=== PATIENT | female | born 1950 | race Caucasian/White ===

== ENCOUNTER 2022-01-28 10:56 | Inpatient (IN) ==
[2022-01-28] MEDS ORDERED: SODIUM CHLORIDE 0.9% 1000ML 1,000 ML IV STA (11:43)
--- NOTE | 2022-01-28 11:53 | Emergency Department Note ---
Impression & Plan UTI (urinary tract infection), Anemia, Bladder cancer metastasized to bone, Fever ED Provider Note Provider: Zeke Boo MD DATE OF SERVICE: 01/28/2022 CHIEF COMPLAINT: Fever, fatigue HISTORY OF PRESENT ILLNESS: Patient is a 71-year-old female history of bladder cancer with urostomy currently on chemotherapy follows in [place] as well as a recent diagnosis of left lower extremity DVT started last week on Eliquis presenting here today with daughter reporting fever starting yesterday. States has been the highest 104 Fahrenheit continued this morning. Did take Tylenol. has been feeling more fatigued the last several days. Did have infusion of chemotherapy on Sunday. Denies any falls or trauma. Denies chest pain, headaches, or abdominal pain. They have noticed a few flecks of blood in her ostomy at times but no gross bleeding. has been trying to hydrate but daughter states this is in their estimation not enough. Has been eating some and denies nausea or vomiting. Family have been sick with RSV she denies URI symptoms. UTI about 3 weeks ago. REVIEW OF SYSTEMS: A total of 10 review of systems was obtained and negative except as stated above in the HPI. PAST MEDICAL HISTORY: As noted above MEDICATIONS: Reviewed with him home medications now including Eliquis SOCIAL HISTORY: Resides at home in [place] PHYSICAL EXAM: GENERAL: alert and oriented in no acute distress on stretcher Head: normocephalic and atraumatic EYES: No injection, discharge or icterus. NECK: Trachea midline. ENT: Mucous membranes pink and moist. LUNGS: Airway patent. No retractions. Breath sounds clear with good air entry bilaterally. HEART: Regular rate and rhythm. No chest wall tenderness ABDOMEN: Soft and non-tender, without guarding or rebound. Urostomy in place in mid lower abdomen with some darkish yellow urine output. Not grossly bloody. SKIN: Acyanotic, warm, dry, without rashes EXTREMITIES: Without swelling, tenderness or deformity NEUROLOGICAL: No focal deficits. No aphasia. No facial droop or slurred speech. Ambulatory. CONTINUOUS CARDIAC MONITORING: was ordered and showed a heart rate of 80s-100s bpm in NSR and sinus tachycardia Patient's laboratory studies and imaging reviewed. Differential includes Viral syndrome, otitis, pharyngitis, pneumonia, influenza, meningitis, urinary tract infection, sepsis, bacteremia, as well as other pathologies. IMPRESSION/MEDICAL DECISION MAKING: Patient does appear meningitic and denies any headache symptoms. Tylenol before arrival reports fevers yesterday evening and today. Is on chemotherapy. Did notice with occasional flecks of blood in urostomy not atypical given new institution of [facility]. Denies any pain complaints. Abdomen is benign I doubt acute intra-abdominal pathology or obstructive pathology given this and her lack of pain. Blood pressure is in the 80s systolic although she is fairly thin with some IV hydration. Respiratory viral panel to be sent with cultures and blood work. Chest x-ray be obtained. Having respiratory symptoms however. Patient does relate having prior blood transfusions as well as having a cell stimulating Neulasta/Neupogen shot 2 days ago. This could explain the elevated white blood cell count. Anemia today and has been on a blood thinner. States it was recently 8 several days ago but denies any blood in the stool or black stools.. Has had blood transfusions in the past. Doubt active GI bleed but will type and screen and plan to transfuse 1 unit. Procalcitonin elevated at 6. Difficult to interpret leukocytosis but is having fevers on chemotherapy with an elevated procalcitonin is high in significant anemia feel that observation in antimicrobial therapy would be warranted. Blood cultures were sent. Question urinary source. Again she does not look meningitic or toxic but fatigued. Blood pressure did improve to the 90s with some IV fluids here. Did spike a fever here and given Tylenol and Motrin. Hospitalist evaluated and will observe. Negative viral panel. DIAGNOSIS: Fevers, bladder cancer, anemia, UTI DISPOSITION: Hospitalist will evaluate Patient was agreeable with this plan. Critical Care I have personally spent 32 minutes of critical care time in the direct management of this patient. This includes bedside care, interpretation of diagnostic studies, and testing, discussion with consultants, patient, and family members, and other required patient management activities. These 32 minutes is in excess of all separately billable procedures. Past Med/Surg History Medical History (Updated 01/28/22 @ 16:51 by Zeke Boo M.D.) Acute DVT (deep venous thrombosis) Bladder cancer metastasized to bone Surgical History (Updated 01/06/22 @ 12:57 by America Mcneal RN) History of hysterectomy History of total cystectomy Social History Smoking Status: Never smoker Preferred Language: [place] Feels Safe at Home: Yes Allergies Allergies Allergy/AdvReac Type Severity Reaction Status Date / Time Sulfa (Sulfonamide Allergy Unknown Verified 01/28/22 16:04 Antibiotics) Home Meds Home Medications Medication Instructions Recorded Confirmed Ayjames-Jean Carlosia Aniket 2 tab PO BID 01/28/22 01/28/22 Berberine Complex 2 cap PO BID 01/28/22 01/28/22 Curcu-Essentials 1 tab PO BID 01/28/22 01/28/22 Curcumin Iv 0 mg IV .[id number] 01/28/22 01/28/22 Glutathione Iv 0 mg IV .[id number] 01/28/22 01/28/22 Isoflavone Caps 2 cap PO BID 01/28/22 01/28/22 L-Glutamine Pow 0 mg PO DIRECTED 01/28/22 01/28/22 Methyl-Guard 1 cap PO DAILY 01/28/22 01/28/22 Multivitamin Iv 0 mg IV .[id number] 01/28/22 01/28/22 Nutri-Essentials 2 cap PO DAILY 01/28/22 01/28/22 Opti-Cell Plus 3 tab PO BID 01/28/22 01/28/22 Proepa 1 tab PO BID 01/28/22 01/28/22 Quercetin Iv 0 mg IV .[id number] 01/28/22 01/28/22 Reservatrol Iv 0 mg IV .[id number] 01/28/22 01/28/22 Turbo Greens 1 ea PO BID 01/28/22 01/28/22 Ultra Lipoic Essentials 2 tab PO BID 01/28/22 01/28/22 Ultra Reishi 2 tab PO BID 01/28/22 01/28/22 Vitamin C Iv 0 mg IV .[id number] 01/28/22 01/28/22 acetaminophen 500 mg tablet 1,000 mg PO Q6H PRN Fever Or Pain 01/28/22 01/28/22 apixaban 5 mg tablet (Eliquis) 5 mg PO BID 01/28/22 01/28/22 cholecalciferol (vitamin D3) 125 125 mcg PO DAILY 01/28/22 01/28/22 mcg (5,000 unit) tablet (Vitamin D3) gabapentin 300 mg capsule 300 mg PO QAM 01/28/22 01/28/22 hydroxyzine HCl 25 mg tablet 25 mg PO QAM 01/28/22 01/28/22 lysine 500 mg tablet (L-Lysine) 500 mg PO DAILY 01/28/22 01/28/22 magnesium citrate 100 mg capsule 0 mg PO BID 01/28/22 01/28/22 ondansetron HCl 4 mg tablet 4 mg PO Q8H PRN .NAUSEA/VOMITING 01/28/22 01/28/22 oxycodone 5 mg tablet 5 - 10 mg PO .Q4-6HRS PRN Pain 01/28/22 01/28/22 zinc acetate 25 mg (zinc) capsule 0 mg PO DAILY 01/28/22 01/28/22 Results & Data (ED) Vital Signs Vital Signs - 24 hr 01/28/22 11:02 01/28/22 12:38 01/28/22 12:38 Temperature 36.7 C Temperature Source Oral Pulse Rate 84 Pulse Rate from SpO2 Sensor 76 Pulse Rhythm Regular Pulse Strength Normal Respiratory Rate 16 Blood Pressure 89/59 L 97/53 L Blood Pressure Mean 69 67 Blood Pressure Position Sitting Pulse Oximetry 98 97 Oxygen Delivery Method Room Air Sepsis Recent Fever Within 48 Hours No Sepsis New/Unexplained Change in Mental Status No Sepsis Action Taken by Nursing No Action Required 01/28/22 12:40 01/28/22 12:50 01/28/22 13:00 Temperature Temperature Source Pulse Rate Pulse Rate from SpO2 Sensor 76 75 Pulse Rhythm Pulse Strength Respiratory Rate Blood Pressure 95/56 L Blood Pressure Mean 69 Blood Pressure Position Pulse Oximetry 98 99 Oxygen Delivery Method Sepsis Recent Fever Within 48 Hours Sepsis New/Unexplained Change in Mental Status Sepsis Action Taken by Nursing 01/28/22 13:00 01/28/22 13:10 01/28/22 13:20 Temperature Temperature Source Pulse Rate Pulse Rate from SpO2 Sensor 79 77 73 Pulse Rhythm Pulse Strength Respiratory Rate Blood Pressure Blood Pressure Mean Blood Pressure Position Pulse Oximetry 87 L 99 96 Oxygen Delivery Method Sepsis Recent Fever Within 48 Hours Sepsis New/Unexplained Change in Mental Status Sepsis Action Taken by Nursing 01/28/22 13:26 01/28/22 13:26 01/28/22 13:27 Temperature Temperature Source Pulse Rate Pulse Rate from SpO2 Sensor 78 Pulse Rhythm Pulse Strength Respiratory Rate Blood Pressure 100/68 Blood Pressure Mean 78 Blood Pressure Position Pulse Oximetry 90 100 Oxygen Delivery Method Sepsis Recent Fever Within 48 Hours Sepsis New/Unexplained Change in Mental Status Sepsis Action Taken by Nursing 01/28/22 13:30 01/28/22 13:37 01/28/22 13:40 Temperature Temperature Source Pulse Rate Pulse Rate from SpO2 Sensor 82 89 Pulse Rhythm Pulse Strength Respiratory Rate Blood Pressure 101/55 L Blood Pressure Mean 70 Blood Pressure Position Pulse Oximetry 94 91 Oxygen Delivery Method Sepsis Recent Fever Within 48 Hours Sepsis New/Unexplained Change in Mental Status Sepsis Action Taken by Nursing 01/28/22 13:50 01/28/22 14:00 01/28/22 14:00 Temperature Temperature Source Pulse Rate Pulse Rate from SpO2 Sensor 78 77 Pulse Rhythm Pulse Strength Respiratory Rate Blood Pressure 109/58 L Blood Pressure Mean 75 Blood Pressure Position Pulse Oximetry 98 100 Oxygen Delivery Method Sepsis Recent Fever Within 48 Hours Sepsis New/Unexplained Change in Mental Status Sepsis Action Taken by Nursing 01/28/22 14:10 01/28/22 14:20 01/28/22 14:30 Temperature Temperature Source Pulse Rate Pulse Rate from SpO2 Sensor 86 99 H 104 H Pulse Rhythm Pulse Strength Respiratory Rate Blood Pressure Blood Pressure Mean Blood Pressure Position Pulse Oximetry 96 100 96 Oxygen Delivery Method Sepsis Recent Fever Within 48 Hours Sepsis New/Unexplained Change in Mental Status Sepsis Action Taken by Nursing 01/28/22 14:40 01/28/22 14:50 01/28/22 15:00 Temperature Temperature Source Pulse Rate Pulse Rate from SpO2 Sensor 114 H 116 H Pulse Rhythm Pulse Strength Respiratory Rate Blood Pressure 142/69 H Blood Pressure Mean 93 Blood Pressure Position Pulse Oximetry 100 98 Oxygen Delivery Method Sepsis Recent Fever Within 48 Hours Sepsis New/Unexplained Change in Mental Status Sepsis Action Taken by Nursing 01/28/22 15:00 01/28/22 15:55 01/28/22 16:13 Temperature 39.2 C H 38.3 C H Temperature Source Oral Oral Pulse Rate 106 H 104 H Pulse Rate from SpO2 Sensor 111 H Pulse Rhythm Regular Pulse Strength Normal Respiratory Rate 20 18 Blood Pressure 139/71 92/50 L Blood Pressure Mean 93 64 Blood Pressure Position Lying Pulse Oximetry 97 96 97 Oxygen Delivery Method Sepsis Recent Fever Within 48 Hours Sepsis New/Unexplained Change in Mental Status Sepsis Action Taken by Nursing 01/28/22 16:10 01/28/22 16:25 Temperature 38.3 C H 37.7 C H Temperature Source Oral Oral Pulse Rate 100 H 102 H Pulse Rate from SpO2 Sensor Pulse Rhythm Regular Pulse Strength Normal Respiratory Rate 20 18 Blood Pressure 92/50 L 96/46 L Blood Pressure Mean 64 62 Blood Pressure Position Lying Pulse Oximetry 97 95 Oxygen Delivery Method Sepsis Recent Fever Within 48 Hours Sepsis New/Unexplained Change in Mental Status Sepsis Action Taken by Nursing Laboratory Data Result diagrams: 01/28/22 12:00 01/28/22 12:00 Lab Results 01/28/22 01/28/22 01/28/22 Range/Units 12:00 12:00 12:00 WBC 42.85 H* (4.8-10.8) K/ul RBC 1.99 L (3.93-5.22) M/uL Hgb 7.0 L (12.0-16.0) g/dl Hct 20.7 L* (34.1-44.9) % MCV 104.0 H (80.0-100.0) fL MCH 35.2 H (25.0-34.0) pg MCHC 33.8 (32.0-36.0) g/dL RDW Std Deviation 69.0 H (36.4-46.3) fL RDW Coeff of Macario 18.4 H (11.5-14.5) % Plt Count 123 L (130-400) K/uL MPV 9.7 (9.4-12.3) fL Neutrophils % (Manual) 97 % Lymphocytes % (Manual) 3 % Neutrophils # (Manual) 41.56 H (1.4-6.5) K/uL Total Absolute Neuts 41.56 H (1.4-6.5) K/uL Lymphocytes # (Manual) 1.29 (1.2-3.4) K/uL Total Abs Lymphocytes 1.29 (1.2-3.4) K/uL Toxic Vacuolation 1+ Platelet Estimate Decreased L (Normal) Anisocytosis Present Macrocytosis Present Sodium 133 L (136-145) mmol/L Potassium 3.5 (3.5-5.1) mmol/L Chloride 98 (98-107) mmol/L Carbon Dioxide 25 (21-32) mmol/L Anion Gap 10 (3-11) BUN 23 (6-23) mg/dl Creatinine 0.89 (0.6-1.2) mg/dl Est Cr Clr Drug Dosing 42.9 ml/min Est GFR ( Amer) 75.0 ml/min Est GFR (Non-Af Amer) 64.7 ml/min BUN/Creatinine Ratio 25.8 H (10-20) Glucose 111 H (70-99(Fasting)) mg/dl Lactate (0.4-2.0) mmol/L Calcium 8.0 L (8.5-10.1) mg/dl Total Bilirubin 0.4 (0.2-1.0) mg/dl AST 16 (13-39) U/L ALT 17 (7-52) U/L Alkaline Phosphatase 78 (34-104) U/L Troponin I High Sens 10.5 (0-14) pg/ml Total Protein 6.1 (6.0-8.3) gm/dl Albumin 2.9 L (3.4-5.0) gm/dl Globulin 3.2 (2.5-4.0) gm/dl Albumin/Globulin Ratio 0.9 (0.9-2) Procalcitonin 6.18 H (0-0.5) ng/ml Urine Color Urine Appearance (Clear) Urine pH (4.5-7.5) Ur Specific [place] (1.000-1.030) Urine Protein (Negative) Urine Glucose (UA) (Negative) Urine Ketones (Negative) Urine Blood (Negative) Urine Nitrite (Negative) Urine Bilirubin (Negative) Urine Urobilinogen (Negative) Ur Leukocyte Esterase (Negative) Urine WBC (Auto) (0-5) /hpf Urine RBC (Auto) (0-4) /hpf U Hyaline Cast (Auto) (0-5) /lpf U Epithel Cells (Auto) (0-5) /lpf Urine Bacteria (Auto) (Negative) Urine Yeast Adenovirus (PCR) (NotDetected) B. pertussis DNA (PCR) (NotDetected) B.parapertussis DNA PCR (NotDetected) C. pneumoniae DNA (PCR) (NotDetected) Coronavirus OC43 (PCR) (NotDetected) Coronavirus HKU1 (PCR) (NotDetected) Coronavirus 229E (PCR) (NotDetected) SARS-CoV-2 (PCR) (NotDetected) Coronavirus NL63 (PCR) (NotDetected) Human Metapneumovir PCR (NotDetected) Influenza Type A (PCR) (NotDetected) Influenza Type B (PCR) (NotDetected) M. pneumoniae (PCR) (NotDetected) Parainfluenza 1 (PCR) (NotDetected) Parainfluenza 2 (PCR) (NotDetected) Parainfluenza 3 (PCR) (NotDetected) Parainfluenza 4 (PCR) (NotDetected) RSV (PCR) (NotDetected) Entero/Rhino (PCR) (NotDetected) Blood Type Antibody Screen Crossmatch 01/28/22 01/28/22 01/28/22 Range/Units 12:00 12:00 13:00 WBC (4.8-10.8) K/ul RBC (3.93-5.22) M/uL Hgb (12.0-16.0) g/dl Hct (34.1-44.9) % MCV (80.0-100.0) fL MCH (25.0-34.0) pg MCHC (32.0-36.0) g/dL RDW Std Deviation (36.4-46.3) fL RDW Coeff of Macario (11.5-14.5) % Plt Count (130-400) K/uL MPV (9.4-12.3) fL Neutrophils % (Manual) % Lymphocytes % (Manual) % Neutrophils # (Manual) (1.4-6.5) K/uL Total Absolute Neuts (1.4-6.5) K/uL Lymphocytes # (Manual) (1.2-3.4) K/uL Total Abs Lymphocytes (1.2-3.4) K/uL Toxic Vacuolation Platelet Estimate (Normal) Anisocytosis Macrocytosis Sodium (136-145) mmol/L Potassium (3.5-5.1) mmol/L Chloride (98-107) mmol/L Carbon Dioxide (21-32) mmol/L Anion Gap (3-11) BUN (6-23) mg/dl Creatinine (0.6-1.2) mg/dl Est Cr Clr Drug Dosing ml/min Est GFR ( Amer) ml/min Est GFR (Non-Af Amer) ml/min BUN/Creatinine Ratio (10-20) Glucose (70-99(Fasting)) mg/dl Lactate 0.8 (0.4-2.0) mmol/L Calcium (8.5-10.1) mg/dl Total Bilirubin (0.2-1.0) mg/dl AST (13-39) U/L ALT (7-52) U/L Alkaline Phosphatase (34-104) U/L Troponin I High Sens (0-14) pg/ml Total Protein (6.0-8.3) gm/dl Albumin (3.4-5.0) gm/dl Globulin (2.5-4.0) gm/dl Albumin/Globulin Ratio (0.9-2) Procalcitonin (0-0.5) ng/ml Urine Color Dark Yellow Urine Appearance Turbid A (Clear) Urine pH 7.0 (4.5-7.5) Ur Specific [place] 1.018 (1.000-1.030) Urine Protein 3+ H (Negative) Urine Glucose (UA) Negative (Negative) Urine Ketones Negative (Negative) Urine Blood 3+ H (Negative) Urine Nitrite Negative (Negative) Urine Bilirubin Negative (Negative) Urine Urobilinogen Negative (Negative) Ur Leukocyte Esterase 3+ H (Negative) Urine WBC (Auto) >30 H (0-5) /hpf Urine RBC (Auto) >30 H (0-4) /hpf U Hyaline Cast (Auto) 5-10 H (0-5) /lpf U Epithel Cells (Auto) 0-5 (0-5) /lpf Urine Bacteria (Auto) 2+ H (Negative) Urine Yeast Not Reportable Adenovirus (PCR) Not Detected (NotDetected) B. pertussis DNA (PCR) Not Detected (NotDetected) B.parapertussis DNA PCR Not Detected (NotDetected) C. pneumoniae DNA (PCR) Not Detected (NotDetected) Coronavirus OC43 (PCR) Not Detected (NotDetected) Coronavirus HKU1 (PCR) Not Detected (NotDetected) Coronavirus 229E (PCR) Not Detected (NotDetected) SARS-CoV-2 (PCR) Not Detected (NotDetected) Coronavirus NL63 (PCR) Not Detected (NotDetected) Human Metapneumovir PCR Not Detected (NotDetected) Influenza Type A (PCR) Not Detected (NotDetected) Influenza Type B (PCR) Not Detected (NotDetected) M. pneumoniae (PCR) Not Detected (NotDetected) Parainfluenza 1 (PCR) Not Detected (NotDetected) Parainfluenza 2 (PCR) Not Detected (NotDetected) Parainfluenza 3 (PCR) Not Detected (NotDetected) Parainfluenza 4 (PCR) Not Detected (NotDetected) RSV (PCR) Not Detected (NotDetected) Entero/Rhino (PCR) Not Detected (NotDetected) Blood Type Antibody Screen Crossmatch 01/28/22 Range/Units 13:24 WBC (4.8-10.8) K/ul RBC (3.93-5.22) M/uL Hgb (12.0-16.0) g/dl Hct (34.1-44.9) % MCV (80.0-100.0) fL MCH (25.0-34.0) pg MCHC (32.0-36.0) g/dL RDW Std Deviation (36.4-46.3) fL RDW Coeff of Macario (11.5-14.5) % Plt Count (130-400) K/uL MPV (9.4-12.3) fL Neutrophils % (Manual) % Lymphocytes % (Manual) % Neutrophils # (Manual) (1.4-6.5) K/uL Total Absolute Neuts (1.4-6.5) K/uL Lymphocytes # (Manual) (1.2-3.4) K/uL Total Abs Lymphocytes (1.2-3.4) K/uL Toxic Vacuolation Platelet Estimate (Normal) Anisocytosis Macrocytosis Sodium (136-145) mmol/L Potassium (3.5-5.1) mmol/L Chloride (98-107) mmol/L Carbon Dioxide (21-32) mmol/L Anion Gap (3-11) BUN (6-23) mg/dl Creatinine (0.6-1.2) mg/dl Est Cr Clr Drug Dosing ml/min Est GFR ( Amer) ml/min Est GFR (Non-Af Amer) ml/min BUN/Creatinine Ratio (10-20) Glucose (70-99(Fasting)) mg/dl Lactate (0.4-2.0) mmol/L Calcium (8.5-10.1) mg/dl Total Bilirubin (0.2-1.0) mg/dl AST (13-39) U/L ALT (7-52) U/L Alkaline Phosphatase (34-104) U/L Troponin I High Sens (0-14) pg/ml Total Protein (6.0-8.3) gm/dl Albumin (3.4-5.0) gm/dl Globulin (2.5-4.0) gm/dl Albumin/Globulin Ratio (0.9-2) Procalcitonin (0-0.5) ng/ml Urine Color Urine Appearance (Clear) Urine pH (4.5-7.5) Ur Specific [place] (1.000-1.030) Urine Protein (Negative) Urine Glucose (UA) (Negative) Urine Ketones (Negative) Urine Blood (Negative) Urine Nitrite (Negative) Urine Bilirubin (Negative) Urine Urobilinogen (Negative) Ur Leukocyte Esterase (Negative) Urine WBC (Auto) (0-5) /hpf Urine RBC (Auto) (0-4) /hpf U Hyaline Cast (Auto) (0-5) /lpf U Epithel Cells (Auto) (0-5) /lpf Urine Bacteria (Auto) (Negative) Urine Yeast Adenovirus (PCR) (NotDetected) B. pertussis DNA (PCR) (NotDetected) B.parapertussis DNA PCR (NotDetected) C. pneumoniae DNA (PCR) (NotDetected) Coronavirus OC43 (PCR) (NotDetected) Coronavirus HKU1 (PCR) (NotDetected) Coronavirus 229E (PCR) (NotDetected) SARS-CoV-2 (PCR) (NotDetected) Coronavirus NL63 (PCR) (NotDetected) Human Metapneumovir PCR (NotDetected) Influenza Type A (PCR) (NotDetected) Influenza Type B (PCR) (NotDetected) M. pneumoniae (PCR) (NotDetected) Parainfluenza 1 (PCR) (NotDetected) Parainfluenza 2 (PCR) (NotDetected) Parainfluenza 3 (PCR) (NotDetected) Parainfluenza 4 (PCR) (NotDetected) RSV (PCR) (NotDetected) Entero/Rhino (PCR) (NotDetected) Blood Type O Positive Antibody Screen NEGATIVE Crossmatch See Detail Administered Medications Discontinued Medications Acetaminophen (Acetaminophen 500 Mg Tab) 1,000 mg PO NOW STA Stop: 01/28/22 15:21 Last Admin: 01/28/22 15:27 Dose: 1,000 mg Documented By: [id number] Sodium Chloride (Nss 1000ml) 1,000 mls @ 999 mls/hr IV .[id number] STA Stop: 01/28/22 12:43 Last Infusion: 01/28/22 14:06 Dose: 0 mls/hr Documented By: [id number] Admin: 01/28/22 12:37 Dose: 999 mls/hr Documented By: [id number] Cefepime HCl (Maxipime) 2,000 mg in 20 mls @ 5 mls/min IV NOW STA; Protocol Stop: 01/28/22 13:40 Last Admin: 01/28/22 14:18 Dose: 5 mls/min Documented By: [id number] Ibuprofen (Ibuprofen 200 Mg Tab) 400 mg PO NOW STA Stop: 01/28/22 15:52 Last Admin: 01/28/22 16:01 Dose: 400 mg Documented By: [id number] Imaging Data Radiologist's Impression: Chest X-Ray 01/28/22 11:43 XR chest 1V portable CLINICAL HISTORY: Fever TECHNIQUE: Single frontal radiograph of the chest was obtained. Comparison: Comparison is made to chest radiograph 11/24/2021 FINDINGS: A port catheter is seen. The cardiomediastinal silhouette is normal. The lungs are clear. No evidence of pleural effusion or pneumothorax. IMPRESSION: No acute abnormalities and in particular no evidence of pneumonia. ACT 112: Negative or not required by law. Electronically signed by: Paramjit Solo M.D. 01/28/2022 12:39 PM Discharge Plan Visit Data Chief Complaint: Fever Stated Complaint: FEVER ED Provider: Zeke Boo Discharge Problem: UTI (urinary tract infection), Anemia, Bladder cancer metastasized to bone, Fever Patient Disposition: Being Evaluated by Hospitalist Forms Stand Alone Forms: My [facility] Prescriptions Prescriptions: No Action acetaminophen [Tylenol Ex Str Rapid Release] 500 mg Tablet 1,000 mg PO Q6H PRN (Reason: Fever Or Pain) oxycodone 5 mg tablet 5 - 10 mg PO .Q4-6HRS PRN (Reason: Pain) Ayur-Boswellia Aniket 2 tab PO BID Rx Instructions: without food zinc acetate 25 mg (zinc) Capsule 0 mg PO DAILY ondansetron HCl 4 mg Tablet 4 mg PO Q8H PRN (Reason: .NAUSEA/VOMITING) gabapentin 300 mg capsule 300 mg PO QAM hydroxyzine HCl 25 mg tablet 25 mg PO QAM lysine [L-Lysine] 500 mg Tablet 500 mg PO DAILY cholecalciferol (vitamin D3) [Vitamin D3] 125 mcg (5,000 unit) Tablet 125 mcg PO DAILY Eliquis 5 mg tablet 5 mg PO BID magnesium citrate 100 mg Capsule 0 mg PO BID Berberine Complex 2 cap PO BID Curcu-Essentials 1 tab PO BID Curcumin Iv 0 mg IV .[id number] Glutathione Iv 0 mg IV .[id number] Isoflavone Caps 2 cap PO BID Rx Instructions: TAKE ON EMPTY STOMACH L-Glutamine Pow 0 mg PO DIRECTED Rx Instructions: 20-30 GRAMS DAILY IN LIQUID (2-3 SCOOPS TID), TAKE DAY BEFORE CHEMO, DAY OF, 2 DAYS AFTER CHEMO Methyl-Guard 1 cap PO DAILY Multivitamin Iv 0 mg IV .[id number] Nutri-Essentials 2 cap PO DAILY Opti-Cell Plus 3 tab PO BID Proepa 1 tab PO BID Quercetin Iv 0 mg IV .[id number] Reservatrol Iv 0 mg IV .[id number] Turbo Greens 1 ea PO BID Rx Instructions: IN LIQUID Ultra Lipoic Essentials 2 tab PO BID Ultra Reishi 2 tab PO BID Rx Instructions: take without food Vitamin C Iv 0 mg IV .[id number] Referrals Referrals: Reyna Tidwell DO [Primary Care Provider] -
[2022-01-28 12:30] LABS: Hematocrit (blood only) 20.7 % (34.1-44.9); Mean Corpuscular Hemoglobin 35.2 pg (25.0-34.0); Mean Corpuscular Hgb Conc 33.8 g/dL (32.0-36.0); Mean Platelet Volume 9.7 fL (9.4-12.3); Platelet Count 123 K/uL (130-400); RDW Coefficient of Variation 18.4 % (11.5-14.5); Red Blood Count 1.99 M/uL (3.93-5.22); White Blood Count 42.85 K/ul (4.8-10.8)
[2022-01-28 12:31] LABS: Albumin Globulin Ratio 0.9 (0.9-2); Albumin Level 2.9 gm/dl (3.4-5.0); BUN Creatinine Ratio 25.8 (10-20); Bilirubin,Total 0.4 mg/dl (0.2-1.0); Creatinine Clr Calc Pharmacy 42.9 ml/min; Est GFR (Non-African American) 64.7 ml/min; Globulin 3.2 gm/dl (2.5-4.0); Potassium 3.5 mmol/L (3.5-5.1); Total Protein 6.1 gm/dl (6.0-8.3)
[2022-01-28 12:36] LABS: ALC (manual) 1.29 K/uL (1.2-3.4); ANC (manual) 41.56 K/uL (1.4-6.5); Anisocytosis Present; Lymphocytes # (manual) 1.29 K/uL (1.2-3.4); Lymphocytes % (manual) 3 %; Macrocytosis Present; Neutrophils # (manual) 41.56 K/uL (1.4-6.5); Neutrophils % (manual) 97 %; Platelet Estimate Decreased (Normal); Toxic Vacuolation 1+
[2022-01-28 12:37] LABS: Troponin I High Sensitivity 10.5 pg/ml (0-14)
--- NOTE | 2022-01-28 12:40 | XRay Report ---
XR chest 1V portable CLINICAL HISTORY: Fever TECHNIQUE: Single frontal radiograph of the chest was obtained. Comparison: Comparison is made to chest radiograph 11/24/2021 FINDINGS: A port catheter is seen. The cardiomediastinal silhouette is normal. The lungs are clear. No evidence of pleural effusion or pneumothorax. IMPRESSION: No acute abnormalities and in particular no evidence of pneumonia. ACT 112: Negative or not required by law. Electronically signed by: Paramjit Solo M.D. 01/28/2022 12:39 PM
[2022-01-28 13:18] LABS: Appearance Urine Turbid (Clear); Bilirubin Urine Negative (Negative); Blood Urine 3+ (Negative); Color Urine Dark Yellow; Glucose Urine UA Negative (Negative); Ketones Urine Negative (Negative); Leukocyte Esterase Urine 3+ (Negative); Nitrite Urine Negative (Negative); Protein Urine 3+ (Negative); Specific Gravity Urine 1.018 (1.000-1.030); Urobilinogen Urine Negative (Negative); WBC Urine Automated >30 /hpf (0-5)
[2022-01-28] MEDS ORDERED: SODIUM CHLORIDE 0.9% 250 ML IV PRN ×2 (13:37→18:47)
[2022-01-28] MEDS ORDERED: CEFEPIME 2,000 MG/20 ML VIAL IV STA (13:37)
[2022-01-28 13:45] LABS: Bacteria Urine Automated 2+ (Negative); RBC Urine Automated >30 /hpf (0-4)
[2022-01-28 13:46] LABS: Epithelial Cell Urine Auto 0-5 /lpf (0-5)
--- NOTE | 2022-01-28 14:19 | History & Physical Report ---
Date of Service January 28, 2022 Assessment & Plan (1) Sepsis: Plan: With fever, tachycardia, leukocytosis, hypotension, with likely source being UTI but could have bacteremia BioFire VRP negative CXR negative Actively on chemotherapy, WBC count high due to infection as well as recent Neulasta BP improved with IVF crystalloid boluses Procal + -admit to med tele -continue LR at 125mL/hr x 2 more L -continue broad spectrum abx for UTI and to cover for bacteremia in setting of having a port-continue Cefepime -check MRSA swab and only start MRSA coverage if positive -follow Ur cx, BCxs -follow CBC, CMP, Mag, Procal in AM -tylenol prn fever (2) UTI (urinary tract infection): Plan: as above (3) Leukocytosis: Plan: excessively high most likely due to recent Neulasta but also due to infection follow CBC (4) Anemia: Plan: hgb down to 7.0; was 8.0 as per report from her daughter prior to receiving chemo 3 days ago this is antineoplastic-induced anemia and thrombocytopenia -transfuse 1 unit PRBCs given hypotension and severe anemia -follow CBC in AM (5) Bladder cancer metastasized to bone: Plan: Diagnosed in 2020, initially treated with immunotherapy and chemo at [facility] in [place] and was getting worse, tumors spread to bones and pelvic mass enlarged, losing weight Pt then switched care to [facility] in [place] which is an integrative cancer treatment center that uses many vitamins and supplements both po and IV in conjunction with her Gemzar and Cisplatin Pelvic mass has now resolved as per daughter's report on last scan -receives Gemzar q1 week and Cisplatin q2 weeks since beginning of November 2021- last chemo on 01/25 -Neulasta dosed on 01/26 -follow CBC -oxycodone as needed for pain (6) Hyponatremia: Plan: mildly low, secondary likely to dehydration give IVFs follow BMP (7) Thrombocytopenia: Plan: as above, 2/2 chemotherapy mild follow CBC (8) Acute DVT (deep venous thrombosis): Plan: 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 on 01/09/22 and placed on Eliquis -continue ELiquis 5mg po bid Plan DVT proph-Eliquis Dispo-admit to med-tele FULL CODE care discussed with her daughter Lea at bedside who is also HCPOA History of Present Illness Chief Complaint: Generalized weakness, fevers Primary Care Provider: Reyna Tidwell DO This patient is a 71-year-old female with a history of bladder cancer status post cystectomy with urostomy and currently on chemotherapy (gemzar and cisplatin,last dose 01/25), with recent LLE DVT placed on Eliquis last week, who presents to the ER with fevers to 104 and generalized weakness for the last 24 hrs. She does have recent exposure to RSV in a family member but he had been recovering for 2 weeks before she contacted him. She is has a little bit of flecks of blood in her urostomy output and thinks her urine is starting to smell more foul. Feeling generally weak, no respiratory symptoms. Denies headache, sore throat, runny nose, cough, nausea, abd pain, diarrhea, rash, or joint pains. In the ER, her urinalysis appears infected although difficult to interpret due to urostomy, [employer] viral respiratory panel was pending at the time of admission but later came back negative. Her blood pressure was initially in the 80s systolic but improved with IV fluids to 109/58. She was typed and crossed for 1 unit of PRBCs after hemoglobin was noted to be 7.0. Her white count was elevated at 42,000 however she did just receive Neulasta about 2 days ago. She was given IV fluid resuscitation and IV cefepime empirically due to possible UTI. Urine and blood cultures were drawn. She does have a port in place. Chest x-ray negative for pneumonia. She will be admitted for sepsis with UTI being most likely source but could have viral infection; rule out bacteremia, and for transfusional support. COVID-19 test negative. Allergies Allergy/AdvReac Type Severity Reaction Status Date / Time Sulfa (Sulfonamide Allergy Unknown Verified 01/28/22 16:04 Antibiotics) Home Medications Medication Instructions Recorded Confirmed Type Ayur-Boswellia Aniket 2 tab PO BID 01/28/22 01/28/22 History Berberine Complex 2 cap PO BID 01/28/22 01/28/22 History Curcu-Essentials 1 tab PO BID 01/28/22 01/28/22 History Curcumin Iv 0 mg IV .[id number] 01/28/22 01/28/22 History Glutathione Iv 0 mg IV .[id number] 01/28/22 01/28/22 History Isoflavone Caps 2 cap PO BID 01/28/22 01/28/22 History L-Glutamine Pow 0 mg PO DIRECTED 01/28/22 01/28/22 History Methyl-Guard 1 cap PO DAILY 01/28/22 01/28/22 History Multivitamin Iv 0 mg IV .[id number] 01/28/22 01/28/22 History Nutri-Essentials 2 cap PO DAILY 01/28/22 01/28/22 History Opti-Cell Plus 3 tab PO BID 01/28/22 01/28/22 History Proepa 1 tab PO BID 01/28/22 01/28/22 History Quercetin Iv 0 mg IV .[id number] 01/28/22 01/28/22 History Reservatrol Iv 0 mg IV .[id number] 01/28/22 01/28/22 History Turbo Greens 1 ea PO BID 01/28/22 01/28/22 History Ultra Lipoic Essentials 2 tab PO BID 01/28/22 01/28/22 History Ultra Reishi 2 tab PO BID 01/28/22 01/28/22 History Vitamin C Iv 0 mg IV .[id number] 01/28/22 01/28/22 History acetaminophen 500 mg tablet 1,000 mg PO Q6H PRN Fever Or Pain 01/28/22 01/28/22 History apixaban 5 mg tablet (Eliquis) 5 mg PO BID 01/28/22 01/28/22 History cholecalciferol (vitamin D3) 125 125 mcg PO DAILY 01/28/22 01/28/22 History mcg (5,000 unit) tablet (Vitamin D3) gabapentin 300 mg capsule 300 mg PO QAM 01/28/22 01/28/22 History hydroxyzine HCl 25 mg tablet 25 mg PO QAM 01/28/22 01/28/22 History lysine 500 mg tablet (L-Lysine) 500 mg PO DAILY 01/28/22 01/28/22 History magnesium citrate 100 mg capsule 0 mg PO BID 01/28/22 01/28/22 History ondansetron HCl 4 mg tablet 4 mg PO Q8H PRN .NAUSEA/VOMITING 01/28/22 01/28/22 History oxycodone 5 mg tablet 5 - 10 mg PO .Q4-6HRS PRN Pain 01/28/22 01/28/22 History zinc acetate 25 mg (zinc) capsule 0 mg PO DAILY 01/28/22 01/28/22 History Past Med/Surg History Medical History Acute DVT (deep venous thrombosis) Bladder cancer metastasized to bone Surgical History History of fracture of femur with evelyn placement; LEFT History of hysterectomy History of nephrostomy History of total cystectomy Family History Other Family history non-contributory Social History (Updated 01/28/22 @ 21:03 by Krystal Cuevas MD) Smoking Status: Never smoker Hx Alcohol Use: No Hx Substance Use: No Preferred Language: Bulgarian marital status: / Current Living Situation: Family Current Living Situation Comment: lives with her daughter Feels Safe at Home: Yes Review of Systems Review of Systems: All systems reviewed & are unremarkable except as noted in HPI & below Physical Exam Constitutional: + thin; no acute distress with rigors Eyes: PERRL, conjunctivae normal, anicteric sclerae ENMT: external ear and nose normal, oropharynx normal Ears: no external ear abnormality, no EAC abnormality and no TM abnormality Neck: normal visual inspection; no nuchal rigidity no tenderness to palpation, +FROM Respiratory: normal respiratory effort, lungs clear to auscultation Cardiovascular: RRR, no murmur, no edema Chest (Breasts): Chest: + vascular access device or port (right anterior chest port-no erythema) Gastrointestinal (Abdomen): Inspection/Auscultation: + abdomen abnormal to inspection (urostomy in place draining yellow cloudy urine) Percussion/Palpation: abdomen soft; abdomen nontender and no guarding Musculoskeletal: Extremities: extremities normal to inspection; no cyanosis and no clubbing Skin: no rashes, warm and dry Neurologic: moves all extremities and awake; no focal motor deficits Psychiatric: A+Ox3, euthymic affect Lymphatic: no lymphedema Results & Data Results & Data ([facility]) Vital Signs (Past 12 Hours) Vital Signs Temp Pulse Resp BP Pulse Ox O2 Del Method 01/28/22 11:02 36.7 C 84 16 89/59 L 98 Room Air Laboratory Results 01/28/22 01/28/22 01/28/22 Range/Units 13:24 13:00 12:00 WBC (4.8-10.8) K/ul RBC (3.93-5.22) M/uL Hgb (12.0-16.0) g/dl Hct (34.1-44.9) % MCV (80.0-100.0) fL MCH (25.0-34.0) pg MCHC (32.0-36.0) g/dL RDW Std Deviation (36.4-46.3) fL RDW Coeff of Macario (11.5-14.5) % Plt Count (130-400) K/uL MPV (9.4-12.3) fL Neutrophils % (Manual) % Lymphocytes % (Manual) % Neutrophils # (Manual) (1.4-6.5) K/uL Total Absolute Neuts (1.4-6.5) K/uL Lymphocytes # (Manual) (1.2-3.4) K/uL Total Abs Lymphocytes (1.2-3.4) K/uL Toxic Vacuolation Platelet Estimate (Normal) Anisocytosis Macrocytosis Sodium (136-145) mmol/L Potassium (3.5-5.1) mmol/L Chloride (98-107) mmol/L Carbon Dioxide (21-32) mmol/L Anion Gap (3-11) BUN (6-23) mg/dl Creatinine (0.6-1.2) mg/dl Est Cr Clr Drug Dosing ml/min Est GFR ( Amer) ml/min Est GFR (Non-Af Amer) ml/min BUN/Creatinine Ratio (10-20) Glucose (70-99(Fasting)) mg/dl Lactate (0.4-2.0) mmol/L Calcium (8.5-10.1) mg/dl Total Bilirubin (0.2-1.0) mg/dl AST (13-39) U/L ALT (7-52) U/L Alkaline Phosphatase (34-104) U/L Troponin I High Sens (0-14) pg/ml Total Protein (6.0-8.3) gm/dl Albumin (3.4-5.0) gm/dl Globulin (2.5-4.0) gm/dl Albumin/Globulin Ratio (0.9-2) Procalcitonin (0-0.5) ng/ml Urine Color Dark Yellow Urine Appearance Turbid A (Clear) Urine pH 7.0 (4.5-7.5) Ur Specific Bu[place] 1.018 (1.000-1.030) Urine Protein 3+ H (Negative) Urine Glucose (UA) Negative (Negative) Urine Ketones Negative (Negative) Urine Blood 3+ H (Negative) Urine Nitrite Negative (Negative) Urine Bilirubin Negative (Negative) Urine Urobilinogen Negative (Negative) Ur Leukocyte Esterase 3+ H (Negative) Urine WBC (Auto) >30 H (0-5) /hpf Urine RBC (Auto) >30 H (0-4) /hpf U Hyaline Cast (Auto) 5-10 H (0-5) /lpf U Epithel Cells (Auto) 0-5 (0-5) /lpf Urine Bacteria (Auto) 2+ H (Negative) Urine Yeast Not Reportable Adenovirus (PCR) Pending B. pertussis DNA (PCR) Pending B.parapertussis DNA PCR Pending C. pneumoniae DNA (PCR) Pending Coronavirus OC43 (PCR) Pending Coronavirus HKU1 (PCR) Pending Coronavirus 229E (PCR) Pending SARS-CoV-2 (PCR) Pending Coronavirus NL63 (PCR) Pending Human Metapneumovir PCR Pending Influenza Type B (PCR) Pending M. pneumoniae (PCR) Pending Parainfluenza 1 (PCR) Pending Parainfluenza 2 (PCR) Pending Parainfluenza 3 (PCR) Pending Parainfluenza 4 (PCR) Pending RSV (PCR) Pending Entero/Rhino (PCR) Pending Blood Type Pending Antibody Screen Pending Crossmatch See Detail 01/28/22 01/28/22 01/28/22 Range/Units 12:00 12:00 12:00 WBC (4.8-10.8) K/ul RBC (3.93-5.22) M/uL Hgb (12.0-16.0) g/dl Hct (34.1-44.9) % MCV (80.0-100.0) fL MCH (25.0-34.0) pg MCHC (32.0-36.0) g/dL RDW Std Deviation (36.4-46.3) fL RDW Coeff of Macario (11.5-14.5) % Plt Count (130-400) K/uL MPV (9.4-12.3) fL Neutrophils % (Manual) % Lymphocytes % (Manual) % Neutrophils # (Manual) (1.4-6.5) K/uL Total Absolute Neuts (1.4-6.5) K/uL Lymphocytes # (Manual) (1.2-3.4) K/uL Total Abs Lymphocytes (1.2-3.4) K/uL Toxic Vacuolation Platelet Estimate (Normal) Anisocytosis Macrocytosis Sodium 133 L (136-145) mmol/L Potassium 3.5 (3.5-5.1) mmol/L Chloride 98 (98-107) mmol/L Carbon Dioxide 25 (21-32) mmol/L Anion Gap 10 (3-11) BUN 23 (6-23) mg/dl Creatinine 0.89 (0.6-1.2) mg/dl Est Cr Clr Drug Dosing 42.9 ml/min Est GFR ( Amer) 75.0 ml/min Est GFR (Non-Af Amer) 64.7 ml/min BUN/Creatinine Ratio 25.8 H (10-20) Glucose 111 H (70-99(Fasting)) mg/dl Lactate 0.8 (0.4-2.0) mmol/L Calcium 8.0 L (8.5-10.1) mg/dl Total Bilirubin 0.4 (0.2-1.0) mg/dl AST 16 (13-39) U/L ALT 17 (7-52) U/L Alkaline Phosphatase 78 (34-104) U/L Troponin I High Sens 10.5 (0-14) pg/ml Total Protein 6.1 (6.0-8.3) gm/dl Albumin 2.9 L (3.4-5.0) gm/dl Globulin 3.2 (2.5-4.0) gm/dl Albumin/Globulin Ratio 0.9 (0.9-2) Procalcitonin 6.18 H (0-0.5) ng/ml Urine Color Urine Appearance (Clear) Urine pH (4.5-7.5) Ur Specific Buxton (1.000-1.030) Urine Protein (Negative) Urine Glucose (UA) (Negative) Urine Ketones (Negative) Urine Blood (Negative) Urine Nitrite (Negative) Urine Bilirubin (Negative) Urine Urobilinogen (Negative) Ur Leukocyte Esterase (Negative) Urine WBC (Auto) (0-5) /hpf Urine RBC (Auto) (0-4) /hpf U Hyaline Cast (Auto) (0-5) /lpf U Epithel Cells (Auto) (0-5) /lpf Urine Bacteria (Auto) (Negative) Urine Yeast Adenovirus (PCR) B. pertussis DNA (PCR) B.parapertussis DNA PCR C. pneumoniae DNA (PCR) Coronavirus OC43 (PCR) Coronavirus HKU1 (PCR) Coronavirus 229E (PCR) SARS-CoV-2 (PCR) Coronavirus NL63 (PCR) Human Metapneumovir PCR Influenza Type B (PCR) M. pneumoniae (PCR) Parainfluenza 1 (PCR) Parainfluenza 2 (PCR) Parainfluenza 3 (PCR) Parainfluenza 4 (PCR) RSV (PCR) Entero/Rhino (PCR) Blood Type Antibody Screen Crossmatch 01/28/22 Range/Units 12:00 WBC 42.85 H* (4.8-10.8) K/ul RBC 1.99 L (3.93-5.22) M/uL Hgb 7.0 L (12.0-16.0) g/dl Hct 20.7 L* (34.1-44.9) % MCV 104.0 H (80.0-100.0) fL MCH 35.2 H (25.0-34.0) pg MCHC 33.8 (32.0-36.0) g/dL RDW Std Deviation 69.0 H (36.4-46.3) fL RDW Coeff of Macario 18.4 H (11.5-14.5) % Plt Count 123 L (130-400) K/uL MPV 9.7 (9.4-12.3) fL Neutrophils % (Manual) 97 % Lymphocytes % (Manual) 3 % Neutrophils # (Manual) 41.56 H (1.4-6.5) K/uL Total Absolute Neuts 41.56 H (1.4-6.5) K/uL Lymphocytes # (Manual) 1.29 (1.2-3.4) K/uL Total Abs Lymphocytes 1.29 (1.2-3.4) K/uL Toxic Vacuolation 1+ Platelet Estimate Decreased L (Normal) Anisocytosis Present Macrocytosis Present Sodium (136-145) mmol/L Potassium (3.5-5.1) mmol/L Chloride (98-107) mmol/L Carbon Dioxide (21-32) mmol/L Anion Gap (3-11) BUN (6-23) mg/dl Creatinine (0.6-1.2) mg/dl Est Cr Clr Drug Dosing ml/min Est GFR ( Amer) ml/min Est GFR (Non-Af Amer) ml/min BUN/Creatinine Ratio (10-20) Glucose (70-99(Fasting)) mg/dl Lactate (0.4-2.0) mmol/L Calcium (8.5-10.1) mg/dl Total Bilirubin (0.2-1.0) mg/dl AST (13-39) U/L ALT (7-52) U/L Alkaline Phosphatase (34-104) U/L Troponin I High Sens (0-14) pg/ml Total Protein (6.0-8.3) gm/dl Albumin (3.4-5.0) gm/dl Globulin (2.5-4.0) gm/dl Albumin/Globulin Ratio (0.9-2) Procalcitonin (0-0.5) ng/ml Urine Color Urine Appearance (Clear) Urine pH (4.5-7.5) Ur Specific Bu[place] (1.000-1.030) Urine Protein (Negative) Urine Glucose (UA) (Negative) Urine Ketones (Negative) Urine Blood (Negative) Urine Nitrite (Negative) Urine Bilirubin (Negative) Urine Urobilinogen (Negative) Ur Leukocyte Esterase (Negative) Urine WBC (Auto) (0-5) /hpf Urine RBC (Auto) (0-4) /hpf U Hyaline Cast (Auto) (0-5) /lpf U Epithel Cells (Auto) (0-5) /lpf Urine Bacteria (Auto) (Negative) Urine Yeast Adenovirus (PCR) B. pertussis DNA (PCR) B.parapertussis DNA PCR C. pneumoniae DNA (PCR) Coronavirus OC43 (PCR) Coronavirus HKU1 (PCR) Coronavirus 229E (PCR) SARS-CoV-2 (PCR) Coronavirus NL63 (PCR) Human Metapneumovir PCR Influenza Type B (PCR) M. pneumoniae (PCR) Parainfluenza 1 (PCR) Parainfluenza 2 (PCR) Parainfluenza 3 (PCR) Parainfluenza 4 (PCR) RSV (PCR) Entero/Rhino (PCR) Blood Type Antibody Screen Crossmatch Diagnostic Findings Chest x-ray image personally reviewed by me and agree with the following report: Chest X-Ray 01/28/22 11:43 XR chest 1V portable CLINICAL HISTORY: Fever TECHNIQUE: Single frontal radiograph of the chest was obtained. Comparison: Comparison is made to chest radiograph 11/24/2021 FINDINGS: A port catheter is seen. The cardiomediastinal silhouette is normal. The lungs are clear. No evidence of pleural effusion or pneumothorax. IMPRESSION: No acute abnormalities and in particular no evidence of pneumonia. ACT 112: Negative or not required by law. Electronically signed by: Paramjit Solo M.D. 01/28/2022 12:39 PM ECG Additional Comments: ECG with sinus tachycardia, no ischemic changes Code Status & VTE Plan Code Status FULL CODE VTE Prophylaxis Plan VTE Prophylaxis will be ordered: Yes PG Care Time/CCT Total # of Minutes Spent Total Time Spent with Patient: Total time spent is greater than 50% in coordination of care (as documented) at patient's floor/unit and/or counseling patient: Coding Level of Care Code 27895 Initial Inpt Care Lvl 3 Diagnoses Sepsis A41.9 UTI (urinary tract infection) N39.0 Leukocytosis D72.829 Anemia D64.9 Bladder cancer metastasized to bone C67.9; C79.51 Hyponatremia E87.1 Thrombocytopenia D69.6 Acute DVT (deep venous thrombosis) I82.409
[2022-01-28 14:46] LABS: Adenovirus PCR Not Detected (NotDetected); Bordetella parapertussis PCR Not Detected (NotDetected); Bordetella pertussis PCR Not Detected (NotDetected); Chlamydia pneumoniae PCR Not Detected (NotDetected); Coronavirus 229E PCR Not Detected (NotDetected); Coronavirus CoV-2 (COVID19)PCR Not Detected (NotDetected); Coronavirus HKU1 PCR Not Detected (NotDetected); Coronavirus NL63 PCR Not Detected (NotDetected); Coronavirus OC43PCR Not Detected (NotDetected); Human Metapneumovirus PCR Not Detected (NotDetected); Influenza A PCR Not Detected (NotDetected); Influenza B PCR Not Detected (NotDetected); Mycoplasma pneumoniae PCR Not Detected (NotDetected); Parainfluenza Virus 1 PCR Not Detected (NotDetected); Parainfluenza Virus 2 PCR Not Detected (NotDetected); Parainfluenza Virus 3 PCR Not Detected (NotDetected); Parainfluenza Virus 4 PCR Not Detected (NotDetected); Respiratory Syncytial VirusPCR Not Detected (NotDetected); Rhinovirus/Enterovirus PCR Not Detected (NotDetected)
[2022-01-28] MEDS ORDERED: ACETAMINOPHEN 500 MG TAB PO STA (15:20)
[2022-01-28] MEDS ORDERED: IBUPROFEN 200 MG TAB PO STA (15:51)
[2022-01-28] MEDS ORDERED: DOCUSATE SODIUM/SENNA 50/8.6MG TAB PO PRN (18:47)
[2022-01-28] MEDS ORDERED: oxyCODONE HCL IR 5 MG TAB (IMMEDIATE RELEASE) PO PRN (18:47)
[2022-01-28] MEDS ORDERED: ONDANSETRON INJ 2 MG/ML 2 ML VIAL IV PRN (18:47)
[2022-01-28] MEDS ORDERED: POLYETHYLENE (MIRALAX) 17 GM PACK PO PRN (18:47)
[2022-01-28] MEDS: LACTATED RINGER'S 1,000 ML IV SCH (19:32)
[2022-01-28] MEDS: APIXABAN 5 MG TABLET PO SCH (20:00)
[2022-01-28] MEDS: DOCUSATE SODIUM 100 MG CAP PO SCH (20:00)
[2022-01-28 20:27] LABS: Hematocrit (blood only) 22.3 % (34.1-44.9); Hemoglobin 7.6 g/dl (12.0-16.0)
[2022-01-29] MEDS: CEFEPIME 2,000 MG in SYRINGE 0 ML IV SCH ×2 (01:13→13:33)
[2022-01-29] MEDS: ACETAMINOPHEN 500 MG TAB PO PRN ×3 (02:49→23:10)
[2022-01-29] MEDS: LACTATED RINGER'S 1,000 ML IV SCH (02:54)
[2022-01-29] MEDS ORDERED: IBUPROFEN 200 MG TAB PO STA (04:14)
--- NOTE | 2022-01-29 07:10 | Electrocardiogram Report ---
Test Reason : Blood Pressure : / mmHG Vent. Rate : 115 BPM Atrial Rate : 115 BPM P-R Int : 130 ms QRS Dur : 074 ms QT Int : 328 ms P-R-T Axes : 074 068 045 degrees QTc Int : 453 ms Poor data quality, interpretation may be adversely affected Sinus tachycardia Low voltage QRS Nonspecific ST abnormality Abnormal ECG No previous ECGs available Confirmed by Conner Garcia ([id number]) on 01/29/2022 7:10:22 AM Referred By: REFERRED SELF Confirmed By:Ambrocio Garcia
[2022-01-29 07:31] LABS: ALC (manual) 0.28 K/uL (1.2-3.4); ANC (manual) 27.76 K/uL (1.4-6.5); Anisocytosis Present; Hematocrit (blood only) 22.1 % (34.1-44.9); Hemoglobin 7.5 g/dl (12.0-16.0); Lymphocytes # (manual) 0.28 K/uL (1.2-3.4); Lymphocytes % (manual) 1 %; Mean Corpuscular Hemoglobin 33.6 pg (25.0-34.0); Mean Corpuscular Hgb Conc 33.9 g/dL (32.0-36.0); Mean Corpuscular Volume 99.1 fL (80.0-100.0); Mean Platelet Volume 10.4 fL (9.4-12.3); Neutrophils # (manual) 27.76 K/uL (1.4-6.5); Neutrophils % (manual) 99 %; Platelet Count 82 K/uL (130-400); Platelet Estimate Decreased (Normal); Poikilocytosis Present; RDW Coefficient of Variation 19.2 % (11.5-14.5); RDW Standard Deviation 68.1 fL (36.4-46.3); Red Blood Count 2.23 M/uL (3.93-5.22); White Blood Count 28.04 K/ul (4.8-10.8)
[2022-01-29 07:32] LABS: Albumin Level 2.7 gm/dl (3.4-5.0); BUN Creatinine Ratio 33.3 (10-20); Bilirubin,Total 0.4 mg/dl (0.2-1.0); Calcium 7.4 mg/dl (8.5-10.1); Creatinine Clr Calc Pharmacy 53.5 ml/min; Est GFR (African American) 92.3 ml/min; Est GFR (Non-African American) 79.6 ml/min; Globulin 2.6 gm/dl (2.5-4.0); Magnesium 1.6 mg/dl (1.7-2.4); Potassium 3.5 mmol/L (3.5-5.1); Total Protein 5.3 gm/dl (6.0-8.3)
[2022-01-29 07:48] LABS: Folate (Folic Acid) > 22.30 ng/ml (>5.38)
[2022-01-29 07:49] LABS: Vitamin B12 909 pg/ml (180-914)
[2022-01-29] MEDS: GABAPENTIN 300 MG CAP PO SCH (07:49)
[2022-01-29] MEDS: APIXABAN 5 MG TABLET PO SCH ×2 (07:49→20:06)
[2022-01-29] MEDS: hydrOXYzine HCl 25 MG TAB PO SCH (07:49)
[2022-01-29] MEDS: CHOLECALCIFEROL 5,000 UNITS 125 MCG TAB PO SCH (07:49)
[2022-01-29] MEDS: DOCUSATE SODIUM 100 MG CAP PO SCH ×3 (07:50→20:06)
--- NOTE | 2022-01-29 10:06 | Hospitalist Progress Note ---
Date of Service January 29, 2022 Assessment & Plan (1) Sepsis: Plan: Nichole is a 71 year old female w/ PmHx of bladder cancer w/ metastasis to femur and pelvis s/p urostomy and undergoing chemotherapy (gemzar and cisplatin, last session 01/25/22), recent LLE DVT on Eliquis admitted for sepsis secondary to UTI. Sepsis Secondary to UTI: -Patient febrile to 39.2, tachycardic, and hypotensive on entry. -U/A 3+Blood, 3+LE, WBC, 2+ Bacteria. Urine cultures and blood cultures pending. -CXR negative for acute pulmonary findings, patient without upper respiratory symptoms. -[employer] respiratory panel negative. MRSA swab negative. Procal 6.18, repeat 5.32 -Leukocytosis to 42 on entry however received Neulasta 2 days prior to admission. -Started on empiric Cefepime 2g q12h for UTI as source. -Vitals improved with fluid resuscitation. -Tylenol PRN for pain/fever. -Can narrow coverage when cultures return. -Follow CBC, CMP, Mg. Anemia/thrombocytopenia: -Hgb 7.0 on arrival, last chemotherapy session 01/25/22. -Most likely anti-neoplastic induced. -Transfused 1U PRBC, hgb up to 7.6. Threshold of <7.0 to transfuse. -Continue daily CBC. Bladder cancer metastasized to bone: -Diagnosed 2020, receives Gemzar q1 week and Cisplatin q2 weeks since beginning of November 2021-last chemo on 01/25 -oxycodone as needed for pain Hyponatremia: -132 on admission -May be secondary to dehydration/sepsis. -Given bolus NSS, LR maint fluids. -AM BMP. Acute DVT (deep venous thrombosis): -LLE femoral DVT diagnosed on 01/09/22 and placed on Eliquis -continue Eliquis 5mg po bid DVT prophylaxis: Eliquis Dispo: Med/Tele Code Status: Full code (2) UTI (urinary tract infection): (3) Fever: (4) Bladder cancer metastasized to bone: (5) Acute DVT (deep venous thrombosis): (6) Hyponatremia: (7) Anemia: Admission and Anticipated Discharge Date Admission Date: January 28, 2022 Supervising Physician Co-Signing Physician Notes Resident Physician Supervision Note: I independently interviewed and examined the patient and verified the gómez history and physical, reviewed labs and image studies and agree with resident findings and care plan. Subjective Patient seen at the bedside this morning feeling well. She said that befor she came in she had weakness and fevers up to 104 that made her daughter concerned and encourage her to go to the ER. She says that she has had urostomy infections prior to this but those only required outpatient antibiotics. Usually she will get a funny smell to the urine that will gómez her in to something going on. She sees urology in [facility] for the bladder cancer and urostomy management. Her daughter takes her usually to [place] to get vitamin infusions for the cancer which she says in conjunction with plant based diet has helped in preventing spread of the cancer at the bone. Review of Systems Review of Systems: As per HPI. Physical Exam Constitutional: WD/WN, vitals as above Eyes: PERRL, conjunctivae normal, anicteric sclerae Respiratory: normal respiratory effort, lungs clear to auscultation Cardiovascular: RRR, no murmur, no edema Chest (Breasts): normal inspection/palpation of breasts Gastrointestinal (Abdomen): normal bowel sounds, soft, nontender, no hepat osplenomegaly Genitourinary: Urostomy tube in place without erythema or swelling surrounding the opening. Drainage of yellow urine without signs of blood or sediment. Results & Data Results & [facility] ([facility]) Vital Signs (Past 12 Hours) Vital Signs Temp Pulse Pulse Resp BP Pulse Ox O2 Del Method 01/29/22 07:56 36.3 C L 75 18 105/62 95 Room Air 01/29/22 07:15 64 01/29/22 04:28 37.7 C H 01/29/22 04:01 39 C H 01/29/22 02:40 37.9 C H 109 H 16 135/80 95 Room Air 01/29/22 01:23 84 109/64 01/28/22 23:21 73 01/28/22 23:09 36.7 C 73 16 92/46 L 98 Room Air Resident Activity Tracking Resident Involvement: Resident Care Provided Care Provided: Adult Hospital Medicine (1) UTI (urinary tract infection) Urinary tract infection type: acute cystitis (2) Fever Fever type: unspecified Qualified Code(s): R50.9 - Fever, unspecified (3) Anemia Anemia type: unspecified type Qualified Code(s): D64.9 - Anemia, unspecified
[2022-01-29] MEDS ORDERED: HEPARIN 100 UNIT/ML 5ML FLUSH ONE (11:58)
[2022-01-29] MEDS: HEPARIN 100 UNIT/ML 5ML FLUSH FLUSH PRN (13:33)
[2022-01-30] MEDS: HEPARIN 100 UNIT/ML 5ML FLUSH FLUSH PRN (01:07)
[2022-01-30] MEDS: CEFEPIME 2,000 MG in SYRINGE 0 ML IV SCH ×3 (01:07→18:39)
[2022-01-30 07:10] LABS: BUN Creatinine Ratio 34.4 (10-20); Calcium 7.7 mg/dl (8.5-10.1); Est GFR (African American) 103.3 ml/min; Est GFR (Non-African American) 89.2 ml/min; Magnesium 1.5 mg/dl (1.7-2.4)
[2022-01-30 07:14] LABS: Hematocrit (blood only) 21.5 % (34.1-44.9); Hemoglobin 7.3 g/dl (12.0-16.0); Mean Corpuscular Hemoglobin 33.6 pg (25.0-34.0); Mean Corpuscular Volume 99.1 fL (80.0-100.0); Mean Platelet Volume 10.1 fL (9.4-12.3); Platelet Count 56 K/uL (130-400); Red Blood Count 2.17 M/uL (3.93-5.22); White Blood Count 18.41 K/ul (4.8-10.8)
[2022-01-30 07:16] LABS: Basophils # (auto) 0.07 K/uL (0-0.2); Basophils % (auto) 0.4 %; Echinocytes 1+; Eosinophils # (auto) 0.03 K/uL (0-0.50); Eosinophils % (auto) 0.2 %; Immature Granulocytes # (auto) 0.18 K/uL (0.00-0.02); Lymphocytes # (auto) 1.26 K/uL (1.2-3.4); Lymphocytes % (auto) 6.8 %; Monocytes # (auto) 0.92 K/uL (0.24-0.82); Neutrophils # (auto) 15.95 K/uL (1.4-6.5); Neutrophils % (auto) 86.6 %; Toxic Granulation 1+
--- NOTE | 2022-01-30 07:33 | Hospitalist Progress Note ---
Date of Service January 30, 2022 Assessment & Plan (1) Sepsis: Plan: Nichole is a 71 year old female w/ PmHx of bladder cancer w/ metastasis to femur and pelvis s/p urostomy and undergoing chemotherapy (gemzar and cisplatin, last session 01/25/22), recent LLE DVT on Eliquis admitted for sepsis secondary to UTI. Sepsis Secondary to UTI: -Patient febrile to 39.2, tachycardic, and hypotensive on entry. -U/A 3+Blood, 3+LE, WBC, 2+ Bacteria. Bcx pending -Urine cultures = pseudomonas (sensitivities available) and strep species -CXR negative for acute pulmonary findings, patient without upper respiratory symptoms. -BioFire respiratory panel negative. MRSA swab negative. Procal 6.18, repeat 3.13 -Leukocytosis to 42 on entry however received Neulasta 2 days prior to admission. Repeat 18.41 -Started on Cefepime 2g q12h for UTI as source. If she continues to tolerate well consider cipro PO as outpatient abx -Vitals improved with fluid resuscitation. -Tylenol PRN for pain/fever. -Follow CBC, CMP, Mg. Anemia/thrombocytopenia: -Hgb 7.0 on arrival, last chemotherapy session 01/25/22. -Most likely anti-neoplastic induced. -Transfused 1U PRBC, hgb up to 7.6. Threshold of <7.0 to transfuse. -Continue daily CBC. Bladder cancer metastasized to bone: -Diagnosed 2020, receives Gemzar q1 week and Cisplatin q2 weeks since beginning of November 2021-last chemo on 01/25 -oxycodone as needed for pain Hyponatremia: -132 on admission -May be secondary to dehydration/sepsis. -Given bolus NSS, LR maintenance fluids. -AM BMP. Acute DVT (deep venous thrombosis): -LLE femoral DVT diagnosed on 01/09/22 and placed on Eliquis -continue Eliquis 5mg po bid DVT prophylaxis: Eliquis Dispo: Med/Tele Code Status: Full code (2) UTI (urinary tract infection): (3) Fever: (4) Bladder cancer metastasized to bone: (5) Acute DVT (deep venous thrombosis): (6) Hyponatremia: (7) Anemia: Admission and Anticipated Discharge Date Admission Date: January 28, 2022 Supervising Physician Co-Signing Physician Notes I personally examined the patient and verified all gómez points of history and exam, discussed case, and agree with decision making with Dr Bobby generally feeling better. Had chills and sweats last night, but notes overall improving. No new complaints. Wonders about nephrostomy tubes needing changed. gets this done at [facility]. gets a lot of cancer care in [place]. vitals noted nad heent nc at mmm breathing unlabored no accessory muscles good effort L nephrostomy tube site mildly inflamed appearing no overt erythema, R fairly normal with a dull scaled rash no erythema pyelonephritis caused by nephrostomy related UTI in context of immunocompromise due to cancer/chemotherapy and moderate protein calorie malnutrition - continue cefepime for now, improving. await S on strep, anticipate home on cipro. change nephrostomy tubes prior to cessation of abx course (as long as done expeditiously can be done as outpt) Subjective Patient seen at bedside tearful, stressed about hospitalization and chronic medical conditions. Patient states she felt better after talking about her situation. She denies fever chills SOB abd pain chest pain. Discussed with patient and daughter, they understand we are continuing her current course of antibiotics and if she continues to do well we will transition her to an oral antibiotic. Patient complains of bumps felt on her left nephrostomy tube. 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 Review of Systems Review of Systems: Negative fever chills Negative headache dizziness Negative chest pain palpitations SOB Negative nausea vomitting diarrhea constipation Negative numbness tingling rash swelling Physical Exam Constitutional: WD/WN, vitals as above Eyes: PERRL, conjunctivae normal, anicteric sclerae ENMT: external ear and nose normal, oropharynx normal Neck: trachea midline, no thyromegaly Respiratory: normal respiratory effort, lungs clear to auscultation Cardiovascular: Rate/Rhythm: regular rate and regular rhythm Gastrointestinal (Abdomen): Inspection/Auscultation: abdomen normal to inspection Percussion/Palpation: abdomen soft; abdomen nontender Ostomy bag present fluid filled, noted two nephrostomy tubes on back no discharge rash noted, no nodule noted Skin: no rashes, warm and dry Results & Data Results & Data ([facility]) Vital Signs (Past 12 Hours) Vital Signs Temp Pulse Pulse Resp BP BP Pulse Ox 01/30/22 07:24 74 01/30/22 03:35 37.2 C 82 20 108/51 L 97 01/30/22 01:29 38.3 C H 01/30/22 01:18 38.6 C H 01/30/22 00:24 39 C H 01/29/22 22:11 89 01/29/22 23:25 39.0 C H 101 H 20 157/86 H 98 01/29/22 19:35 36.9 C 76 20 112/69 97 O2 Del Method 01/30/22 07:24 01/30/22 03:35 Room Air 01/30/22 01:29 01/30/22 01:18 01/30/22 00:24 01/29/22 22:11 01/29/22 23:25 Room Air 01/29/22 19:35 Room Air Diagnostic Findings Laboratory Results WBC 18.41 K/ul (4.8-10.8) H 01/30/22 06:21 RBC 2.17 M/uL (3.93-5.22) L 01/30/22 06:21 Hgb 7.3 g/dl (12.0-16.0) L 01/30/22 06:21 Hct 21.5 % (34.1-44.9) L 01/30/22 06:21 MCV 99.1 fL (80.0-100.0) 01/30/22 06:21 MCH 33.6 pg (25.0-34.0) 01/30/22 06:21 MCHC 34.0 g/dL (32.0-36.0) 01/30/22 06:21 RDW Std Deviation 69.0 fL (36.4-46.3) H 01/30/22 06:21 RDW Coeff of Macario 19.0 % (11.5-14.5) H 01/30/22 06:21 Plt Count 56 K/uL (130-400) L 01/30/22 06:21 MPV 10.1 fL (9.4-12.3) 01/30/22 06:21 Immature Gran % (Auto) 1.0 % 01/30/22 06:21 Neut % (Auto) 86.6 % 01/30/22 06:21 Lymph % (Auto) 6.8 % 01/30/22 06:21 [place] % (Auto) 5.0 % 01/30/22 06:21 Eos % (Auto) 0.2 % 01/30/22 06:21 Baso % (Auto) 0.4 % 01/30/22 06:21 Neut # (Auto) 15.95 K/uL (1.4-6.5) H 01/30/22 06:21 Lymph # (Auto) 1.26 K/uL (1.2-3.4) 01/30/22 06:21 [place] # (Auto) 0.92 K/uL (0.24-0.82) H 01/30/22 06:21 Eos # (Auto) 0.03 K/uL (0-0.50) 01/30/22 06:21 Baso # (Auto) 0.07 K/uL (0-0.2) 01/30/22 06:21 Immature Gran # (Auto) 0.18 K/uL (0.00-0.02) H 01/30/22 06:21 Neutrophils % (Manual) 99 % 01/29/22 06:22 Lymphocytes % (Manual) 1 % 01/29/22 06:22 Neutrophils # (Manual) 27.76 K/uL (1.4-6.5) H 01/29/22 06:22 Total Absolute Neuts 27.76 K/uL (1.4-6.5) H 01/29/22 06:22 Lymphocytes # (Manual) 0.28 K/uL (1.2-3.4) L 01/29/22 06:22 Total Abs Lymphocytes 0.28 K/uL (1.2-3.4) L 01/29/22 06:22 Toxic Granulation 1+ 01/30/22 06:21 Toxic Vacuolation 1+ 01/28/22 12:00 Platelet Estimate Decreased (Normal) L 01/29/22 06:22 Poikilocytosis Present 01/29/22 06:22 Anisocytosis Present 01/29/22 06:22 Macrocytosis Present 01/28/22 12:00 Echinocytes 1+ 01/30/22 06:21 Sodium 132 mmol/L (136-145) L 01/30/22 15:39 Potassium 3.2 mmol/L (3.5-5.1) L 01/30/22 15:39 Chloride 102 mmol/L (98-107) 01/30/22 15:39 Carbon Dioxide 23 mmol/L (21-32) 01/30/22 15:39 Anion Gap 7 (3-11) 01/30/22 15:39 BUN 18 mg/dl (6-23) 01/30/22 15:39 Creatinine 0.77 mg/dl (0.6-1.2) 01/30/22 15:39 Est Cr Clr Drug Dosing 50.7 ml/min 01/30/22 15:39 Est GFR ( Amer) 89.4 ml/min 01/30/22 15:39 Est GFR (Non-Af Amer) 77.1 ml/min 01/30/22 15:39 BUN/Creatinine Ratio 23.4 (10-20) H 01/30/22 15:39 Glucose 102 mg/dl (70-99(Fasting)) H 01/30/22 15:39 Lactate 0.8 mmol/L (0.4-2.0) 01/28/22 12:00 Calcium 7.7 mg/dl (8.5-10.1) L 01/30/22 15:39 Magnesium 1.5 mg/dl (1.7-2.4) L 01/30/22 06:21 Total Bilirubin 0.4 mg/dl (0.2-1.0) 01/29/22 06:22 AST 17 U/L (13-39) 01/29/22 06:22 ALT 18 U/L (7-52) 01/29/22 06:22 Alkaline Phosphatase 126 U/L (34-104) H 01/29/22 06:22 Troponin I High Sens 10.5 pg/ml (0-14) 01/28/22 12:00 Total Protein 5.3 gm/dl (6.0-8.3) L 01/29/22 06:22 Albumin 2.7 gm/dl (3.4-5.0) L 01/29/22 06:22 Globulin 2.6 gm/dl (2.5-4.0) 01/29/22 06:22 Albumin/Globulin Ratio 1.0 (0.9-2) 01/29/22 06:22 Vitamin B12 909 pg/ml (180-914) 01/29/22 06:22 Folate > 22.30 ng/ml (>5.38) 01/29/22 06:22 Procalcitonin 3.13 ng/ml (0-0.5) H 01/30/22 07:45 Urine Color Dark Yellow 01/28/22 13:00 Urine Appearance Turbid (Clear) A 01/28/22 13:00 Urine pH 7.0 (4.5-7.5) 01/28/22 13:00 Ur Specific [place] 1.018 (1.000-1.030) 01/28/22 13:00 Urine Protein 3+ (Negative) H 01/28/22 13:00 Urine Glucose (UA) Negative (Negative) 01/28/22 13:00 Urine Ketones Negative (Negative) 01/28/22 13:00 Urine Blood 3+ (Negative) H 01/28/22 13:00 Urine Nitrite Negative (Negative) 01/28/22 13:00 Urine Bilirubin Negative (Negative) 01/28/22 13:00 Urine Urobilinogen Negative (Negative) 01/28/22 13:00 Ur Leukocyte Esterase 3+ (Negative) H 01/28/22 13:00 Urine WBC (Auto) >30 /hpf (0-5) H 01/28/22 13:00 Urine RBC (Auto) >30 /hpf (0-4) H 01/28/22 13:00 U Hyaline Cast (Auto) 5-10 /lpf (0-5) H 01/28/22 13:00 U Epithel Cells (Auto) 0-5 /lpf (0-5) 01/28/22 13:00 Urine Bacteria (Auto) 2+ (Negative) H 01/28/22 13:00 Urine Yeast Not Reportable 01/28/22 13:00 Nasal Screen MRSA (PCR) Negative (Negative) 01/28/22 15:35 Adenovirus (PCR) Not Detected (NotDetected) 01/28/22 12:00 B. pertussis DNA (PCR) Not Detected (NotDetected) 01/28/22 12:00 B.parapertussis DNA PCR Not Detected (NotDetected) 01/28/22 12:00 C. pneumoniae DNA (PCR) Not Detected (NotDetected) 01/28/22 12:00 Coronavirus OC43 (PCR) Not Detected (NotDetected) 01/28/22 12:00 Coronavirus HKU1 (PCR) Not Detected (NotDetected) 01/28/22 12:00 Coronavirus 229E (PCR) Not Detected (NotDetected) 01/28/22 12:00 SARS-CoV-2 (PCR) Not Detected (NotDetected) 01/28/22 12:00 Coronavirus NL63 (PCR) Not Detected (NotDetected) 01/28/22 12:00 Human Metapneumovir PCR Not Detected (NotDetected) 01/28/22 12:00 Influenza Type A (PCR) Not Detected (NotDetected) 01/28/22 12:00 Influenza Type B (PCR) Not Detected (NotDetected) 01/28/22 12:00 M. pneumoniae (PCR) Not Detected (NotDetected) 01/28/22 12:00 Parainfluenza 1 (PCR) Not Detected (NotDetected) 01/28/22 12:00 Parainfluenza 2 (PCR) Not Detected (NotDetected) 01/28/22 12:00 Parainfluenza 3 (PCR) Not Detected (NotDetected) 01/28/22 12:00 Parainfluenza 4 (PCR) Not Detected (NotDetected) 01/28/22 12:00 RSV (PCR) Not Detected (NotDetected) 01/28/22 12:00 Entero/Rhino (PCR) Not Detected (NotDetected) 01/28/22 12:00 Blood Type O Positive 01/28/22 13:24 Antibody Screen NEGATIVE 01/28/22 13:24 Crossmatch See Detail 01/28/22 13:24 Impressions Chest X-Ray 01/28/22 11:43 XR chest 1V portable CLINICAL HISTORY: Fever TECHNIQUE: Single frontal radiograph of the chest was obtained. Comparison: Comparison is made to chest radiograph 11/24/2021 FINDINGS: A port catheter is seen. The cardiomediastinal silhouette is normal. The lungs are clear. No evidence of pleural effusion or pneumothorax. IMPRESSION: No acute abnormalities and in particular no evidence of pneumonia. ACT 112: Negative or not required by law. Electronically signed by: Paramjit Solo M.D. 01/28/2022 12:39 PM Medications Administered Current Inpatient Medications Acetaminophen (Acetaminophen 500 Mg Tab) 1,000 mg PO Q6H PRN PRN Reason: Pain or fever Stop: 02/27/22 21:59 Last Admin: 01/29/22 23:10 Dose: 1,000 mg Apixaban (Apixaban 5 Mg Tablet) 5 mg PO BID [facility] Stop: 02/27/22 20:59 Last Admin: 01/30/22 07:55 Dose: 5 mg Docusate Sodium (Docusate Sodium 100 Mg Cap) 100 mg PO TID [facility] Stop: 02/27/22 20:59 Last Admin: 01/30/22 14:39 Dose: 100 mg Gabapentin (Gabapentin 300 Mg Cap) [facility] Stop: 02/28/22 08:59 Last Admin: 01/30/22 07:56 Dose: 300 mg Heparin Sodium (Porcine) (Heparin 100 Unit/Ml 5ml Flush) 5 ml FLUSH PRN PRN PRN Reason: Flush Stop: 02/28/22 12:27 Last Admin: 01/30/22 01:07 Dose: 5 ml Hydroxyzine HCl (Hydroxyzine Hcl 25 Mg Tab) [facility] Stop: 02/28/22 08:59 Last Admin: 01/30/22 07:55 Dose: 25 mg Cefepime HCl 2,000 mg/ Syringe 20 mls @ 5 mls/min IV Q8H [facility]; Protocol Stop: 02/07/22 13:59 Last Admin: 01/30/22 10:57 Dose: 5 mls/min Ondansetron HCl (Ondansetron Inj 2 Mg/Ml 2 Ml Vial) 4 mg IV Q6H PRN PRN Reason: Nausea Stop: 02/27/22 18:46 Last Admin: 01/30/22 08:02 Dose: 4 mg Oxycodone HCl (Oxycodone Hcl Ir 5 Mg Tab (Immediate Release)) 5 mg PO Q6H PRN PRN Reason: Pain Stop: 02/11/22 18:46 Polyethylene Glycol (Polyethylene (Miralax) 17 Gm Pack) 17 gm PO DAILY PRN PRN Reason: Constipation Stop: 02/27/22 18:46 Senna/Docusate Sodium (Docusate Sodium/Senna 50/8.6mg Tab) 1 tab PO DAILY PRN PRN Reason: Constipation Stop: 02/27/22 18:46 Vitamin D (Cholecalciferol 5,000 Units 125 Mcg Tab) 5,000 units PO DAILY [facility] Stop: 02/28/22 08:59 Last Admin: 01/30/22 07:55 Dose: 5,000 units Resident Activity Tracking Resident Involvement: Resident Care Provided Care Provided: Adult Hospital Medicine (1) UTI (urinary tract infection) Urinary tract infection type: acute cystitis (2) Fever Fever type: unspecified Qualified Code(s): R50.9 - Fever, unspecified (3) Anemia Anemia type: unspecified type Qualified Code(s): D64.9 - Anemia, unspecified
[2022-01-30] MEDS: MAGNESIUM SULFATE / D5W 1 GM/100 ML BAG IV SCH ×3 (07:51→11:55)
[2022-01-30] MEDS: POTASSIUM CHLORIDE CRTAB 20 MEQ TABCR PO SCH ×2 (07:51→14:38)
[2022-01-30] MEDS: CHOLECALCIFEROL 5,000 UNITS 125 MCG TAB PO SCH (07:55)
[2022-01-30] MEDS: hydrOXYzine HCl 25 MG TAB PO SCH (07:55)
[2022-01-30] MEDS: APIXABAN 5 MG TABLET PO SCH ×2 (07:55→20:04)
[2022-01-30] MEDS: DOCUSATE SODIUM 100 MG CAP PO SCH ×3 (07:55→20:04)
[2022-01-30] MEDS: GABAPENTIN 300 MG CAP PO SCH (07:56)
[2022-01-30 16:30] LABS: BUN Creatinine Ratio 23.4 (10-20); Calcium 7.7 mg/dl (8.5-10.1); Creatinine Clr Calc Pharmacy 50.7 ml/min; Est GFR (African American) 89.4 ml/min; Est GFR (Non-African American) 77.1 ml/min; Potassium 3.2 mmol/L (3.5-5.1)
--- NOTE | 2022-01-30 17:34 | Billing Data ---
Date of Service January 30, 2022 Coding Level of Care Code 74651 Subseq Hosp Care Lvl 3
[2022-01-30] MEDS: ACETAMINOPHEN 500 MG TAB PO PRN (19:31)
[2022-01-31] MEDS: CEFEPIME 2,000 MG in SYRINGE 0 ML IV SCH (01:16)
[2022-01-31] MEDS: HEPARIN 100 UNIT/ML 5ML FLUSH FLUSH PRN ×2 (01:16→11:37)
--- NOTE | 2022-01-31 07:43 | Hospitalist Progress Note ---
Date of Service January 31, 2022 Assessment & Plan (1) Sepsis: Plan: Nichole is a 71 year old female w/ PmHx of bladder cancer w/ metastasis to femur and pelvis s/p urostomy and undergoing chemotherapy (gemzar and cisplatin, last session 01/25/22), recent LLE DVT on Eliquis admitted for sepsis secondary to UTI. Sepsis Secondary to UTI: -Patient febrile to 39.2, tachycardic, and hypotensive on entry. -U/A 3+Blood, 3+LE, WBC, 2+ Bacteria. Bcx pending -Urine cultures = pseudomonas (sensitivities available) and strep species -CXR negative for acute pulmonary findings, patient without upper respiratory symptoms. -BioFire respiratory panel negative. MRSA swab negative. Procal 6.18, repeat 3.13 -Leukocytosis to 42 on entry however received Neulasta 2 days prior to admission. Repeat 18.41 -Started on Cefepime 2g q12h for UTI as source. If she continues to tolerate well consider cipro PO as outpatient abx -Vitals improved with fluid resuscitation. -Tylenol PRN for pain/fever. -Follow CBC, CMP, Mg. Anemia/thrombocytopenia: -Hgb 7.0 on arrival, last chemotherapy session 01/25/22. -Most likely anti-neoplastic induced. -Transfused 1U PRBC, hgb up to 7.6. Threshold of <7.0 to transfuse. -Continue daily CBC. Bladder cancer metastasized to bone: -Diagnosed 2020, receives Gemzar q1 week and Cisplatin q2 weeks since beginning of November 2021-last chemo on 01/25 -oxycodone as needed for pain Hyponatremia: -132 on admission -May be secondary to dehydration/sepsis. -Given bolus NSS, LR maintenance fluids. -AM BMP. Acute DVT (deep venous thrombosis): -LLE femoral DVT diagnosed on 01/09/22 and placed on Eliquis -continue Eliquis 5mg po bid DVT prophylaxis: Eliquis Dispo: Med/Tele Code Status: Full code (2) UTI (urinary tract infection): (3) Fever: (4) Bladder cancer metastasized to bone: (5) Acute DVT (deep venous thrombosis): (6) Hyponatremia: (7) Anemia: Admission and Anticipated Discharge Date Admission Date: January 28, 2022 Results & Data Results & Data ([facility]) Vital Signs (Past 12 Hours) Vital Signs Temp Pulse Pulse Resp BP Pulse Ox O2 Del Method 01/31/22 03:26 36.8 C 72 18 108/61 99 Room Air 01/31/22 00:00 36.7 C 68 18 117/64 98 Room Air 01/30/22 22:33 72 (1) UTI (urinary tract infection) Urinary tract infection type: acute cystitis (2) Fever Fever type: unspecified Qualified Code(s): R50.9 - Fever, unspecified (3) Anemia Anemia type: unspecified type Qualified Code(s): D64.9 - Anemia, unspecified
[2022-01-31] MEDS ORDERED: CIPROFLOXACIN 500 MG TAB PO STA (09:55)
[2022-01-31 10:20] LABS: BUN Creatinine Ratio 28.1 (10-20); Creatinine Clr Calc Pharmacy 70.6 ml/min; Est GFR (African American) 107.3 ml/min; Est GFR (Non-African American) 92.6 ml/min; Magnesium 1.8 mg/dl (1.7-2.4); Potassium 3.6 mmol/L (3.5-5.1)
[2022-01-31] MEDS ORDERED: DOXYCYCLINE HYCLATE 100 MG CAP PO STA (10:24)
[2022-01-31 10:27] LABS: Anisocytosis Present; Basophils # (auto) 0.08 K/uL (0-0.2); Basophils % (auto) 0.4 %; Eosinophils # (auto) 0.02 K/uL (0-0.50); Eosinophils % (auto) 0.1 %; Hematocrit (blood only) 22.7 % (34.1-44.9); Hemoglobin 7.4 g/dl (12.0-16.0); Hypochromasia Present; Immature Granulocytes # (auto) 0.22 K/uL (0.00-0.02); Immature Granulocytes % (auto) 1.2 %; Lymphocytes # (auto) 0.98 K/uL (1.2-3.4); Lymphocytes % (auto) 5.3 %; Mean Corpuscular Hemoglobin 32.7 pg (25.0-34.0); Mean Corpuscular Hgb Conc 32.6 g/dL (32.0-36.0); Mean Corpuscular Volume 100.4 fL (80.0-100.0); Mean Platelet Volume 10.3 fL (9.4-12.3); Monocytes # (auto) 0.93 K/uL (0.24-0.82); Neutrophils # (auto) 16.21 K/uL (1.4-6.5); Platelet Count 49 K/uL (130-400); RDW Coefficient of Variation 18.9 % (11.5-14.5); Red Blood Count 2.26 M/uL (3.93-5.22); Toxic Granulation 1+; White Blood Count 18.44 K/ul (4.8-10.8)
[2022-01-31] MEDS: hydrOXYzine HCl 25 MG TAB PO SCH (10:29)
[2022-01-31] MEDS: APIXABAN 5 MG TABLET PO SCH (10:29)
[2022-01-31] MEDS: DOCUSATE SODIUM 100 MG CAP PO SCH ×2 (10:30→15:04)
[2022-01-31] MEDS: CHOLECALCIFEROL 5,000 UNITS 125 MCG TAB PO SCH (10:30)
[2022-01-31] MEDS: GABAPENTIN 300 MG CAP PO SCH (10:30)
[2022-01-31] MEDS ORDERED: DOXYCYCLINE HYCLATE 100 MG CAP PO SCH (10:30)
--- NOTE | 2022-01-31 14:33 | Discharge Summary ---
Date of Service January 31, 2022 Admission HPI Per Admitting Provider This patient is a 71-year-old female with a history of bladder cancer status post cystectomy with urostomy and currently on chemotherapy (gemzar and cisplatin,last dose 01/25), with recent LLE DVT placed on Eliquis last week, who presents to the ER with fevers to 104 and generalized weakness for the last 24 hrs. She does have recent exposure to RSV in a family member but he had been recovering for 2 weeks before she contacted him. She is has a little bit of flecks of blood in her urostomy output and thinks her urine is starting to smell more foul. Feeling generally weak, no respiratory symptoms. Denies headache, sore throat, runny nose, cough, nausea, abd pain, diarrhea, rash, or joint pains. In the ER, her urinalysis appears infected although difficult to interpret due to urostomy, Superbac viral respiratory panel was pending at the time of admission but later came back negative. Her blood pressure was initially in the 80s systolic but improved with IV fluids to 109/58. She was typed and crossed for 1 unit of PRBCs after hemoglobin was noted to be 7.0. Her white count was elevated at 42,000 however she did just receive Neulasta about 2 days ago. She was given IV fluid resuscitation and IV cefepime empirically due to possible UTI. Urine and blood cultures were drawn. She does have a port in place. Chest x-ray negative for pneumonia. She will be admitted for sepsis with UTI being most likely source but could have viral infection; rule out bacteremia, and for transfusional support. COVID-19 test negative. Admission Exam Per Admitting Provider Constitutional: + thin; no acute distress with rigors Eyes: PERRL, conjunctivae normal, anicteric sclerae ENMT: external ear and nose normal, oropharynx normal Ears: no external ear abnormality, no EAC abnormality and no TM abnormality Neck: normal visual inspection; no nuchal rigidity no tenderness to palpation, +FROM Respiratory: normal respiratory effort, lungs clear to auscultation Cardiovascular: RRR, no murmur, no edema Chest (Breasts): Chest: + vascular access device or port (right anterior chest port-no erythema) Gastrointestinal (Abdomen): Inspection/Auscultation: + abdomen abnormal to inspection (urostomy in place draining yellow cloudy urine) Percussion /Palpation: abdomen soft; abdomen nontender and no guarding Musculoskeletal: Extremities: extremities normal to inspection; no cyanosis and no clubbing Skin: no rashes, warm and dry Neurologic: moves all extremities and awake; no focal motor deficits Psychiatric: A+Ox3, euthymic affect Lymphatic: no lymphedema Principal Diagnosis Sepsis Discharge Exam Constitutional WD/WN, vitals as above Eyes PERRL, conjunctivae normal, anicteric sclerae ENMT external ear and nose normal, oropharynx normal Neck trachea midline, no thyromegaly Respiratory normal respiratory effort, lungs clear to auscultation Cardiovascular Rate/Rhythm: regular rate and regular rhythm Gastrointestinal (Abdomen) Inspection/Auscultation: abdomen normal to inspection Percussion/Palpation: abdomen soft; abdomen nontender ostomy bag noted, nephrotomy tubes noted wth minor irritation on the left Skin no rashes, warm and dry Discharge Data Allergies Allergy/AdvReac Type Severity Reaction Status Date / Time Sulfa (Sulfonamide Allergy Unknown Verified 01/28/22 16:04 Antibiotics) Consultations 01/28/22 14:00 ED Decision to Admit Stat Hospital Course (1) Sepsis: Nichole is a 71 year old female w/ PmHx of bladder cancer w/ metastasis to femur and pelvis s/p urostomy and undergoing chemotherapy (gemzar and cisplatin, last session 01/25/22), recent LLE DVT on Eliquis admitted for sepsis secondary to UTI. -Started Doxycycline 100mg BID for 11 days -Started Ciprofloxacin 500mg BID for 11 days -patient to follow with nephrology for replacement nephrostomy tubes Sepsis Secondary to UTI: -Patient febrile to 39.2, tachycardic, and hypotensive on entry. -Vitals improved with fluid resuscitation. -U/A 3+Blood, 3+LE, WBC, 2+ Bacteria. Bcx pending -Urine cultures = pseudomonas and enterococcus faecium (sensitivities available) -CXR negative for acute pulmonary findings, patient without upper respiratory symptoms. -[employer] respiratory panel negative. MRSA swab negative. Procal 6.18 downtrending -Leukocytosis to 42 on entry however received Neulasta 2 days prior to admission. Repeat 18.41 -Started on Cefepime 2g q12h for UTI as source. --> transitioned to Cipro and Doxy to cover 14 days total, with intent to have antibiotic coverage with replacement of her nephrostomy tubes Anemia/thrombocytopenia: -Hgb 7.0 on arrival, last chemotherapy session 01/25/22. -Most likely anti-neoplastic induced. -Transfused 1U PRBC, hgb up to 7.6 Bladder cancer metastasized to bone: -Diagnosed 2020, receives Gemzar q1 week and Cisplatin q2 weeks since beginning of November 2021-last chemo on 01/25 -oxycodone as needed for pain Hyponatremia : -132 on admission -May be secondary to dehydration/sepsis. -Given IVF, improved Acute DVT (deep venous thrombosis): -LLE femoral DVT diagnosed on 01/09/22 and placed on Eliquis -continue Eliquis 5mg po bid (2) UTI (urinary tract infection): (3) Fever: (4) Bladder cancer metastasized to bone: (5) Acute DVT (deep venous thrombosis): (6) Hyponatremia: (7) Anemia: Total Time Total Time Spent Total Time Spent (In Minutes): <30 Discharge Plan Discharge Items Patient Disposition: Home - Self-Care Reason For Visit: SEPSIS, FEVER Discharge Diagnosis: Sepsis Activity: Resume your previous activity Non-emergency contact: Primary Care Provider Call non-emergency contact if: you have any medication questions, your symptoms worsen and you have a fever Follow-up/Referrals: Reyna Tidwell DO [Primary Care Provider] - (PLEASE CALL YOUR PRIMARY CARE PROVIDER TO SCHEDULE A DISCHARGE FOLLOW-UP APPOINTMENT WITHIN 7-10 DAYS) Diet: Regular Addtl Attending Provider Instructions: You were admitted to the hospital for sepsis. You were treated with antibiotics. Please continue to take your antibiotics Doxycycline and Ciprofloxacin for 11 days and follow up with your interventional radiology doctor at [facility] to change your nephrostomy tubes. A discharge summary will be sent to your primary care physician to ensure continuity of care. Please bring this discharge summary with you to your next office appointment so that your provider can review it at that time. Follow-up appointments: Make a follow-up appointment with your PCP within the next week. It is very important that you follow up with them shortly after discharge from the hospital. Keep all your follow-up appointments as already scheduled. If you cannot make an appointment, notify your provider. Medications: Your medication list has been reviewed and reconciled upon discharge to ensure accuracy and continuity of care. An updated list of all your medications is incl uded with your hospital discharge paperwork. Please review this list closely, and make note of any changes. * We sent a new medication called Doxycycline to your pharmacy. Take Doxycycline 100mg one tablet twice a day for 11 days. * We sent a new medication called Ciprofloxacin to your pharmacy. Take Ciprofloxacin 500mg one tablet twice a day for 11 days. Take your medications as instructed; do not skip a dose of your medicines. Make sure all of your doctors know every medicine you are taking (including qvjw-ozg-amgvhez medicines, vitamins, and supplements). Call your primary care provider before taking any new medicines (including oifp-lsb-edunbgo medicines, vitamins, and supplements), because some of these may interact with your current medications, or may make your symptoms worse. Tell your primary care provider if you cannot afford your medications. CONTACT YOUR PRIMARY CARE PROVIDER if you experience any of the following: Difficulty breathing Abdominal pain Difficulty following your treatment plan, or difficulty taking medications CALL 911 OR GO TO THE EMERGENCY DEPARTMENT if you experience any of the following: Sudden, severe abdominal pain or nausea/vomiting Severe chest pain, or chest pain that radiates (moves) to your jaw or arm Sudden, severe shortness of breath or difficulty breathing Thank you for allowing us to participate in your care. Pending Studies at Discharge: No Stand-Alone Forms: My [facility] [employer], Smoking Cessation Medications and DC Order Prescriptions: New ciprofloxacin HCl 500 mg tablet 500 mg PO BID Qty: 22 0RF doxycycline hyclate 100 mg capsule 100 mg PO BID Qty: 22 0RF Continued acetaminophen 500 mg Tablet 1,000 mg PO Q6H PRN (Reason: Fever Or Pain) oxycodone 5 mg tablet 5 - 10 mg PO .Q4-6HRS PRN (Reason: Pain) Ayur-Boswellia Aniket 2 tab PO BID Rx Instructions: without food zinc acetate 25 mg (zinc) Capsule 0 mg PO DAILY ondansetron HCl 4 mg Tablet 4 mg PO Q8H PRN (Reason: .NAUSEA/VOMITING) gabapentin 300 mg capsule 300 mg PO QAM hydroxyzine HCl 25 mg tablet 25 mg PO QAM lysine [L-Lysine] 500 mg Tablet 500 mg PO DAILY cholecalciferol (vitamin D3) [Vitamin D3] 125 mcg (5,000 unit) Tablet 125 mcg PO DAILY Eliquis 5 mg tablet 5 mg PO BID magnesium citrate 100 mg Capsule 0 mg PO BID Berberine Complex 2 cap PO BID Curcu-Essentials 1 tab PO BID Curcumin Iv 0 mg IV .[id number] Glutathione Iv 0 mg IV .[id number] Isoflavone Caps 2 cap PO BID Rx Instructions: TAKE ON EMPTY STOMACH L-Glutamine Pow 0 mg PO DIRECTED Rx Instructions: 20-30 GRAMS DAILY IN LIQUID (2-3 SCOOPS TID), TAKE DAY BEFORE CHEMO, DAY OF, 2 DAYS AFTER CHEMO Methyl-Guard 1 cap PO DAILY Multivitamin Iv 0 mg IV .[id number] Nutri-Essentials 2 cap PO DAILY Opti-Cell Plus 3 tab PO BID Proepa 1 tab PO BID Quercetin Iv 0 mg IV .[id number] Reservatrol Iv 0 mg IV .[id number] Turbo Greens 1 ea PO BID Rx Instructions: IN LIQUID Ultra Lipoic Essentials 2 tab PO BID Ultra Reishi 2 tab PO BID Rx Instructions: take without food Vitamin C Iv 0 mg IV .[id number] Discharge Orders: Discharge Order (Routine); Ordered 01/31/22 Ordered By: Sonali Bobby Admission Data Admit Date/Time: 01/28/22 16:21 Attending Provider: lBaine Flores Admit Provider: Krystal Cuevas Primary Care Provider: Reyna Tidwell Other Providers: Krystal Cuevas ; Coty Ospina Other Interventions: Discharge Summary Assessment (RN) Last Done: 01/31/22 14:47 Supervising Physician Co-Signing Physician Notes I personally examined the patient and verified all gómez points of history and exam, discussed case, and agree with decision making with Dr Bobby Feeling better. Feeling up to going home. Working on coordinating with [facility] to get nephrostomy tubes changed. vitals noted nad heent nc at mmm breathing unlabored no accessory muscles good effort L nephrostomy tube site mildly inflamed appearing no overt erythema, R fairly normal with a dull scaled rash no erythemaessentially identical to yesterday pyelonephritis caused by nephrostomy related UTI in context of immunocompromise due to cancer/chemotherapy and moderate protein calorie malnutrition -given Enterococcus and Pseudomonasunfortunately appears necessary to send her home on 2 different antibioticsciprofloxacin to cover the Pseudomonas, and doxycycline to cover the Enterococcus. Treat for 2 weeks total of antibiotic coverage, nephrostomy tubes to be changed in the next week or soso that she has fairly significant time on antibiotics after the tubes have been changed as well. Safe/stable for home, otherwise as above Resident Activity Tracking Resident Involvement: Resident Care Provided Care Provided: Adult Hospital Medicine
--- NOTE | 2022-01-31 18:29 | Billing Data ---
Date of Service January 31, 2022 Coding Level of Care Code D/C DAY MANAGEMENT <30 MINS
== END 2022-01-31 16:18 | disposition home or self-care (01) | DRG 698 ==
LOC: ED 10:56 → 2W 16:21 → SUATTDRO 16:21 → 2W 18:47

== ENCOUNTER 2022-03-20 12:59 | Inpatient (IN) ==
[2022-03-20 14:01] LABS: Hematocrit (blood only) 24.7 % (34.1-44.9); Hemoglobin 8.1 g/dl (12.0-16.0); Mean Corpuscular Hemoglobin 33.2 pg (25.0-34.0); Mean Corpuscular Hgb Conc 32.8 g/dL (32.0-36.0); Mean Corpuscular Volume 101.2 fL (80.0-100.0); Mean Platelet Volume 9.5 fL (9.4-12.3); Platelet Count 182 K/uL (130-400); RDW Standard Deviation 70.3 fL (36.4-46.3); Red Blood Count 2.44 M/uL (3.93-5.22); White Blood Count 41.12 K/ul (4.8-10.8)
[2022-03-20 14:09] LABS: Basophils # (auto) 0.03 K/uL (0-0.2); Basophils % (auto) 0.1 %; Eosinophils # (auto) 0.05 K/uL (0-0.50); Eosinophils % (auto) 0.1 %; Immature Granulocytes # (auto) 0.61 K/uL (0.00-0.02); Immature Granulocytes % (auto) 1.5 %; Lymphocytes # (auto) 1.43 K/uL (1.2-3.4); Lymphocytes % (auto) 3.5 %; Monocytes # (auto) 2.24 K/uL (0.24-0.82); Monocytes % (auto) 5.4 %; Neutrophils # (auto) 36.76 K/uL (1.4-6.5); Neutrophils % (auto) 89.4 %; Toxic Granulation 2+; Toxic Vacuolation 3+
[2022-03-20 14:11] LABS: Albumin Globulin Ratio 1.1 (0.9-2); Albumin Level 3.2 gm/dl (3.4-5.0); BUN Creatinine Ratio 25.9 (10-20); Bilirubin,Total 0.4 mg/dl (0.2-1.0); Calcium 8.4 mg/dl (8.5-10.1); Creatinine Clr Calc Pharmacy 48.6 ml/min; Est GFR (African American) 84.1 ml/min; Est GFR (Non-African American) 72.6 ml/min; Globulin 2.8 gm/dl (2.5-4.0); Potassium 3.7 mmol/L (3.5-5.1)
[2022-03-20] MEDS ORDERED: ACETAMINOPHEN 1,000 MG/100 ML VIAL IV STA (16:08)
[2022-03-20] MEDS ORDERED: SODIUM CHLORIDE 0.9% 1000ML 1,000 ML IV SCH (16:15)
--- NOTE | 2022-03-20 16:26 | XRay Report ---
XR chest 1V portable HISTORY: 71 years-old Female Sepsis acute sepsis COMPARISON: Chest radiograph 01/28/2022 TECHNIQUE: AP view of the chest FINDINGS: Cardiomediastinal and hilar silhouettes are within normal limits. There is no pneumothorax, pleural e ffusion, airspace consolidation or overt pulmonary edema. Degenerative changes of the shoulders and s pine. Partially imaged ureteral stents. IMPRESSION: No acute process. ACT 112: Negative or not required by law. The above report was generated using voice recognition software. It may contain grammatical, syntax o r spelling errors. Electronically signed by: Kahlil Serrato M.D. 03/20/2022 4:24 PM
--- NOTE | 2022-03-20 16:41 | Emergency Department Note ---
History of Present Illness General Chief complaint: Urinary Symptoms Stated complaint: FEVER, URINARY SYMPTOMS Time Seen by Provider: 03/20/22 16:08 History of Present Illness Provider complaint: Fever Onset (ago): day(s) 1 Associated symptoms: + fever/chills; no chest pain, no cough, no headaches, no nausea/vomiting or no shortness of breath 71-year-old female with history of bladder cancer on chemotherapy presents to the emergency department for fever. Patient states her symptoms began 1 days ago. Patient states she has had some foul-smelling urine is concerned she might have a UTI. She reports chills and a T-max of 101. No chest pain difficulty breathing cough nausea vomiting or diarrhea. No abdominal pain or back pain. Home Medications Medication Instructions Recorded Confirmed Type Ayur-Boswellia Aniket 2 tab PO BID 01/28/22 03/20/22 History Berberine Complex 2 cap PO BID 01/28/22 03/20/22 History Curcu-Essentials 1 tab PO BID 01/28/22 03/20/22 History Curcumin Iv 0 mg IV .[id number] 01/28/22 03/20/22 History Glutathione Iv 0 mg IV .[id number] 01/28/22 03/20/22 History Isoflavone Caps 2 cap PO BID 01/28/22 03/20/22 History Methyl-Guard 1 cap PO DAILY 01/28/22 03/20/22 History Multivitamin Iv 0 mg IV .[id number] 01/28/22 03/20/22 History Nutri-Essentials 2 cap PO DAILY 01/28/22 03/20/22 History Opti-Cell Plus 3 tab PO BID 01/28/22 03/20/22 History Proepa 1 tab PO BID 01/28/22 03/20/22 History Quercetin Iv 0 mg IV .[id number] 01/28/22 03/20/22 History Reservatrol Iv 0 mg IV .[id number] 01/28/22 03/20/22 History Turbo Greens 1 ea PO BID 01/28/22 03/20/22 History Ultra Lipoic Essentials 2 tab PO BID 01/28/22 03/20/22 History Ultra Reishi 2 tab PO BID 01/28/22 03/20/22 History Vitamin C Iv 0 mg IV .[id number] 01/28/22 03/20/22 History acetaminophen 500 mg tablet 1,000 mg PO Q6H PRN Fever Or Pain 01/28/22 03/20/22 History apixaban 5 mg tablet (Eliquis) 5 mg PO BID 01/28/22 03/20/22 History cholecalciferol (vitamin D3) 125 125 mcg PO DAILY 01/28/22 03/20/22 History mcg (5,000 unit) tablet (Vitamin D3) gabapentin 300 mg capsule 300 mg PO QAM 01/28/22 03/20/22 History hydroxyzine HCl 25 mg tablet 25 mg PO QAM 01/28/22 03/20/22 History lysine 500 mg tablet (L-Lysine) 500 mg PO DAILY 01/28/22 03/20/22 History magnesium citrate 100 mg capsule 100 mg PO DAILY 01/28/22 03/20/22 History ondansetron HCl 4 mg tablet 4 mg PO Q8H PRN .NAUSEA/VOMITING 01/28/22 03/20/22 History oxycodone 5 mg tablet 5 - 10 mg PO .Q4-6HRS PRN Pain 01/28/22 03/20/22 History zinc acetate 25 mg (zinc) capsule 25 mg PO DAILY 01/28/22 03/20/22 History doxycycline hyclate 100 mg capsule 100 mg PO BID #22 caps 01/31/22 03/20/22 Rx Allergies Allergy/AdvReac Type Severity Reaction Status Date / Time Sulfa (Sulfonamide Allergy Unknown Verified 03/20/22 19:01 Antibiotics) Past Med/Surg History Medical History Acute DVT (deep venous thrombosis) Bladder cancer metastasized to bone Fever Hyponatremia Leukocytosis Sepsis Thrombocytopenia Surgical History History of fracture of femur with evelyn placement; LEFT History of hysterectomy History of nephrostomy History of total cystectomy Family History Other Family history non-contributory Social History Smoking Status: Never smoker Second Hand Exposure: Yes; Hx Alcohol Use: No Hx Substance Use: No Preferred Language: [place] Communication Ability: Effective Customer Sales Advisor Required: No Beliefs That Will Affect Care: None marital status: / Current Living Situation: Family Current Living Situation Comment: Lives w/ daughter Feels Safe at Home: Yes Assistive Devices: Cane and Walker Review of Systems A total of 10 systems reviewed and were otherwise negative Physical Exam Vital Signs Vital Signs - 24 hr 03/20/22 13:02 03/20/22 16:12 03/20/22 16:13 Temperature 37.9 C H 36.6 C Temperature Source Temporal Artery Scan Oral Pulse Rate 90 Pulse Rate [Apical] 104 H Pulse Rate from SpO2 Sensor Pulse Rhythm Regular Pulse Rhythm [Apical] Regular Pulse Strength [Apical] Normal Respiratory Rate 20 20 Respiratory Effort / Characteristics Non-Labored Spontaneous Non-Labored Respiratory Depth Normal Normal Blood Pressure 111/66 Blood Pressure [Left Arm] 148/84 H Blood Pressure Mean 81 Blood Pressure Mean [Left Arm] 105 Pulse Oximetry 97 97 94 Oxygen Delivery Method Room Air Room Air Room Air Sepsis Recent Fever Within 48 Hours No Sepsis New/Unexplained Change in Mental Status No Sepsis Action Taken by Nursing No Action Required 03/20/22 16:17 03/20/22 17:00 03/20/22 17:00 Temperature Temperature Source Pulse Rate 107 H 94 H Pulse Rate [Apical] Pulse Rate from SpO2 Sensor 108 H Pulse Rhythm Pulse Rhythm [Apical] Pulse Strength [Apical] Respiratory Rate 23 20 Respiratory Effort / Characteristics Respiratory Depth Blood Pressure 120/62 Blood Pressure [Left Arm] Blood Pressure Mean 81 Blood Pressure Mean [Left Arm] Pulse Oximetry 90 Oxygen Delivery Method Sepsis Recent Fever Within 48 Hours Sepsis New/Unexplained Change in Mental Status Sepsis Action Taken by Nursing 03/20/22 17:30 03/20/22 17:30 03/20/22 18:00 Temperature Temperature Source Pulse Rate 93 H Pulse Rate [Apical] Pulse Rate from SpO2 Sensor 94 H Pulse Rhythm Pulse Rhythm [Apical] Pulse Strength [Apical] Respiratory Rate 16 Respiratory Effort / Characteristics Respiratory Depth Blood Pressure 115/58 L 119/54 L Blood Pressure [Left Arm] Blood Pressure Mean 77 75 Blood Pressure Mean [Left Arm] Pulse Oximetry 95 Oxygen Delivery Method Sepsis Recent Fever Within 48 Hours Sepsis New/Unexplained Change in Mental Status Sepsis Action Taken by Nursing 03/20/22 18:00 03/20/22 18:00 Temperature Temperature Source Pulse Rate 90 Pulse Rate [Apical] 82 Pulse Rate from SpO2 Sensor 91 H Pulse Rhythm Pulse Rhythm [Apical] Pulse Strength [Apical] Respiratory Rate 19 21 Respiratory Effort / Characteristics Respiratory Depth Blood Pressure Blood Pressure [Left Arm] 109/60 Blood Pressure Mean Blood Pressure Mean [Left Arm] 76 Pulse Oximetry 94 96 Oxygen Delivery Method Room Air Sepsis Recent Fever Within 48 Hours Sepsis New/Unexplained Change in Mental Status Sepsis Action Taken by Nursing Physical Exam GENERAL: Cachectic and ill-appearing HENT: Exam performed. -Head: Normocephalic and atraumatic. -Right Ear: External ear normal. No mastoid tenderness. -Left Ear: External ear normal. No mastoid tenderness. -Mouth/Throat: The oropharynx is clear and moist. No trismus in the jaw. No dental abscesses or uvula swelling. No oropharyngeal exudate or tonsillar abscesses. EYES: Conjunctivae and EOM are normal. Pupils are equal, round, and reactive to light. Right eye exhibits no discharge. Left eye exhibits no discharge. No scleral icterus. NECK: Normal range of motion. Neck supple. No JVD present. No spinous process tenderness present. No carotid bruit present. No rigidity. No tracheal deviation and normal range of motion present. No Brudzinski's sign and no Kernig's sign noted. CV: Normal rate, regular rhythm, normal heart sounds and intact distal pulses. There is no peripheral edema. Palpable radial pulses bue. PULM/CHEST: Effort normal and breath sounds normal. No respiratory distress. No stridor. She has no wheezes. She has no rales. -Chest Wall: She exhibits no tenderness. ABD: The abdomen is soft.There is no tenderness. There is no rebound, no guarding, no Lambert's sign and no tenderness at McBurney's point. Urostomy bag in place MUSC/SKEL: Normal range of motion. There is no peripheral edema, tenderness or deformity. LYMPH: No cervical adenopathy. NEURO: She is alert and oriented to person, place, and time. She has normal strength. No cranial nerve deficit or sensory deficit. Coordination and gait normal. GCS eye subscore is 4. GCS verbal subscore is 5. GCS motor subscore is 6. Cerebellar tests wnl. SKIN: Skin is warm and dry. She is not diaphoretic. PSYCH: She has a normal mood and affect. Behavior is normal. Judgment and thought content normal. Course Course 1608: The patient was evaluated in room A10. A complete history and physical exam was performed Cardiac monitoring: An order was placed for continuous cardiac monitoring. The monitor shows a rate of 105 with sinus tachycardia rhythm Sepsis protocols initiated 1820: Vital signs stable status post antipyretics and IV fluids. Labs show leukocytosis of 41.12. Hemoglobin 8.1. Lactic acid 1.6. Troponin elevated at 14.6, patient is now reporting chest pain. Procalcitonin elevated 1.05. Urinalysis does appear to be the patient's cause of infection. Chest x-ray and COVID swab negative. EMR reviewed. Patient has a history of Pseudomonas UTIs patient was treated with cefepime 2 g IV piggyback. [facility] Administered Medications Acetaminophen (Acetaminophen 325 Mg Tab) 650 mg PO Q4H PRN PRN Reason: pain/fever Stop: 04/19/22 22:08 Last Admin: 03/20/22 22:21 Dose: 650 mg Documented By: SHEN Apixaban (Apixaban 5 Mg Tablet) 5 mg PO BID DELORES Stop: 04/19/22 22:08 Last Admin: 03/20/22 22:45 Dose: 5 mg Documented By: SHEN Discontinued Medications Sodium Chloride (Nss 1000ml) 1,000 mls @ 999 mls/hr IV .Q1H1M DELORES Stop: 03/20/22 17:15 Last Infusion: 03/20/22 17:38 Dose: 0 mls/hr Documented By: Admin: 03/20/22 16:37 Dose: 999 mls/hr Documented By: DULCE Acetaminophen (Ofirmev) 1,000 mg in 100 mls @ 400 mls/hr IV NOW STA Stop: 03/20/22 16:22 Last Infusion: 03/20/22 17:03 Dose: 0 mls/hr Documented By: Admin: 03/20/22 16:36 Dose: 400 mls/hr Documented By: DULCE Ceftriaxone Sodium 1,000 mg/ (Dextrose) 50 mls @ 100 mls/hr IV NOW STA Stop: 03/20/22 18:41 Last Admin: 03/20/22 18:30 Dose: Not Given Documented By: RADHA Cefepime HCl (Maxipime) 2,000 mg in 20 mls @ 5 mls/min IV NOW STA; Protocol Stop: 03/20/22 18:29 Last Admin: 12/12/22 18:30 Dose: 5 mls/min Documented By: DULCE Medical Decision Making Laboratory Data Result diagrams: 03/20/22 13:40 03/20/22 13:40 Lab Results 03/20/22 03/20/22 03/20/22 Range/Units 13:40 13:40 13:40 WBC 41.12 H* (4.8-10.8) K/ul RBC 2.44 L (3.93-5.22) M/uL Hgb 8.1 L (12.0-16.0) g/dl Hct 24.7 L (34.1-44.9) % MCV 101.2 H (80.0-100.0) fL MCH 33.2 (25.0-34.0) pg MCHC 32.8 (32.0-36.0) g/dL RDW Std Deviation 70.3 H (36.4-46.3) fL RDW Coeff of Macario 19.0 H (11.5-14.5) % Plt Count 182 (130-400) K/uL MPV 9.5 (9.4-12.3) fL Immature Gran % (Auto) 1.5 % Neut % (Auto) 89.4 % Lymph % (Auto) 3.5 % [place] % (Auto) 5.4 % Eos % (Auto) 0.1 % Baso % (Auto) 0.1 % Neut # (Auto) 36.76 H (1.4-6.5) K/uL Lymph # (Auto) 1.43 (1.2-3.4) K/uL [place] # (Auto) 2.24 H (0.24-0.82) K/uL Eos # (Auto) 0.05 (0-0.50) K/uL Baso # (Auto) 0.03 (0-0.2) K/uL Immature Gran # (Auto) 0.61 H (0.00-0.02) K/uL Toxic Granulation 2+ Toxic Vacuolation 3+ PT (9.0-12.0) Seconds INR (0.9-1.1) APTT (21.0-31.0) Seconds PTT Ratio Sodium 136 (136-145) mmol/L Potassium 3.7 (3.5-5.1) mmol/L Chloride 101 (98-107) mmol/L Carbon Dioxide 28 (21-32) mmol/L Anion Gap 7 (3-11) BUN 21 (6-23) mg/dl Creatinine 0.81 (0.6-1.2) mg/dl Est Cr Clr Drug Dosing 48.6 ml/min Est GFR ( Amer) 84.1 ml/min Est GFR (Non-Af Amer) 72.6 ml/min BUN/Creatinine Ratio 25.9 H (10-20) Glucose 118 H (70-99(Fasting)) mg/dl Lactate (0.4-2.0) mmol/L Calcium 8.4 L (8.5-10.1) mg/dl Magnesium 1.7 (1.7-2.4) mg/dl Total Bilirubin 0.4 (0.2-1.0) mg/dl AST 11 L (13-39) U/L ALT 13 (7-52) U/L Alkaline Phosphatase 118 H (34-104) U/L Troponin I High Sens 14.6 H (0-14) pg/ml Total Protein 6.0 (6.0-8.3) gm/dl Albumin 3.2 L (3.4-5.0) gm/dl Globulin 2.8 (2.5-4.0) gm/dl Albumin/Globulin Ratio 1.1 (0.9-2) Procalcitonin (0-0.5) ng/ml Urine Color Urine Appearance (Clear) Urine pH (4.5-7.5) Ur Specific [place] (1.000-1.030) Urine Protein (Negative) Urine Glucose (UA) (Negative) Urine Ketones (Negative) Urine Blood (Negative) Urine Nitrite (Negative) Urine Bilirubin (Negative) Urine Urobilinogen (Negative) Ur Leukocyte Esterase (Negative) Urine WBC (Auto) (0-5) /hpf Urine RBC (Auto) (0-4) /hpf U Hyaline Cast (Auto) (0-5) /lpf U Epithel Cells (Auto) (0-5) /lpf Urine Bacteria (Auto) (Negative) Urine Yeast SARS-CoV-2 (PCR) (Negative) Influenza Type A (PCR) (Neg) Influenza Type B (PCR) (Neg) RSV (RT-PCR) (Neg) 03/20/22 03/20/2222 Range/Units 13:40 13:40 16:33 WBC (4.8-10.8) K/ul RBC (3.93-5.22) M/uL Hgb (12.0-16.0) g/dl Hct (34.1-44.9) % MCV (80.0-100.0) fL MCH (25.0-34.0) pg MCHC (32.0-36.0) g/dL RDW Std Deviation (36.4-46.3) fL RDW Coeff of Macario (11.5-14.5) % Plt Count (130-400) K/uL MPV (9.4-12.3) fL Immature Gran % (Auto) % Neut % (Auto) % Lymph % (Auto) % [place] % (Auto) % Eos % (Auto) % Baso % (Auto) % Neut # (Auto) (1.4-6.5) K/uL Lymph # (Auto) (1.2-3.4) K/uL [place] # (Auto) (0.24-0.82) K/uL Eos # (Auto) (0-0.50) K/uL Baso # (Auto) (0-0.2) K/uL Immature Gran # (Auto) (0.00-0.02) K/uL Toxic Granulation Toxic Vacuolation PT 11.5 (9.0-12.0) Seconds INR 1.1 (0.9-1.1) APTT 45.0 H (21.0-31.0) Seconds PTT Ratio 1.6 Sodium (136-145) mmol/L Potassium (3.5-5.1) mmol/L Chloride (98-107) mmol/L Carbon Dioxide (21-32) mmol/L Anion Gap (3-11) BUN (6-23) mg/dl Creatinine (0.6-1.2) mg/dl Est Cr Clr Drug Dosing ml/min Est GFR ( Amer) ml/min Est GFR (Non-Af Amer) ml/min BUN/Creatinine Ratio (10-20) Glucose (70-99(Fasting)) mg/dl Lactate 1.6 (0.4-2.0) mmol/L Calcium (8.5-10.1) mg/dl Magnesium (1.7-2.4) mg/dl Total Bilirubin (0.2-1.0) mg/dl AST (13-39) U/L ALT (7-52) U/L Alkaline Phosphatase (34-104) U/L Troponin I High Sens (0-14) pg/ml Total Protein (6.0-8.3) gm/dl Albumin (3.4-5.0) gm/dl Globulin (2.5-4.0) gm/dl Albumin/Globulin Ratio (0.9-2) Procalcitonin 1.05 H (0-0.5) ng/ml Urine Color Urine Appearance (Clear) Urine pH (4.5-7.5) Ur Specific [place] (1.000-1.030) Urine Protein (Negative) Urine Glucose (UA) (Negative) Urine Ketones (Negative) Urine Blood (Negative) Urine Nitrite (Negative) Urine Bilirubin (Negative) Urine Urobilinogen (Negative) Ur Leukocyte Esterase (Negative) Urine WBC (Auto) (0-5) /hpf Urine RBC (Auto) (0-4) /hpf U Hyaline Cast (Auto) (0-5) /lpf U Epithel Cells (Auto) (0-5) /lpf Urine Bacteria (Auto) (Negative) Urine Yeast SARS-CoV-2 (PCR) (Negative) Influenza Type A (PCR) (Neg) Influenza Type B (PCR) (Neg) RSV (RT-PCR) (Neg) 03/20/22 03/20/22 Range/Units 16:50 16:51 WBC (4.8-10.8) K/ul RBC (3.93-5.22) M/uL Hgb (12.0-16.0) g/dl Hct (34.1-44.9) % MCV (80.0-100.0) fL MCH (25.0-34.0) pg MCHC (32.0-36.0) g/dL RDW Std Deviation (36.4-46.3) fL RDW Coeff of Macario (11.5-14.5) % Plt Count (130-400) K/uL MPV (9.4-12.3) fL Immature Gran % (Auto) % Neut % (Auto) % Lymph % (Auto) % [place] % (Auto) % Eos % (Auto) % Baso % (Auto) % Neut # (Auto) (1.4-6.5) K/uL Lymph # (Auto) (1.2-3.4) K/uL [place] # (Auto) (0.24-0.82) K/uL Eos # (Auto) (0-0.50) K/uL Baso # (Auto) (0-0.2) K/uL Immature Gran # (Auto) (0.00-0.02) K/uL Toxic Granulation Toxic Vacuolation PT (9.0-12.0) Seconds INR (0.9-1.1) APTT (21.0-31.0) Seconds PTT Ratio Sodium (136-145) mmol/L Potassium (3.5-5.1) mmol/L Chloride (98-107) mmol/L Carbon Dioxide (21-32) mmol/L Anion Gap (3-11) BUN (6-23) mg/dl Creatinine (0.6-1.2) mg/dl Est Cr Clr Drug Dosing ml/min Est GFR ( Amer) ml/min Est GFR (Non-Af Amer) ml/min BUN/Creatinine Ratio (10-20) Glucose (70-99(Fasting)) mg/dl Lactate (0.4-2.0) mmol/L Calcium (8.5-10.1) mg/dl Magnesium (1.7-2.4) mg/dl Total Bilirubin (0.2-1.0) mg/dl AST (13-39) U/L ALT (7-52) U/L Alkaline Phosphatase (34-104) U/L Troponin I High Sens (0-14) pg/ml Total Protein (6.0-8.3) gm/dl Albumin (3.4-5.0) gm/dl Globulin (2.5-4.0) gm/dl Albumin/Globulin Ratio (0.9-2) Procalcitonin (0-0.5) ng/ml Urine Color Yellow Urine Appearance Turbid A (Clear) Urine pH 7.0 (4.5-7.5) Ur Specific [place] 1.013 (1.000-1.030) Urine Protein 2+ H (Negative) Urine Glucose (UA) Negative (Negative) Urine Ketones Negative (Negative) Urine Blood 3+ H (Negative) Urine Nitrite Positive A (Negative) Urine Bilirubin Negative (Negative) Urine Urobilinogen Negative (Negative) Ur Leukocyte Esterase 3+ H (Negative) Urine WBC (Auto) >30 H (0-5) /hpf Urine RBC (Auto) 10-30 H (0-4) /hpf U Hyaline Cast (Auto) 1-5 (0-5) /lpf U Epithel Cells (Auto) 10-20 H (0-5) /lpf Urine Bacteria (Auto) 4+ H (Negative) Urine Yeast Not Reportable SARS-CoV-2 (PCR) NEGATIVE (Negative) Influenza Type A (PCR) Negative (Neg) Influenza Type B (PCR) Negative (Neg) RSV (RT-PCR) Negative (Neg) Imaging Data Radiologist's Impression: Chest X-Ray 03/20/22 16:08 XR chest 1V portable HISTORY: 71 years-old Female Sepsis acute sepsis COMPARISON: Chest radiograph 01/28/2022 TECHNIQUE: AP view of the chest FINDINGS: Cardiomediastinal and hilar silhouettes are within normal limits. There is no pneumothorax, pleural effusion, airspace consolidation or overt pulmonary edema. Degenerative changes of the shoulders and spine. Partially imaged ureteral stents. IMPRESSION: No acute process. ACT 112: Negative or not required by law. The above report was generated using voice recognition software. It may contain grammatical, syntax or spelling errors. Electronically signed by: Kahlil Serrato M.D. 03/20/2022 4:24 PM ECG Data Indication: + tachycardia Rate (beats per minute): 102 Rhythm: + sinus tachycardia ECG Intervals/blocks: + Normal QRS, + Normal [place] and + Normal QT-c ECG ST segments: + Normal ST segments [facility] Narrative 1608: The patient was evaluated in room A10. A complete history and physical exam was performed Cardiac monitoring: An order was placed for continuous cardiac monitoring. The monitor shows a rate of 105 with sinus tachycardia rhythm Sepsis protocols initiated 1820: Vital signs stable status post antipyretics and IV fluids. Labs show leukocytosis of 41.12. Hemoglobin 8.1. Lactic acid 1.6. Troponin elevated at 14.6, patient is now reporting chest pain. Procalcitonin elevated 1.05. Urinalysis does appear to be the patient's cause of infection. Chest x-ray and COVID swab negative. EMR reviewed. Patient has a history of Pseudomonas UTIs patient was treated with cefepime 2 g IV piggyback. [facility] notified Impression & Plan UTI (urinary tract infection) Discharge Plan Visit Data Chief Complaint: Urinary Symptoms Stated Complaint: FEVER, URINARY SYMPTOMS ED Provider: Scar Christopher Discharge Problem: UTI (urinary tract infection) Patient Disposition: Admitted As Inpatient Discharge Instructions Interventions: ED Discharge Assessment Last Done: 03/20/22 21:30
[2022-03-20 17:01] LABS: INR 1.1 (0.9-1.1); Partial Thromboplastin Ratio 1.6; Prothrombin Time 11.5 Seconds (9.0-12.0)
[2022-03-20 17:10] LABS: Appearance Urine Turbid (Clear); Bacteria Urine Automated 4+ (Negative); Bilirubin Urine Negative (Negative); Blood Urine 3+ (Negative); Color Urine Yellow; Glucose Urine UA Negative (Negative); Ketones Urine Negative (Negative); Leukocyte Esterase Urine 3+ (Negative); Nitrite Urine Positive (Negative); Protein Urine 2+ (Negative); Specific Gravity Urine 1.013 (1.000-1.030); Urobilinogen Urine Negative (Negative); WBC Urine Automated >30 /hpf (0-5)
[2022-03-20 17:11] LABS: Magnesium 1.7 mg/dl (1.7-2.4)
[2022-03-20 17:12] LABS: Troponin I High Sensitivity 14.6 pg/ml (0-14)
[2022-03-20 17:38] LABS: Influenza A virus by PCR Negative (Neg); Influenza B virus by PCR Negative (Neg); RSV by PCR Negative (Neg); SARS CoV2 RNA(COVID-19) Ceph NEGATIVE (Negative)
[2022-03-20] MEDS ORDERED: cefTRIAXone SODIUM 1,000 MG in DEXTROSE 5% AD-VAN 50 ML IV STA (18:12)
[2022-03-20] MEDS ORDERED: CEFEPIME 2,000 MG/20 ML VIAL IV STA (18:26)
--- NOTE | 2022-03-20 18:30 | History & Physical Report ---
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 Urinary tract infection With ostomy bag, in the setting of bladder cancer treatment Leukocytosis acutely increased from baseline of around 18-41. Leukocytosis is with neutrophilic predominance, received Neulasta 5 days ago Hemoglobin 8.1, last 7.4 MCV 101 Creatinine less than 1 at baseline, 0.81 on admission with creatinine clearance drug dosing 48.6 when age-adjusted Admitting lactate 1.6, procalcitonin 1.05 UA with 4+ bacteria, 3+ leukocyte esterase, blood and nitrates. UC pending Past UC review 01/28/2022 with Pseudomonas positive no additional resistance, Enterococcus faecium with ampicillin/ciprofloxacin/levofloxacin resistant Vanco and Dapto sensitive Given past UC 2 months ago positive for both Pseudomonas and Enterococcus we w ill treat empirically with cefepime/Vanco - BC pending No flank tenderness or abdominal pain, ostomy bag draining dark yellow urine and no change in nephrostomy tube sites/drainage. Nephrostomy site C/D/I without erythema or tenderness. 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 twice daily Anemia On Eliquis for DVT Currently hemoglobin 8.1, no active bleeding. Hemoglobin uptrending from prior Follow clinically, in the setting of chemo/cancer Patient receives multivitamin infusions with cancer center in [place] Troponin elevation 14.6 on admission Troponin trended, suspect demand in the setting of acute infection Patient is anticoagulated on Eliquis DVT PPX: Anticoagulated Diet: Regular Dispo: Med/Surg CODE: FULL (2) Bladder cancer metastasized to bone: (3) Anemia: (4) History of DVT (deep vein thrombosis): History of Present Illness Primary Care Provider: Reyna Tidwell, 71yo F under treatment for bladder transfer (sees Oncologist in [place]). Tmax 101, foul smell to urine, ostomy bag Per ER:Tachy 105BP stable Inproving post fluids WBC 41 Hgb 8.1, Plt wnl Lactic 1.6, procal 1.05 Rocephin Trop 14.6No abd pain Per Pt: Nichole is seen at the bedside with her daughter. She reports this morning she developed fever and chills while in her bed. She last felt normal yesterday and did not have any symptoms yesterday. This morning she had a fever of 101 and felt generally poorly, has had darkened urine output and has had similar symptoms with UTIs in the past. Did have a UTI last month which treated with antibiotics, she does not remember which but notes that she tolerated them well. Is undergoing chemotherapy with Gemzar and cisplatin every other week, she travels to [place] for her treatments and follows locally in [place] with both urology and oncology. She received Neulasta, last had this 5 days prior to presentation. Also received multivitamin infusion Sensocard ago, doing well. 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 She reports she is doing well with pain control with Tylenol/oxycodone. She denies cough, shortness of breath, difficulty breathing, chest pain, chest pressure, lightheadedness, dizziness, syncope, presyncope. She does not have abdominal pain or flank conde Medical History: Reviewed Medications: Reviewed Surgical History: Reviewed Allergies: Reviewed Social History: No tobacco or alcohol use Code Status: Full code Allergies Allergy/AdvReac Type Severity Reaction Status Date / Time Sulfa (Sulfonamide Allergy Unknown Verified 02/28/22 08:00 Antibiotics) Home Medications Medication Instructions Recorded Confirmed Type Ayur-Boswellia Aniket 2 tab PO BID 01/28/22 02/28/22 History Berberine Complex 2 cap PO BID 01/28/22 02/28/22 History Curcu-Essentials 1 tab PO BID 01/28/22 02/28/22 History Curcumin Iv 0 mg IV .[id number] 01/28/22 02/28/22 History Glutathione Iv 0 mg IV .[id number] 01/28/22 02/28/22 History Isoflavone Caps 2 cap PO BID 01/28/22 02/28/22 History Methyl-Guard 1 cap PO DAILY 01/28/22 02/28/22 History Multivitamin Iv 0 mg IV .[id number] 01/28/22 02/28/22 History Nutri-Essentials 2 cap PO DAILY 01/28/22 02/28/22 History Opti-Cell Plus 3 tab PO BID 01/28/22 02/28/22 History Proepa 1 tab PO BID 01/28/22 02/28/22 History Quercetin Iv 0 mg IV .[id number] 01/28/22 02/28/22 History Reservatrol Iv 0 mg IV .[id number] 01/28/22 02/28/22 History Turbo Greens 1 ea PO BID 01/28/22 02/28/22 History Ultra Lipoic Essentials 2 tab PO BID 01/28/22 02/28/22 History Ultra Reishi 2 tab PO BID 01/28/22 02/28/22 History Vitamin C Iv 0 mg IV .[id number] 01/28/22 02/28/22 History acetaminophen 500 mg tablet 1,000 mg PO Q6H PRN Fever Or Pain 01/28/22 02/28/22 History apixaban 5 mg tablet (Eliquis) 5 mg PO BID 01/28/22 02/28/22 History cholecalciferol (vitamin D3) 125 125 mcg PO DAILY 01/28/22 02/28/22 History mcg (5,000 unit) tablet (Vitamin D3) gabapentin 300 mg capsule 300 mg PO QAM 01/28/22 02/28/22 History hydroxyzine HCl 25 mg tablet 25 mg PO QAM 01/28/22 02/28/22 History lysine 500 mg tablet (L-Lysine) 500 mg PO DAILY 01/28/22 02/28/22 History magnesium citrate 100 mg capsule 0 mg PO BID 01/28/22 02/28/22 History ondansetron HCl 4 mg tablet 4 mg PO Q8H PRN .NAUSEA/VOMITING 01/28/22 02/28/22 History oxycodone 5 mg tablet 5 - 10 mg PO .Q4-6HRS PRN Pain 01/28/22 02/28/22 History zinc acetate 25 mg (zinc) capsule 0 mg PO DAILY 01/28/22 02/28/22 History doxycycline hyclate 100 mg capsule 100 mg PO BID #22 caps 01/31/22 02/28/22 Rx Past Med/Surg History Medical History Acute DVT (deep venous thrombosis) Bladder cancer metastasized to bone Fever Hyponatremia Leukocytosis Sepsis Thrombocytopenia Surgical History History of fracture of femur with evelyn placement; LEFT History of hysterectomy History of nephrostomy History of total cystectomy Family History Other Family history non-contributory Social History Smoking Status: Never smoker Second Hand Exposure: Yes; Hx Alcohol Use: No Hx Substance Use: No Preferred Language: Palauan Communication Ability: Effective 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 NAD. Cooperative. HEENT: Atraumatic, normocephalic. Vision/hearing intact. Pulm: CTAB A&P. -wheezes, -rales, -rhonchi. Symmetrical chest rise. No increased work of breathing. No respiratory distress. Cardiac: RRR, -mrg. Radial pulses intact and symmetrical. Abdominal: Nontender, nondistended, soft. BS present. Nephrostomy tubes in place with no surrounding erythema/tenderness. Ostomy bag in place draining dark yellow urine. Extremities: Warm, dry. Trace pitting ankle edema bilaterally, no calf a symmetry. 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 Patient with chronic left proximal hip pain 2/2 bony mets Results & Data Results & Data ([facility]) Vital Signs (Past 12 Hours) Vital Signs Temp Pulse Pulse Resp BP BP Pulse Ox 03/20/22 16:13 94 03/20/22 16:12 36.6 C 104 H 20 148/84 H 97 03/20/22 13:02 37.9 C H 90 20 111/66 97 O2 Del Method 03/20/22 16:13 Room Air 03/20/22 16:12 Room Air 03/20/22 13:02 Room Air PG Care Time/CCT Total # of Minutes Spent Total Time Spent with Patient: Total time spent is greater than 50% in coordination of care (as documented) at patient's floor/unit and/or counseling patient: Coding Level of Care Code INT OBSERVATION CARE 50M LVL 2 Diagnoses UTI (urinary tract infection) N39.0 Urinary tract infection type: acute cystitis Bladder cancer metastasized to bone C67.9; C79.51 Anemia D64.9 Anemia type: unspecified type History of DVT (deep vein thrombosis) Z86.718 (1) UTI (urinary tract infection) Urinary tract infection type: acute cystitis (2) Anemia Anemia type: unspecified type Qualified Code(s): D64.9 - Anemia, unspecified
[2022-03-20] MEDS ORDERED: oxyCODONE HCL IR 5 MG TAB (IMMEDIATE RELEASE) PO PRN (22:09)
[2022-03-20] MEDS: ACETAMINOPHEN 325 MG TAB PO PRN (22:21)
[2022-03-20] MEDS: APIXABAN 5 MG TABLET PO SCH (22:45)
[2022-03-20] MEDS ORDERED: ACETAMINOPHEN 325 MG TAB PO ONE (23:22)
[2022-03-21] MEDS ORDERED: VANCOMYCIN CONSULT ACTIVE PRN (01:23)
[2022-03-21] MEDS ORDERED: VANCOMYCIN HCL 1,000 MG in SODIUM CHLORIDE 0.9% 250 ML IV ONE (02:00)
[2022-03-21] MEDS: ACETAMINOPHEN 325 MG TAB PO PRN ×3 (06:20→21:39)
[2022-03-21] MEDS: HEPARIN 100 UNIT/ML 5ML FLUSH IV PRN (06:22)
[2022-03-21] MEDS: CEFEPIME 2,000 MG in SYRINGE 0 ML IV SCH ×2 (06:22→17:57)
[2022-03-21 07:33] LABS: Hematocrit (blood only) 22.6 % (34.1-44.9); Hemoglobin 7.4 g/dl (12.0-16.0); Mean Corpuscular Hemoglobin 32.3 pg (25.0-34.0); Mean Corpuscular Hgb Conc 32.7 g/dL (32.0-36.0); Mean Corpuscular Volume 98.7 fL (80.0-100.0); Platelet Count 148 K/uL (130-400); RDW Coefficient of Variation 18.9 % (11.5-14.5); RDW Standard Deviation 67.7 fL (36.4-46.3); Red Blood Count 2.29 M/uL (3.93-5.22); White Blood Count 31.44 K/ul (4.8-10.8)
[2022-03-21 07:41] LABS: BUN Creatinine Ratio 24.3 (10-20); Basophils # (auto) 0.14 K/uL (0-0.2); Basophils % (auto) 0.4 %; Calcium 7.9 mg/dl (8.5-10.1); Creatinine Clr Calc Pharmacy 55.3 ml/min; Eosinophils # (auto) 0.02 K/uL (0-0.50); Eosinophils % (auto) 0.1 %; Est GFR (African American) 100.3 ml/min; Est GFR (Non-African American) 86.6 ml/min; Immature Granulocytes # (auto) 0.46 K/uL (0.00-0.02); Immature Granulocytes % (auto) 1.5 %; Lymphocytes # (auto) 1.07 K/uL (1.2-3.4); Lymphocytes % (auto) 3.4 %; Monocytes # (auto) 2.09 K/uL (0.24-0.82); Monocytes % (auto) 6.6 %; Neutrophils # (auto) 27.66 K/uL (1.4-6.5); Potassium 3.4 mmol/L (3.5-5.1); Toxic Granulation 1+
[2022-03-21] MEDS: hydrOXYzine HCl 25 MG TAB PO SCH (08:36)
[2022-03-21] MEDS: GABAPENTIN 300 MG CAP PO SCH (08:36)
[2022-03-21] MEDS: APIXABAN 5 MG TABLET PO SCH ×2 (08:36→20:35)
[2022-03-21] MEDS ORDERED: VANCOMYCIN HCL 1,000 MG in SODIUM CHLORIDE 0.9% 250 ML IV SCH (10:00)
--- NOTE | 2022-03-21 10:03 | Pharmacy Report ---
Pharmacy PK ABX Note - Date of Service March 21, 2022 - Assessment and Plan Assessment 71 year old F receiving Cefepime and Vancomycin for treatment of UTI. Pertinent microbiologic data still pending Day # 1 of antimicrobial therapy. Plan Vancomycin * Loading dose: 1000 mg IV x 1 * Maintenance dose: 1000 mg IV every 18 hours * Regimen is predicted to achieve target AUC/JULIUS of 400-600 mg/L.hr Pharmacy will continue to follow and will adjust dose/frequency as necessary. Thank you. Pharmacy has transitioned to AUC monitoring for vancomycin. AUC/JULIUS is the preferred PK/PD target and is associated with decreased risk of nephrotoxicity compared to traditional trough targets.
[2022-03-21] MEDS ORDERED: POTASSIUM CHLORIDE CRTAB 20 MEQ TABCR PO STA (10:40)
--- NOTE | 2022-03-21 13:57 | Hospitalist Progress Note ---
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 Urinary tract infection (complicated) With ostomy bag, in the setting of bladder cancer treatment Leukocytosis acutely increased from baseline of around 18 to 41. Leukocytosis is with neutrophilic predominance, received Neulasta 5 days ago Creatinine less than 1 at baseline, 0.81 on admission with creatinine clearance drug dosing 48.6 when age-adjusted Admitting lactate 1.6, procalcitonin 1.05 UA with 4+ bacteria, 3+ leukocyte esterase, blood and nitrates. UC pending Past UC review 01/28/2022 with Pseudomonas positive no additional resistance, Enterococcus faecium with ampicillin/ciprofloxacin/levofloxacin resistant Vanco and Dapto sensitive Given past UC 2 months ago positive for both Pseudomonas and Enterococcus we will treat empirically with cefepime/Vanco No flank tenderness or abdominal pain, ostomy bag draining dark yellow urine and no change in nephrostomy tube sites/drainage. Nephrostomy site C/D/I without erythema or tenderness. - Urine culture prelim identified 2 gram negative organisms, final pending. At this point, can discontinue the Vancomycin. - Blood cultures pending (2) Bladder cancer metastasized to bone: Plan: Diagnosed 2020 Patient follows with urology/oncology in [place] and receives her chemotherapeutic treatments in [place] Is currently on Gemzar and cisplatin, he is currently on an every other week chemotherapy regimen Does receive Neulasta, last received 5 days prior to admission Suspect very high leukocytosis 2/2 Neupogen +/- acute UTI (3) Anemia: Plan: On Eliquis for DVT Currently hemoglobin 8.1, no active bleeding. Hemoglobin uptrending from prior Follow clinically, in the setting of chemo/cancer Patient receives multivitamin infusions with cancer center in [place] (4) History of DVT (deep vein thrombosis): Plan: On Eliquis, was initially diagnosed 01/09/2022 Took Eliquis this morning, continued on 5 mg p.o. twice daily Plan Troponin elevation 14.6 on admission Troponin trended, suspect demand in the setting of acute infection Patient is anticoagulated on Eliquis Continue treatment as outlined above. Await speciation of urine culture organisms. Stop Vanco. Repeat labs ordered for tomorrow morning. Plan d/w Dr. Edwards. Admission and Anticipated Discharge Date Admission Date: March 20, 2022 Subjective Patient was seen on daily rounds this morning. She reports overall feeling better, has no complaints of back pain, abd pain, n/v/d, or headache. Febrile, tmax 39.4C this AM. Review of Systems Review of Systems: All systems reviewed and are unremarkable except as noted in HPI and below. Denies fatigue, headache, nasal congestion, sore throat, cough, chest pain, amina rtness of breath, palpitations, orthopnea, PND, abdominal pain, n/v/d, constipation, dysuria, hematuria, frequency, back pain, joint pain or swelling, easy bruising or bleeding, skin lesions or rashes. Physical Exam Physical Exam: GENERAL: 71 yo Well-developed, well-nourished WF. NAD. LUNGS: Clear to auscultation bilaterally. No W/R/R. CARDIOVASCULAR: Regular rate and rhythm. ABDOMEN: Soft, non-tender and non-distended. BS normoactive x 4 quad. : Nephrostomy tubes in place, appear to be draining well. EXTREMITIES: No edema. Non-tender. Peripheral pulses +2/4. NEUROLOGIC: A&O x3. PSYCHIATRIC: Cooperative. Appropriate mood and affect. SKIN: Warm, dry, intact. No rashes or lesions. Results & Data Results & Data ([facility]) Vital Signs (Past 12 Hours) Vital Signs Temp Pulse Resp BP Pulse Ox O2 Del Method 03/21/22 13:27 38.1 C H 87 18 122/63 100 Room Air 03/21/22 07:06 38.8 C H 99 H 18 132/65 96 Room Air 03/21/22 06:20 39.4 C H 03/21/22 02:30 37 C Laboratory Results 03/21/22 06:06 03/21/22 06:06 PG Care Time/CCT Total # of Minutes Spent Total Time Spent with Patient: Total time spent is greater than 50% in coordination of care (as documented) at patient's floor/unit and/or counseling patient: Coding Level of Care Code 81297 Subseq Obs Care Lvl 2 Diagnoses UTI (urinary tract infection) N39.0 Bladder cancer metastasized to bone C67.9; C79.51 Anemia D64.9 Anemia type: unspecified type History of DVT (deep vein thrombosis) Z86.718 (1) Anemia Anemia type: unspecified type Qualified Code(s): D64.9 - Anemia, unspecified
[2022-03-21] MEDS: DOCUSATE SODIUM 100 MG CAP PO SCH (20:35)
[2022-03-22] MEDS: oxyCODONE HCL IR 5 MG TAB (IMMEDIATE RELEASE) PO PRN ×2 (00:49→14:20)
[2022-03-22] MEDS: CEFEPIME 2,000 MG in SYRINGE 0 ML IV SCH (05:22)
[2022-03-22] MEDS: HEPARIN 100 UNIT/ML 5ML FLUSH IV PRN ×2 (05:24→22:46)
[2022-03-22 07:26] LABS: BUN Creatinine Ratio 23.2 (10-20); Calcium 7.4 mg/dl (8.5-10.1); Creatinine Clr Calc Pharmacy 47.2 ml/min; Est GFR (African American) 82.9 ml/min; Est GFR (Non-African American) 71.5 ml/min; Magnesium 1.5 mg/dl (1.7-2.4); Potassium 3.1 mmol/L (3.5-5.1)
[2022-03-22 07:29] LABS: Hematocrit (blood only) 20.6 % (34.1-44.9); Hemoglobin 6.8 g/dl (12.0-16.0); Mean Corpuscular Hemoglobin 32.9 pg (25.0-34.0); Mean Corpuscular Volume 99.5 fL (80.0-100.0); Mean Platelet Volume 9.7 fL (9.4-12.3); Platelet Count 96 K/uL (130-400); RDW Coefficient of Variation 18.8 % (11.5-14.5); RDW Standard Deviation 68.1 fL (36.4-46.3); Red Blood Count 2.07 M/uL (3.93-5.22); White Blood Count 27.87 K/ul (4.8-10.8)
[2022-03-22 07:42] LABS: Basophils # (auto) 0.14 K/uL (0-0.2); Basophils % (auto) 0.5 %; Eosinophils # (auto) 0.24 K/uL (0-0.50); Eosinophils % (auto) 0.9 %; Immature Granulocytes # (auto) 0.67 K/uL (0.00-0.02); Immature Granulocytes % (auto) 2.4 %; Lymphocytes # (auto) 1.07 K/uL (1.2-3.4); Lymphocytes % (auto) 3.8 %; Monocytes # (auto) 1.75 K/uL (0.24-0.82); Monocytes % (auto) 6.3 %; Neutrophils % (auto) 86.1 %; RBC Morphology Unremarkable
[2022-03-22] MEDS: DOCUSATE SODIUM 100 MG CAP PO SCH ×2 (09:07→19:48)
[2022-03-22] MEDS: APIXABAN 5 MG TABLET PO SCH ×2 (09:07→19:49)
[2022-03-22] MEDS: GABAPENTIN 300 MG CAP PO SCH (09:07)
[2022-03-22] MEDS: hydrOXYzine HCl 25 MG TAB PO SCH (09:07)
[2022-03-22] MEDS ORDERED: FUROSEMIDE 40 MG/4 ML VIAL IV ONE (09:39)
[2022-03-22] MEDS ORDERED: SODIUM CHLORIDE 0.9% 250 ML IV PRN (09:39)
[2022-03-22] MEDS ORDERED: ACETAMINOPHEN 325 MG TAB PO ONE (09:39)
[2022-03-22] MEDS ORDERED: diphenhydrAMINE Capsule 25 MG CAP PO ONE (09:39)
[2022-03-22] MEDS: POTASSIUM CHLORIDE CRTAB 20 MEQ TABCR PO SCH ×3 (11:18→19:49)
--- NOTE | 2022-03-22 13:34 | Hospitalist Progress Note ---
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 Urinary tract infection (complicated) With ostomy bag, in the setting of bladder cancer treatment Leukocytosis acutely increased from baseline of around 18 to 41. Leukocytosis is with neutrophilic predominance, received Neulasta 5 days ago Creatinine less than 1 at baseline, 0.81 on admission with creatinine clearance drug dosing 48.6 when age-adjusted Admitting lactate 1.6, procalcitonin 1.05 UA with 4+ bacteria, 3+ leukocyte esterase, blood and nitrates. Past UC review 01/28/2022 with Pseudomonas positive no additional resistance, Enterococcus faecium with ampicillin/ciprofloxacin/levofloxacin resistant Vanco and Dapto sensitive Given past UC 2 months ago positive for both Pseudomonas and Enterococcus treated empirically with cefepime/Vanco, prelim UC on 03/21 GN x 2 organisms, Vanco discontinued No flank tenderness or abdominal pain, ostomy bag draining dark yellow urine and no change in nephrostomy tube sites/drainage. Nephrostomy site C/D/I without erythema or tenderness. - Urine culture resulted as citrobacter murliniae and e. coli, will d/c Cefepime and start Invanz 1g IV daily x 8 more days (for total of 10 days of treatment for complicated UTI) - Blood cultures NGTD, can order midline to be placed, will obtain consent and place on chart - Case management consulted to determine pt's home IV abx coverage, pt lives w ith daughter who would be able to administer abx (2) Bladder cancer metastasized to bone: Plan: Diagnosed 2020 Patient follows with urology/oncology in [place] and receives her chemotherapeutic treatments in [place] Is currently on Gemzar and cisplatin, he is currently on an every other week chemotherapy regimen Does receive Neulasta, last received 5 days prior to admission Suspect very high leukocytosis 2/2 Neupogen +/- acute UTI --> trending down (3) Anemia: Plan: On Eliquis for DVT Hemoglobin 8.1 on admit, no active bleeding. Follow clinically, in the setting of chemo/cancer Patient receives multivitamin infusions with cancer center in [place] - Hgb down to 6.8 on labs today, still w/o active bleeding, but will transfuse 2 units of PRBCs, Lasix to be given in between and premedicate prior - Consent obtained/signed (4) Hypokalemia: Plan: - Potassium 3.1 this morning - Oral replacement ordered - Repeat level in AM (5) Hypomagnesemia: Plan: - Mag 1.5, replacement ordered with 2g IV Mag Riders (6) History of DVT (deep vein thrombosis): Plan: On Eliquis, was initially diagnosed 01/09/2022 Took Eliquis this morning, continued on 5 mg p.o. twice daily Plan Continue treatment as outlined above. Obtain consent for midline. Make pt full admit. Electrolyte replacement and blood transfusion as above. Discussed with case management need to determine home IV abx coverage, if she has adequate coverage, could be discharged home as early as tomorrow if remains afebrile >24 hours on Invanz. Repeat labs ordered for tomorrow. Plan has been d/w Dr. Edwards. Admission and Anticipated Discharge Date Admission Date: March 22, 2022 Subjective Patient was seen on daily rounds this morning. She reports overall feeling better, has no complaints of back pain, abd pain, n/v/d, or headache. Last documented fever of 38C @ 0720 this AM. Review of Systems Review of Systems: All systems reviewed and are unremarkable except as noted in HPI and below. Denies fatigue, headache, nasal congestion, sore throat, cough, chest pain, shortness of breath, palpitations, orthopnea, PND, abdominal pain, n/v/d, constipation, dysuria, hematuria, frequency, back pain, joint pain or swelling, easy bruising or bleeding, skin lesions or rashes. Physical Exam Physical Exam: GENERAL: 71 yo wd/thin WF. NAD. LUNGS: Clear to auscultation bilaterally. No W/R/R. CARDIOVASCULAR: Regular rate and rhythm. ABDOMEN: Soft, non-tender and non-distended. BS normoactive x 4 quad. : Nephrostomy tubes in place, appear to be draining well. EXTREMITIES: No edema. Non-tender. Peripheral pulses +2/4. NEUROLOGIC: A&O x3. PSYCHIATRIC: Cooperative. Appropriate mood and affect. SKIN: Warm, dry, intact. No rashes or lesions. Results & Data Results & Data ([facility]) Vital Signs (Past 12 Hours) Vital Signs Temp Pulse Pulse Resp BP BP Pulse Ox 03/22/22 13:10 37.2 C 75 16 134/69 98 03/22/22 12:40 37.2 C 75 16 134/69 97 03/22/22 12:40 36.7 C 79 16 129/52 L 98 03/22/22 12:09 37.3 C 76 16 119/67 96 03/22/22 11:55 36.8 C 80 16 125/64 97 03/22/22 11:37 37.3 C 81 16 122/63 98 03/22/22 07:12 38 C H 86 18 127/62 97 O2 Del Method 03/22/22 13:10 03/22/22 12:40 03/22/22 12:40 03/22/22 12:09 03/22/22 11:55 03/22/22 11:37 03/22/22 07:12 Room Air Laboratory Results 03/22/22 06:31 03/22/22 06:31 Mag=1.5 Urine Culture Final 03/22/22-1200 Organism 1 Citrobacter murliniae [place] Count >100,000 CFU/ml Sens Sensitivities to Follow +Mix Urine Plus Low Counts of Other Mixed Ambreen Organism 2 Escherichia coli [place] Count 80,000 CFU/ml Sens Sensitivities to Follow Citro murl E coli RX M.I.C. RX M.I.C. --- --------- --- --------- Amox/Clav S <=8/4 Ampicillin S <=8 Amp/Sul S <=8/4 Cefazolin S <=2 Cefepime S <=2 S <=2 Ceftriaxone S <=1 S <=1 Ciprofloxacin S <=0.25 I 0.5 Ertapenem S <=0.5 S <=0.5 Gentamicin S <=4 S <=4 Levofloxacin S <=0.5 S <=0.5 Meropenem S <=1 S <=1 Nitrofurantoin S <=32 S <=32 Tobramycin S <=4 S <=4 Trimeth/Sulfa S <=2/38 S <=2/38 Pip/Tazo S <=16 S <=16 S = SENSITIVE I = INTERMEDIATE R = RESISTANT PG Care Time/CCT Total # of Minutes Spent Total Time Spent with Patient: Total time spent is greater than 50% in coordination of care (as documented) at patient's floor/unit and/or counseling patient: Coding Level of Care Code 68286 Subseq Hosp Care Lvl 3 Diagnoses UTI (urinary tract infection) N39.0 Bladder cancer metastasized to bone C67.9; C79.51 Anemia D64.9 Anemia type: unspecified type Hypokalemia E87.6 Hypomagnesemia E83.42 History of DVT (deep vein thrombosis) Z86.718 (1) Anemia Anemia type: unspecified type Qualified Code(s): D64.9 - Anemia, unspecified
[2022-03-22] MEDS: ERTAPENEM SODIUM 1,000 MG in SYRINGE 0 ML IV SCH (16:23)
[2022-03-22] MEDS: MAGNESIUM SULFATE / D5W 1 GM/100 ML BAG IV SCH ×2 (17:39→20:06)
[2022-03-22] MEDS ORDERED: CEFEPIME 1,000 MG in SYRINGE 0 ML IV SCH (21:00)
[2022-03-23] MEDS ORDERED: Nursing to Pharmacy Communication SCH (00:30)
[2022-03-23] MEDS: oxyCODONE HCL IR 5 MG TAB (IMMEDIATE RELEASE) PO PRN (01:03)
[2022-03-23] MEDS: HEPARIN 100 UNIT/ML 5ML FLUSH IV PRN ×3 (08:27→16:25)
[2022-03-23] MEDS: APIXABAN 5 MG TABLET PO SCH (08:28)
[2022-03-23] MEDS: GABAPENTIN 300 MG CAP PO SCH (08:28)
[2022-03-23] MEDS: hydrOXYzine HCl 25 MG TAB PO SCH (08:28)
[2022-03-23] MEDS ORDERED: DOCUSATE SODIUM 100 MG CAP PO SCH (09:00)
[2022-03-23 09:05] LABS: BUN Creatinine Ratio 28.6 (10-20); Creatinine Clr Calc Pharmacy 50.3 ml/min; Est GFR (African American) 89.4 ml/min; Est GFR (Non-African American) 77.1 ml/min; Potassium 4.4 mmol/L (3.5-5.1)
[2022-03-23 10:33] LABS: Basophils % (auto) 0.4 %; Eosinophils # (auto) 0.28 K/uL (0-0.50); Eosinophils % (auto) 1.2 %; Hematocrit (blood only) 29.3 % (34.1-44.9); Hemoglobin 10.1 g/dl (12.0-16.0); Immature Granulocytes # (auto) 0.53 K/uL (0.00-0.02); Immature Granulocytes % (auto) 2.3 %; Lymphocytes # (auto) 1.51 K/uL (1.2-3.4); Lymphocytes % (auto) 6.4 %; Mean Corpuscular Hemoglobin 32.5 pg (25.0-34.0); Mean Corpuscular Hgb Conc 34.5 g/dL (32.0-36.0); Mean Corpuscular Volume 94.2 fL (80.0-100.0); Monocytes # (auto) 1.52 K/uL (0.24-0.82); Monocytes % (auto) 6.5 %; Neutrophils # (auto) 19.53 K/uL (1.4-6.5); Neutrophils % (auto) 83.2 %; Platelet Count 82 K/uL (130-400); RDW Coefficient of Variation 18.4 % (11.5-14.5); RDW Standard Deviation 61.8 fL (36.4-46.3); Red Blood Count 3.11 M/uL (3.93-5.22); White Blood Count 23.47 K/ul (4.8-10.8)
[2022-03-23] MEDS: ERTAPENEM SODIUM 1,000 MG in SYRINGE 0 ML IV SCH (13:49)
--- NOTE | 2022-03-23 14:33 | Hospitalist Progress Note ---
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 Urinary tract infection (complicated) With ostomy bag, in the setting of bladder cancer treatment Leukocytosis acutely increased from baseline of around 18 to 41. Leukocytosis is with neutrophilic predominance, received Neulasta 5 days ago Creatinine less than 1 at baseline, 0.81 on admission with creatinine clearance drug dosing 48.6 when age-adjusted Admitting lactate 1.6, procalcitonin 1.05 UA with 4+ bacteria, 3+ leukocyte esterase, blood and nitrates. Past UC review 01/28/2022 with Pseudomonas positive no additional resistance, Enterococcus faecium with ampicillin/ciprofloxacin/levofloxacin resistant Vanco and Dapto sensitive Given past UC 2 months ago positive for both Pseudomonas and Enterococcus treated empirically with cefepime/Vanco, prelim UC on 03/21 GN x 2 organisms, Vanco discontinued No flank tenderness or abdominal pain, ostomy bag draining dark yellow urine and no change in nephrostomy tube sites/drainage. Nephrostomy site C/D/I without erythema or tenderness. - Urine culture resulted as citrobacter murliniae and e. coli, will d/c Cefepime and start Invanz 1g IV daily x 8 more days (for total of 10 days of treatment for complicated UTI) - Blood cultures NGTD, can order midline to be placed, will obtain consent and place on chart - Case management consulted to determine pt's home IV abx coverage, pt lives w ith daughter who would be able to administer abx - Discussed with ID on 03/23. Home ertapenem does not seem financially feasible for the patient (~$100). ID felt that Augmentin + levofloxacin was an acceptable alternative. Recommended one more day of IV abx if patient is willing. (2) Bladder cancer metastasized to bone: Plan: Diagnosed 2020 Patient follows with the [facility] in [place]. Is currently on Gemzar and cisplatin, she is currently on an every other week chemotherapy regimen Does receive Neulasta, last received 5 days prior to admission Suspect very high leukocytosis 2/2 Neupogen +/- acute UTI --> trending down (3) Anemia: Plan: On Eliquis for DVT Hemoglobin 8.1 on admit, no active bleeding. Follow clinically, in the setting of chemo/cancer Patient receives multivitamin infusions with [facility] in [place] - Hgb down to 6.8 on labs today, still w/o active bleeding, but will transfuse 2 units of PRBCs, Lasix to be given in between and premedicate prior - Hgb now up to 10.1 on 03/23. (4) Hypokalemia: Plan: - Potassium 3.1 this morning - Oral replacement ordered - Repeat level in AM with K up to 4.4. (5) Hypomagnesemia: Plan: - Mag 1.5, replacement ordered with 2g IV Mag Riders (6) History of DVT (deep vein thrombosis): Plan: On Eliquis, was initially diagnosed 01/09/2022 Took Eliquis this morning, continued on 5 mg p.o. twice daily Admission and Anticipated Discharge Date Admission Date: March 22, 2022 Subjective Doing well today. Feeling better. No major issues today. No back pain with the nephrostomy tubes. Physical Exam Constitutional: WD/WN, vitals as above Eyes: EOM intact bilaterally; no conjunctival abnormality ENMT: external ear and nose normal, oropharynx normal Neck: trachea midline, no thyromegaly normal visual inspection Respiratory: normal respiratory effort, lungs clear to auscultation no respiratory distress Cardiovascular: RRR, no murmur, no edema Gastrointestinal (Abdomen): Inspection/Auscultation: abdomen normal to inspection; abdomen not distended Musculoskeletal: no cyanosis or clubbing, extremities motor strength 5/5 Skin: no rashes, warm and dry Neurologic: moves all extremities and awake Psychiatric: Orientation: alert, oriented to person and cooperative Genitourinary: Bilateral nephrostomy tubes draining freely. No erythema at the entry sites. Results & Data Results & Data ([facility]) Vital Signs (Past 12 Hours) Vital Signs Temp Pulse Resp BP Pulse Ox O2 Del Method 03/23/22 08:07 37.0 C 73 20 146/76 H 93 Room Air PG Care Time/CCT Total # of Minutes Spent Total Time Spent with Patient: Total time spent is greater than 50% in coordination of care (as documented) at patient's floor/unit and/or counseling patient: Coding Level of Care Code 26211 Subseq Hosp Care Lvl 3 Diagnoses UTI (urinary tract infection) N39.0 Bladder cancer metastasized to bone C67.9; C79.51 Anemia D64.9 Anemia type: unspecified type Hypokalemia E87.6 Hypomagnesemia E83.42 History of DVT (deep vein thrombosis) Z86.718 (1) Anemia Anemia type: unspecified type Qualified Code(s): D64.9 - Anemia, unspecified
--- NOTE | 2022-03-23 17:08 | Discharge Summary ---
Date of Service March 23, 2022 Admission HPI Per Admitting Provider 71yo F under treatment for bladder transfer (sees Oncologist in [place]). Tmax 101, foul smell to urine, ostomy bag Per ER:Tachy 105BP stable Inproving post fluids WBC 41 Hgb 8.1, Plt wnl Lactic 1.6, procal 1.05 Rocephin Trop 14.6No abd pain Per Pt: Nichole is seen at the bedside with her daughter. She reports this morning she developed fever and chills while in her bed. She last felt normal yesterday and did not have any symptoms yesterday. This morning she had a fever of 101 and felt generally poorly, has had darkened urine output and has had similar symptoms with UTIs in the past. Did have a UTI last month which treated with antibiotics, she does not remember which but notes that she tolerated them well. Is undergoing chemotherapy with Gemzar and cisplatin every other week, she travels to [place] for her treatments and follows locally in [place] with both urology and oncology. She received Neulasta, last had this 5 days prior to presentation. Also received multivitamin infusion Sensocard ago, doing well. 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 She reports she is doing well with pain control with Tylenol/oxycodone. She denies cough, shortness of breath, difficulty breathing, chest pain, chest pressure, lightheadedness, dizziness, syncope, presyncope. She does not have abdominal pain or flank conde Medical History: Reviewed Medications: Reviewed Surgical History: Reviewed Allergies: Reviewed Social History: No tobacco or alcohol use Code Status: Full code Principal Diagnosis Possible sepsis in the setting of immunocompromise patient with ileostomy related UTI Nephrostomy related UTI Discharge Exam Constitutional WD/WN, vitals as above Eyes EOM intact bilaterally; no conjunctival abnormality ENMT external ear and nose normal, oropharynx normal Neck trachea midline, no thyromegaly normal visual inspection Respiratory normal respiratory effort, lungs clear to auscultation no respiratory distress Cardiovascular RRR, no murmur, no edema Gastrointestinal (Abdomen) Inspection/Auscultation: abdomen normal to inspection; abdomen not distended Musculoskeletal no cyanosis or clubbing, extremities motor strength 5/5 Skin no rashes, warm and dry Neurologic moves all extremities and awake Psychiatric Orientation: alert, oriented to person and cooperative Discharge Data Allergies Allergy/AdvReac Type Severity Reaction Status Date / Time Sulfa (Sulfonamide Allergy Unknown Verified 03/20/22 19:01 Antibiotics) Consultations 03/20/22 18:18 ED Decision to Admit Stat Hospital Course (1) UTI (urinary tract infection): 71-year-old female with past medical history of 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 Possible sepsis in the setting of immunocompromise patient with ileostomy r elated UTI Nephrostomy related UTI Urinary tract infection (complicated) With ostomy bag, in the setting of bladder cancer treatment Leukocytosis acutely increased from baseline of around 18 to 41. Leukocytosis is with neutrophilic predominance, received Neulasta 5 days ago Creatinine less than 1 at baseline, 0.81 on admission with creatinine clearance drug dosing 48.6 when age-adjusted Admitting lactate 1.6, procalcitonin 1.05 UA with 4+ bacteria, 3+ leukocyte esterase, blood and nitrates. Past UC review 01/28/2022 with Pseudomonas positive no additional resistance, Enterococcus faecium with ampicillin/ciprofloxacin/levofloxacin resistant Vanco and Dapto sensitive Given past UC 2 months ago positive for both Pseudomonas and Enterococcus treated empirically with cefepime/Vanco, prelim UC on 03/21 GN x 2 organisms, Vanco discontinued No flank tenderness or abdominal pain, ostomy bag draining dark yellow urine and no change in nephrostomy tube sites/drainage. Nephrostomy site C/D/I without erythema or tenderness. - Urine culture resulted as citrobacter murliniae and e. coli, will d/c Cefepime and start Invanz 1g IV daily x 8 more days (for total of 10 days of treatment for complicated UTI) - Blood cultures NGTD, can order midline to be placed, will obtain consent and place on chart - Case management consulted to determine pt's home IV abx coverage, pt lives with daughter who would be able to administer abx - Discussed with ID on 03/23. Home ertapenem does not seem financially feasible for the patient (~$100). ID felt that Augmentin + levofloxacin was an acceptable alternative. Recommended one more day of IV abx if patient is willing. (2) Bladder cancer metastasized to bone: Diagnosed 2020 Patient follows with the [facility] in [place]. Is currently on Gemzar and cisplatin, she is currently on an every other week chemotherapy regimen Does receive Neulasta, last received 5 days prior to admission Suspect very high leukocytosis 2/2 Neupogen +/- acute UTI --> trending down (3) Anemia: On Eliquis for DVT Hemoglobin 8.1 on admit, no active bleeding. Follow clinically, in the setting of chemo/cancer Patient receives multivitamin infusions with [facility] in [place] - Hgb down to 6.8 on labs today, still w/o active bleeding, but will transfuse 2 units of PRBCs, Lasix to be given in between and premedicate prior - Hgb now up to 10.1 on 03/23. (4) Hypokalemia: - Potassium 3.1 this morning - Oral replacement ordered - Repeat level in AM with K up to 4.4. (5) Hypomagnesemia: - Mag 1.5, replacement ordered with 2g IV Mag Riders (6) History of DVT (deep vein thrombosis): On Eliquis, was initially diagnosed 01/09/2022 Took Eliquis this morning, continued on 5 mg p.o. twice daily Total Time Total Time Spent Total Time Spent (In Minutes): 35 Discharge Plan Discharge Items Patient Disposition: Home - Self-Care Reason For Visit: UTI Discharge Diagnosis: Urinary tract infection Activity: Resume your previous activity Non-emergency contact: Primary Care Provider and Oncologist Call non-emergency contact if: your symptoms worsen Follow-up/Referrals: Reyna Tidwell, [Primary Care Provider] - Diet: Regular Addtl Attending Provider Instructions: Ms. Thomason, You were admitted to the hospital with a urinary tract infection. This can happen with nephrostomy tubes because the bacteria have a pathway into the body (the tube itself). Luckily, we can treat you with oral antibiotics. Initially we thought only IV would work, but I did discuss this with the Infectious Disease doctor, and she is comfortable with a pair of oral antibiotics. Your dose of IV antibiotics was at 2:00pm today and is good for 24 hours. 1) Take the Augmentin twice a day. The next dose can be tomorrow morning vs. around lunchtime. Then take the dose in the evening, then twice a day after that. 2) Take the levofloxacin around the same time tomorrow. This only needs to be taken once per day. Take these antibiotics for 2 weeks or until after your nephrostomy tubes are changed. Whichever is *longer*. So, if the tubes are not changed by 2 weeks, continue taking them. I have sent you 3 weeks of antibiotics to the pharmacy. If your tubes are changed by [facility], you can stop the antibiotics then. If they are not changed by then, continue the antibiotics. Pending Studies at Discharge: No Stand-Alone Forms: My [facility], Smoking Cessation Medications and DC Order Prescriptions: New amoxicillin-pot clavulanate 875-125 mg tablet 1 tab PO BID Qty: 42 0RF levofloxacin 750 mg tablet 750 mg PO DAILY Qty: 21 0RF Continued acetaminophen 500 mg Tablet 1,000 mg PO Q6H PRN (Reason: Fever Or Pain) oxycodone 5 mg tablet 5 - 10 mg PO .Q4-6HRS PRN (Reason: Pain) Ayur-Boswellia Aniket 2 tab PO BID Rx Instructions: without food zinc acetate 25 mg (zinc) Capsule 25 mg PO DAILY ondansetron HCl 4 mg Tablet 4 mg PO Q8H PRN (Reason: .NAUSEA/VOMITING) gabapentin 300 mg capsule 300 mg PO QAM hydroxyzine HCl 25 mg tablet 25 mg PO QAM lysine [L-Lysine] 500 mg Tablet 500 mg PO DAILY cholecalciferol (vitamin D3) [Vitamin D3] 125 mcg (5,000 unit) Tablet 125 mcg PO DAILY Eliquis 5 mg tablet 5 mg PO BID magnesium citrate 100 mg Capsule 100 mg PO DAILY Berberine Complex 2 cap PO BID Curcu-Essentials 1 tab PO BID Curcumin Iv 0 mg IV .[id number] Glutathione Iv 0 mg IV .[id number] Isoflavone Caps 2 cap PO BID Rx Instructions: TAKE ON EMPTY STOMACH Methyl-Guard 1 cap PO DAILY Multivitamin Iv 0 mg IV .[id number] Nutri-Essentials 2 cap PO DAILY Opti-Cell Plus 3 tab PO BID Proepa 1 tab PO BID Quercetin Iv 0 mg IV .[id number] Reservatrol Iv 0 mg IV .[id number] Turbo Greens 1 ea PO BID Rx Instructions: IN LIQUID Ultra Lipoic Essentials 2 tab PO BID Ultra Reishi 2 tab PO BID Rx Instructions: take without food Vitamin C Iv 0 mg IV .[id number] Discontinued doxycycline hyclate 100 mg capsule 100 mg PO BID Qty: 22 0RF Discharge Orders: Discharge Order (Routine); Ordered 03/23/22 Ordered By: Vargas Edwards Admission Data Admit Date/Time: 03/22/22 12:09 Attending Provider: Vargas Edwards Admit Provider: Jamie Chavarria Primary Care Provider: Reyna Tidwell Other Providers: Jamie Chavarria Other Interventions: Discharge Summary Assessment (RN) Last Done: 03/23/22 15:03 Coding Level of Care Code D/C DAY MANAGEMENT >30 MINS Diagnoses UTI (urinary tract infection) N39.0 Bladder cancer metastasized to bone C67.9; C79.51 Anemia D64.9 Anemia type: unspecified type Hypokalemia E87.6 Hypomagnesemia E83.42 History of DVT (deep vein thrombosis) Z86.712
--- NOTE | 2022-04-07 10:23 | Coding Query ---
PRESENT ON ADMISSION QUERY To promote full compliance with coding requirements relating to pateint care, physician participation is requested in all cases of studio camera operator uncertainty. Please assist us with the question(s) below: Please place an X within the parenthesis (x). The following diagnosis listed in this patient's medical record require physician assistance to determine if they were present on admission (POA) or not. Please advise for each diagnosis whether it was present on admission, not present on admission, or if it was clinically undetermined. 1. POSSIBLE SEPSIS (documented on Discharge Summary) (x ) Present On Admission ( ) Not Present On Admission ( ) Clinically Undetermined As indicated by fever, tachycardia, and leukocytosis. BP reduced as well compared to baseline though not hypotensive. Thank you Sarah Santiago *Definition of the present on admission (POA)-Present on admission is defined as present at the time the order for inpatient admission occurs. Conditions that develop during an outpatient encounter prior to a written order for inpatient admission (including emergency department, observation, or outpatient surgery) are considered present on admission. MICAH
== END 2022-03-23 19:01 | disposition home or self-care (01) | DRG 698 ==
LOC: 3W 12:59 → ED 12:59 → SUATTDRO 18:55 → 3W 21:30

== ENCOUNTER 2022-05-14 19:12 | Inpatient (IN) ==
[2022-05-14] MEDS ORDERED: ACETAMINOPHEN 1,000 MG/100 ML VIAL IV STA (19:18)
[2022-05-14] MEDS ORDERED: SODIUM CHLORIDE 0.9% 1000ML 1,000 ML IV SCH (19:30)
--- NOTE | 2022-05-14 19:51 | Emergency Department Note ---
History of Present Illness General Chief complaint: Fever Stated complaint: FEVER Time Seen by Provider: 05/14/22 19:18 History of Present Illness Provider complaint: Fever Onset (ago): day(s) 1 72-year-old female presents emergency department for fever. Patient reports her fever began yesterday. Patient is currently being treated for bladder cancer in [place] by her oncologist. Patient reports no nausea vomiting diarrhea headaches. She is currently on prophylactic Macrobid for UTIs. Patient reports no abdominal pain. No nausea vomiting or diarrhea. History of UTIs. Home Medications Medication Instructions Recorded Confirmed Type Ayur-Boswellia Aniket 2 tab PO BID 01/28/22 04/26/22 History Berberine Complex 2 cap PO BID 01/28/22 04/26/22 History Curcu-Essentials 1 tab PO BID 01/28/22 04/26/22 History Curcumin Iv 0 mg IV .[id number] 01/28/22 04/26/22 History Glutathione Iv 0 mg IV .[id number] 01/28/22 04/26/22 History Isoflavone Caps 2 cap PO BID 01/28/22 04/26/22 History Methyl-Guard 1 cap PO DAILY 01/28/22 04/26/22 History Multivitamin Iv 0 mg IV .[id number] 01/28/22 04/26/22 History Nutri-Essentials 2 cap PO DAILY 01/28/22 04/26/22 History Opti-Cell Plus 3 tab PO BID 01/28/22 04/26/22 History Proepa 1 tab PO BID 01/28/22 04/26/22 History Quercetin Iv 0 mg IV .[id number] 01/28/22 04/26/22 History Reservatrol Iv 0 mg IV .[id number] 01/28/22 04/26/22 History Turbo Greens 1 ea PO BID 01/28/22 04/26/22 History Ultra Lipoic Essentials 2 tab PO BID 01/28/22 04/26/22 History Ultra Reishi 2 tab PO BID 01/28/22 04/26/22 History Vitamin C Iv 0 mg IV .[id number] 01/28/22 04/26/22 History acetaminophen 500 mg tablet 1,000 mg PO Q6H PRN Fever Or Pain 01/28/22 04/26/22 History apixaban 5 mg tablet (Eliquis) 5 mg PO BID 01/28/22 04/26/22 History cholecalciferol (vitamin D3) 125 125 mcg PO DAILY 01/28/22 04/26/22 History mcg (5,000 unit) tablet (Vitamin D3) gabapentin 300 mg capsule 300 mg PO QAM 01/28/22 04/26/22 History hydroxyzine HCl 25 mg tablet 25 mg PO QAM 01/28/22 04/26/22 History lysine 500 mg tablet (L-Lysine) 500 mg PO DAILY 01/28/22 04/26/22 History magnesium citrate 100 mg capsule 100 mg PO DAILY 01/28/22 04/26/22 History ondansetron HCl 4 mg tablet 4 mg PO Q8H PRN .NAUSEA/VOMITING 01/28/22 04/26/22 History oxycodone 5 mg tablet 5 - 10 mg PO .Q4-6HRS PRN Pain 01/28/22 04/26/22 History nitrofurantoin macrocrystal 100 mg mg 04/26/22 History capsule zinc 15 mg tablet 15 mg PO DAILY 04/26/22 04/26/22 History Allergies Allergy/AdvReac Type Severity Reaction Status Date / Time Sulfa (Sulfonamide Allergy Unknown Verified 04/26/22 09:19 Antibiotics) Past Med/Surg History Medical History Acute DVT (deep venous thrombosis) Bladder cancer metastasized to bone Fever Hyponatremia Leukocytosis Sepsis Thrombocytopenia Surgical History History of fracture of femur with evelyn placement; LEFT History of hysterectomy History of nephrostomy History of total cystectomy Family History Other Family history non-contributory Social History Smoking Status: Never smoker Second Hand Exposure: No; Hx Alcohol Use: No Hx Substance Use: No Preferred Language: Persian Communication Ability: Effective Health Workers Required: No Beliefs That Will Affect Care: None marital status: / Current Living Situation: Other Current Living Situation Comment: daughter Feels Safe at Home: Yes Assistive Devices: Cane, Walker and Wheelchair Physical Exam Vital Signs Vital Signs - 24 hr 05/14/22 19:14 05/14/22 19:55 05/14/22 19:55 Temperature 39 C H 39.4 C H Temperature Source Temporal Artery Scan Oral Pulse Rate 118 H 107 H Pulse Rate [Right Finger] 107 H Pulse Rhythm [Right Finger] Regular Respiratory Rate 18 18 18 Respiratory Effort / Characteristics Non-Labored Spontaneous Non-Labored Spontaneous Respiratory Depth Normal Normal Respiratory Pattern Regular Blood Pressure 105/60 Blood Pressure [Right Arm] 123/62 Blood Pressure Mean 75 Blood Pressure Mean [Right Arm] 82 Blood Pressure Position Sitting Blood Pressure Position [Right Arm] Lying Pulse Oximetry 97 96 96 Oxygen Delivery Method Room Air Room Air Room Air Sepsis Recent Fever Within 48 Hours Yes Sepsis New/Unexplained Change in Mental Status No Sepsis Action Taken by Nursing No Action Required Physical Exam GENERAL: Cachectic. HENT: Exam performed. -Head: Normocephalic and atraumatic. CV: Tachycardic rate, regular rhythm, normal heart sounds and intact distal pulses. There is no peripheral edema. Palpable radial pulses bue. PULM/CHEST: Effort normal and breath sounds normal. No respiratory distress. No stridor. She has no wheezes. She has no rales. -Chest Wall: She exhibits no tenderness. ABD: The abdomen is soft. No pain on palpation of the abdomen. No guarding or rigidity. Urostomy bag present. Nephrostomy tubes bilaterally are present. MUSC/SKEL: Normal range of motion. There is no peripheral edema, tenderness or deformity. LYMPH: No cervical adenopathy. NEURO: Alert and oriented x3 motor and sensation grossly intact. Course Course 1917: The patient was evaluated in room B5. A complete history and physical exam was performed Cardiac monitoring: An order was placed for continuous cardiac monitoring. The monitor shows a rate of 110 with sinus tachycardia rhythm interpreted by ca Sepsis protocols initiated. 2123: Vital signs stable. Labs show leukocytosis of 28.46. Hemoglobin 6.7. Hematocrit 20.2. Lactic acid within normal limits. Urinalysis appears to be infective. Negative for COVID. Patient reports she has received multiple blood transfusions over the last 2 months due to recurrent anemia. Rectal exam conducted with female nursing chief load dispatcher Anali at bedside shows bright red blood per rectum. Patient will be transfused 1 unit of packed red blood cells and [facility]. Patient was also given Rocephin IV piggyback in the emergency department. Dr. Stubbs team has been notified. Administered Medications Discontinued Medications Sodium Chloride (Nss 1000ml) 1,000 mls @ 999 mls/hr IV .Q1H1M DELORES Stop: 05/14/22 20:30 Last Admin: 05/14/22 20:12 Dose: 999 mls/hr Documented By: DULCE Acetaminophen (Ofirmev) 1,000 mg in 100 mls @ 400 mls/hr IV NOW STA Stop: 05/14/22 19:32 Last Admin: 05/14/22 20:06 Dose: 400 mls/hr Documented By: DULCE Critical Care Time Critical Care Time: Yes Total Critical Care Time: 72 I have personally spent greater than 72 minutes of critical care time in the direct management of this patient. This includes bedside care, interpretation of diagnostic studies, and testing, discussion with consultants, patient, and family members, and other required patient management activities. This 72 minutes is in excess of all separately billable procedures. Medical Decision Making Laboratory Data Attestation: I reviewed the patient's lab results. 05/14/22 19:40 05/14/22 19:40 Lab Results 05/14/22 05/14/22 05/14/22 Range/Units 19:40 19:40 19:40 WBC 28.46 H (4.8-10.8) K/ul RBC 1.97 L (4.20-5.40) M/uL Hgb 6.7 L* (12.0-16.0) g/dl Hct 20.2 L* (37.0-47.0) % MCV 102.5 H (80.0-100.0) fL MCH 34.0 (25.0-34.0) pg MCHC 33.2 (32.0-36.0) g/dL RDW Std Deviation 73.7 H (36.4-46.3) fL RDW Coeff of Macario 20.3 H (11.5-14.5) % Plt Count 137 (130-400) K/uL MPV 10.6 (9.4-12.4) fL Immature Gran % (Auto) 3.3 % Neut % (Auto) 82.9 % Lymph % (Auto) 4.3 % [place] % (Auto) 8.8 % Eos % (Auto) 0.4 % Baso % (Auto) 0.3 % Neut # (Auto) 23.59 H (1.40-6.50) K/uL Lymph # (Auto) 1.23 (1.2-3.4) K/uL [place] # (Auto) 2.50 H (0.11-0.59) K/uL Eos # (Auto) 0.10 (0-0.50) K/uL Baso # (Auto) 0.09 (0-0.2) K/uL Immature Gran # (Auto) 0.95 H (0.01-0.20) K/uL Toxic Granulation 1+ Basophilic Stippling 1+ Anisocytosis Present PT 11.4 (9.0-12.0) Seconds INR 1.1 (0.9-1.1) APTT 35.0 H (21.0-31.0) Seconds PTT Ratio 1.3 Sodium 132 L (136-145) mmol/L Potassium 4.3 (3.5-5.1) mmol/L Chloride 97 L (98-107) mmol/L Carbon Dioxide 30 (21-32) mmol/L Anion Gap 5 (3-11) BUN 35 H (6-23) mg/dl Creatinine 1.24 H (0.6-1.2) mg/dl Est Cr Clr Drug Dosing Not Reportable Est GFR ( Amer) 49.9 ml/min Est GFR (Non-Af Amer) 43.1 ml/min BUN/Creatinine Ratio 28.2 H (10-20) Glucose 121 H (70-99(Fasting)) mg/dl Lactate (0.4-2.0) mmol/L Calcium 9.5 (8.5-10.1) mg/dl Magnesium 1.7 (1.7-2.4) mg/dl Total Bilirubin 0.3 (0.2-1.0) mg/dl Direct Bilirubin 0.1 (0-0.2) mg/dl AST 9 L (13-39) U/L ALT 7 (7-52) U/L Alkaline Phosphatase 120 H (34-104) U/L Troponin I High Sens 12.3 (0-14) pg/ml Total Protein 5.8 L (6.0-8.3) gm/dl Albumin 3.0 L (3.4-5.0) gm/dl Procalcitonin (0-0.5) ng/ml Urine Color Urine Appearance (Clear) Urine pH (4.5-7.5) Ur Specific [place] (1.000-1.030) Urine Protein (Negative) Urine Glucose (UA) (Negative) Urine Ketones (Negative) Urine Blood (Negative) Urine Nitrite (Negative) Urine Bilirubin (Negative) Urine Urobilinogen (Negative) Ur Leukocyte Esterase (Negative) Urine WBC (Auto) (0-5) /hpf Urine RBC (Auto) (0-4) /hpf U Hyaline Cast (Auto) (0-5) /lpf U Epithel Cells (Auto) (0-5) /lpf Urine Bacteria (Auto) (Negative) SARS-CoV-2 (PCR) (Negative) Influenza Type A (PCR) (Neg) Influenza Type B (PCR) (Neg) RSV (RT-PCR) (Neg) Blood Type Antibody Screen Crossmatch 05/14/22 05/14/22 05/14/22 Range/Units 19:40 19:40 19:40 WBC (4.8-10.8) K/ul RBC (4.20-5.40) M/uL Hgb (12.0-16.0) g/dl Hct (37.0-47.0) % MCV (80.0-100.0) fL MCH (25.0-34.0) pg MCHC (32.0-36.0) g/dL RDW Std Deviation (36.4-46.3) fL RDW Coeff of Macario (11.5-14.5) % Plt Count (130-400) K/uL MPV (9.4-12.4) fL Immature Gran % (Auto) % Neut % (Auto) % Lymph % (Auto) % [place] % (Auto) % Eos % (Auto) % Baso % (Auto) % Neut # (Auto) (1.40-6.50) K/uL Lymph # (Auto) (1.2-3.4) K/uL [place] # (Auto) (0.11-0.59) K/uL Eos # (Auto) (0-0.50) K/uL Baso # (Auto) (0-0.2) K/uL Immature Gran # (Auto) (0.01-0.20) K/uL Toxic Granulation Basophilic Stippling Anisocytosis PT (9.0-12.0) Seconds INR (0.9-1.1) APTT (21.0-31.0) Seconds PTT Ratio Sodium (136-145) mmol/L Potassium (3.5-5.1) mmol/L Chloride (98-107) mmol/L Carbon Dioxide (21-32) mmol/L Anion Gap (3-11) BUN (6-23) mg/dl Creatinine (0.6-1.2) mg/dl Est Cr Clr Drug Dosing Est GFR ( Amer) ml/min Est GFR (Non-Af Amer) ml/min BUN/Creatinine Ratio (10-20) Glucose (70-99(Fasting)) mg/dl Lactate 0.8 (0.4-2.0) mmol/L Calcium (8.5-10.1) mg/dl Magnesium (1.7-2.4) mg/dl Total Bilirubin (0.2-1.0) mg/dl Direct Bilirubin (0-0.2) mg/dl AST (13-39) U/L ALT (7-52) U/L Alkaline Phosphatase (34-104) U/L Troponin I High Sens (0-14) pg/ml Total Protein (6.0-8.3) gm/dl Albumin (3.4-5.0) gm/dl Procalcitonin 0.91 H (0-0.5) ng/ml Urine Color Urine Appearance (Clear) Urine pH (4.5-7.5) Ur Specific [place] (1.000-1.030) Urine Protein (Negative) Urine Glucose (UA) (Negative) Urine Ketones (Negative) Urine Blood (Negative) Urine Nitrite (Negative) Urine Bilirubin (Negative) Urine Urobilinogen (Negative) Ur Leukocyte Esterase (Negative) Urine WBC (Auto) (0-5) /hpf Urine RBC (Auto) (0-4) /hpf U Hyaline Cast (Auto) (0-5) /lpf U Epithel Cells (Auto) (0-5) /lpf Urine Bacteria (Auto) (Negative) SARS-CoV-2 (PCR) NEGATIVE (Negative) Influenza Type A (PCR) Negative (Neg) Influenza Type B (PCR) Negative (Neg) RSV (RT-PCR) Negative (Neg) Blood Type Antibody Screen Crossmatch 0205/14/22 05/14/22 Range/Units 19:40 20:50 20:51 WBC (4.8-10.8) K/ul RBC (4.20-5.40) M/uL Hgb (12.0-16.0) g/dl Hct (37.0-47.0) % MCV (80.0-100.0) fL MCH (25.0-34.0) pg MCHC (32.0-36.0) g/dL RDW Std Deviation (36.4-46.3) fL RDW Coeff of Macario (11.5-14.5) % Plt Count (130-400) K/uL MPV (9.4-12.4) fL Immature Gran % (Auto) % Neut % (Auto) % Lymph % (Auto) % [place] % (Auto) % Eos % (Auto) % Baso % (Auto) % Neut # (Auto) (1.40-6.50) K/uL Lymph # (Auto) (1.2-3.4) K/uL [place] # (Auto) (0.11-0.59) K/uL Eos # (Auto) (0-0.50) K/uL Baso # (Auto) (0-0.2) K/uL Immature Gran # (Auto) (0.01-0.20) K/uL Toxic Granulation Basophilic Stippling Anisocytosis PT (9.0-12.0) Seconds INR (0.9-1.1) APTT (21.0-31.0) Seconds PTT Ratio Sodium (136-145) mmol/L Potassium (3.5-5.1) mmol/L Chloride (98-107) mmol/L Carbon Dioxide (21-32) mmol/L Anion Gap (3-11) BUN (6-23) mg/dl Creatinine (0.6-1.2) mg/dl Est Cr Clr Drug Dosing Est GFR ( Amer) ml/min Est GFR (Non-Af Amer) ml/min BUN/Creatinine Ratio (10-20) Glucose (70-99(Fasting)) mg/dl Lactate (0.4-2.0) mmol/L Calcium (8.5-10.1) mg/dl Magnesium (1.7-2.4) mg/dl Total Bilirubin (0.2-1.0) mg/dl Direct Bilirubin (0-0.2) mg/dl AST (13-39) U/L ALT (7-52) U/L Alkaline Phosphatase (34-104) U/L Troponin I High Sens (0-14) pg/ml Total Protein (6.0-8.3) gm/dl Albumin (3.4-5.0) gm/dl Procalcitonin (0-0.5) ng/ml Urine Color Yellow Urine Appearance Cloudy A (Clear) Urine pH 6.5 (4.5-7.5) Ur Specific [place] 1.014 (1.000-1.030) Urine Protein 1+ H (Negative) Urine Glucose (UA) Negative (Negative) Urine Ketones Negative (Negative) Urine Blood 1+ H (Negative) Urine Nitrite Negative (Negative) Urine Bilirubin Negative (Negative) Urine Urobilinogen Negative (Negative) Ur Leukocyte Esterase 3+ H (Negative) Urine WBC (Auto) >30 H (0-5) /hpf Urine RBC (Auto) 10-30 H (0-4) /hpf U Hyaline Cast (Auto) 1-5 (0-5) /lpf U Epithel Cells (Auto) 0-5 (0-5) /lpf Urine Bacteria (Auto) 2+ H (Negative) SARS-CoV-2 (PCR) (Negative) Influenza Type A (PCR) (Neg) Influenza Type B (PCR) (Neg) RSV (RT-PCR) (Neg) Blood Type Cancelled Antibody Screen Cancelled Crossmatch See Detail Imaging Data Attestation: I personally reviewed and interpreted this imaging study as follows: My Impression: Chest x-ray negative. Airway clear. No pneumothorax. No consolidation. No cardiomegaly or cephalization.. No free air under the diaphragm. No fractures of the skeletal structures. No change from March 2022 chest x-ray. ECG Data Attestation: I personally reviewed and interpreted this ECG as follows: Indication: + other (sepsis) Rate (beats per minute): 113 Rhythm: + sinus tachycardia ECG Intervals/blocks: + Normal AR and + Normal QT-c ECG ST segments: + Normal ST segments ECG Findings: + Peaked T waves Additional Comments: QRS 76 MDM Narrative 1918: The patient was evaluated in room B5. A complete history and physical exam was performed Cardiac monitoring: An order was placed for continuous cardiac monitoring. The monitor shows a rate of 110 with sinus tachycardia rhythm interpreted by ca Sepsis protocols initiated. 2123: Vital signs stable. Labs show leukocytosis of 28.46. Hemoglobin 6.7. Hematocrit 20.2. Lactic acid within normal limits. Urinalysis appears to be infective. Negative for COVID. Patient reports she has received multiple blood transfusions over the last 2 months due to recurrent anemia. Rectal exam conducted with female nursing chief load dispatcher Anali at bedside shows bright red blood per rectum. Patient will be transfused 1 unit of packed red blood cells and admitted to the [facility] hospitalist team. Patient was also given Rocephin IV piggyback in the emergency department. Dr. Stubbs team has been notified. Impression & Plan Anemia, UTI (urinary tract infection), GIB (gastrointestinal bleeding) Discharge Plan Visit Data Chief Complaint: Fever Stated Complaint: FEVER ED Provider: Scar Christopher Discharge Problem: Anemia, UTI (urinary tract infection), GIB (gastrointestinal bleeding) Patient Disposition: Admitted As Inpatient Forms Stand Alone Forms: My [facility] Prescriptions Prescriptions: No Action acetaminophen 500 mg Tablet 1,000 mg PO Q6H PRN (Reason: Fever Or Pain) oxycodone 5 mg tablet 5 - 10 mg PO .Q4-6HRS PRN (Reason: Pain) Ayur-Boswellia Aniket 2 tab PO BID Rx Instructions: without food ondansetron HCl 4 mg Tablet 4 mg PO Q8H PRN (Reason: .NAUSEA/VOMITING) gabapentin 300 mg capsule 300 mg PO QAM hydroxyzine HCl 25 mg tablet 25 mg PO QAM lysine [L-Lysine] 500 mg Tablet 500 mg PO DAILY cholecalciferol (vitamin D3) [Vitamin D3] 125 mcg (5,000 unit) Tablet 125 mcg PO DAILY Eliquis 5 mg tablet 5 mg PO BID magnesium citrate 100 mg Capsule 100 mg PO DAILY Berberine Complex 2 cap PO BID Curcu-Essentials 1 tab PO BID Curcumin Iv 0 mg IV .[id number] Glutathione Iv 0 mg IV .[id number] Isoflavone Caps 2 cap PO BID Rx Instructions: TAKE ON EMPTY STOMACH Methyl-Guard 1 cap PO DAILY Multivitamin Iv 0 mg IV .[id number] Nutri-Essentials 2 cap PO DAILY Opti-Cell Plus 3 tab PO BID Proepa 1 tab PO BID Quercetin Iv 0 mg IV .[id number] Reservatrol Iv 0 mg IV .[id number] Turbo Greens 1 ea PO BID Rx Instructions: IN LIQUID Ultra Lipoic Essentials 2 tab PO BID Ultra Reishi 2 tab PO BID Rx Instructions: take without food Vitamin C Iv 0 mg IV .[id number] zinc 15 mg Tablet 15 mg PO DAILY nitrofurantoin macrocrystal 100 mg capsule Referrals Referrals: Reyna Tidwell DO [Primary Care Provider] -
[2022-05-14 20:11] LABS: Appearance Urine Cloudy (Clear); Bacteria Urine Automated 2+ (Negative); Bilirubin Urine Negative (Negative); Blood Urine 1+ (Negative); Color Urine Yellow; Epithelial Cell Urine Auto 0-5 /lpf (0-5); Glucose Urine UA Negative (Negative); Ketones Urine Negative (Negative); Leukocyte Esterase Urine 3+ (Negative); Nitrite Urine Negative (Negative); Protein Urine 1+ (Negative); Specific Gravity Urine 1.014 (1.000-1.030); Urobilinogen Urine Negative (Negative); WBC Urine Automated >30 /hpf (0-5); pH Urine 6.5 (4.5-7.5)
[2022-05-14 20:27] LABS: Alanine Aminotransferase 7 U/L (7-52); Alkaline Phosphatase 120 U/L (34-104); Anion Gap 5 (3-11); Aspartate Aminotransferase 9 U/L (13-39); BUN Creatinine Ratio 28.2 (10-20); Bilirubin Direct 0.1 mg/dl (0-0.2); Bilirubin,Total 0.3 mg/dl (0.2-1.0); Blood Urea Nitrogen 35 mg/dl (6-23); Calcium 9.5 mg/dl (8.5-10.1); Carbon Dioxide 30 mmol/L (21-32); Chloride 97 mmol/L (98-107); Est GFR (African American) 49.9 ml/min; Est GFR (Non-African American) 43.1 ml/min; Glucose 121 mg/dl (70-99(Fasting)); Magnesium 1.7 mg/dl (1.7-2.4); Potassium 4.3 mmol/L (3.5-5.1); Sodium 132 mmol/L (136-145); Total Protein 5.8 gm/dl (6.0-8.3)
[2022-05-14 20:33] LABS: Troponin I High Sensitivity 12.3 pg/ml (0-14)
[2022-05-14 20:34] LABS: Influenza A virus by PCR Negative (Neg); Influenza B virus by PCR Negative (Neg); RSV by PCR Negative (Neg); SARS CoV2 RNA(COVID-19) Ceph NEGATIVE (Negative)
[2022-05-14 20:38] LABS: Hematocrit (blood only) 20.2 % (37.0-47.0); Hemoglobin 6.7 g/dl (12.0-16.0); Mean Corpuscular Hgb Conc 33.2 g/dL (32.0-36.0); Mean Corpuscular Volume 102.5 fL (80.0-100.0); Mean Platelet Volume 10.6 fL (9.4-12.4); Platelet Count 137 K/uL (130-400); RDW Coefficient of Variation 20.3 % (11.5-14.5); RDW Standard Deviation 73.7 fL (36.4-46.3); Red Blood Count 1.97 M/uL (4.20-5.40); White Blood Count 28.46 K/ul (4.8-10.8)
[2022-05-14] MEDS ORDERED: SODIUM CHLORIDE 0.9% 250 ML IV PRN (20:38)
[2022-05-14 20:46] LABS: INR 1.1 (0.9-1.1); Partial Thromboplastin Ratio 1.3; Prothrombin Time 11.4 Seconds (9.0-12.0)
[2022-05-14 20:54] LABS: Anisocytosis Present; Basophilic Stippling 1+; Basophils # (auto) 0.09 K/uL (0-0.2); Basophils % (auto) 0.3 %; Eosinophils % (auto) 0.4 %; Immature Granulocytes # (auto) 0.95 K/uL (0.01-0.20); Immature Granulocytes % (auto) 3.3 %; Lymphocytes # (auto) 1.23 K/uL (1.2-3.4); Lymphocytes % (auto) 4.3 %; Monocytes % (auto) 8.8 %; Neutrophils # (auto) 23.59 K/uL (1.40-6.50); Neutrophils % (auto) 82.9 %; Toxic Granulation 1+
[2022-05-14] MEDS ORDERED: cefTRIAXone SODIUM 1,000 MG in DEXTROSE 5% AD-VAN 50 ML IV STA (20:54)
--- NOTE | 2022-05-14 21:46 | History & Physical Report ---
Date of Service May 14, 2022 Assessment & Plan (1) Febrile illness, acute: (2) Bladder cancer metastasized to bone: (3) Immunocompromised state due to drug therapy: (4) GIB (gastrointestinal bleeding): (5) History of DVT (deep vein thrombosis): (6) Anemia: (7) UTI (urinary tract infection): Plan Acute febrile illness in an immunocompromised patient due to chemotherapy- Likely secondary to urinary tract infection, as urinalysis looks positive Infection on 01/28/2022 with Pseudomonas and Enterococcus faecium, and on 03/20/2022 with Citrobacter and E. coli Will place patient on cefepime and daptomycin IV to cover these organisms and other potentials Follow urine culture and sensitivity Hold prophylactic nitrofurantoin Anemia requiring transfusion hemoglobin on admission 6.7 No change in stool pattern Likely secondary to chemotherapy To get 2 units PRBCs transfused by the ED Repeat laboratories in a.m. Acute kidney injury- Creatinine 1.24 on admission, with baseline 0.77 Patient will be getting transfused, and then have additional IV fluids Recheck laboratories in a.m. History of DVT- On Eliquis 5 mg p.o. twice daily, which will be continued No suggestion of active GI bleeding causing anemia at this time Bladder cancer metastasized to bone- Following with oncology in [place] Cancer pain- Acetaminophen 650 mg p.o. every 6 hours as needed mild pain or fever Oxycodone 5 mg p.o. every 4 hours as needed moderate pain Patient is taking a number of [id number] medications, that instructed her daughter she could bring in with her tomorrow, if she wants her mother to take the medications History of Present Illness Chief Complaint: The patient presents to the emergency department with complaint of a fever that began yesterday, but does not have any specific symptoms as far as urinary dysfunction, pulmonary dysfunction or otherwise Primary Care Provider: Reyna Tidwell DO The patient is a 72-year-old female with a past medical history including DVT, anemia, UTI, DVT, bladder cancer metastasized to bone and GI bleeding. She is currently undergoing treatment for bladder cancer by physicians in [place]. She has had overall poor appetite per her daughter who is in attendance. She has had ileostomy associated urinary tract infections on 01/28/2022 from Pseudomonas and Enterococcus Faecium, and from 03/20/2022 due to Citrobacter and E. coli. Allergies Allergy/AdvReac Type Severity Reaction Status Date / Time Sulfa (Sulfonamide Allergy Unknown Verified 04/26/22 09:19 Antibiotics) Home Medications Medication Instructions Recorded Confirmed Type Ayur-Juan Manuelwellia Aniket 2 tab PO BID 01/28/22 04/26/22 History Berberine Complex 2 cap PO BID 01/28/22 04/26/22 History Curcu-Essentials 1 tab PO BID 01/28/22 04/26/22 History Curcumin Iv 0 mg IV .[id number] 01/28/22 04/26/22 History Glutathione Iv 0 mg IV .[id number] 01/28/22 04/26/22 History Isoflavone Caps 2 cap PO BID 01/28/22 04/26/22 History Methyl-Guard 1 cap PO DAILY 01/28/22 04/26/22 History Multivitamin Iv 0 mg IV .[id number] 01/28/22 04/26/22 History Nutri-Essentials 2 cap PO DAILY 01/28/22 04/26/22 History Opti-Cell Plus 3 tab PO BID 01/28/22 04/26/22 History Proepa 1 tab PO BID 01/28/22 04/26/22 History Quercetin Iv 0 mg IV .[id number] 01/28/22 04/26/22 History Reservatrol Iv 0 mg IV .[id number] 01/28/22 04/26/22 History Turbo Greens 1 ea PO BID 01/28/22 04/26/22 History Ultra Lipoic Essentials 2 tab PO BID 01/28/22 04/26/22 History Ultra Reishi 2 tab PO BID 01/28/22 04/26/22 History Vitamin C Iv 0 mg IV .[id number] 01/28/22 04/26/22 History acetaminophen 500 mg tablet 1,000 mg PO Q6H PRN Fever Or Pain 01/28/22 04/26/22 History apixaban 5 mg tablet (Eliquis) 5 mg PO BID 01/28/22 04/26/22 History cholecalciferol (vitamin D3) 125 125 mcg PO DAILY 01/28/22 04/26/22 History mcg (5,000 unit) tablet (Vitamin D3) gabapentin 300 mg capsule 300 mg PO QAM 01/28/22 04/26/22 History hydroxyzine HCl 25 mg tablet 25 mg PO QAM 01/28/22 04/26/22 History lysine 500 mg tablet (L-Lysine) 500 mg PO DAILY 01/28/22 04/26/22 History magnesium citrate 100 mg capsule 100 mg PO DAILY 01/28/22 04/26/22 History ondansetron HCl 4 mg tablet 4 mg PO Q8H PRN .NAUSEA/VOMITING 01/28/22 04/26/22 History oxycodone 5 mg tablet 5 - 10 mg PO .Q4-6HRS PRN Pain 01/28/22 04/26/22 History nitrofurantoin macrocrystal 100 mg mg 04/26/22 History capsule zinc 15 mg tablet 15 mg PO DAILY 04/26/22 04/26/22 History Past Med/Surg History Medical History Acute DVT (deep venous thrombosis) Bladder cancer metastasized to bone Fever Hyponatremia Leukocytosis Sepsis Thrombocytopenia Surgical History History of fracture of femur with evelyn placement; LEFT History of hysterectomy History of nephrostomy History of total cystectomy Family History Other Family history non-contributory Social History Smoking Status: Never smoker Second Hand Exposure: No; Hx Alcohol Use: No Hx Substance Use: No Preferred Language: Liberian Communication Ability: Effective 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: No Beliefs That Will Affect Care: None marital status: / Current Living Situation: Other Current Living Situation Comment: daughter Feels Safe at Home: Yes Assistive Devices: Cane, Walker and Wheelchair Review of Systems Review of Systems: The patient denies chest pain, palpitations, shortness of breath, dyspnea on exertion, cough, lower extremity swelling, sore throat, fevers, chills, sweats, vomiting, diarrhea , constipation, blood in urine or stool, dysuria, urinary frequency or urgency, lightheadedness, dizziness, headache, memory loss, loss of consciousness, rash, abnormal bruising or bleeding, imbalance, focal weakness, numbness or tingling in arms or legs, generalized arthralgias or myalgias, back or neck pain, or night sweats. The review of systems is otherwise negative other than for that already noted above, and at least 10 systems have been reviewed. Physical Exam Physical Exam: The patient is awake, alert and oriented 3, appears emaciated, normocephalic and atraumatic, lying in bed and in no acute distress. HEENT--PERRL, EOMI, mucous membranes and oropharynx mildly dry. Neck--supple. No JVD. No bruits. Thyroid normal, trachea midline, no adenopathy. Heart--normal S1 and S2. No murmurs, rubs or gallops. Lungs--clear bilaterally, no respiratory distress, no accessory muscle use. Abdomen--normal bowel sounds and soft. Nontender. Extremities--no cyanosis or clubbing. No edema. Dermatologic--normal skin turgor, normal color, no abnormal lymph nodes, no rash. Neurologic--cranial nerves II through XII grossly intact. Rheumatologic--normal range of motion. Psychiatric--normal affect. Results & Data Results & Data ([facility]) Vital Signs (Past 12 Hours) Vital Signs Temp Pulse Pulse Resp BP BP Pulse Ox 05/14/22 19:55 107 H 18 96 05/14/22 19:55 39.4 C H 107 H 18 123/62 96 05/14/22 19:14 39 C H 118 H 18 105/60 97 O2 Del Method 05/14/22 19:55 Room Air 05/14/22 19:55 Room Air 05/14/22 19:14 Room Air Laboratory Results Laboratory Results WBC 28.46 K/ul (4.8-10.8) H 05/14/22 19:40 RBC 1.97 M/uL (4.20-5.40) L 05/14/22 19:40 Hgb 6.7 g/dl (12.0-16.0) L* 05/14/22 19:40 Hct 20.2 % (37.0-47.0) L* 05/14/22 19:40 MCV 102.5 fL (80.0-100.0) H 05/14/22 19:40 MCH 34.0 pg (25.0-34.0) 05/14/22 19:40 MCHC 33.2 g/dL (32.0-36.0) 05/14/22 19:40 RDW Std Deviation 73.7 fL (36.4-46.3) H 05/14/22 19:40 RDW Coeff of Macario 20.3 % (11.5-14.5) H 05/14/22 19:40 Plt Count 137 K/uL (130-400) 05/14/22 19:40 MPV 10.6 fL (9.4-12.4) 05/14/22 19:40 Immature Gran % (Auto) 3.3 % 05/14/22 19:40 Neut % (Auto) 82.9 % 05/14/22 19:40 Lymph % (Auto) 4.3 % 05/14/22 19:40 [place] % (Auto) 8.8 % 05/14/22 19:40 Eos % (Auto) 0.4 % 05/14/22 19:40 Baso % (Auto) 0.3 % 05/14/22 19:40 Neut # (Auto) 23.59 K/uL (1.40-6.50) H 05/14/22 19:40 Lymph # (Auto) 1.23 K/uL (1.2-3.4) 05/14/22 19:40 [place] # (Auto) 2.50 K/uL (0.11-0.59) H 05/14/22 19:40 Eos # (Auto) 0.10 K/uL (0-0.50) 05/14/22 19:40 Baso # (Auto) 0.09 K/uL (0-0.2) 05/14/22 19:40 Immature Gran # (Auto) 0.95 K/uL (0.01-0.20) H 05/14/22 19:40 Toxic Granulation 1+ 05/14/22 19:40 Basophilic Stippling 1+ 05/14/22 19:40 Anisocytosis Present 05/14/22 19:40 PT 11.4 Seconds (9.0-12.0) 05/14/22 19:40 INR 1.1 (0.9-1.1) 05/14/22 19:40 APTT 35.0 Seconds (21.0-31.0) H 05/14/22 19:40 PTT Ratio 1.3 05/14/22 19:40 Sodium 132 mmol/L (136-145) L 05/14/22 19:40 Potassium 4.3 mmol/L (3.5-5.1) 05/14/22 19:40 Chloride 97 mmol/L (98-107) L 05/14/22 19:40 Carbon Dioxide 30 mmol/L (21-32) 05/14/22 19:40 Anion Gap 5 (3-11) 05/14/22 19:40 BUN 35 mg/dl (6-23) H 05/14/22 19:40 Creatinine 1.24 mg/dl (0.6-1.2) H 05/14/22 19:40 Est Cr Clr Drug Dosing Not Reportable 05/14/22 19:40 Est GFR ( Amer) 49.9 ml/min 05/14/22 19:40 Est GFR (Non-Af Amer) 43.1 ml/min 05/14/22 19:40 BUN/Creatinine Ratio 28.2 (10-20) H 05/14/22 19:40 Glucose 121 mg/dl (70-99(Fasting)) H 05/14/22 19:40 Lactate 0.8 mmol/L (0.4-2.0) 05/14/22 19:40 Calcium 9.5 mg/dl (8.5-10.1) 05/14/22 19:40 Magnesium 1.7 mg/dl (1.7-2.4) 05/14/22 19:40 Total Bilirubin 0.3 mg/dl (0.2-1.0) 05/14/22 19:40 Direct Bilirubin 0.1 mg/dl (0-0.2) 05/14/22 19:40 AST 9 U/L (13-39) L 05/14/22 19:40 ALT 7 U/L (7-52) 05/14/22 19:40 Alkaline Phosphatase 120 U/L (34-104) H 05/14/22 19:40 Troponin I High Sens 12.3 pg/ml (0-14) 05/14/22 19:40 Total Protein 5.8 gm/dl (6.0-8.3) L 05/14/22 19:40 Albumin 3.0 gm/dl (3.4-5.0) L 05/14/22 19:40 Procalcitonin 0.91 ng/ml (0-0.5) H 05/14/22 19:40 Urine Color Yellow 05/14/22 19:40 Urine Appearance Cloudy (Clear) A 05/14/22 19:40 Urine pH 6.5 (4.5-7.5) 05/14/22 19:40 Ur Specific Lynch 1.014 (1.000-1.030) 05/14/22 19:40 Urine Protein 1+ (Negative) H 05/14/22 19:40 Urine Glucose (UA) Negative (Negative) 05/14/22 19:40 Urine Ketones Negative (Negative) 05/14/22 19:40 Urine Blood 1+ (Negative) H 05/14/22 19:40 Urine Nitrite Negative (Negative) 05/14/22 19:40 Urine Bilirubin Negative (Negative) 05/14/22 19:40 Urine Urobilinogen Negative (Negative) 05/14/22 19:40 Ur Leukocyte Esterase 3+ (Negative) H 05/14/22 19:40 Urine WBC (Auto) >30 /hpf (0-5) H 05/14/22 19:40 Urine RBC (Auto) 10-30 /hpf (0-4) H 05/14/22 19:40 U Hyaline Cast (Auto) 1-5 /lpf (0-5) 05/14/22 19:40 U Epithel Cells (Auto) 0-5 /lpf (0-5) 05/14/22 19:40 Urine Bacteria (Auto) 2+ (Negative) H 05/14/22 19:40 SARS-CoV-2 (PCR) NEGATIVE (Negative) 05/14/22 19:40 Influenza Type A (PCR) Negative (Neg) 05/14/22 19:40 Influenza Type B (PCR) Negative (Neg) 05/14/22 19:40 RSV (RT-PCR) Negative (Neg) 05/14/22 19:40 Blood Type O Positive 05/14/22 20:51 Antibody Screen NEGATIVE 05/14/22 20:51 Crossmatch See Detail 05/14/22 20:51 Code Status & VTE Plan Code Status Full code VTE Prophylaxis Plan VTE Prophylaxis will be ordered: Yes PG Care Time/CCT Total # of Minutes Spent Total Time Spent with Patient: Total time spent is greater than 50% in coordination of care (as documented) at patient's floor/unit and/or counseling patient: Coding Level of Care Code 88731 INT INP/OBS CARE 3/75MIN Diagnoses Febrile illness, acute R50.9 Bladder cancer metastasized to bone C67.9; C79.51 Immunocompromised state due to drug therapy D84.821; Z79.899 GIB (gastrointestinal bleeding) K92.2 GI bleed type/associated pathology: unspecified gastrointestinal hemorrhage type History of DVT (deep vein thrombosis) Z86.718 Anemia D64.9 Anemia type: unspecified type UTI (urinary tract infection) N39.0 Urinary tract infection type: site unspecified (1) GIB (gastrointestinal bleeding) GI bleed type/associated pathology: unspecified gastrointestinal hemorrhage type Qualified Code(s): K92.2 - Gastrointestinal hemorrhage, unspecified (2) Anemia Anemia type: unspecified type Qualified Code(s): D64.9 - Anemia, unspecified (3) UTI (urinary tract infection) Urinary tract infection type: site unspecified
[2022-05-14] MEDS ORDERED: CEFEPIME 1,000 MG in SYRINGE 0 ML IV ONE (22:30)
[2022-05-14] MEDS ORDERED: DAPTOmycin 225 MG in SYRINGE 0 ML IV ONE (22:30)
[2022-05-15] MEDS ORDERED: ONDANSETRON INJ 2 MG/ML 2 ML VIAL IV PRN (00:39)
[2022-05-15] MEDS ORDERED: SODIUM CHLORIDE 0.9% 250 ML IV PRN ×3 (00:43→01:47)
[2022-05-15] MEDS: CHECK fentaNYL PATCH PLACEMENT SCH ×4 (01:02→22:24)
[2022-05-15] MEDS ORDERED: HEPARIN 100 UNIT/ML 5ML FLUSH FLUSH PRN (01:19)
[2022-05-15] MEDS: Patient's HEIGHT &/or WEIGHT Needed SCH (01:38)
[2022-05-15] MEDS: ACETAMINOPHEN 325 MG TAB PO PRN ×2 (03:15→18:28)
--- NOTE | 2022-05-15 08:07 | Hospitalist Progress Note ---
Date of Service May 15, 2022 Assessment & Plan (1) Febrile illness, acute: Plan: Acute febrile illness in an immunocompromised patient due to chemotherapy- moderate risk to patient Urinary source, on Cefepime and daptomycin, previous urinary tract infections on 01/28/2022 from Pseudomonas and Enterococcus Faecium, and from 03/20/2022 due to Citrobacter and E. coli. preliminary cultures >744366 Gr negative (2) Anemia: Plan: Acute blood loss anemia, transfused 2 untis PRBC , hold Eliquis on PPI,moderate risk to patient discussion if could be influenced by chemotherapy but wbc and platelet counts are elevated (3) Bladder cancer metastasized to bone: Plan: Sees medical care in [place] will check femur x ray Cancer pain- Acetaminophen 650 mg p.o. every 6 hours as needed mild pain or fever Oxycodone 5 mg p.o. every 4 hours as needed moderate pain (4) Immunocompromised state due to drug therapy: Plan: reportedly getting chemotherapy (5) History of DVT (deep vein thrombosis): Plan: currently holding Elliquis, will restart if hgb is stable on 05/16/22 (6) Acute kidney injury: Plan: Acute kidney injury with history of CKD2, resolved after transfusion Admission and Anticipated Discharge Date Admission Date: May 14, 2022 Subjective Patient was seen in her room she is having some mid left thigh pain otherwise she is feeling much improved from when she presented she has had no additional fevers and feels better after her transfusions Physical Exam Physical Exam: Patient is awake and alert has some left mid thigh pain no chest pain pressure shortness of breath examination of her nephrostomy tube sites are clean dry and intact and her ileal conduit also looks intact with good skin condition urine is clear coming out of the bag Results & Data Results & Data ([facility]) Vital Signs (Past 12 Hours) Vital Signs Temp Pulse Pulse Resp BP BP Pulse Ox 05/15/22 07:54 98.8 F 88 16 124/63 97 05/15/22 04:55 99.5 F 96 H 16 118/53 L 96 05/15/22 04:05 100.9 F H 98 H 16 117/51 L 05/15/22 03:05 100.8 F H 93 H 18 140/82 05/15/22 02:35 98.6 F 95 H 16 117/62 05/15/22 02:20 98.1 F 91 H 18 133/69 99 05/15/22 02:02 98.1 F 90 18 126/62 100 05/14/22 23:35 98.1 F 81 18 118/60 98 05/15/22 00:20 97.7 F 76 16 125/65 98 05/14/22 23:03 98.2 F 82 17 106/56 L 99 05/14/22 22:48 98.3 F 84 18 94/50 L 99 05/14/22 22:27 82 18 101/50 L 97 05/14/22 22:27 98.4 F 88 18 101/50 L 05/14/22 22:22 86 18 88/69 L 98 05/14/22 22:05 98.8 F O2 Del Method 05/15/22 07:54 Room Air 05/15/22 04:55 05/15/22 04:05 05/15/22 03:05 05/15/22 02:35 05/15/22 02:20 05/15/22 02:02 05/14/22 23:35 Room Air 05/15/22 00:20 05/14/22 23:03 05/14/22 22:48 05/14/22 22:27 Room Air 05/14/22 22:27 05/14/22 22:22 Room Air 05/14/22 22:05 Laboratory Results Urine culture results 100,000 gram-negative bacilli Reviewed chemistry Reviewed LFTs Reviewed CBC posttransfusion hemoglobin 8.6 however grains of leukocytosis PG Care Time/CCT Total # of Minutes Spent Total Time Spent with Patient: Total time spent is greater than 50% in coordination of care (as documented) at patient's floor/unit and/or counseling patient: Coding Level of Care Code 77631 SUB INP/OBS CARE 3/50MIN Diagnoses Febrile illness, acute R50.9 Anemia D64.9 Anemia type: unspecified type Bladder cancer metastasized to bone C67.9; C79.51 Immunocompromised state due to drug therapy D84.821; Z79.899 History of DVT (deep vein thrombosis) Z86.718 Acute kidney injury N17.9 (1) Anemia Anemia type: unspecified type Qualified Code(s): D64.9 - Anemia, unspecified
--- NOTE | 2022-05-15 08:13 | XRay Report ---
XR chest 1V portable HISTORY: Sepsis COMPARISON: Chest 03/20/2022. FINDINGS: No pneumothorax. No pleural effusions. No focal lung consolidations to suggest a pneumonia. No evidence for pulmonary edema. The heart is normal in size. A right jugular Port-A-Cath terminates at the distal SVC. IMPRESSION: No significant change compared to the prior study. No acute process. ACT 112: Negative or not required by law. Electronically signed by: Varghese Maher M.D. 05/15/2022 8:12 AM
[2022-05-15] MEDS: GABAPENTIN 300 MG CAP PO SCH (08:14)
[2022-05-15] MEDS: hydrOXYzine HCl 25 MG TAB PO SCH (08:14)
[2022-05-15] MEDS ORDERED: APIXABAN 5 MG TABLET PO SCH (09:00)
[2022-05-15 09:07] LABS: Hematocrit (blood only) 24.9 % (37.0-47.0); Hemoglobin 8.6 g/dl (12.0-16.0); Mean Corpuscular Hemoglobin 32.8 pg (25.0-34.0); Mean Corpuscular Hgb Conc 34.5 g/dL (32.0-36.0); Mean Platelet Volume 10.9 fL (9.4-12.4); Platelet Count 140 K/uL (130-400); Red Blood Count 2.62 M/uL (4.20-5.40); White Blood Count 28.36 K/ul (4.8-10.8)
[2022-05-15 09:35] LABS: Anisocytosis Present; Basophils % (auto) 0.4 %; Eosinophils # (auto) 0.11 K/uL (0-0.50); Eosinophils % (auto) 0.4 %; Immature Granulocytes # (auto) 1.05 K/uL (0.01-0.20); Immature Granulocytes % (auto) 3.7 %; Lymphocytes # (auto) 1.66 K/uL (1.2-3.4); Lymphocytes % (auto) 5.9 %; Monocytes % (auto) 8.8 %; Neutrophils # (auto) 22.94 K/uL (1.40-6.50); Neutrophils % (auto) 80.8 %; Polychromasia 1+
--- NOTE | 2022-05-15 09:46 | Electrocardiogram Report ---
Test Reason : Blood Pressure : / mmHG Vent. Rate : 113 BPM Atrial Rate : 113 BPM P-R Int : 126 ms QRS Dur : 076 ms QT Int : 310 ms P-R-T Axes : 067 024 061 degrees QTc Int : 425 ms Sinus tachycardia Otherwise normal ECG When compared with ECG of 20-MAR-2022 16:24, No significant change was found Confirmed by Jackson Cantu ([id number]) on 05/15/2022 9:46:27 AM Referred By: REFERRED SELF Confirmed By:Jackson Cantu
[2022-05-15 09:58] LABS: Albumin Globulin Ratio 1.1 (0.9-2); Albumin Level 2.8 gm/dl (3.4-5.0); BUN Creatinine Ratio 39.5 (10-20); Bilirubin,Total 0.5 mg/dl (0.2-1.0); Calcium 9.1 mg/dl (8.5-10.1); Creatinine Clr Calc Pharmacy 40.9 ml/min; Est GFR (African American) 77.7 ml/min; Globulin 2.5 gm/dl (2.5-4.0); Magnesium 1.7 mg/dl (1.7-2.4); Potassium 3.7 mmol/L (3.5-5.1); Total Protein 5.3 gm/dl (6.0-8.3)
[2022-05-15] MEDS: CEFEPIME 1,000 MG in SYRINGE 0 ML IV SCH ×2 (11:57→19:30)
[2022-05-15] MEDS: oxyCODONE HCL IR 5 MG TAB (IMMEDIATE RELEASE) PO PRN ×2 (15:04→19:36)
--- NOTE | 2022-05-15 16:26 | XRay Report ---
LEFT FEMUR 3 VIEWS CLINICAL HISTORY: Left leg pain. History of metastatic disease. FINDINGS: AP, frog-leg, and lateral views of the left femur are obtained. No prior studies are availa ble for comparison at the time of dictation. The skeletal structures are osteopenic. There is a large permeative destructive lesion in the proximal femoral shaft with evidence of previous pathologic fra cture. There are intertrochanteric cortical lag screws and an intramedullary nail in place. No acute appearing fracture is seen. Periostitis is noted throughout the femoral shaft. The hip and knee joint s are grossly maintained. The visualized left hemipelvis appears intact. Surgical clips project over the left groin. Soft tissue edema versus mass is seen in the upper thigh. IMPRESSION: 1. No acute appearing fracture is clearly identified. 2. A large destructive lesion is seen in the proximal femoral shaft with evidence of prior pathologic fracture and postsurgical fixation. 3. Soft tissue edema versus mass is noted in the upper thigh. Electronically signed by: Tereso Maxwell M.D. 05/15/2022 4:24 PM
[2022-05-15] MEDS ORDERED: DAPTOmycin 175 MG in SYRINGE 0 ML IV SCH (21:00)
[2022-05-15] MEDS ORDERED: CEFEPIME 1,000 MG in SYRINGE 0 ML IV SCH (22:00)
[2022-05-16] MEDS ORDERED: oxyCODONE HCL IR 5 MG TAB (IMMEDIATE RELEASE) PO STA (02:57)
[2022-05-16 07:13] LABS: Basophils # (auto) 0.09 K/uL (0-0.2); Basophils % (auto) 0.4 %; Eosinophils # (auto) 0.21 K/uL (0-0.50); Hematocrit (blood only) 24.5 % (37.0-47.0); Hemoglobin 8.3 g/dl (12.0-16.0); Immature Granulocytes # (auto) 0.58 K/uL (0.01-0.20); Immature Granulocytes % (auto) 2.7 %; Lymphocytes % (auto) 8.9 %; Mean Corpuscular Hemoglobin 32.5 pg (25.0-34.0); Mean Corpuscular Hgb Conc 33.9 g/dL (32.0-36.0); Mean Corpuscular Volume 96.1 fL (80.0-100.0); Mean Platelet Volume 10.5 fL (9.4-12.4); Monocytes # (auto) 1.98 K/uL (0.11-0.59); Monocytes % (auto) 9.2 %; Neutrophils # (auto) 16.66 K/uL (1.40-6.50); Neutrophils % (auto) 77.8 %; Platelet Count 170 K/uL (130-400); RDW Coefficient of Variation 20.2 % (11.5-14.5); Red Blood Count 2.55 M/uL (4.20-5.40); White Blood Count 21.42 K/ul (4.8-10.8)
[2022-05-16 07:47] LABS: Anisocytosis Present; Polychromasia 1+
[2022-05-16 07:51] LABS: Albumin Globulin Ratio 0.9 (0.9-2); Albumin Level 2.6 gm/dl (3.4-5.0); BUN Creatinine Ratio 33.8 (10-20); Bilirubin,Total 0.4 mg/dl (0.2-1.0); Calcium 9.2 mg/dl (8.5-10.1); Creatinine Clr Calc Pharmacy 49.6 ml/min; Est GFR (African American) 88.8 ml/min; Est GFR (Non-African American) 76.6 ml/min; Magnesium 1.8 mg/dl (1.7-2.4); Potassium 3.7 mmol/L (3.5-5.1); Total Protein 5.6 gm/dl (6.0-8.3)
[2022-05-16] MEDS: CEFEPIME 1,000 MG in SYRINGE 0 ML IV SCH (08:16)
[2022-05-16] MEDS: ACETAMINOPHEN 325 MG TAB PO PRN (08:16)
[2022-05-16] MEDS: oxyCODONE HCL IR 5 MG TAB (IMMEDIATE RELEASE) PO PRN (08:16)
[2022-05-16] MEDS: GABAPENTIN 300 MG CAP PO SCH (08:17)
[2022-05-16] MEDS: CHECK fentaNYL PATCH PLACEMENT SCH (08:18)
[2022-05-16] MEDS: hydrOXYzine HCl 25 MG TAB PO SCH (10:28)
[2022-05-16] MEDS ORDERED: oxyCODONE HCL IR 5 MG TAB (IMMEDIATE RELEASE) PO PRN (12:26)
--- NOTE | 2022-05-16 12:37 | Discharge Summary ---
Date of Service May 16, 2022 Admission HPI Per Admitting Provider The patient is a 72-year-old female with a past medical history including DVT, anemia, UTI, DVT, bladder cancer metastasized to bone and GI bleeding. She is currently undergoing treatment for bladder cancer by physicians in [place]. She has had overall poor appetite per her daughter who is in attendance. She has had ileostomy associated urinary tract infections on 01/28/2022 from Pseudomonas and Enterococcus Faecium, and from 03/20/2022 due to Citrobacter and E. coli. Principal Diagnosis 1. Klebsiella UTI 2. Acute on chronic anemia s/p 2 units PRBcs 3. Femur pain with evidence of bony destruction ?mets Discharge Exam GENERAL: 72 yo thin well developed WF, NAD. LUNGS: Clear to auscultation bilaterally. CARDIOVASCULAR: Regular rate and rhythm. : b/l nephrostomy tube sites intact, no erythema. ileal conduit intact, bag draining clear yellow urine Discharge Data Allergies Allergy/AdvReac Type Severity Reaction Status Date / Time Sulfa (Sulfonamide Allergy Unknown Verified 05/14/22 22:51 Antibiotics) Consultations 05/14/22 21:05 ED Decision to Admit Stat Ordered Studies Chest X-Ray 05/14/22 19:19 XR chest 1V portable HISTORY: Sepsis COMPARISON: Chest 03/20/2022. FINDINGS: No pneumothorax. No pleural effusions. No focal lung consolidations to suggest a pneumonia. No evidence for pulmonary edema. The heart is normal in size. A right jugular Port-A-Cath terminates at the distal SVC. IMPRESSION: No significant change compared to the prior study. No acute process. ACT 112: Negative or not required by law. Electronically signed by: Varghese Maher M.D. 05/15/2022 8:12 AM Femur X-Ray 05/15/22 00:00 LEFT FEMUR 3 VIEWS CLINICAL HISTORY: Left leg pain. History of metastatic disease. FINDINGS: AP, frog-leg, and lateral views of the left femur are obtained. No prior studies are available for comparison at the time of dictation. The skeletal structures are osteopenic. There is a large permeative destructive lesion in the proximal femoral shaft with evidence of previous pathologic fract ure. There are intertrochanteric cortical lag screws and an intramedullary nail in place. No acute appearing fracture is seen. Periostitis is noted throughout the femoral shaft. The hip and knee joints are grossly maintained. The visualized left hemipelvis appears intact. Surgical clips project over the left groin. Soft tissue edema versus mass is seen in the upper thigh. IMPRESSION: 1. No acute appearing fracture is clearly identified. 2. A large destructive lesion is seen in the proximal femoral shaft with evidence of prior pathologic fracture and postsurgical fixation. 3. Soft tissue edema versus mass is noted in the upper thigh. Electronically signed by: Tereso Maxwell M.D. 05/15/2022 4:24 PM Hospital Course (1) UTI (urinary tract infection): - Presented with fever of 39C and tachycardia (107) thus meeting sepsis criteria - Immunocompromised d/t chemotherapy - Covered with Dapto and Cefepime - Urine and blood cultures obtained, blood cultures NGTD - Urine culture growing pansensitive Klebsiella, abx de-escalated to Cefepime - Will plan for dc home on Cefdinir 300mg BID, with a total of 10 day course (2) Acute kidney injury: - history of CKD2 - resolved after transfusion (3) Anemia: - transfused 2 units PRBC - Eliquis placed on hold - Hgb remains stable over the past 24 hours w/o further need of transfusion (4) Leg pain, right: - R femur pain - xray obtained, large destructive lesion seen in prox femoral shaft with evidence of prior pathologic fx and postsurgical fixation - Continue Fentanyl patch, APAP, and Oxycodone 10mg po q4h prn breakthrough pain - Plans to f/u with her orthopedic surgeon on in [place] (missed scheduled appt on 05/15 d/t hospitalization) (5) Bladder cancer metastasized to bone: - Sees oncologist in [place] receiving chemo - Immunocompromised - Follow up with specialists (6) History of DVT (deep vein thrombosis): - Eliquis held d/t hgb of 6.7 on admit requiring transfusion - Hgb on 05/15 8.6 and 05/16 8.3, can resume Eliquis upon d/c Plan Above plan of care has been d/w Dr. Houser who has also seen and evaluated this patient and agrees with aforementioned. Total Time Total Time Spent Total Time Spent (In Minutes): >30 minutes Discharge Plan Discharge Items Patient Disposition: Home - Self-Care Reason For Visit: UTI ANEMIA Discharge Diagnosis: urinary tract infection, low blood count requiring transfusion Activity: Resume your previous activity Non-emergency contact: Primary Care Provider, Surgeon and Oncologist Call non-emergency contact if: you have any medication questions Follow-up/Referrals: Reyna Tidwell DO [Primary Care Provider] - Diet: Regular Addtl Attending Provider Instructions: You were hospitalized due to fever which was found to be secondary to a urinary tract infection. You were also noted to have low blood counts requiring transfusion of 2 units of blood. You were treated for your infection with intravenous antibiotics. Due to complaints of pain in your right leg, an xray was performed which reve aled a large area of bone destruction in your thigh bone. This could be related to your cancer. You will need to follow up with your oncologist as well as orthopedic surgery to determine if anything (such as radiation) could be done to this area to assist in pain control. Otherwise, continue your Fentanyl patch and Oxycodone as prescribed. For your urinary tract infection, you will be transitioned to oral antibiotics to start this evening called Cefdinir 300mg twice a day. Your next dose will be due this evening (05/16/22) before bed. Take with food or snack to minimize stomach upset. You may also experience diarrhea due to this antibiotic. Please complete the course, no pills should be left behind. You should follow up with your primary care provider within 1 week of discharge or sooner if needed. In the event of any questions or concerns following your discharge, please contact the nonemergency number listed on your discharge paperwork. In the event of a medical emergency, call 911. Pending Studies at Discharge: No Stand-Alone Forms: My [facility] cookdinner, Smoking Cessation Medications and DC Order Prescriptions: New cefdinir 300 mg capsule 300 mg PO BID Qty: 15 0RF Continued acetaminophen 500 mg Tablet 1,000 mg PO Q6H PRN (Reason: Fever Or Pain) oxycodone 5 mg tablet 5 - 10 mg PO .Q4-6HRS PRN (Reason: Pain) Ayur-Boswellia Aniket 2 tab PO BID Rx Instructions: without food ondansetron HCl 4 mg Tablet 4 mg PO Q8H PRN (Reason: .NAUSEA/VOMITING) gabapentin 300 mg capsule 300 mg PO QAM hydroxyzine HCl 25 mg tablet 25 mg PO QAM lysine [L-Lysine] 500 mg Tablet 500 mg PO DAILY cholecalciferol (vitamin D3) [Vitamin D3] 125 mcg (5,000 unit) Tablet 125 mcg PO DAILY Eliquis 5 mg tablet 5 mg PO BID magnesium citrate 100 mg Capsule 100 mg PO DAILY Berberine Complex 2 cap PO BID Curcu-Essentials 1 tab PO BID Curcumin Iv 0 mg IV .[id number] Glutathione Iv 0 mg IV .[id number] Isoflavone Caps 2 cap PO BID Rx Instructions: TAKE ON EMPTY STOMACH Methyl-Guard 1 cap PO DAILY Multivitamin Iv 0 mg IV .[id number] Nutri-Essentials 2 cap PO DAILY Opti-Cell Plus 3 tab PO BID Proepa 1 tab PO BID Quercetin Iv 0 mg IV .[id number] Reservatrol Iv 0 mg IV .[id number] Turbo Greens 1 ea PO BID Rx Instructions: IN LIQUID Ultra Lipoic Essentials 2 tab PO BID Ultra Reishi 2 tab PO BID Rx Instructions: take without food Vitamin C Iv 0 mg IV .[id number] calcium carbonate [Calcium 500] 500 mg calcium (1,250 mg) Tablet 500 mg PO BID fentanyl 25 mcg/hr patch 72 hour 1 patch topical [id number] zinc 15 mg Tablet 15 mg PO DAILY Discontinued nitrofurantoin macrocrystal 100 mg capsule 100 mg PO DIRECTED Admission Data Admit Date/Time: 05/14/22 21:43 Attending Provider: Mir Houser Admit Provider: Jose Curtis Primary Care Provider: Reyna Tidwell Other Providers: Jose Curtis Coding Level of Care Code HOSP INP/OBS DISCH >30 MIN Diagnoses UTI (urinary tract infection) N39.0 Urinary tract infection type: site unspecified Acute kidney injury N17.9 Anemia D64.9 Anemia type: unspecified type Leg pain, right M79.604 Bladder cancer metastasized to bone C67.9; C79.51 History of DVT (deep vein thrombosis) Z86.719
[2022-05-16] MEDS ORDERED: fentaNYL 25 MCG/HR TDSY TD SCH (21:30)
[2022-05-16] MEDS ORDERED: DAPTOmycin 175 MG in SYRINGE 0 ML IV SCH (22:00)
== END 2022-05-16 18:14 | disposition home or self-care (01) | DRG 872 ==
LOC: ED 19:12 → 3W 21:43 → SUATTDRO 21:43 → 3W 22:49

== ENCOUNTER 2022-07-06 20:10 | Inpatient (IN) ==
[2022-07-06] MEDS ORDERED: MoRPHine SULFATE 4 MG/ML 1 ML CARP\\VIAL IV STA (21:20)
[2022-07-06 21:27] LABS: Basophils # (auto) 0.05 K/uL (0-0.2); Basophils % (auto) 0.3 %; Eosinophils # (auto) 0.07 K/uL (0-0.50); Eosinophils % (auto) 0.4 %; Hematocrit (blood only) 22.1 % (37.0-47.0); Hemoglobin 7.1 g/dl (12.0-16.0); Immature Granulocytes # (auto) 0.16 K/uL (0.01-0.20); Immature Granulocytes % (auto) 0.8 %; Lymphocytes # (auto) 0.95 K/uL (1.2-3.4); Mean Corpuscular Hemoglobin 34.1 pg (25.0-34.0); Mean Corpuscular Hgb Conc 32.1 g/dL (32.0-36.0); Mean Corpuscular Volume 106.3 fL (80.0-100.0); Mean Platelet Volume 9.3 fL (9.4-12.4); Monocytes # (auto) 0.86 K/uL (0.11-0.59); Monocytes % (auto) 4.5 %; Neutrophils # (auto) 16.83 K/uL (1.40-6.50); Platelet Count 422 K/uL (130-400); RDW Standard Deviation 62.2 fL (36.4-46.3); Red Blood Count 2.08 M/uL (4.20-5.40); White Blood Count 18.92 K/ul (4.8-10.8)
[2022-07-06 21:43] LABS: Albumin Globulin Ratio 0.8 (0.9-2); Albumin Level 2.9 gm/dl (3.4-5.0); Bilirubin,Total 0.4 mg/dl (0.2-1.0); Calcium 8.8 mg/dl (8.6-10.3); Creatinine Clr Calc Pharmacy 35.4 ml/min; Est GFR (African American) 64.7 ml/min; Est GFR (Non-African American) 55.8 ml/min; Globulin 3.7 gm/dl (2.5-4.0); Magnesium 1.5 mg/dl (1.7-2.4); Potassium 4.6 mmol/L (3.5-5.1); Total Protein 6.6 gm/dl (6.0-8.3)
[2022-07-06 22:04] LABS: Polychromasia 1+
[2022-07-06 22:08] LABS: Appearance Urine Cloudy (Clear); Bacteria Urine Automated Negative (Negative); Bilirubin Urine Negative (Negative); Blood Urine 2+ (Negative); Color Urine Yellow; Glucose Urine UA Negative (Negative); Ketones Urine Negative (Negative); Leukocyte Esterase Urine 3+ (Negative); Nitrite Urine Negative (Negative); Protein Urine 1+ (Negative); Specific Gravity Urine 1.012 (1.000-1.030); Urobilinogen Urine Negative (Negative); WBC Urine Automated >30 /hpf (0-5)
[2022-07-06 22:28] LABS: Adenovirus PCR Not Detected (NotDetected); Bordetella parapertussis PCR Not Detected (NotDetected); Bordetella pertussis PCR Not Detected (NotDetected); Chlamydia pneumoniae PCR Not Detected (NotDetected); Coronavirus 229E PCR Not Detected (NotDetected); Coronavirus CoV-2 (COVID19)PCR Not Detected (NotDetected); Coronavirus HKU1 PCR Not Detected (NotDetected); Coronavirus NL63 PCR Not Detected (NotDetected); Coronavirus OC43PCR Not Detected (NotDetected); Human Metapneumovirus PCR Not Detected (NotDetected); Influenza A PCR Not Detected (NotDetected); Influenza B PCR Not Detected (NotDetected); Mycoplasma pneumoniae PCR Not Detected (NotDetected); Parainfluenza Virus 1 PCR Not Detected (NotDetected); Parainfluenza Virus 2 PCR Not Detected (NotDetected); Parainfluenza Virus 3 PCR Not Detected (NotDetected); Parainfluenza Virus 4 PCR Not Detected (NotDetected); Respiratory Syncytial VirusPCR Not Detected (NotDetected); Rhinovirus/Enterovirus PCR Not Detected (NotDetected)
[2022-07-06] MEDS ORDERED: OPTIRAY 350 100ml IV ONE (22:41)
[2022-07-06] MEDS: MAGNESIUM SULFATE / D5W 1 GM/100 ML BAG IV SCH ×2 (22:52→23:56)
--- NOTE | 2022-07-06 23:16 | Emergency Department Note ---
History of Present Illness General Chief complaint: Referred by Doctor Stated complaint: REF BY DOC, TREATED FOR UTI,ABDOMINAL PAIN,VOMIT Time Seen by Provider: 07/06/22 20:45 History of Present Illness Provider complaint: Abdominal pain vomiting Maximum Pain Intensity: 1 72-year-old female with bladder cancer and metastasis being treated with chemotherapy from physicians in [place] presents emergency department for abdominal pain and vomiting. Daughter reports that earlier today she began having increased weakness vomiting and abdominal pain. No hematemesis coffee- ground emesis or bilious vomiting. No fevers. Daughter reports that the patient is currently being treated for UTI. Patient is on oral Cipro prophylactically for UTI but had her nephrostomy drains exchanged in [place] on June 26, 2022 and was concerned to have a UTI so they started her on linezolid 600 mg p.o. twice daily yesterday. Patient is also on fluconazole 100 mg twice daily for the last 4 days for yeast in her urine. Patient is not reporting any chest pain or difficulty breathing. Home Medications Medication Instructions Recorded Confirmed Type Ayur-Boswellia Aniket 2 tab PO BID 01/28/22 07/06/22 History Berberine Complex 2 cap PO BID 01/28/22 07/06/22 History Curcu-Essentials 1 tab PO BID 01/28/22 07/06/22 History Curcumin Iv 0 mg IV DIRECTED 01/28/22 07/06/22 History Glutathione Iv 0 mg IV DIRECTED 01/28/22 07/06/22 History Isoflavone Caps 2 cap PO BID 01/28/22 07/06/22 History Methyl-Guard 1 cap PO DAILY 01/28/22 07/06/22 History Multivitamin Iv 0 mg IV DIRECTED 01/28/22 07/06/22 History Nutri-Essentials 2 cap PO DAILY 01/28/22 07/06/22 History Opti-Cell Plus 3 tab PO BID 01/28/22 07/06/22 History Proepa 1 tab PO BID 01/28/22 07/06/22 History Quercetin Iv 0 mg IV DIRECTED 01/28/22 07/06/22 History Reservatrol Iv 0 mg IV DIRECTED 01/28/22 07/06/22 History Ultra Lipoic Essentials 2 tab PO BID 01/28/22 07/06/22 History Ultra Reishi 2 tab PO BID 01/28/22 07/06/22 History Vitamin C Iv 0 mg IV DIRECTED 01/28/22 07/06/22 History acetaminophen 500 mg tablet 1,000 mg PO Q6H PRN Fever Or Pain 01/28/22 07/06/22 History cholecalciferol (vitamin D3) 125 125 mcg PO DAILY 01/28/22 07/06/22 History mcg (5,000 unit) tablet (Vitamin D3) hydroxyzine HCl 25 mg tablet 25 mg PO QAM 01/28/22 07/06/22 History lysine 500 mg tablet (L-Lysine) 500 mg PO DAILY 01/28/22 07/06/22 History magnesium citrate 100 mg capsule 150 mg PO DAILY 01/28/22 07/06/22 History ondansetron HCl 4 mg tablet 4 mg PO Q8H PRN .NAUSEA/VOMITING 01/28/22 07/06/22 History zinc 15 mg tablet 15 mg PO DAILY 04/26/22 07/06/22 History Chemo Drugs 0 mg DIRECTED 07/06/22 07/06/22 History ciprofloxacin HCl 250 mg tablet 250 mg PO DAILY 07/06/22 07/06/22 History digestive enzymes 1 cap PO TID 07/06/22 07/06/22 History docusate sodium 100 mg capsule 100 mg PO TID 07/06/22 07/06/22 History (Colace) dronabinol 2.5 mg capsule 5 mg PO BID 07/06/22 07/06/22 History fentanyl 50 mcg/hr transdermal 50 mcg topical [id number] 07/06/22 07/06/22 History patch fluconazole 100 mg tablet 100 mg PO DAILY 07/06/22 07/06/22 History linezolid 600 mg tablet 600 mg PO BID 07/06/22 07/06/22 History loratadine 10 mg tablet (Claritin) 10 mg PO DIRECTED 07/06/22 07/06/22 History oxycodone 10 mg tablet 10 mg PO .Q4-6HRS PRN Pain 07/06/22 07/06/22 History oxycodone 10 mg tablet 10 mg PO DAILY 07/06/22 07/06/22 History Allergies Allergy/AdvReac Type Severity Reaction Status Date / Time Sulfa (Sulfonamide Allergy Unknown Verified 07/06/22 22:44 Antibiotics) Past Med/Surg History Medical History Acute DVT (deep venous thrombosis) Bladder cancer metastasized to bone Fever Hyponatremia Leukocytosis Sepsis Thrombocytopenia Surgical History History of fracture of femur with evelyn placement; LEFT History of hysterectomy History of nephrostomy History of total cystectomy Family History Other Family history non-contributory Social History Smoking Status: Never smoker Second Hand Exposure: No; Hx Alcohol Use: No Hx Substance Use: No Preferred Language: Kittitian Communication Ability: Effective [employer] Required: No Beliefs That Will Affect Care: None marital status: / Current Living Situation: Family Current Living Situation Comment: daughter Feels Safe at Home: Yes Assistive Devices: Walker and Wheelchair Physical Exam Vital Signs Vital Signs - 24 hr 07/06/22 20:24 07/06/22 21:08 07/06/22 21:45 Temperature 37.2 C Temperature Source Temporal Artery Scan Pulse Rate 105 H Pulse Rate [Right Finger] 94 H 89 Pulse Rhythm [Right Finger] Regular Regular Pulse Strength [Right Finger] Normal Normal Respiratory Rate 20 12 18 Respiratory Effort / Characteristics Non-Labored Spontaneous Non-Labored Spontaneous Non-Labored Spontaneous Respiratory Depth Normal Normal Normal Respiratory Pattern Regular Blood Pressure 104/72 Blood Pressure [Right Arm] 149/81 H 144/82 H Blood Pressure Mean 82 Blood Pressure Mean [Right Arm] 103 102 Blood Pressure Position Sitting Blood Pressure Position [Right Arm] Lying Pulse Oximetry 100 100 100 Oxygen Delivery Method Room Air Room Air Room Air Sepsis Recent Fever Within 48 Hours No Sepsis New/Unexplained Change in Mental Status N/A Sepsis Action Taken by Nursing No Action Required 07/06/22 21:26 07/06/22 22:25 Temperature Temperature Source Pulse Rate 94 H Pulse Rate [Right Finger] 82 Pulse Rhythm [Right Finger] Regular Pulse Strength [Right Finger] Normal Respiratory Rate 16 Respiratory Effort / Characteristics Non-Labored Spontaneous Respiratory Depth Normal Respiratory Pattern Regular Blood Pressure Blood Pressure [Right Arm] 140/74 Blood Pressure Mean Blood Pressure Mean [Right Arm] 96 Blood Pressure Position Blood Pressure Position [Right Arm] Lying Pulse Oximetry 100 Oxygen Delivery Method Room Air Sepsis Recent Fever Within 48 Hours Sepsis New/Unexplained Change in Mental Status Sepsis Action Taken by Nursing Physical Exam GENERAL: Cachectic. HENT: Exam performed. -Head: Normocephalic and atraumatic. CV: Tachycardic rate, regular rhythm, normal heart sounds and intact distal pulses. There is no peripheral edema. Palpable radial pulses bue. PULM/CHEST: Effort normal and breath sounds normal. No respiratory distress. No stridor. She has no wheezes. She has no rales. -Chest Wall: She exhibits no tenderness. ABD: The abdomen is soft. Pain on palpation of the abdomen. No guarding or rigidity. Urostomy bag present. Nephrostomy tubes bilaterally are present. LYMPH: No cervical adenopathy. NEURO: Alert and oriented x3 motor and sensation grossly intact. Course Course 2044: The patient was evaluated in room C11. A complete history and physical exam was performed Cardiac monitoring: An order was placed for continuous cardiac monitoring. The monitor shows a rate of 70 with sinus rhythm interpreted by me 2351: Vital signs stable. Labs show leukocytosis of 18.9. Hemoglobin stable at 7.1. This is around the patient's baseline. BUN/creatinine within normal limits. Magnesium 1.5. Magnesium repletion started in the emergency department. Lipase of 4. Urinalysis shows negative bacteria negative nitrites 3+ leukocyte Estrace 5-10 epithelial cells greater than 30 white blood cells count 5-10 white blood cells count. Bio fire negative. CT abdomen pelvis shows bilateral nephroureteral stents and ileal conduit with hydronephrosis. Imaging also shows dilated small bowel with air-fluid levels suggesting small bowel obstruction. Discussed case with Houston Grullon on-call for both surgery and urology he states he will evaluate the patient and get the patient mated to medicine. Discussed case with Dr. Stubbs [facility] hospitalist to evaluate the patient for admission. Administered Medications Magnesium Sulfate/Dextrose (Magnesium Sulfate / D5w) 1 gm in 100 mls @ 100 mls/hr IV Q1H DELORES Stop: 07/07/22 00:27 Last Admin: 07/06/22 23:56 Dose: 100 mls/hr Documented By: Infusion: 07/06/22 23:53 Dose: 0 mls/hr Documented By: Admin: 07/06/22 22:52 Dose: 100 mls/hr Documented By: [employer] Sodium Chloride (Nss 1000ml) 1,000 mls @ 80 mls/hr IV .[id number] DELORES Stop: 08/05/22 23:44 Last Admin: 07/06/22 23:59 Dose: 80 mls/hr Documented By: DML Discontinued Medications Ioversol (Optiray 350 100ml) 79 ml IV ONCE ONE Stop: 07/06/22 22:42 Last Admin: 07/06/22 22:41 Dose: 79 ml Documented By: DG Morphine Sulfate (Morphine Sulfate 4 Mg/Ml 1 Ml Carp\Vial) 2 mg IV NOW STA Stop: 07/06/22 21:21 Last Admin: 07/06/22 21:45 Dose: 2 mg Documented By: [employer]INO [employer] DEALER Medical Decision Making Laboratory Data Attestation: I reviewed the patient's lab results. 07/06/22 20:57 07/06/22 20:57 Lab Results 07/06/22 07/06/22 07/06/22 Range/Units 20:57 20:57 21:17 WBC 18.92 H (4.8-10.8) K/ul RBC 2.08 L (4.20-5.40) M/uL Hgb 7.1 L (12.0-16.0) g/dl Hct 22.1 L (37.0-47.0) % MCV 106.3 H (80.0-100.0) fL MCH 34.1 H (25.0-34.0) pg MCHC 32.1 (32.0-36.0) g/dL RDW Std Deviation 62.2 H (36.4-46.3) fL RDW Coeff of Macario 16.0 H (11.5-14.5) % Plt Count 422 H (130-400) K/uL MPV 9.3 L (9.4-12.4) fL Immature Gran % (Auto) 0.8 % Neut % (Auto) 89.0 % Lymph % (Auto) 5.0 % Ellis % (Auto) 4.5 % Eos % (Auto) 0.4 % Baso % (Auto) 0.3 % Neut # (Auto) 16.83 H (1.40-6.50) K/uL Lymph # (Auto) 0.95 L (1.2-3.4) K/uL Ellis # (Auto) 0.86 H (0.11-0.59) K/uL Eos # (Auto) 0.07 (0-0.50) K/uL Baso # (Auto) 0.05 (0-0.2) K/uL Immature Gran # (Auto) 0.16 (0.01-0.20) K/uL Polychromasia 1+ Sodium 137 (136-145) mmol/L Potassium 4.6 (3.5-5.1) mmol/L Chloride 106 (98-107) mmol/L Carbon Dioxide 23 (21-32) mmol/L Anion Gap 8 (3-11) BUN 28 H (6-23) mg/dl Creatinine 1.00 (0.6-1.2) mg/dl Est Cr Clr Drug Dosing 35.4 ml/min Est GFR ( Amer) 64.7 ml/min Est GFR (Non-Af Amer) 55.8 ml/min BUN/Creatinine Ratio 28.0 H (10-20) Glucose 116 H (70-99(Fasting)) mg/dl Lactate (0.4-2.0) mmol/L Calcium 8.8 (8.6-10.3) mg/dl Magnesium 1.5 L (1.7-2.4) mg/dl Total Bilirubin 0.4 (0.2-1.0) mg/dl AST 9 L (13-39) U/L ALT 6 L (7-52) U/L Alkaline Phosphatase 59 (34-104) U/L Total Protein 6.6 (6.0-8.3) gm/dl Albumin 2.9 L (3.4-5.0) gm/dl Globulin 3.7 (2.5-4.0) gm/dl Albumin/Globulin Ratio 0.8 L (0.9-2) Lipase 4 L (11-82) U/L Urine Color Urine Appearance (Clear) Urine pH (4.5-7.5) Ur Specific Pollock (1.000-1.030) Urine Protein (Negative) Urine Glucose (UA) (Negative) Urine Ketones (Negative) Urine Blood (Negative) Urine Nitrite (Negative) Urine Bilirubin (Negative) Urine Urobilinogen (Negative) Ur Leukocyte Esterase (Negative) Urine WBC (Auto) (0-5) /hpf Urine RBC (Auto) (0-4) /hpf U Hyaline Cast (Auto) (0-5) /lpf U Epithel Cells (Auto) (0-5) /lpf Urine Bacteria (Auto) (Negative) Urine Yeast (None Prsent) Adenovirus (PCR) Not Detected (NotDetected) B. pertussis DNA (PCR) Not Detected (NotDetected) B.parapertussis DNA PCR Not Detected (NotDetected) C. pneumoniae DNA (PCR) Not Detected (NotDetected) Coronavirus OC43 (PCR) Not Detected (NotDetected) Coronavirus HKU1 (PCR) Not Detected (NotDetected) Coronavirus 229E (PCR) Not Detected (NotDetected) SARS-CoV-2 (PCR) Not Detected (NotDetected) Coronavirus NL63 (PCR) Not Detected (NotDetected) Human Metapneumovir PCR Not Detected (NotDetected) Influenza Type A (PCR) Not Detected (NotDetected) Influenza Type B (PCR) Not Detected (NotDetected) M. pneumoniae (PCR) Not Detected (NotDetected) Parainfluenza 1 (PCR) Not Detected (NotDetected) Parainfluenza 2 (PCR) Not Detected (NotDetected) Parainfluenza 3 (PCR) Not Detected (NotDetected) Parainfluenza 4 (PCR) Not Detected (NotDetected) RSV (PCR) Not Detected (NotDetected) Entero/Rhino (PCR) Not Detected (NotDetected) 07/06/22 07/06/22 Range/Units 21:17 21:32 WBC (4.8-10.8) K/ul RBC (4.20-5.40) M/uL Hgb (12.0-16.0) g/dl Hct (37.0-47.0) % MCV (80.0-100.0) fL MCH (25.0-34.0) pg MCHC (32.0-36.0) g/dL RDW Std Deviation (36.4-46.3) fL RDW Coeff of Macario (11.5-14.5) % Plt Count (130-400) K/uL MPV (9.4-12.4) fL Immature Gran % (Auto) % Neut % (Auto) % Lymph % (Auto) % Ellis % (Auto) % Eos % (Auto) % Baso % (Auto) % Neut # (Auto) (1.40-6.50) K/uL Lymph # (Auto) (1.2-3.4) K/uL Ellis # (Auto) (0.11-0.59) K/uL Eos # (Auto) (0-0.50) K/uL Baso # (Auto) (0-0.2) K/uL Immature Gran # (Auto) (0.01-0.20) K/uL Polychromasia Sodium (136-145) mmol/L Potassium (3.5-5.1) mmol/L Chloride (98-107) mmol/L Carbon Dioxide (21-32) mmol/L Anion Gap (3-11) BUN (6-23) mg/dl Creatinine (0.6-1.2) mg/dl Est Cr Clr Drug Dosing ml/min Est GFR ( Amer) ml/min Est GFR (Non-Af Amer) ml/min BUN/Creatinine Ratio (10-20) Glucose (70-99(Fasting)) mg/dl Lactate 0.8 (0.4-2.0) mmol/L Calcium (8.6-10.3) mg/dl Magnesium (1.7-2.4) mg/dl Total Bilirubin (0.2-1.0) mg/dl AST (13-39) U/L ALT (7-52) U/L Alkaline Phosphatase (34-104) U/L Total Protein (6.0-8.3) gm/dl Albumin (3.4-5.0) gm/dl Globulin (2.5-4.0) gm/dl Albumin/Globulin Ratio (0.9-2) Lipase (11-82) U/L Urine Color Yellow Urine Appearance Cloudy A (Clear) Urine pH 7.0 (4.5-7.5) Ur Specific Pollock 1.012 (1.000-1.030) Urine Protein 1+ H (Negative) Urine Glucose (UA) Negative (Negative) Urine Ketones Negative (Negative) Urine Blood 2+ H (Negative) Urine Nitrite Negative (Negative) Urine Bilirubin Negative (Negative) Urine Urobilinogen Negative (Negative) Ur Leukocyte Esterase 3+ H (Negative) Urine WBC (Auto) >30 H (0-5) /hpf Urine RBC (Auto) 5-10 H (0-4) /hpf U Hyaline Cast (Auto) 5-10 H (0-5) /lpf U Epithel Cells (Auto) 5-10 H (0-5) /lpf Urine Bacteria (Auto) Negative (Negative) Urine Yeast Present A (None Prsent) Adenovirus (PCR) (NotDetected) B. pertussis DNA (PCR) (NotDetected) B.parapertussis DNA PCR (NotDetected) C. pneumoniae DNA (PCR) (NotDetected) Coronavirus OC43 (PCR) (NotDetected) Coronavirus HKU1 (PCR) (NotDetected) Coronavirus 229E (PCR) (NotDetected) SARS-CoV-2 (PCR) (NotDetected) Coronavirus NL63 (PCR) (NotDetected) Human Metapneumovir PCR (NotDetected) Influenza Type A (PCR) (NotDetected) Influenza Type B (PCR) (NotDetected) M. pneumoniae (PCR) (NotDetected) Parainfluenza 1 (PCR) (NotDetected) Parainfluenza 2 (PCR) (NotDetected) Parainfluenza 3 (PCR) (NotDetected) Parainfluenza 4 (PCR) (NotDetected) RSV (PCR) (NotDetected) Entero/Rhino (PCR) (NotDetected) Imaging Data Attestation: I personally reviewed and interpreted this imaging study as follows: My Impression: CT abdomen pelvis: Air-fluid levels suggesting SBO Radiologist's Impression: Abdomen/Pelvis CT 07/06/22 22:27 Exam(s): CT ABDOMEN + PELVIS With Contrast IV Amt: 87 ml optiray EXAM: CT Abdomen and Pelvis With Intravenous Contrast CLINICAL HISTORY: Reason for exam: abdpainhxbladdercaw/mets. TECHNIQUE: Axial computed tomography images of the abdomen and pelvis with intravenous contrast. CTDI is 5.54 mGy and DLP is 266.4 mGy-cm. Automated exposure control was utilized for the study. A dose lowering technique was utilized adhering to the principles of ALARA. CONTRAST: Patient received 87 ml optiray of IV contrast COMPARISON: No relevant prior studies available. FINDINGS: Lung bases: Unremarkable. No mass. No consolidation. ABDOMEN: Liver: Unremarkable. No mass. Gallbladder and bile ducts: Unremarkable. No calcified stones. No ductal dilation. Pancreas: Unremarkable. No mass. No ductal dilation. Spleen: Unremarkable. No splenomegaly. Adrenals: Unremarkable. No mass. Kidneys and ureters: See below. Stomach and bowel: Dilated small bowel measuring up to 3 cm with air- fluid levels. Small bowel obstruction is suspected. Right lower quadrant ileostomy. No mucosal thickening. PELVIS: Appendix: No findings to suggest acute appendicitis. Bladder: Status post cystectomy with bilateral nephroureteral stents and ileal conduit's. Bilateral percutaneous nephrostomies. Severe bilateral hydronephrosis. Urology evaluation recommended for evaluating the distal stents. No definite patchy nephrogram to indicate pyelonephritis. Reproductive: Unremarkable as visualized. ABDOMEN and PELVIS: Intraperitoneal space: Unremarkable. No free air. No significant fluid collection. Bones/joints: Left hip ORIF. Degenerative changes of the spine. No acute fracture. No dislocation. Soft tissues: Unremarkable. Vasculature: Atherosclerotic changes of the aorta. No abdominal aortic aneurysm. Lymph nodes: Unremarkable. No enlarged lymph nodes. IMPRESSION: 1. Status post cystectomy with bilateral nephroureteral stents and ileal conduits. Bilateral percutaneous nephrostomies. Severe bilateral hydronephrosis. Urology evaluation recommended for evaluating the distal stents. No definite patchy nephrogram to indicate pyelonephritis. 2. Dilated small bowel measuring up to 3 cm with air-fluid levels. Small bowel obstruction is suspected. Electronically signed by: Peter Shankar MD 07/06/22 23:25 PM [facility] Narrative 2045: The patient was evaluated in room C11. A complete history and physical exam was performed Cardiac monitoring: An order was placed for continuous cardiac monitoring. The monitor shows a rate of 70 with sinus rhythm interpreted by de 2351: Vital signs stable. Labs show leukocytosis of 18.9. Hemoglobin stable at 7.1. This is around the patient's baseline. BUN/creatinine within normal limits. Magnesium 1.5. Magnesium repletion started in the emergency department. Lipase of 4. Urinalysis shows negative bacteria negative nitrites 3+ leukocyte Estrace 5-10 epithelial cells greater than 30 white blood cells count 5-10 white blood cells count. Bio fire negative. CT abdomen pelvis shows bilateral nephroureteral stents and ileal conduit with hydronephrosis. Imaging also shows dilated small bowel with air-fluid levels suggesting small bowel obstruction. Discussed case with Houston Grullon on-call for both surgery and urology he states he will evaluate the patient and get the patient mated to medicine. Discussed case with Dr. [facility] to evaluate the patient for admission. Impression & Plan SBO (small bowel obstruction), Hypomagnesemia, Bladder cancer metastasized to bone Discharge Plan Visit Data Chief Complaint: Referred by Doctor Stated Complaint: REF BY DOC, TREATED FOR UTI,ABDOMINAL PAIN,VOMIT ED Provider: Scar Christopher Discharge Problem: SBO (small bowel obstruction), Hypomagnesemia, Bladder cancer metastasized to bone Patient Disposition: Admitted As Inpatient Forms Stand Alone Forms: My [facility] Prescriptions Prescriptions: No Action acetaminophen 500 mg Tablet 1,000 mg PO Q6H PRN (Reason: Fever Or Pain) Ayur-Boswellia Aniket 2 tab PO BID Rx Instructions: without food ondansetron HCl 4 mg Tablet 4 mg PO Q8H PRN (Reason: .NAUSEA/VOMITING) hydroxyzine HCl 25 mg tablet 25 mg PO QAM lysine [L-Lysine] 500 mg Tablet 500 mg PO DAILY cholecalciferol (vitamin D3) [Vitamin D3] 125 mcg (5,000 unit) Tablet 125 mcg PO DAILY magnesium citrate 100 mg Capsule 150 mg PO DAILY Berberine Complex 2 cap PO BID Curcu-Essentials 1 tab PO BID Curcumin Iv 0 mg IV DIRECTED Glutathione Iv 0 mg IV DIRECTED Rx Instructions: once per cycle Isoflavone Caps 2 cap PO BID Rx Instructions: TAKE ON EMPTY STOMACH Methyl-Guard 1 cap PO DAILY Multivitamin Iv 0 mg IV DIRECTED Rx Instructions: once per cycle Nutri-Essentials 2 cap PO DAILY Opti-Cell Plus 3 tab PO BID Proepa 1 tab PO BID Quercetin Iv 0 mg IV DIRECTED Reservatrol Iv 0 mg IV DIRECTED Rx Instructions: once per cycle Ultra Lipoic Essentials 2 tab PO BID Ultra Reishi 2 tab PO BID Rx Instructions: take without food Vitamin C Iv 0 mg IV DIRECTED Rx Instructions: once per cycle fentanyl 50 mcg/hr patch 72 hour 50 mcg topical [id number] digestive enzymes Capsule 1 cap PO TID Rx Instructions: administer with food; swallow whole; do not crush/chew/dissolve/break/cut ciprofloxacin HCl 250 mg tablet 250 mg PO DAILY dronabinol 2.5 mg capsule 5 mg PO BID docusate sodium [Colace] 100 mg Capsule 100 mg PO TID loratadine [Claritin] 10 mg Tablet 10 mg PO DIRECTED Rx Instructions: once norah every other week following udenyca injections. oxycodone 10 mg tablet 10 mg PO .Q4-6HRS PRN (Reason: Pain) oxycodone 10 mg tablet 10 mg PO DAILY Chemo Drugs 0 mg DIRECTED fluconazole 100 mg tablet 100 mg PO DAILY Rx Instructions: FOR 7 DAYS, FILLED 06/28/2022 linezolid 600 mg tablet 600 mg PO BID Rx Instructions: 07/05/2022 zinc 15 mg Tablet 15 mg PO DAILY Referrals Referrals: Reyna Tidwell DO [Primary Care Provider] -
--- NOTE | 2022-07-06 23:26 | CT Scan Report ---
Exam(s): CT ABDOMEN + PELVIS With Contrast IV Amt: 87 ml optiray EXAM: CT Abdomen and Pelvis With Intravenous Contrast CLINICAL HISTORY: Reason for exam: abdpainhxbladdercaw/mets. TECHNIQUE: Axial computed tomography images of the abdomen and pelvis with intravenous contrast. CTDI is 5.54 mGy and DLP is 266.4 mGy-cm. Automated exposure control was utilized for the study. A dose lowering technique was utilized adhering to the principles of ALARA. CONTRAST: Patient received 87 ml optiray of IV contrast COMPARISON: No relevant prior studies available. FINDINGS: Lung bases: Unremarkable. No mass. No consolidation. ABDOMEN: Liver: Unremarkable. No mass. Gallbladder and bile ducts: Unremarkable. No calcified stones. No ductal dilation. Pancreas: Unremarkable. No mass. No ductal dilation. Spleen: Unremarkable. No splenomegaly. Adrenals: Unremarkable. No mass. Kidneys and ureters: See below. Stomach and bowel: Dilated small bowel measuring up to 3 cm with air- fluid levels. Small bowel obstruction is suspected. Right lower quadrant ileostomy. No mucosal thickening. PELVIS: Appendix: No findings to suggest acute appendicitis. Bladder: Status post cystectomy with bilateral nephroureteral stents and ileal conduit's. Bilateral percutaneous nephrostomies. Severe bilateral hydronephrosis. Urology evaluation recommended for evaluating the distal stents. No definite patchy nephrogram to indicate pyelonephritis. Reproductive: Unremarkable as visualized. ABDOMEN and PELVIS: Intraperitoneal space: Unremarkable. No free air. No significant fluid collection. Bones/joints: Left hip ORIF. Degenerative changes of the spine. No acute fracture. No dislocation. Soft tissues: Unremarkable. Vasculature: Atherosclerotic changes of the aorta. No abdominal aortic aneurysm. Lymph nodes: Unremarkable. No enlarged lymph nodes. IMPRESSION: 1. Status post cystectomy with bilateral nephroureteral stents and ileal conduits. Bilateral percutaneous nephrostomies. Severe bilateral hydronephrosis. Urology evaluation recommended for evaluating the distal stents. No definite patchy nephrogram to indicate pyelonephritis. 2. Dilated small bowel measuring up to 3 cm with air-fluid levels. Small bowel obstruction is suspected. Electronically signed by: Peter Shankar MD 07/06/22 23:25 PM
[2022-07-06] MEDS: SODIUM CHLORIDE 0.9% 1000ML 1,000 ML IV SCH (23:59)
--- NOTE | 2022-07-07 00:15 | Surgery Consultation ---
Date of Consultation July 07, 2022 Assessment & Plan (1) SBO (small bowel obstruction): I discussed with the treating emergency room physician. He is having the patient admitted on the hospitalist service. Concerning her small bowel obstruction we recommend proceeding as follows: I discussed with the patient that her small bowel obstruction may be on the basis of adhesions from prior surgery Would recommend keeping the patient n.p.o. As the patient is only had 1 episode of emesis earlier today and currently has not had any and her abdominal exam is essentially benign I feel we can hold on placing an NG tube. I did discuss with the patient that if her abdominal exam worsens or if any significant nausea and vomiting ensue consideration may need to be given to placing an NG tube Hydration measures with IV fluids to be employed I discussed with the patient that her diet can be advanced once she has improvement of her bowel function and/or it does not have any worsening of abdominal exam I discussed with the patient and her daughter that would be preferable to treat her current small bowel obstruction in a conservative manner and this has been successful in the past Additional recommendations be forthcoming based on her clinical course as it unfolds Supervising Physician Co-Signing Physician Notes I personally saw and evaluated the patient with Soy Grullon PA-C and agree with the assessment and plan. 72-year-old female with history of cystectomy and ileal conduit here with small bowel obstruction CT images and results were personally viewed by myself, she does have dilated small bowel and her signs and symptoms are consistent with small bowel obstruction She has a complicated abdominal surgical history and is currently undergoing chemotherapy in [place] for her metastatic bladder cancer She has been admitted to the medical service, will keep n.p.o., no need for NG tube at this point Her abdominal exam is benign, no plans for any surgical intervention She has expressed if she were to need surgical intervention, she would like this to be done in [place] where her urological surgeries were performed Surgery will follow History of Present Illness Reason for Consultation: Small bowel obstruction History of Present Illness This is a 72-year-old female with a history of metastatic bladder cancer. Patient underwent a cystectomy with ileal conduit at [facility] in 2020. The patient has since required bilateral nephrostomy tubes performed in [place] in June 2021. She notes that these nephrostomy tubes are changed at periodic intervals and were most recently changed on 06/26/2022. Concerning patient's nephrostomy tubes they are currently capped and the patient notes that the instructions from her urologist are to uncap them when she develops back pain. She notes that she has not had to uncap them in several weeks and currently does not have any back pain. It is noteworthy mention concerning her bladder cancer the patient has had chemotherapy and this is being orchestrated through a physician in [place] with her next session due on July 19 of this year. The patient presented to [facility] emergency department secondary to abdominal pain that began last evening. The patient noted some generalized abdominal pain with one episode of nausea and vomiting. There is no hematemesis. She has not had any fevers, shakes, or chills. She does note that yesterday she did have 1 loose bowel movement. She notes that her ileal conduit and urostomy are putting out a normal amount of urine for her. She reports that she has had a prior history of small bowel obstruction she estimated at least 14 times since her cystectomy and she notes that they have always been treated successfully in a conservative manner and she has never required an NG tube. The patient was admitted to [facility] in May of this year secondary to a febrile illness. This was felt to be secondary to urinary tract infection and culture showed that she had a Klebsiella urinary tract infection that was pansensitive. The patient and her daughter also note that she is currently taking antibiotics for a urinary tract infection which was started by her urologist and then ID specialist in [place]. She is taking Cipro along with Zyvox as well as fluconazole. Since arrival to the emergency department patient has had labs and imaging which independent reviewed. She did have a CT scan of the abdomen and pelvis that amina wed patient had findings consistent with a previous cystectomy as well as bilateral nephroureteral stents and ileal conduit. She was also noted to have bilateral percutaneous nephrostomies. Severe bilateral hydronephrosis was noted. The patient was also noted to have dilated small bowel measuring up to 3 cm with air-fluid levels with suspicion for small bowel obstruction Labs include a CBC her white blood cell count was 18.9. Hemoglobin and hematocrit were 7.1 and 22.1. Platelet count was 422,000. Chemistry profile showed sodium and potassium were normal. BUN was elevated at 28 creatinine was normal. Lactic acid was nonelevated. Her magnesium is 1.5. Lipase was nonelevated. Urinalysis showed 3+ leukocyte Estrace but was negative for nitrites. There were greater than 30 white blood cells per high-power field. Yeast was present on the study but there was negative for bacteria. Patient was tested for COVID which was negative. At the time of my interview the patient was resting comfortably in bed and she was in no distress Allergies Allergy/AdvReac Type Severity Reaction Status Date / Time Sulfa (Sulfonamide Allergy Unknown Verified 07/06/22 22:44 Antibiotics) Home Medications Medication Instructions Recorded Confirmed Type Ayur-Boswellia Aniket 2 tab PO BID 01/28/22 07/06/22 History Berberine Complex 2 cap PO BID 01/28/22 07/06/22 History Curcu-Essentials 1 tab PO BID 01/28/22 07/06/22 History Curcumin Iv 0 mg IV DIRECTED 01/28/22 07/06/22 History Glutathione Iv 0 mg IV DIRECTED 01/28/22 07/06/22 History Isoflavone Caps 2 cap PO BID 01/28/22 07/06/22 History Methyl-Guard 1 cap PO DAILY 01/28/22 07/06/22 History Multivitamin Iv 0 mg IV DIRECTED 01/28/22 07/06/22 History Nutri-Essentials 2 cap PO DAILY 01/28/22 07/06/22 History Opti-Cell Plus 3 tab PO BID 01/28/22 07/06/22 History Proepa 1 tab PO BID 01/28/22 07/06/22 History Quercetin Iv 0 mg IV DIRECTED 01/28/22 07/06/22 History Reservatrol Iv 0 mg IV DIRECTED 01/28/22 07/06/22 History Ultra Lipoic Essentials 2 tab PO BID 01/28/22 07/06/22 History Ultra Reishi 2 tab PO BID 01/28/22 07/06/22 History Vitamin C Iv 0 mg IV DIRECTED 01/28/22 07/06/22 History acetaminophen 500 mg tablet 1,000 mg PO Q6H PRN Fever Or Pain 01/28/22 07/06/22 History cholecalciferol (vitamin D3) 125 125 mcg PO DAILY 01/28/22 07/06/22 History mcg (5,000 unit) tablet (Vitamin D3) hydroxyzine HCl 25 mg tablet 25 mg PO QAM 01/28/22 07/06/22 History lysine 500 mg tablet (L-Lysine) 500 mg PO DAILY 01/28/22 07/06/22 History magnesium citrate 100 mg capsule 150 mg PO DAILY 01/28/22 07/06/22 History ondansetron HCl 4 mg tablet 4 mg PO Q8H PRN .NAUSEA/VOMITING 01/28/22 07/06/22 History zinc 15 mg tablet 15 mg PO DAILY 04/26/22 07/06/22 History Chemo Drugs 0 mg DIRECTED 07/06/22 07/06/22 History ciprofloxacin HCl 250 mg tablet 250 mg PO DAILY 07/06/22 07/06/22 History digestive enzymes 1 cap PO TID 07/06/22 07/06/22 History docusate sodium 100 mg capsule 100 mg PO TID 07/06/22 07/06/22 History (Colace) dronabinol 2.5 mg capsule 5 mg PO BID 07/06/22 07/06/22 History fentanyl 50 mcg/hr transdermal 50 mcg topical [id number] 07/06/22 07/06/22 History patch fluconazole 100 mg tablet 100 mg PO DAILY 07/06/22 07/06/22 History linezolid 600 mg tablet 600 mg PO BID 07/06/22 07/06/22 History loratadine 10 mg tablet (Claritin) 10 mg PO DIRECTED 07/06/22 07/06/22 History oxycodone 10 mg tablet 10 mg PO .Q4-6HRS PRN Pain 07/06/22 07/06/22 History oxycodone 10 mg tablet 10 mg PO DAILY 07/06/22 07/06/22 History Patient History Medical History Acute DVT (deep venous thrombosis) Bladder cancer metastasized to bone Fever Hyponatremia Leukocytosis Sepsis Thrombocytopenia Surgical History History of fracture of femur with evelyn placement; LEFT History of hysterectomy History of nephrostomy History of total cystectomy Family History Other Family history non-contributory Social History Smoking Status: Never smoker Second Hand Exposure: No; Hx Alcohol Use: No Hx Substance Use: No Preferred Language: Croatian Communication Ability: Effective Protection Mgr Required: Voice Beliefs That Will Affect Care: None marital status: / Current Living Situation: Family Current Living Situation Comment: daughter Other Information That Helps Us Care for You: No Feels Safe at Home: Yes Safety Concerns: Feels Safe At This Time Assistive Devices: Glasses, Hearing Aid - Bilateral and Walker Assistive Devices Comment: brought glasses and bl hearing aids Review of Systems Constitutional: no fever and no chills Eyes: + corrective lenses Ear, Nose, Mouth, Throat: no hearing loss Respiratory: no cough and no dyspnea Cardiovascular: no chest pain Gastrointestinal: as per Subjective / HPI Genitourinary: as per Subjective / HPI Musculoskeletal: no back pain Integumentary: no rash Neurologic: no localized weakness Physical Exam Constitutional: + thin; no acute distress Eyes: Wears glasses ENMT: Ears: no hearing impairment and no external ear abnormality Neck: trachea midline Respiratory: normal respiratory effort; no respiratory distress and no labored breathing Cardiovascular: Rate/Rhythm: regular rate and regular rhythm Vessels: dorsalis pedis pulses present Gastrointestinal (Abdomen): Abdomen is soft, nonrigid, nondistended. There is no rebound tenderness or guarding. There is no pain with palpation. The patient had a urostomy to the right of her umbilicus which appeared pink and viable. There is clear urine draining in the collection bag Musculoskeletal: No calf tender Skin: no rashes Neurologic: moves all extremities Psychiatric: A+Ox3, euthymic affect Genitourinary: Bilateral nephrostomy tubes are in place. They are currently capped. There is no CVA tenderness with percussion. Results & Data Vital Signs (Past 12 Hours) Vital Signs Temp Pulse Pulse Resp BP BP Pulse Ox 07/06/22 22:25 82 16 140/74 100 07/06/22 21:26 94 H 07/06/22 21:45 89 18 144/82 H 100 07/06/22 21:08 94 H 12 149/81 H 100 07/06/22 20:24 37.2 C 105 H 20 104/72 100 O2 Del Method 07/06/22 22:25 Room Air 07/06/22 21:26 07/06/22 21:45 Room Air 07/06/22 21:08 Room Air 07/06/22 20:24 Room Air PG Care Time/CCT Total # of Minutes Spent Total Time Spent with Patient: Total time spent is greater than 50% in coordination of care (as documented) at patient's floor/unit and/or counseling patient: Coding Level of Care Code 75596 INT INP/OBS CARE 375MIN Diagnoses SBO (small bowel obstruction) K56.609
--- NOTE | 2022-07-07 00:24 | Urology Consultation ---
Date of Consultation July 07, 2022 Assessment & Plan (1) Bladder cancer metastasized to bone: I discussed with the emergency room physician and he is having the patient mid on the hospitalist service. It appears as though the patient's underlying presenting symptomatology may be secondary to small bowel obstruction which is being managed in a conservative manner with IV fluids, bowel rest, and n.p.o. status. Concerning patient's metastatic bladder cancer we recommend the following: Patient has bilateral percutaneous nephrostomy tubes with hydronephrosis. According to the patient and her daughter that she always has an element of hydronephrosis. As her urostomy appears to be putting out a normal amount of urine and the patient is without back pain her nephrostomy tubes can be Capped at this place. If she should develop any back pain these tubes can be uncapped for drainage purposes Further chemotherapy will be directed by the patient's oncologist in [place] Would recommend maintain the patient on her antibiotic regimen of Cipro, Zyvox, and fluconazole due to concerns for an ongoing urinary tract infection At the present time the patient is normotensive without tachycardia or fever. She is without acute kidney injury. She does have a leukocytosis but review of available records show that it appears the patient has a chronic leukocytosis Further recommendation will be made based on patient's clinical course as it unfolds Supervising Physician Co-Signing Physician Notes Discussed patient with RANDY. Agree with plan. Reviewed patients chart. Somewhat odd story given reports of persistent hydr onephrosis but nephrostomy tubes clamped. Given her stability and lack of back/flank pain, reasonable to leave clamped overnight and re-evaluate in morning. If any concerns for worsening renal function or back pain, would open both nephrostomy tubes to gravity drainage. History of Present Illness Reason for Consultation: Hydronephrosis Percutaneous nephrostomy tube History of bladder cancer History of Present Illness This is a 72-year-old female who has an underlying history of metastatic bladder cancer for which she underwent a cystectomy with ileal conduit at [address] in 2020. Patient has also had bilateral nephrostomy tubes which were placed at [facility] in June 2021. Patient reports that the nephrostomy tubes are changed at periodic intervals and were most recently changed on June 26, 2022. Patient says that her nephrostomy tubes are currently In the instructions from her urologist were to uncap them when she developed significant back pain. She notes that she has not had done Them for this reason for several weeks and currently does not have any back pain with her current presentation. Patient also notes that concerning her bladder cancer she is receiving chemotherapy at the discretion of her oncologist in [place] and her next session is due in July 19 of this year. Patient presented to [facility] secondary to abdominal pain that began last evening with associated nausea and vomiting. She has not noted any modifying factors and denies any hematemesis. She denies any fevers, shakes, or chills. She denies any back or flank pain. She notes that she had 1 loose bowel movement yesterday. She notes that her urostomy tube appears to be putting out a normal amount of urine. The Patient notes that she was admitted to [facility] in May of this year secondary to a febrile illness. This was felt to be secondary to a Klebsiella urinary tract infection that was pansensitive to antibiotics tested against. Patient notes that she is currently taking antibiotics at the discretion of her urologist and ID specialist in [place]. She is currently taking Cipro, Zyvox, and fluconazole. Upon arrival to the emergency department the patient underwent a CT scan of the abdomen and pelvis that showed findings consistent with a previous cystectomy and bilateral nephroureteral stents along with an ileal conduit. She was noted to have bilateral percutaneous nephrostomies with severe bilateral hydronephrosis. She was noted to have dilated small bowel concerning for a small bowel obstruction. A CBC revealed white blood cell count was elevated 18.9. Hemoglobin and hematocrit were 7.1 and 22.1. Platelet count was 422,000. Her chemistry profile showed sodium and potassium were both normal and her creatinine was normal as well. Her BUN had a slight elevation at 28. Lactic acid was not elevated. Her magnesium was 1.5 which has been supplemented. Urinalysis showed 3+ leukocyte Estrace and was negative for nitrites. There were greater than 30 white blood cells per high-power field and yeast was noted on the study. No bacteria was noted on this urinalysis. A COVID test was negative. At the time of my interview the patient was resting comfortably in bed in no distress Allergies Allergy/AdvReac Type Severity Reaction Status Date / Time Sulfa (Sulfonamide Allergy Unknown Verified 07/06/22 22:44 Antibiotics) Home Medications Medication Instructions Recorded Confirmed Type Ayur-Boswellia Aniket 2 tab PO BID 01/28/22 07/06/22 History Berberine Complex 2 cap PO BID 01/28/22 07/06/22 History Curcu-Essentials 1 tab PO BID 01/28/22 07/06/22 History Curcumin Iv 0 mg IV DIRECTED 01/28/22 07/06/22 History Glutathione Iv 0 mg IV DIRECTED 01/28/22 07/06/22 History Isoflavone Caps 2 cap PO BID 01/28/22 07/06/22 History Methyl-Guard 1 cap PO DAILY 01/28/22 07/06/22 History Multivitamin Iv 0 mg IV DIRECTED 01/28/22 07/06/22 History Nutri-Essentials 2 cap PO DAILY 01/28/22 07/06/22 History Opti-Cell Plus 3 tab PO BID 01/28/22 07/06/22 History Proepa 1 tab PO BID 01/28/22 07/06/22 History Quercetin Iv 0 mg IV DIRECTED 01/28/22 07/06/22 History Reservatrol Iv 0 mg IV DIRECTED 01/28/22 07/06/22 History Ultra Lipoic Essentials 2 tab PO BID 01/28/22 07/06/22 History Ultra Reishi 2 tab PO BID 01/28/22 07/06/22 History Vitamin C Iv 0 mg IV DIRECTED 01/28/22 07/06/22 History acetaminophen 500 mg tablet 1,000 mg PO Q6H PRN Fever Or Pain 01/28/22 07/06/22 History cholecalciferol (vitamin D3) 125 125 mcg PO DAILY 01/28/22 07/06/22 History mcg (5,000 unit) tablet (Vitamin D3) hydroxyzine HCl 25 mg tablet 25 mg PO QAM 01/28/22 07/06/22 History lysine 500 mg tablet (L-Lysine) 500 mg PO DAILY 01/28/22 07/06/22 History magnesium citrate 100 mg capsule 150 mg PO DAILY 01/28/22 07/06/22 History ondansetron HCl 4 mg tablet 4 mg PO Q8H PRN .NAUSEA/VOMITING 01/28/22 07/06/22 History zinc 15 mg tablet 15 mg PO DAILY 04/26/22 07/06/22 History Chemo Drugs 0 mg DIRECTED 07/06/22 07/06/22 History ciprofloxacin HCl 250 mg tablet 250 mg PO DAILY 07/06/22 07/06/22 History digestive enzymes 1 cap PO TID 07/06/22 07/06/22 History docusate sodium 100 mg capsule 100 mg PO TID 07/06/22 07/06/22 History (Colace) dronabinol 2.5 mg capsule 5 mg PO BID 07/06/22 07/06/22 History fentanyl 50 mcg/hr transdermal 50 mcg topical [id number] 07/06/22 07/06/22 History patch fluconazole 100 mg tablet 100 mg PO DAILY 07/06/22 07/06/22 History linezolid 600 mg tablet 600 mg PO BID 07/06/22 07/06/22 History loratadine 10 mg tablet (Claritin) 10 mg PO DIRECTED 07/06/22 07/06/22 History oxycodone 10 mg tablet 10 mg PO .Q4-6HRS PRN Pain 07/06/22 07/06/22 History oxycodone 10 mg tablet 10 mg PO DAILY 07/06/22 07/06/22 History Patient History Medical History Acute DVT (deep venous thrombosis) Bladder cancer metastasized to bone Fever Hyponatremia Leukocytosis Sepsis Thrombocytopenia Surgical History History of fracture of femur with evelyn placement; LEFT History of hysterectomy History of nephrostomy History of total cystectomy Family History Other Family history non-contributory Social History Smoking Status: Never smoker Second Hand Exposure: No; Hx Alcohol Use: No Hx Substance Use: No Preferred Language: Somali Communication Ability: Effective Cash Sales Audit Clerk Required: Voice Beliefs That Will Affect Care: None marital status: / Current Living Situation: Family Current Living Situation Comment: daughter Other Information That Helps Us Care for You: No Feels Safe at Home: Yes Safety Concerns: Feels Safe At This Time Assistive Devices: Glasses, Hearing Aid - Bilateral and Walker Assistive Devices Comment: brought glasses and bl hearing aids Review of Systems Constitutional: no fever and no chills Eyes: + corrective lenses Ear, Nose, Mouth, Throat: no hearing loss Respiratory: no dyspnea Cardiovascular: no chest pain Gastrointestinal: as per Subjective / HPI Genitourinary: as per Subjective / HPI Musculoskeletal: no back pain Integumentary: no rash Neurologic: no localized weakness Physical Exam Constitutional: + thin; no acute distress Eyes: Wears glasses ENMT: Ears: no hearing impairment Neck: trachea midline Respiratory: normal respiratory effort; no respiratory distress and no labored breathing Cardiovascular: Rate/Rhythm: regular rate and regular rhythm Vessels: dorsalis pedis pulses present Gastrointestinal (Abdomen): Soft, nonrigid, nondistended. No rebound tenderness or guarding. Urostomy noted to the right of the umbilicus appears pink and viable and is draining clear urine Musculoskeletal: No calf tenderness Skin: no rashes Neurologic: moves all extremities Psychiatric: A+Ox3, euthymic affect Genitourinary: There is no CVA tenderness to percussion bilaterally. Bilateral percutaneous nephrostomies are in place and are capped. As noted above the patient has a urostomy to the right of her umbilicus and this appears pink and viable and is draining clear urine. Results & Data Vital Signs (Past 12 Hours) Vital Signs Temp Pulse Pulse Resp BP BP Pulse Ox 07/06/22 22:25 82 16 140/74 100 07/06/22 21:26 94 H 07/06/22 21:45 89 18 144/82 H 100 07/06/22 21:08 94 H 12 149/81 H 100 07/06/22 20:24 37.2 C 105 H 20 104/72 100 O2 Del Method 07/06/22 22:25 Room Air 07/06/22 21:26 07/06/22 21:45 Room Air 07/06/22 21:08 Room Air 07/06/22 20:24 Room Air PG Care Time/CCT Total # of Minutes Spent Total Time Spent with Patient: Total time spent is greater than 50% in coordination of care (as documented) at patient's floor/unit and/or counseling patient: Coding Level of Care Code 02049 INT INP/OBS CARE 3/75MIN Diagnoses Bladder cancer metastasized to bone C67.9; C79.51
--- NOTE | 2022-07-07 01:14 | History & Physical Report ---
Date of Service July 07, 2022 Assessment & Plan (1) SBO (small bowel obstruction): Plan: 72 yo female with PMHx of DVT, anemia, recurrent UTI, recurrent SBO, and metastatic bladder cancer to bone for which she underwent a cystectomy with ileal conduit at [address] in 2020.Patient has also had bilateral nephrostomy tubes which were placed at [facility] in June 2021. Receives chemotherapy from physicians in [place]. Presents with 1 day abd pain. #SBO -1 day abdominal discomfort with episode of vomiting. Has had several in the past. Likely due to adhesions from prior bladder surgery. -Persistent leukocytosis which is chronic in nature. Afebrile. Low suspicion for infection. -Dilated small bowel measuring up to 3 cm with air-fluid levels -Gen surg following -cont. with conservative tx. No NG tube at this time. -bowel rest strict NPO, IV tylenol, IV zofran, maintenance IVF #UTI, acute on chronic -chronic history, currently on ppx ciprofloxacin daily. Was previously on bactrim for ppx. Has h/o of pseudomonas. Follows with ID. She has been on fluconazole for the past 4 days for yeast in urine. Patient received call yesterday telling her to start linezolid as well. [place] is urine culture at the time with MRSA. -CT A/P: No definite patchy nephrogram to indicate pyelonephritis. Severe bilateral hydronephrosis; According to the patient and her daughter that she always has an element of hydronephrosis. -UA infected with positive LE and yeast; urine and blood cx pending -started linezolid yesterday for acute UTI, cont. Clarify total duration. -cont. fluconazole for 3 more days. Total 7 days. -cont. ppx cipro which can serve as tx as well until culture results. -urology following #Metastatic bladder cancer -Status post cystectomy with bilateral nephroureteral stents and ileal conduits. Bilateral percutaneous nephrostomies. -Further chemotherapy will be directed by the patient's oncologist in [place] #Anemia, chronic -likely secondary to chemo. No active signs of bleeding. -Hgb 7.1 on admission. Cont. to follow. Repeat am lab. -avoid chemical dvt ppx DVT ppx: SCDs FEN/GI: NPO, NSS @ 80 ml/hr Code Status: Full Dispo: med surg, obs (2) UTI (urinary tract infection): (3) History of DVT (deep vein thrombosis): (4) Immunocompromised state due to drug therapy: (5) Bladder cancer metastasized to bone: History of Present Illness Chief Complaint: abdominal pain Primary Care Provider: Reyna Tidwell DO 72 yo female with PMHx of DVT, anemia, recurrent UTI, recurrent SBO, and metastatic bladder cancer to bone for which she underwent a cystectomy with ileal conduit at [address] in 2020. Patient has also had bilateral nephrostomy tubes which were placed at [facility] in June 2021. Receives chemotherapy from physicians in [place]. Presents with 1 day abd pain. Daughter at bedside. Last night patient felt abdominal discomfort which was worse when she woke up this morning. Had single episode of non bilious vomiting. Chronically fatigued and has had some loose stools. Denies fevers, chest pain, sob, nausea, dysuria. Patient follows with ID outpatient and is currently being treated for a UTI. Patient is on oral Cipro prophylactically for UTI but had her nephrostomy drains exchanged in [place] on June 26, 2022 and was concerned to have a UTI so they started her on linezolid 600 mg p.o. twice daily yesterday. Patient is also on fluconazole 100 mg daily for the last 4 days for yeast in her urine. Allergies Allergy/AdvReac Type Severity Reaction Status Date / Time Sulfa (Sulfonamide Allergy Unknown Verified 07/06/22 22:44 Antibiotics) Home Medications Medication Instructions Recorded Confirmed Type Stephen-Juan Manuelwellia Aniket 2 tab PO BID 01/28/22 07/06/22 History Berberine Complex 2 cap PO BID 01/28/22 07/06/22 History Curcu-Essentials 1 tab PO BID 01/28/22 07/06/22 History Curcumin Iv 0 mg IV DIRECTED 01/28/22 07/06/22 History Glutathione Iv 0 mg IV DIRECTED 01/28/22 07/06/22 History Isoflavone Caps 2 cap PO BID 01/28/22 07/06/22 History Methyl-Guard 1 cap PO DAILY 01/28/22 07/06/22 History Multivitamin Iv 0 mg IV DIRECTED 01/28/22 07/06/22 History Nutri-Essentials 2 cap PO DAILY 01/28/22 07/06/22 History Opti-Cell Plus 3 tab PO BID 01/28/22 07/06/22 History Proepa 1 tab PO BID 01/28/22 07/06/22 History Quercetin Iv 0 mg IV DIRECTED 01/28/22 07/06/22 History Reservatrol Iv 0 mg IV DIRECTED 01/28/22 07/06/22 History Ultra Lipoic Essentials 2 tab PO BID 01/28/22 07/06/22 History Ultra Reishi 2 tab PO BID 01/28/22 07/06/22 History Vitamin C Iv 0 mg IV DIRECTED 01/28/22 07/06/22 History acetaminophen 500 mg tablet 1,000 mg PO Q6H PRN Fever Or Pain 01/28/22 07/06/22 History cholecalciferol (vitamin D3) 125 125 mcg PO DAILY 01/28/22 07/06/22 History mcg (5,000 unit) tablet (Vitamin D3) hydroxyzine HCl 25 mg tablet 25 mg PO QAM 01/28/22 07/06/22 History lysine 500 mg tablet (L-Lysine) 500 mg PO DAILY 01/28/22 07/06/22 History magnesium citrate 100 mg capsule 150 mg PO DAILY 01/28/22 07/06/22 History ondansetron HCl 4 mg tablet 4 mg PO Q8H PRN .NAUSEA/VOMITING 01/28/22 07/06/22 History zinc 15 mg tablet 15 mg PO DAILY 04/26/22 07/06/22 History Chemo Drugs 0 mg DIRECTED 07/06/22 07/06/22 History ciprofloxacin HCl 250 mg tablet 250 mg PO DAILY 07/06/22 07/06/22 History digestive enzymes 1 cap PO TID 07/06/22 07/06/22 History docusate sodium 100 mg capsule 100 mg PO TID 07/06/22 07/06/22 History (Colace) dronabinol 2.5 mg capsule 5 mg PO BID 07/06/22 07/06/22 History fentanyl 50 mcg/hr transdermal 50 mcg topical [id number] 07/06/22 07/06/22 History patch fluconazole 100 mg tablet 100 mg PO DAILY 07/06/22 07/06/22 History linezolid 600 mg tablet 600 mg PO BID 07/06/22 07/06/22 History loratadine 10 mg tablet (Claritin) 10 mg PO DIRECTED 07/06/22 07/06/22 History oxycodone 10 mg tablet 10 mg PO .Q4-6HRS PRN Pain 07/06/22 07/06/22 History oxycodone 10 mg tablet 10 mg PO DAILY 07/06/22 07/06/22 History Past Med/Surg History Medical History Acute DVT (deep venous thrombosis) Bladder cancer metastasized to bone Fever Hyponatremia Leukocytosis Sepsis Thrombocytopenia Surgical History History of fracture of femur with evelyn placement; LEFT History of hysterectomy History of nephrostomy History of total cystectomy Family History Other Family history non-contributory Social History Smoking Status: Never smoker Second Hand Exposure: No; Hx Alcohol Use: No Hx Substance Use: No Preferred Language: German Communication Ability: Effective Communication Tools: IPad, Facial Expression, Physical Gestures and Lip Movement/Reading Collision Technician Required: Voice Beliefs That Will Affect Care: None marital status: / Current Living Situation: Family Current Living Situation Comment: daughter Other Information That Helps Us Care for You: No Feels Safe at Home: Yes Safety Concerns: Feels Safe At This Time Assistive Devices: Walker and Wheelchair Assistive Devices Comment: brought glasses and bl hearing aids Review of Systems Review of Systems: All systems reviewed & are unremarkable except as noted in HPI & below Physical Exam Physical Exam: Constitutional: frail, in no acute distress, pleasant. AOx3. Vitals as above. HEENT: No scleral injection or discharge. Moist mucous membranes. Neck: Supple without lymphadenopathy or thyromegaly. Trachea midline. Lungs: Clear to auscultation bilaterally with good effort. Cardiac: Regular rate and rhythm. No murmurs.No extremity edema. 2+ peripheral distal pulses Abdomen: Mild diffuse discomfort. Soft and nondistended.No guarding. No hepatosplenomegaly. MSK: No cyanosis or clubbing. Skin: No rashes, warm, dry. Neurologic: no focal deficits : nephrostomy bag in place Results & Data Results & Data Vital Signs (Past 12 Hours) Vital Signs Temp Pulse Pulse Resp BP BP Pulse Ox 07/06/22 22:25 82 16 140/74 100 07/06/22 21:26 94 H 07/06/22 21:45 89 18 144/82 H 100 07/06/22 21:08 94 H 12 149/81 H 100 07/06/22 20:24 37.2 C 105 H 20 104/72 100 O2 Del Method 07/06/22 22:25 Room Air 07/06/22 21:26 07/06/22 21:45 Room Air 07/06/22 21:08 Room Air 07/06/22 20:24 Room Air Laboratory Results Laboratory Results WBC 18.92 K/ul (4.8-10.8) H 07/06/22 20:57 RBC 2.08 M/uL (4.20-5.40) L 07/06/22 20:57 Hgb 7.1 g/dl (12.0-16.0) L 07/06/22 20:57 Hct 22.1 % (37.0-47.0) L 07/06/22 20:57 MCV 106.3 fL (80.0-100.0) H 07/06/22 20:57 MCH 34.1 pg (25.0-34.0) H 07/06/22 20:57 MCHC 32.1 g/dL (32.0-36.0) 07/06/22 20:57 RDW Std Deviation 62.2 fL (36.4-46.3) H 07/06/22 20:57 RDW Coeff of Macario 16.0 % (11.5-14.5) H 07/06/22 20:57 Plt Count 422 K/uL (130-400) H 07/06/22 20:57 MPV 9.3 fL (9.4-12.4) L 07/06/22 20:57 Immature Gran % (Auto) 0.8 % 07/06/22 20:57 Neut % (Auto) 89.0 % 07/06/22 20:57 Lymph % (Auto) 5.0 % 07/06/22 20:57 [place] % (Auto) 4.5 % 07/06/22 20:57 Eos % (Auto) 0.4 % 07/06/22 20:57 Baso % (Auto) 0.3 % 07/06/22 20:57 Neut # (Auto) 16.83 K/uL (1.40-6.50) H 07/06/22 20:57 Lymph # (Auto) 0.95 K/uL (1.2-3.4) L 07/06/22 20:57 [place] # (Auto) 0.86 K/uL (0.11-0.59) H 07/06/22 20:57 Eos # (Auto) 0.07 K/uL (0-0.50) 07/06/22 20:57 Baso # (Auto) 0.05 K/uL (0-0.2) 07/06/22 20:57 Immature Gran # (Auto) 0.16 K/uL (0.01-0.20) 07/06/22 20:57 Polychromasia 1+ 07/06/22 20:57 Sodium 137 mmol/L (136-145) 07/06/22 20:57 Potassium 4.6 mmol/L (3.5-5.1) 07/06/22 20:57 Chloride 106 mmol/L (98-107) 07/06/22 20:57 Carbon Dioxide 23 mmol/L (21-32) 07/06/22 20:57 Anion Gap 8 (3-11) 07/06/22 20:57 BUN 28 mg/dl (6-23) H 07/06/22 20:57 Creatinine 1.00 mg/dl (0.6-1.2) 07/06/22 20:57 Est Cr Clr Drug Dosing 35.4 ml/min 07/06/22 20:57 Est GFR ( Amer) 64.7 ml/min 07/06/22 20:57 Est GFR (Non-Af Amer) 55.8 ml/min 07/06/22 20:57 BUN/Creatinine Ratio 28.0 (10-20) H 07/06/22 20:57 Glucose 116 mg/dl (70-99(Fasting)) H 07/06/22 20:57 Lactate 0.8 mmol/L (0.4-2.0) 07/06/22 21:32 Calcium 8.8 mg/dl (8.6-10.3) 07/06/22 20:57 Magnesium 1.5 mg/dl (1.7-2.4) L 07/06/22 20:57 Total Bilirubin 0.4 mg/dl (0.2-1.0) 07/06/22 20:57 AST 9 U/L (13-39) L 07/06/22 20:57 ALT 6 U/L (7-52) L 07/06/22 20:57 Alkaline Phosphatase 59 U/L (34-104) 07/06/22 20:57 Total Protein 6.6 gm/dl (6.0-8.3) 07/06/22 20:57 Albumin 2.9 gm/dl (3.4-5.0) L 07/06/22 20:57 Globulin 3.7 gm/dl (2.5-4.0) 07/06/22 20:57 Albumin/Globulin Ratio 0.8 (0.9-2) L 07/06/22 20:57 Lipase 4 U/L (11-82) L 07/06/22 20:57 Urine Color Yellow 07/06/22 21:17 Urine Appearance Cloudy (Clear) A 07/06/22 21:17 Urine pH 7.0 (4.5-7.5) 07/06/22 21:17 Ur Specific [place] 1.012 (1.000-1.030) 07/06/22 21:17 Urine Protein 1+ (Negative) H 07/06/22 21:17 Urine Glucose (UA) Negative (Negative) 07/06/22 21:17 Urine Ketones Negative (Negative) 07/06/22 21:17 Urine Blood 2+ (Negative) H 07/06/22 21:17 Urine Nitrite Negative (Negative) 07/06/22 21:17 Urine Bilirubin Negative (Negative) 07/06/22 21:17 Urine Urobilinogen Negative (Negative) 07/06/22 21:17 Ur Leukocyte Esterase 3+ (Negative) H 07/06/22 21:17 Urine WBC (Auto) >30 /hpf (0-5) H 07/06/22 21:17 Urine RBC (Auto) 5-10 /hpf (0-4) H 07/06/22 21:17 U Hyaline Cast (Auto) 5-10 /lpf (0-5) H 07/06/22 21:17 U Epithel Cells (Auto) 5-10 /lpf (0-5) H 07/06/22 21:17 Urine Bacteria (Auto) Negative (Negative) 07/06/22 21:17 Urine Yeast Present (None Prsent) A 07/06/22 21:17 Adenovirus (PCR) Not Detected (NotDetected) 07/06/22 21:17 B. pertussis DNA (PCR) Not Detected (NotDetected) 07/06/22 21:17 B.parapertussis DNA PCR Not Detected (NotDetected) 07/06/22 21:17 C. pneumoniae DNA (PCR) Not Detected (NotDetected) 07/06/22 21:17 Coronavirus OC43 (PCR) Not Detected (NotDetected) 07/06/22 21:17 Coronavirus HKU1 (PCR) Not Detected (NotDetected) 07/06/22 21:17 Coronavirus 229E (PCR) Not Detected (NotDetected) 07/06/22 21:17 SARS-CoV-2 (PCR) Not Detected (NotDetected) 07/06/22 21:17 Coronavirus NL63 (PCR) Not Detected (NotDetected) 07/06/22 21:17 Human Metapneumovir PCR Not Detected (NotDetected) 07/06/22 21:17 Influenza Type A (PCR) Not Detected (NotDetected) 07/06/22 21:17 Influenza Type B (PCR) Not Detected (NotDetected) 07/06/22 21:17 M. pneumoniae (PCR) Not Detected (NotDetected) 07/06/22 21:17 Parainfluenza 1 (PCR) Not Detected (NotDetected) 07/06/22 21:17 Parainfluenza 2 (PCR) Not Detected (NotDetected) 07/06/22 21:17 Parainfluenza 3 (PCR) Not Detected (NotDetected) 07/06/22 21:17 Parainfluenza 4 (PCR) Not Detected (NotDetected) 07/06/22 21:17 RSV (PCR) Not Detected (NotDetected) 07/06/22 21:17 Entero/Rhino (PCR) Not Detected (NotDetected) 07/06/22 21:17 Impressions Abdomen/Pelvis CT 07/06/22 22:27 Exam(s): CT ABDOMEN + PELVIS With Contrast IV Amt: 87 ml optiray EXAM: CT Abdomen and Pelvis With Intravenous Contrast CLINICAL HISTORY: Reason for exam: abdpainhxbladdercaw/mets. TECHNIQUE: Axial computed tomography images of the abdomen and pelvis with intravenous contrast. CTDI is 5.54 mGy and DLP is 266.4 mGy-cm. Automated exposure control was utilized for the study. A dose lowering technique was utilized adhering to the principles of ALARA. CONTRAST: Patient received 87 ml optiray of IV contrast COMPARISON: No relevant prior studies available. FINDINGS: Lung bases: Unremarkable. No mass. No consolidation. ABDOMEN: Liver: Unremarkable. No mass. Gallbladder and bile ducts: Unremarkable. No calcified stones. No ductal dilation. Pancreas: Unremarkable. No mass. No ductal dilation. Spleen: Unremarkable. No splenomegaly. Adrenals: Unremarkable. No mass. Kidneys and ureters: See below. Stomach and bowel: Dilated small bowel measuring up to 3 cm with air- fluid levels. Small bowel obstruction is suspected. Right lower quadrant ileostomy. No mucosal thickening. PELVIS: Appendix: No findings to suggest acute appendicitis. Bladder: Status post cystectomy with bilateral nephroureteral stents and ileal conduit's. Bilateral percutaneous nephrostomies. Severe bilateral hydronephrosis. Urology evaluation recommended for evaluating the distal stents. No definite patchy nephrogram to indicate pyelonephritis. Reproductive: Unremarkable as visualized. ABDOMEN and PELVIS: Intraperitoneal space: Unremarkable. No free air. No significant fluid collection. Bones/joints: Left hip ORIF. Degenerative changes of the spine. No acute fracture. No dislocation. Soft tissues: Unremarkable. Vasculature: Atherosclerotic changes of the aorta. No abdominal aortic aneurysm. Lymph nodes: Unremarkable. No enlarged lymph nodes. IMPRESSION: 1. Status post cystectomy with bilateral nephroureteral stents and ileal conduits. Bilateral percutaneous nephrostomies. Severe bilateral hydronephrosis. Urology evaluation recommended for evaluating the distal stents. No definite patchy nephrogram to indicate pyelonephritis. 2. Dilated small bowel measuring up to 3 cm with air-fluid levels. Small bowel obstruction is suspected. Electronically signed by: Peter Shankar MD 07/06/22 23:25 PM Code Status & VTE Plan VTE Prophylaxis Plan VTE Prophylaxis will be ordered: Yes Supervising Physician Co-Signing Physician Notes Attending addendum: I have physically seen this patient, have supervised the medical residents activities, and agree with the H&P unless as otherwise noted. Assessment and Plan: Small bowel obstruction- NPO IV fluids, NSS at 80 mils per hour Acetaminophen 1 g IV every 8 hours. Mild pain or fever Zofran 4 mg IV every 6 hours as needed General surgery to follow Acute on chronic urinary tract infection- Previously on Bactrim for prophylaxis, with poor recent lady on ciprofloxacin daily for prophylaxis Was started on linezolid 600 mg twice daily yesterday for UTI, and was supposed to continue fluconazole 100 mg twice daily for the last 3 days of a 7-day course Follow urine culture and sensitivities Continue that regimen until culture results return Metastatic bladder cancer- Status post cystectomy with bilateral nephroureteral stents and ileal conduit's Bilateral percutaneous nephrostomies Undergoing chemotherapy directed by physician in [place] Chronic anemia- Secondary to chemotherapy Hemoglobin 7.1 on admission with acceptable blood pressure Coordination of care in general with physician [place] Resident Activity Tracking Resident Involvement: Resident Care Provided Care Provided: Adult Hospital Medicine (2) UTI (urinary tract infection) Urinary tract infection type: site unspecified
[2022-07-07] MEDS ORDERED: LINEZOLID 600 MG/300 ML D5W IV SCH ×2 (01:15→09:00)
[2022-07-07] MEDS ORDERED: ONDANSETRON INJ 2 MG/ML 2 ML VIAL IV PRN (02:43)
[2022-07-07] MEDS: ACETAMINOPHEN 1,000 MG/100 ML VIAL IV PRN ×2 (03:00→20:48)
[2022-07-07] MEDS: SODIUM CHLORIDE 0.9% 1000ML 1,000 ML IV SCH (03:00)
[2022-07-07] MEDS: fentaNYL 50 MCG/HR TDSY TD SCH (05:48)
--- NOTE | 2022-07-07 07:31 | Hospitalist Progress Note ---
Date of Service July 07, 2022 Assessment & Plan (1) SBO (small bowel obstruction): Plan: 72yo female with a history of SBO (recurrent), UTI (recurrent), metastatic bladder cancer (s/p cystectomy with ileal conduit placed at [facility] 3 at [facility], 2020; bilateral nephrostomy tubes placed at [facility] 06/28; receives chemo through physicians in [place]), anemia, and history of DVT presents to [facility] upon the instruction of her infectious disease physician after reporting a one-day history of abdominal pain and vomiting. Abdominal pain in the setting of immunosuppression Patient presents upon the instruction of her infectious disease physician d/t a one-day history of abdominal pain and vomiting Patient is noted to have a history of recurrent SBO Notably, patient has a persistent, chronic leukocytosis; patient is afebrile, low suspicion for infection General surgery consulted; recommends conservative treatment, no need for NG tube at this time 07/07: patient's abdominal pain and nausea/vomiting have entirely resolved Etiology unclear, differential is broad and includes infection, partial SBO that has resolved, constipation, medication/antibiotic side-effect, others NPO status advanced to clear liquids; continue to advance diet as tolerated Zofran, tylenol as-needed Complicated UTI Patient follows with infectious disease for recurrent UTI; has a history of pseudomonas UTI Was previously on bactrim prophylaxis, is currently on ciprofloxacin prophylaxis in addition to fluconazole for the past ~5 days due to yeast in urine; patient was also recently instructed by her ID physician to start linezolid CT a/p: no overt sign of pyelonephritis; severe bilateral hydronephrosis (which is chronic per patient) Urinalysis grossly infected with positive leuk esterase and yeast; culture and blood cultures pending Continue linezolid until discussion with ID physician to determine duration of therapy Continue fluconazole for a total of seven days Continue ciprofloxacin prophylaxis Awaiting urine culture results Urology following Metastatic bladder cancer Patient is s/p cystectomy with bilateral nephroueteral stents, ileal conduits, bilateral percutaneous nephrostomies Chemotherapy is managed by patient's physician in [place] Anemia Likely secondary to chemotherapy No sign of active bleeding Hgb on admission low at 7.1; trend daily FEN: clear liquid diet, advance as tolerated, NSS @ 80mL/hr Code status: full code DVT ppx: SCDs PT/OT: ordered Case management: following Dispo: med/surg (2) UTI (urinary tract infection): (3) History of DVT (deep vein thrombosis): (4) Immunocompromised state due to drug therapy: (5) Bladder cancer metastasized to bone: Admission and Anticipated Discharge Date Admission Date: July 07, 2022 Supervising Physician Co-Signing Physician Notes I personally examined the patient and verified all gómez points of history and exam, discussed case, and agree with decision making with Dr Castañeda Seen in follow-up from early a.m. admission. Overall feeling better. No nausea or vomiting, no abdominal pain, thinks she could eat more. Notes that actually she was told to come to the ER by her infectious disease doctoralthough she is not sure why. Vitals noted, in general she is awake and alert fatigued and frail no distress. HEENT normocephalic atraumatic mucous membranes moist. Abdomen soft nondistended and. Nephrostomy tube sites without erythema, exudate, fluctuance. UTIneed to get records from [facility] infectious disease to see why she was sent to the ER. Appears stable now. Otherwise as above. Possible short-lived SBOimproved. Advance diet. DVT prophylaxisSCDs Subjective Patient seen and evaluated at bedside this morning. Patient feels well and has no complaints. Denies any abdominal pain, nausea, and vomiting. Last BM was yesterday. Patient is still NPO. Patient denies CP, SOB, lightheadedness, dizziness, and diarrhea. Review of Systems Review of Systems: See HPI Physical Exam Physical Exam: Constitutional: well-appearing, no acute distress CV: regular rhythm, no murmur appreciated, extremities well-perfused, no LE edema Resp: CTABL, no wheezes/rales/rhonchi appreciated, no increased work of breathing GI: soft, nondistended, nontender in all quadrants Skin: skin surrounding nephrostomy tubes is without erythema or warmth Neuro: alert, oriented, no focal neurologic deficit appreciated Results & Data Results & Data Vital Signs (Past 12 Hours) Vital Signs Temp Pulse Pulse Resp BP BP Pulse Ox 07/07/22 02:20 07/07/22 02:20 36.8 C 84 16 151/74 H 97 07/07/22 01:23 78 07/06/22 22:25 82 16 140/74 100 07/06/22 21:26 94 H 07/06/22 21:45 89 18 144/82 H 100 07/06/22 21:08 94 H 12 149/81 H 100 07/06/22 20:24 37.2 C 105 H 20 104/72 100 O2 Del Method 07/07/22 02:20 Room Air 07/07/22 02:20 Room Air 07/07/22 01:23 07/06/22 22:25 Room Air 07/06/22 21:26 07/06/22 21:45 Room Air 07/06/22 21:08 Room Air 07/06/22 20:24 Room Air Resident Activity Tracking Resident Involvement: Resident Care Provided Care Provided: Adult Hospital Medicine (2) UTI (urinary tract infection) Urinary tract infection type: site unspecified
[2022-07-07] MEDS: CHECK fentaNYL PATCH PLACEMENT SCH ×3 (09:27→23:46)
[2022-07-07] MEDS: LINEZOLID 600 MG/300 ML BAG IV SCH ×2 (09:40→20:54)
[2022-07-07] MEDS: CIPROFLOXACIN / D5W 200 MG/100 ML BAG IV SCH (09:40)
[2022-07-07] MEDS: FLUCONAZOLE 100 MG/50 ML BAG IV SCH (09:40)
--- NOTE | 2022-07-07 11:24 | Urology Progress Note ---
I have discussed Ms Thomason's case with FRANCES Oneil and agree with the above documentation. She has adequate urine output and appropriate renal function. She is currently on broad-spectrum antibiotics awaiting culture data. No plan for acute urologic intervention. Chemotherapy for metastatic bladder cancer to be managed by her outside providers in [place].-Darci Prescott MD Date of Service July 07, 2022 Assessment & Plan (1) Bladder cancer metastasized to bone: Plan: 72-year-old female with history of metastatic bladder cancer s/p cystectomy with ileal conduit, bilateral nephrostomy tubes who presented with abdominal pain and vomiting and was admitted for small bowel obstruction. SBO currently being managed conservatively. Patient is afebrile and hemodynamically stable. Labs reviewed (07/06)creatinine 1.0, WBC 18.92, hemoglobin 7.1. No new labs at time of visit. Urine and blood cultures are pending - follow cultures. She is currently on IV ciprofloxacin, linezolid, and fluconazole. Chemotherapy directed by the patient's oncologist in [place]. No acute intervention at this time. Urostomy is patent with adequate urine output. Bilateral nephrostomy tubes appear well positioned and are currently clamped. She denies any back or flank pain. Can continue to leave clamped as per her primary urologist. If fever, worsening renal function or she develops flank/back pain, would recommend opening both nephrostomy tubes to gravity drainage. If any problems arise with her nephrostomy tubes, then transfer to tertiary center with IR would be required. Continue supportive care, antibiotics, and medical management per primary service. will follow. Admission and Anticipated Discharge Date Admission Date: July 07, 2022 Subjective Patient seen and examined at bedside this morning. She is resting in bed, arouses easily to her name. She denies flank or back pain. No abdominal pain, nausea or vomiting. No fever or chills. Bilateral nephrostomy tubes in place, clamped. Urostomy intact and patent with clear yellow urine in bag. She has no additional concerns at this time. Review of Systems Constitutional: as per Subjective / HPI Gastrointestinal: as per Subjective / HPI Genitourinary: as per Subjective / HPI Physical Exam Constitutional: + thin; no acute distress Respiratory: normal respiratory effort; no respiratory distress and no labored breathing Cardiovascular: Extremities: no pedal edema Gastrointestinal (Abdomen): Inspection/Auscultation: abdomen normal to inspection; abdomen not distended Percussion/Palpation: abdomen soft; abdomen nontender and no guarding Urostomy located on right lower abdomen, stoma is pink and patent, urine is clear yellow in bag. Neurologic: moves all extremities and awake Psychiatric: Orientation: alert and oriented x 3 Genitourinary: no CVA tenderness Bilateral nephrostomy tubes intact, clamped. Results & Data Vital Signs (Past 12 Hours) Vital Signs Temp Pulse Pulse Pulse Resp BP Pulse Ox 07/07/22 07:51 36.6 C 75 16 114/64 99 07/07/22 02:20 07/07/22 02:20 36.8 C 84 16 151/74 H 97 07/07/22 01:23 78 O2 Del Method 07/07/22 07:51 Room Air 07/07/22 02:20 Room Air 07/07/22 02:20 Room Air 07/07/22 01:23 PG Care Time/CCT Total # of Minutes Spent Total Time Spent with Patient: Total time spent is greater than 50% in coordination of care (as documented) at patient's floor/unit and/or counseling patient: Coding Level of Care Code 72167 SUB INP/OBS CARE 05/03MIN Diagnoses Bladder cancer metastasized to bone C67.9; C79.51
--- NOTE | 2022-07-07 14:43 | Electrocardiogram Report ---
Test Reason : Blood Pressure : / mmHG Vent. Rate : 078 BPM Atrial Rate : 078 BPM P-R Int : 142 ms QRS Dur : 076 ms QT Int : 388 ms P-R-T Axes : 078 046 066 degrees QTc Int : 442 ms Normal sinus rhythm Normal ECG When compared with ECG of 14-MAY-2022 19:25, No significant change was found Confirmed by Walker Thompson ([id number]) on 07/07/2022 2:42:46 PM Referred By: REFERRED SELF Confirmed By:Walker Thompson
[2022-07-07] MEDS ORDERED: KETOROLAC TROMETHAMINE 15 MG/ML VIAL IV ONE (20:45)
[2022-07-07] MEDS: oxyCODONE HCL IR 5 MG TAB (IMMEDIATE RELEASE) PO PRN (22:51)
[2022-07-08] MEDS: SODIUM CHLORIDE 0.9% 1000ML 1,000 ML IV SCH ×2 (02:06→18:44)
[2022-07-08 06:09] LABS: Albumin Globulin Ratio 0.8 (0.9-2); Albumin Level 2.5 gm/dl (3.4-5.0); BUN Creatinine Ratio 20.8 (10-20); Bilirubin,Total 0.3 mg/dl (0.2-1.0); Calcium 8.2 mg/dl (8.6-10.3); Est GFR (Non-African American) 58.7 ml/min; Potassium 3.8 mmol/L (3.5-5.1); Total Protein 5.5 gm/dl (6.0-8.3)
[2022-07-08 06:41] LABS: Hematocrit (blood only) 19.2 % (37.0-47.0); Mean Corpuscular Hemoglobin 33.9 pg (25.0-34.0); Mean Corpuscular Hgb Conc 31.3 g/dL (32.0-36.0); Mean Corpuscular Volume 108.5 fL (80.0-100.0); Mean Platelet Volume 9.3 fL (9.4-12.4); Platelet Count 335 K/uL (130-400); RDW Coefficient of Variation 15.8 % (11.5-14.5); RDW Standard Deviation 63.7 fL (36.4-46.3); Red Blood Count 1.77 M/uL (4.20-5.40); White Blood Count 12.92 K/ul (4.8-10.8)
[2022-07-08 06:45] LABS: Basophils # (auto) 0.06 K/uL (0-0.2); Basophils % (auto) 0.5 %; Eosinophils # (auto) 0.35 K/uL (0-0.50); Eosinophils % (auto) 2.7 %; Immature Granulocytes # (auto) 0.07 K/uL (0.01-0.20); Immature Granulocytes % (auto) 0.5 %; Lymphocytes # (auto) 1.56 K/uL (1.2-3.4); Lymphocytes % (auto) 12.1 %; Monocytes # (auto) 0.91 K/uL (0.11-0.59); Neutrophils # (auto) 9.97 K/uL (1.40-6.50); Neutrophils % (auto) 77.2 %; RBC Morphology Unremarkable
[2022-07-08] MEDS ORDERED: SODIUM CHLORIDE 0.9% 250 ML IV PRN (07:04)
--- NOTE | 2022-07-08 07:45 | Hospitalist Progress Note ---
Date of Service July 08, 2022 Assessment & Plan (1) SBO (small bowel obstruction): Plan: 72yo female with a history of SBO (recurrent), UTI (recurrent), metastatic bladder cancer (s/p cystectomy with ileal conduit placed at [facility] 3 at [facility], 2020; bilateral nephrostomy tubes placed at [facility] 06/28; receives chemo through physicians in [place]), anemia, and history of DVT presents to [facility] upon the instruction of her infectious disease physician after reporting a one-day history of abdominal pain and vomiting. Abdominal pain in the setting of immunosuppression Patient presents upon the instruction of her infectious disease physician d/t a one-day history of abdominal pain and vomiting Patient is noted to have a history of recurrent SBO Notably, patient has a persistent, chronic leukocytosis; patient is afebrile, low suspicion for infection General surgery consulted; recommends conservative treatment, no need for NG tube at this time 07/07: patient's abdominal pain and nausea/vomiting have entirely resolved Etiology unclear, differential is broad and includes infection, partial SBO that has resolved, constipation, medication/antibiotic side-effect, others NPO status advanced to clear liquids; continue to advance diet as tolerated Zofran, tylenol as-needed Anemia Hgb on admission low at 7.1, suspected secondary to chemotherapy No sign of active bleeding 07/08: Hgb fell from 7.1 to 6.0; stat type/screen ordered Will transfuse 2u pRBC (irradiated+leukoreduced), repeat H/H two hours after transfusion is complete Of note, patient's chemotherapy providers in [place] transfuse patient to keep her Hgb above 8.0 (per patient) Complicated UTI Patient follows with infectious disease for recurrent UTI; has a history of pseudomonas UTI Was previously on bactrim prophylaxis, is currently on ciprofloxacin prophylaxis in addition to fluconazole for the past ~5 days due to yeast in urine; patient was also recently instructed by her ID physician to start linezolid CT a/p: no overt sign of pyelonephritis; severe bilateral hydronephrosis (which is chronic per patient) Urinalysis grossly infected with positive leuk esterase and yeast; culture and blood cultures pending Continue linezolid until discussion with ID physician to determine duration of therapy Continue fluconazole for a total of seven days Continue ciprofloxacin prophylaxis Awaiting urine culture results Working on contacting patient's ID physician to inquire about duration of linezolid therapy in addition to clarification regarding the ID physician's recommendation that patient go to the hospital Urology following Metastatic bladder cancer Patient is s/p cystectomy with bilateral nephroureteral stents, ileal conduits, bilateral percutaneous nephrostomies Chemotherapy is managed by patient's physician in [place] FEN: clear liquid diet, advance as tolerated, NSS @ 80mL/hr Code status: full code DVT ppx: SCDs PT/OT: ordered Case management: following Dispo: med/surg (2) UTI (urinary tract infection): (3) History of DVT (deep vein thrombosis): (4) Immunocompromised state due to drug therapy: (5) Bladder cancer metastasized to bone: Admission and Anticipated Discharge Date Admission Date: July 07, 2022 Supervising Physician Co-Signing Physician Notes I personally examined the patient and verified all gómez points of history and exam, discussed case, and agree with decision making with Dr Castañeda Feeling okay. No acute complaints. When asked who she had seen directed her to come to the hospital, she is really not sure, thinks that her daughter would probably know, she believes it might have been a physician dental office assistant at Dr. Amezcua ([facility] radiation oncology) office. Vitals noted, in general she is awake and alert fatigued and frail no distress. HEENT normocephalic atraumatic mucous membranes moist. Skin without rashes, pallor, icterus. UTIappears stable on current regimen, white count improving nicely and no concern of worsening sepsis. Current urine and blood cultures are negative. Trying obtain records to see what was seen had her directed to the ER, resident physician spoke with [facility] infectious disease on-call who reviewed records and had none of benefit to the situation, in discussion with patient it may have been radiation oncology directing herwe will continue to try to pursue. In the meantime continue current care. Possible short-lived SBOimproved. Advance diet. Doing well. Anemiaalmost certainly hypoproliferative due to bone marrow suppression from cancer treatmentsgiven that her hemoglobin is 6, transfuse. DVT prophylaxisSCDs Subjective Patient seen and evaluated at bedside this morning. Patient reports fatigue that has worsened since yesterday. Patient tolerated a clear diet last night without abdominal pain or nausea. Patient denies other symptoms at this time including CP, SOB, and diarrhea. Review of Systems Review of Systems: See HPI Physical Exam Physical Exam: Constitutional: tired-appearing, no acute distress CV: regular rhythm, no murmur appreciated, extremities well-perfused, no LE edema Resp: CTABL, no wheezes/rales/rhonchi appreciated, no increased work of breathing GI: soft, nondistended, nontender in all quadrants, BS hypoactive Skin: skin surrounding nephrostomy tubes without erythema or warmth bilaterally Neuro: alert, oriented, no focal neurologic deficit Results & Data Results & Data Vital Signs (Past 12 Hours) Vital Signs Temp Pulse Resp BP Pulse Ox O2 Del Method 07/08/22 07:27 36.5 C 70 16 136/69 98 Room Air 07/07/22 22:39 36.9 C 89 18 135/72 98 Room Air Resident Activity Tracking Resident Involvement: Resident Care Provided Care Provided: Adult Hospital Medicine (2) UTI (urinary tract infection) Urinary tract infection type: site unspecified
[2022-07-08] MEDS: CHECK fentaNYL PATCH PLACEMENT SCH ×3 (08:00→23:41)
--- NOTE | 2022-07-08 11:05 | Urology Progress Note ---
Date of Service July 08, 2022 Assessment & Plan (1) Bladder cancer metastasized to bone: Plan: 72-year-old female with history of metastatic bladder cancer s/p cystectomy with ileal conduit, bilateral nephrostomy tubes, currently being managed for small bowel obstruction. She remains afebrile and hemodynamically stable. Leukocytosis improving. Reasonable to keep on antibiotics as cultures return. No plan for urologic intervention at this point. If she develops flank pain, nephrostomy tubes can be unclamped. If urostomy stops draining, please contact urology. Urology will sign off for now. Please call with any questions or concerns. Admission and Anticipated Discharge Date Admission Date: July 07, 2022 Subjective Feeling okay this morning, denies any flank pain Having good output from her urostomy, nephrostomy tubes remain clamped Having some rumbles but no bowel movements yet Feeling slightly fatigued, getting blood transfusion Review of Systems Review of Systems: 12 point review of systems negative except for otherwise indicated. Physical Exam Physical Exam: Frail-appearing, NAD Genitourinary: Appropriate urine output from urostomy Results & Data Vital Signs (Past 12 Hours) Vital Signs Temp Pulse Pulse Resp BP BP Pulse Ox 07/08/22 10:25 36.6 C 71 16 135/68 99 07/08/22 09:25 36.4 C L 68 16 130/67 96 07/08/22 08:55 36.3 C L 73 16 137/68 100 07/08/22 08:40 36.3 C L 67 18 128/65 98 07/08/22 08:21 36.6 C 70 18 132/68 99 07/08/22 07:27 36.5 C 70 16 136/69 98 O2 Del Method 07/08/22 10:25 07/08/22 09:25 07/08/22 08:55 07/08/22 08:40 07/08/22 08:21 07/08/22 07:27 Room Air PG Care Time/CCT Total # of Minutes Spent Total Time Spent with Patient: Total time spent is greater than 50% in coordination of care (as documented) at patient's floor/unit and/or counseling patient: Coding Level of Care Code 98961 SUB INP/OBS CARE 05/03MIN Diagnoses Bladder cancer metastasized to bone C67.9; C79.51
--- NOTE | 2022-07-08 11:41 | Surgery Progress Note ---
Date of Service July 08, 2022 Assessment & Plan (1) SBO (small bowel obstruction): Plan: Medicine already advancing diet. She is doing well. We will continue to follow. Admission and Anticipated Discharge Date Admission Date: July 07, 2022 Subjective Patient seen. Feeling "soso" denies abdominal pain or nausea. However no flatus or bowel movement. She is tolerating clear liquids at this point Physical Exam Constitutional: WD/WN, vitals as above no acute distress and not ill appearing Eyes: PERRL, conjunctivae normal, anicteric sclerae EOM intact bilaterally ENMT: external ear and nose normal, oropharynx normal Ears: no hearing impairment Neck: trachea midline, no thyromegaly Respiratory: normal respiratory effort; no respiratory distress and does not use accessory muscles Gastrointestinal (Abdomen): Soft. Mild distention. Nontender Skin: no rashes, warm and dry Psychiatric: Orientation: alert, oriented x 3 and cooperative Results & Data Vital Signs (Past 12 Hours) Vital Signs Temp Pulse Pulse Resp BP BP Pulse Ox 07/08/22 10:25 36.6 C 71 16 135/68 99 07/08/22 09:25 36.4 C L 68 16 130/67 96 07/08/22 08:55 36.3 C L 73 16 137/68 100 07/08/22 08:40 36.3 C L 67 18 128/65 98 07/08/22 08:21 36.6 C 70 18 132/68 99 07/08/22 07:27 36.5 C 70 16 136/69 98 O2 Del Method 07/08/22 10:25 07/08/22 09:25 07/08/22 08:55 07/08/22 08:40 07/08/22 08:21 07/08/22 07:27 Room Air PG Care Time/CCT Total # of Minutes Spent Total Time Spent with Patient: Total time spent is greater than 50% in coordination of care (as documented) at patient's floor/unit and/or counseling patient: Coding Level of Care Code 42730 SUB INP/OBS CARE 2/35MIN Diagnoses SBO (small bowel obstruction) K56.609
[2022-07-08] MEDS: CIPROFLOXACIN / D5W 200 MG/100 ML BAG IV SCH (13:24)
[2022-07-08] MEDS: FLUCONAZOLE 100 MG/50 ML BAG IV SCH (13:24)
[2022-07-08] MEDS: LINEZOLID 600 MG/300 ML BAG IV SCH ×2 (13:24→21:07)
[2022-07-08 17:01] LABS: Hematocrit (blood only) 28.3 % (37.0-47.0); Hemoglobin 9.2 g/dl (12.0-16.0)
--- NOTE | 2022-07-08 18:22 | Billing Data ---
Date of Service July 08, 2022 Coding Level of Care Code 94707 SUB INP/OBS CARE
--- NOTE | 2022-07-08 19:29 | Billing Data ---
Date of Service July 08, 2022 Coding Level of Care Code 04978 INT INP/OBS CARE
--- NOTE | 2022-07-09 06:40 | Hospitalist Progress Note ---
Date of Service July 09, 2022 Assessment & Plan (1) SBO (small bowel obstruction): Plan: 72yo female with a history of SBO (recurrent), UTI (recurrent), metastatic bladder cancer (s/p cystectomy with ileal conduit placed at [facility] 3 at [facility], 2020; bilateral nephrostomy tubes placed at [facility] 06/28; receives chemo through physicians in [place]), anemia, and history of DVT presents to [facility] upon the instruction of her infectious disease physician after reporting a one-day history of abdominal pain and vomiting. Abdominal pain in the setting of immunosuppression Patient presents upon the instruction of her infectious disease physician d/t a one-day history of abdominal pain and vomiting Patient is noted to have a history of recurrent SBO Notably, patient has a persistent, chronic leukocytosis; patient is afebrile, low suspicion for infection General surgery consulted; recommends conservative treatment, no need for NG tube at this time 07/07: patient's abdominal pain and nausea/vomiting have entirely resolved Etiology unclear, differential is broad and includes infection, partial SBO that has resolved, constipation, medication/antibiotic side-effect, others NPO status advanced to clear liquids; continue to advance diet as tolerated Zofran, tylenol as-needed Anemia Hgb on admission low at 7.1, suspected secondary to chemotherapy No sign of active bleeding 07/08: Hgb fell from 7.1 to 6.0; patient underwent transfusion of 2u pRBC (leukoreduced+irradiated) 07/09: Hgb jose nicely from 6.0 to 9.5 s/p transfusion Trend CBC Complicated UTI Patient follows with infectious disease for recurrent UTI; has a history of pseudomonas UTI Was previously on bactrim prophylaxis, is currently on ciprofloxacin prophylaxis in addition to fluconazole for the past ~5 days due to yeast in urine; patient was also recently instructed by her ID physician to start linezol id CT a/p: no overt sign of pyelonephritis; severe bilateral hydronephrosis (which is chronic per patient) Urinalysis grossly infected with positive leuk esterase and yeast; culture and blood cultures pending Continue linezolid until discussion with ID physician to determine duration of therapy Continue fluconazole for a total of seven days Continue ciprofloxacin prophylaxis Awaiting urine culture results Working on contacting patient's ID physician to inquire about duration of linezolid therapy in addition to clarification regarding the ID physician's recommendation that patient go to the hospital Urology following Poor appetite Reported by patient on 07/09 Patient notes similar symptoms in the past during chemotherapy - patient was on marinol at that time and reports it helped significantly Considered also adding mirtazapine, but patient is on linezolid - will hold d/t potential interaction between serotonergic meds and linezolid's MAOI a ctivity Marinol 2.5mg bid (one hour before lunch and one hour before dinner) Talent Coordinator consult placed for nutritional optimization Metastatic bladder cancer Patient is s/p cystectomy with bilateral nephroureteral stents, ileal conduits, bilateral percutaneous nephrostomies Chemotherapy is managed by patient's physician in [place] FEN: clear liquid diet, advance as tolerated, NSS @ 80mL/hr Code status: full code DVT ppx: SCDs PT/OT: ordered Case management: following Dispo: med/surg (2) UTI (urinary tract infection): (3) History of DVT (deep vein thrombosis): (4) Immunocompromised state due to drug therapy: (5) Bladder cancer metastasized to bone: Admission and Anticipated Discharge Date Admission Date: July 07, 2022 Supervising Physician Co-Signing Physician Notes I personally examined the patient and verified all gómez points of history and ex am, discussed case, and agree with decision making with Dr Bullock sleeping comfortably when i see her. d/w dr bullock. also appreciate successfactors consultant input Vitals noted, in general she is resting comfortably no distress. HEENT normocephalic atraumatic mucous membranes moist. Skin without rashes, pallor, icterus. UTIappears stable on current regimen, white count improving nicely and no conc marcos of worsening sepsis. Current urine and blood cultures are negative. still trying obtain records to see what was seen had her directed to the ER, resident physician spoke with [facility] infectious disease on-call who reviewed records and had none of benefit to the situation, in discussion with patient it may have been radiation oncology directing hertrying to close the loop on that. want to ensure concerns were addressed prior to discharge. malnutrition - customer support engineer consult. marinol. Possible short-lived SBOimproved. Anemiaalmost certainly hypoproliferative due to bone marrow suppression from cancer treatmentstransfused 2 units yesterday DVT prophylaxisSCDs Subjective Patient seen and evaluated at bedside this morning. Today, patient feels "pretty out of it" though she does report feeling better than she did yesterday. Patient has had a poor appetite for the past day which is worrying her. Patient mentions she's tried marinol in the past for appetite stimulation, which she says helped. Patient reports very mild dull lower abdominal pain but notes it isn't very bothersome. Patient did have a BM yesterday. Patient has no additional concerns or complaints. Patient denies CP, SOB, nausea, vomiting, lightheadedness, dizziness, and diarrhea. Review of Systems Review of Systems: See HPI Physical Exam Physical Exam: Constitutional: tired-appearing, no acute distress CV: regular rhythm, no murmur appreciated Resp: CTABL, no increased work of breathing GI: soft, nondistended, mild lower abdominal tenderness, BS normoactive Skin: skin surrounding nephrostomy tubes without erythema or warmth bilaterally Neuro: alert, oriented, no focal neurologic deficit Results & Data Results & Data Vital Signs (Past 12 Hours) Vital Signs Temp Pulse Pulse Resp BP BP Pulse Ox 07/08/22 22:13 90 138/70 07/08/22 21:14 158/77 H 07/08/22 21:12 37.1 C 81 14 168/84 H 98 O2 Del Method 07/08/22 22:13 07/08/22 21:14 07/08/22 21:12 Room Air Resident Activity Tracking Resident Involvement: Resident Care Provided Care Provided: Adult Hospital Medicine (2) UTI (urinary tract infection) Urinary tract infection type: site unspecified
[2022-07-09 07:42] LABS: Hematocrit (blood only) 28.4 % (37.0-47.0); Hemoglobin 9.5 g/dl (12.0-16.0); Mean Corpuscular Hemoglobin 32.3 pg (25.0-34.0); Mean Corpuscular Hgb Conc 33.5 g/dL (32.0-36.0); Mean Corpuscular Volume 96.6 fL (80.0-100.0); Mean Platelet Volume 9.2 fL (9.4-12.4); Platelet Count 350 K/uL (130-400); RDW Coefficient of Variation 18.6 % (11.5-14.5); RDW Standard Deviation 64.1 fL (36.4-46.3); Red Blood Count 2.94 M/uL (4.20-5.40); White Blood Count 15.55 K/ul (4.8-10.8)
[2022-07-09 07:50] LABS: BUN Creatinine Ratio 17.1 (10-20); Calcium 7.8 mg/dl (8.6-10.3); Est GFR (African American) 82.3 ml/min; Potassium 3.8 mmol/L (3.5-5.1)
[2022-07-09] MEDS: SODIUM CHLORIDE 0.9% 1000ML 1,000 ML IV SCH ×2 (07:58→21:25)
[2022-07-09] MEDS: CHECK fentaNYL PATCH PLACEMENT SCH ×2 (07:58→16:03)
[2022-07-09] MEDS: CIPROFLOXACIN / D5W 200 MG/100 ML BAG IV SCH (08:01)
[2022-07-09] MEDS: LINEZOLID 600 MG/300 ML BAG IV SCH ×2 (08:02→21:27)
[2022-07-09] MEDS: droNABinol 2.5 MG CAP PO SCH ×2 (09:19→16:04)
--- NOTE | 2022-07-09 10:06 | Surgery Progress Note ---
Date of Service July 09, 2022 Assessment & Plan (1) SBO (small bowel obstruction): Plan: Clinically doing okay. No urgent indication for surgical intervention. We will repeat KUB since we have not had imaging for several days. Admission and Anticipated Discharge Date Admission Date: July 07, 2022 Subjective Patient seen. She is tolerating a diet which is been advanced to regular although admittedly has some mild nausea. She did have a bowel movement last night. She has no new complaints. Physical Exam Physical Exam: Alert. No acute distress Exam unchanged. Mild distention nontender abdomen. Results & Data Vital Signs (Past 12 Hours) Vital Signs Temp Pulse Pulse Resp BP BP Pulse Ox 07/09/22 07:23 37.1 C 74 16 162/81 H 98 07/08/22 22:13 90 138/70 O2 Del Method 07/09/22 07:23 Room Air 07/08/22 22:13 PG Care Time/CCT Total # of Minutes Spent Total Time Spent with Patient: Total time spent is greater than 50% in coordination of care (as documented) at patient's floor/unit and/or counseling patient: Coding Level of Care Code 26554 SUB INP/OBS CARE 2/35MIN Diagnoses SBO (small bowel obstruction) K56.609
[2022-07-09] MEDS: FLUCONAZOLE 100 MG/50 ML BAG IV SCH (10:22)
--- NOTE | 2022-07-09 11:53 | XRay Report ---
XR KUB/Abdomen 1 view CLINICAL HISTORY: SBO TECHNIQUE: 1 view of the abdomen was obtained. Comparison: Comparison is made to CT abdomen pelvis 07/06/2022 FINDINGS: Bilateral nephroureteral drains are noted. Degenerative changes are seen in the visualized skeleton. Left femur hardware is seen. Dilated loops of gas-filled small bowel measuring up to 36 mm. IMPRESSION: Dilated loops of gas-filled small bowel compatible with small bowel obstruction. ACT 112: Negative or not required by law. Electronically signed by: Paramjit Solo M.D. 07/09/2022 11:50 AM
[2022-07-09 12:15] LABS: Appearance Urine Cloudy (Clear); Bilirubin Urine Negative (Negative); Blood Urine 3+ (Negative); Color Urine Yellow; Epithelial Cell Urine Auto 0-5 /lpf (0-5); Glucose Urine UA Negative (Negative); Ketones Urine Negative (Negative); Leukocyte Esterase Urine 3+ (Negative); Nitrite Urine Negative (Negative); Protein Urine Trace (Negative); Specific Gravity Urine 1.009 (1.000-1.030); Urobilinogen Urine Negative (Negative); WBC Urine Automated >30 /hpf (0-5); pH Urine 6.5 (4.5-7.5)
[2022-07-09 12:57] LABS: Bacteria Urine Automated 1+ (Negative)
--- NOTE | 2022-07-09 16:15 | Billing Data ---
Date of Service July 09, 2022 Coding Level of Care Code 39113 SUB INP/OBS CARE
[2022-07-09] MEDS: ONDANSETRON INJ 2 MG/ML 2 ML VIAL IV SCH (17:27)
[2022-07-10] MEDS: CHECK fentaNYL PATCH PLACEMENT SCH ×3 (00:02→16:39)
[2022-07-10] MEDS: fentaNYL 50 MCG/HR TDSY TD SCH (03:58)
[2022-07-10] MEDS ORDERED: ONDANSETRON INJ 2 MG/ML 2 ML VIAL IV STA (04:26)
[2022-07-10 07:00] LABS: Basophils # (auto) 0.06 K/uL (0-0.2); Basophils % (auto) 0.3 %; Eosinophils # (auto) 0.09 K/uL (0-0.50); Eosinophils % (auto) 0.5 %; Hematocrit (blood only) 31.4 % (37.0-47.0); Hemoglobin 10.4 g/dl (12.0-16.0); Immature Granulocytes # (auto) 0.14 K/uL (0.01-0.20); Immature Granulocytes % (auto) 0.8 %; Lymphocytes # (auto) 1.04 K/uL (1.2-3.4); Lymphocytes % (auto) 5.8 %; Mean Corpuscular Hemoglobin 32.8 pg (25.0-34.0); Mean Corpuscular Hgb Conc 33.1 g/dL (32.0-36.0); Mean Corpuscular Volume 99.1 fL (80.0-100.0); Mean Platelet Volume 9.3 fL (9.4-12.4); Monocytes # (auto) 0.78 K/uL (0.11-0.59); Monocytes % (auto) 4.3 %; Neutrophils # (auto) 15.91 K/uL (1.40-6.50); Neutrophils % (auto) 88.3 %; Platelet Count 363 K/uL (130-400); RDW Coefficient of Variation 17.8 % (11.5-14.5); RDW Standard Deviation 64.6 fL (36.4-46.3); Red Blood Count 3.17 M/uL (4.20-5.40); White Blood Count 18.02 K/ul (4.8-10.8)
[2022-07-10 07:10] LABS: Albumin Globulin Ratio 0.9 (0.9-2); Albumin Level 2.6 gm/dl (3.4-5.0); BUN Creatinine Ratio 15.9 (10-20); Bilirubin,Total 0.5 mg/dl (0.2-1.0); Calcium 7.9 mg/dl (8.6-10.3); Creatinine Clr Calc Pharmacy 48.7 ml/min; Est GFR (African American) 100.1 ml/min; Est GFR (Non-African American) 86.4 ml/min; Magnesium 1.2 mg/dl (1.7-2.4); Phosphorus 3.1 mg/dl (2.5-4.9); Potassium 3.6 mmol/L (3.5-5.1); Total Protein 5.6 gm/dl (6.0-8.3)
--- NOTE | 2022-07-10 08:06 | Hospitalist Progress Note ---
Date of Service July 10, 2022 Assessment & Plan (1) SBO (small bowel obstruction): Plan: 72yo female with a history of SBO (recurrent), UTI (recurrent), metastatic bladder cancer (s/p cystectomy with ileal conduit placed at [facility] 3 at [facility], 2020; bilateral nephrostomy tubes placed at [facility] 06/28; receives chemo through physicians in [place]), anemia, and history of DVT presents to [facility] upon the instruction of her infectious disease physician after reporting a one-day history of abdominal pain and vomiting. Abdominal pain in the setting of immunosuppression Patient presents upon the instruction of her infectious disease physician d/t a one-day history of abdominal pain and vomiting Patient is noted to have a history of recurrent SBO, -SBO findings present on CT A/P and KUB. Tolerating PO intake well though. -General surgery consulted; recommends conservative treatment, no need for NG tube at this time -symptoms improved - 07/10 abd pain and vomitting returned Etiology unclear, differential is broad and includes medication side effect - fluconazole, infection, constipation NPO status advanced to clear liquids; continue to advance diet as tolerated Zofran, tylenol as-needed Poor appetite Reported by patient on 07/09 possibly from abx side effect. Considered also adding mirtazapine, but patient is on linezolid - will hold d/t potential interaction between serotonergic meds and linezolid's MAOI activity Marinol 2.5mg bid (one hour before lunch and one hour before dinner) Fish House Worker consult placed for nutritional optimization Complicated UTI - h/o recurrent uti with one from pseudomonas as well. currently on cipro prophylaxis. was on bactrim prophylaxis in past. - recently started on fluconazole for the past ~5 days d/t yeast in urine; - day before admission - patient was also instructed by her ID physician to start linezolid - CT a/p: no overt sign of pyelonephritis; severe bilateral hydronephrosis (chronic per patient) Continue linezolid until discussion with ID physician to determine duration of therapy Continue fluconazole for a total of seven days; consider stopping as this may be contributing to persistant nausea Awaiting urine culture results Working on contacting patient's ID physician to inquire about duration of linezolid therapy in addition to clarification regarding the ID physician's recommendation that patient go to the hospital Urology following Anemia Hgb on admission low at 7.1, suspected secondary to chemotherapy No sign of active bleeding 07/08: Hgb fell from 7.1 to 6.0; patient underwent transfusion of 2u pRBC (leukoreduced+irradiated) 07/09: Hgb jose nicely from 6.0 to 9.5 s/p transfusion Trend CBC Metastatic bladder cancer Patient is s/p cystectomy with bilateral nephroureteral stents, ileal conduits, bilateral percutaneous nephrostomies Chemotherapy is managed by patient's physician in [place] FEN: clear liquid diet, advance as tolerated, NSS @ 80mL/hr Code status: full code DVT ppx: SCDs PT/OT: ordered Case management: following Dispo: med/surg (2) UTI (urinary tract infection): (3) History of DVT (deep vein thrombosis): (4) Immunocompromised state due to drug therapy: (5) Bladder cancer metastasized to bone: Admission and Anticipated Discharge Date Admission Date: July 07, 2022 Supervising Physician Co-Signing Physician Notes Resident Physician Supervision Note: I independently interviewed and examined the patient and verified the gómez history and physical, reviewed labs and image studies and agree with resident findings and care plan. Subjective Patient seated next to bedside, states she feels worse today than when she came in, feels some abd pain but mostly nausea and vomiting this morning did not have appetite. Patient had zofran 2 hours prior no improvement with nausea. Physical Exam Constitutional: + thin, cooperative and + in distress Eyes: PERRL, conjunctivae normal, anicteric sclerae ENMT: external ear and nose normal, oropharynx normal Neck: trachea midline, no thyromegaly Respiratory: normal respiratory effort, lungs clear to auscultation Cardiovascular: Rate/Rhythm: regular rate and regular rhythm Gastrointestinal (Abdomen): Inspection/Auscultation: abdomen normal to inspection Percussion/Palpation: + abdomen tender and abdomen soft colostomy bag in place Skin: no rashes, warm and dry Results & Data Results & Data Vital Signs (Past 12 Hours) Vital Signs Temp Pulse Resp BP Pulse Ox O2 Del Method 07/09/22 22:29 37.1 C 73 16 166/82 H 99 Room Air Resident Activity Tracking Resident Involvement: Resident Care Provided Care Provided: Adult Hospital Medicine (2) UTI (urinary tract infection) Urinary tract infection type: site unspecified
[2022-07-10] MEDS ORDERED: PROCHLORPERAZINE 5 MG in SYRINGE 4 ML IV ONE (08:45)
[2022-07-10] MEDS: ONDANSETRON INJ 2 MG/ML 2 ML VIAL IV SCH ×3 (08:58→16:40)
[2022-07-10] MEDS: LINEZOLID 600 MG/300 ML BAG IV SCH ×2 (09:06→20:00)
[2022-07-10] MEDS: MAGNESIUM SULFATE / D5W 1 GM/100 ML BAG IV SCH ×4 (11:05→16:36)
[2022-07-10] MEDS: CIPROFLOXACIN / D5W 200 MG/100 ML BAG IV SCH (11:12)
--- NOTE | 2022-07-10 11:17 | Surgery Progress Note ---
Date of Service July 10, 2022 Assessment & Plan (1) SBO (small bowel obstruction): Plan: Patient here with history of recurrent SBO Vomited this AM and still dealing with nausea. Did not partake in clears for bfast She has no abdominal pain or discomfort, and passed a small BM today KUB obtained revealed persistent SBO. Discussed the possibility of NGT if needed but refusing at time being Will obtain SBFT for further evaluation If surgery indicated patient prefers to be transferred Admission and Anticipated Discharge Date Admission Date: July 07, 2022 Supervising Physician Co-Signing Physician Notes I personally saw and evaluated the patient with Shelby Bernardo PA-C and agree with the assessment and plan. 72-year-old female with history of cystectomy and ileal conduit here with small bowel obstruction She continues to be without abdominal pain, however had an episode of emesis She has a complicated abdominal surgical history and is currently undergoing chemotherapy in [place] for her metastatic bladder cancer Her abdominal exam remains benign, no plans for any surgical intervention We will schedule small bowel follow-through for the morning in hopes that this can be both diagnostic and therapeutic She has expressed if she were to need surgical intervention, she would like this to be done in [place] where her urological surgeries were performed Surgery will follow Subjective Patient doesn't feel all that well this morning. Says it's full body sensation of overall malaise, but describing mostly nausea to me. She said she vomited this AM. No abdominal pain. She did have a small BM this AM. Did not eat any of her clears. Physical Exam Physical Exam: awake.alert, appears fatigued Gastrointestinal (Abdomen): Inspection/Auscultation: abdomen not distended Percussion/Palpation: abdomen soft; abdomen nontender Results & Data Vital Signs (Past 12 Hours) Vital Signs Temp Pulse Resp BP Pulse Ox O2 Del Method 07/10/22 08:20 36.8 C 84 16 162/82 H 96 Room Air PG Care Time/CCT Total # of Minutes Spent Total Time Spent with Patient: Total time spent is greater than 50% in coordination of care (as documented) at patient's floor/unit and/or counseling patient: Coding Level of Care Code 37786 SUB INP/OBS CARE 25MIN Diagnoses SBO (small bowel obstruction) K56.609
--- NOTE | 2022-07-10 11:40 | XRay Report ---
KUB CLINICAL HISTORY: Evaluate bowel gas pattern. COMPARISON STUDY: CT of the abdomen and pelvis July 06, 2022 and KUB July 09, 2022. FINDINGS: Bilateral percutaneous nephrostomy catheters, pelvic surgical clips and a left femoral inte rnal fixation are partially imaged. Multiple loops of mildly dilated small bowel remains similar to p rior KUB and CT. Small bowel loops measure up to 4.1 cm in caliber. There is a paucity of colonic and rectal gas. Moderate amount of stool within ascending colon is noted. No evidence for free air on th is supine exam. IMPRESSION: No change in multiple loops of mildly dilated small bowel which favors a small bowel obst ruction. ACT 112: Negative or not required by law. Electronically signed by: Yony Cabral M.D. 07/10/2022 11:39 AM
[2022-07-10] MEDS: FLUCONAZOLE 100 MG/50 ML BAG IV SCH (12:31)
[2022-07-10] MEDS: SODIUM CHLORIDE 0.9% 1000ML 1,000 ML IV SCH ×2 (14:38→14:42)
[2022-07-10] MEDS: droNABinol 2.5 MG CAP PO SCH ×2 (14:43→18:41)
[2022-07-11] MEDS: CHECK fentaNYL PATCH PLACEMENT SCH ×3 (01:10→16:40)
[2022-07-11] MEDS: SODIUM CHLORIDE 0.9% 1000ML 1,000 ML IV SCH ×2 (04:43→19:47)
[2022-07-11 07:14] LABS: Basophils # (auto) 0.08 K/uL (0-0.2); Basophils % (auto) 0.5 %; Eosinophils # (auto) 0.39 K/uL (0-0.50); Eosinophils % (auto) 2.5 %; Hematocrit (blood only) 30.3 % (37.0-47.0); Hemoglobin 9.9 g/dl (12.0-16.0); Immature Granulocytes # (auto) 0.12 K/uL (0.01-0.20); Immature Granulocytes % (auto) 0.8 %; Lymphocytes # (auto) 1.39 K/uL (1.2-3.4); Mean Corpuscular Hemoglobin 32.4 pg (25.0-34.0); Mean Corpuscular Hgb Conc 32.7 g/dL (32.0-36.0); Mean Platelet Volume 8.7 fL (9.4-12.4); Monocytes # (auto) 0.77 K/uL (0.11-0.59); Neutrophils # (auto) 12.69 K/uL (1.40-6.50); Neutrophils % (auto) 82.2 %; Platelet Count 310 K/uL (130-400); RDW Coefficient of Variation 17.3 % (11.5-14.5); RDW Standard Deviation 63.3 fL (36.4-46.3); Red Blood Count 3.06 M/uL (4.20-5.40); White Blood Count 15.44 K/ul (4.8-10.8)
[2022-07-11 07:24] LABS: Albumin Globulin Ratio 0.9 (0.9-2); Albumin Level 2.5 gm/dl (3.4-5.0); BUN Creatinine Ratio 12.3 (10-20); Bilirubin,Total 0.4 mg/dl (0.2-1.0); Calcium 7.5 mg/dl (8.6-10.3); Est GFR (African American) 94.7 ml/min; Est GFR (Non-African American) 81.7 ml/min; Globulin 2.8 gm/dl (2.5-4.0); Magnesium 1.8 mg/dl (1.7-2.4); Phosphorus 2.6 mg/dl (2.5-4.9); Potassium 3.5 mmol/L (3.5-5.1); Total Protein 5.3 gm/dl (6.0-8.3)
--- NOTE | 2022-07-11 07:36 | Hospitalist Progress Note ---
Date of Service July 11, 2022 Assessment & Plan (1) SBO (small bowel obstruction): Plan: 72yo female with a history of SBO (recurrent), UTI (recurrent), metastatic bladder cancer (s/p cystectomy with ileal conduit placed at [facility] 3 at [facility], 2020; bilateral nephrostomy tubes placed at [facility] 06/28; receives chemo through physicians in [place]), anemia, and history of DVT presents to [facility] upon the instruction of her infectious disease physician after reporting a one-day history of abdominal pain and vomiting. Abdominal pain in the setting of immunosuppression Patient presents upon the instruction of her infectious disease physician d/t a one-day history of abdominal pain and vomiting Patient is noted to have a history of recurrent SBO, -SBO findings present on CT A/P and KUB. -General surgery - SBFT performed today -does have passage of contrast through her ileocolonic anastomosis but persistent with dilated small bowel and emesis We will repeat a KUB in the morning to follow her contrast progression Pending results of the KUB and her clinical progress, she may require transfer to her facility in [place] for further treatment Tolerating PO intake. Zofran, tylenol as-needed Poor appetite Severe Protein calorie malnutrition Reported by patient on 07/09 - multifactorial - partial SBO and medication side effect. Added Marinol 2.5mg bid (one hour before lunch and one hour before dinner) Educational Specialist consult placed for nutritional optimization Sepsis POA Complicated UTI - h/o recurrent uti with one from pseudomonas as well. currently on cipro prophylaxis. was on bactrim prophylaxis in past. - recently started on fluconazole for the past ~5 days d/t yeast in urine; - day before admission - patient was also instructed by her ID physician to start linezolid - CT a/p: no overt sign of pyelonephritis; severe bilateral hydronephrosis (chronic per patient) Continue linezolid until discussion with ID physician to determine duration of therapy Continue fluconazole for a total of seven days; consider stopping as this may be contributing to persistant nausea Awaiting urine culture results Working on contacting patient's ID physician to inquire about duration of linezolid therapy in addition to clarification regarding the ID physician's recommendation that patient go to the hospital, awaiting call back from [facility] Urology following Anemia Hgb on admission low at 7.1, suspected secondary to chemotherapy No sign of active bleeding 07/08: Hgb fell from 7.1 to 6.0; patient underwent transfusion of 2u pRBC (leukoreduced+irradiated) 07/09: Hgb jose nicely from 6.0 to 9.5 s/p transfusion Trend CBC Metastatic bladder cancer Patient is s/p cystectomy with bilateral nephroureteral stents, ileal conduits, bilateral percutaneous nephrostomies Chemotherapy is managed by patient's physician in [place] FEN: clear liquid diet, advance as tolerated, NSS @ 80mL/hr Code status: full code DVT ppx: SCDs PT/OT: ordered Case management: following Dispo: med/surg (2) UTI (urinary tract infection): (3) History of DVT (deep vein thrombosis): (4) Immunocompromised state due to drug therapy: (5) Bladder cancer metastasized to bone: Admission and Anticipated Discharge Date Admission Date: July 07, 2022 Supervising Physician Co-Signing Physician Notes Resident Physician Supervision Note: I independently interviewed and examined the patient and verified the gómez history and physical, reviewed labs and image studies and agree with resident findings and care plan. Subjective Attempted to round on patient this morning, not currently in room. Per nursing no longer feeling nausea abd pain this morning. However did become nauseous with oral contrast and vomitted. Attempted to reach out to [facility] ID regarding prior abx treatment, [facility] to call back Physical Exam Constitutional: WD/WN, vitals as above Eyes: PERRL, conjunctivae normal, anicteric sclerae ENMT: external ear and nose normal, oropharynx normal Neck: trachea midline, no thyromegaly Respiratory: normal respiratory effort Cardiovascular: Rate/Rhythm: regular rate and regular rhythm Skin: no rashes, warm and dry Results & Data Results & Data Vital Signs (Past 12 Hours) Vital Signs Temp Pulse Resp BP Pulse Ox O2 Del Method 07/10/22 22:13 36.9 C 80 16 164/83 H 96 Room Air Resident Activity Tracking Resident Involvement: Resident Care Provided Care Provided: Adult Hospital Medicine (2) UTI (urinary tract infection) Urinary tract infection type: site unspecified
[2022-07-11] MEDS: ONDANSETRON INJ 2 MG/ML 2 ML VIAL IV SCH ×3 (10:05→17:44)
[2022-07-11] MEDS: CIPROFLOXACIN / D5W 200 MG/100 ML BAG IV SCH (10:10)
[2022-07-11] MEDS: FLUCONAZOLE 100 MG/50 ML BAG IV SCH (10:18)
[2022-07-11] MEDS: LINEZOLID 600 MG/300 ML BAG IV SCH ×2 (10:48→20:18)
[2022-07-11] MEDS: droNABinol 2.5 MG CAP PO SCH ×2 (10:50→17:42)
--- NOTE | 2022-07-11 11:02 | Fluoroscopy Report ---
FL small bowel follow through CLINICAL HISTORY: 72 years-old Female with SBO. Follow-up study in a patient with small bowel obstru ction. TECHNIQUE: Oral barium was administered to the patient and serial radiographs of the abdomen were pe rformed. COMPARISON STUDY: KUB 07/10/2022, CT abdomen and pelvis 07/06/2022 FLUOROSCOPY TIME: minutes. 6 images were submitted. FINDINGS: ORIF changes. Bilateral percutaneous ureteral stents. Surgical clips are noted within the p bryant. Surgical suture material noted within the right hemipelvis. Dilated air-filled loops of small bowel persist measuring up to approximately 4.1 cm. The patient is status post partial colectomy with right lower quadrant ostomy. Enteric contrast may into the ileocolic anastomosis on the 1 hour and 10 minute image. No significant change on the 1 hour 45 minute image. Additional images were attempted for confirmation however the patient vomited the r emaining enteric contrast within the stomach. The last image was obtained at the 2 hour 55 minute int erval which demonstrates no significant change except that the stomach now contains no significant en teric contrast. IMPRESSION: 1. At least partial small bowel obstruction persists. The study however was prematurely terminated se condary to the patient vomiting the enteric contrast within the stomach. 2. Consider 12 the 24 hour follow-up KUBs to assess for transit of the enteric contrast. ACT 112: Negative or not required by law. The above report was generated using voice recognition software. It may contain grammatical, syntax o r spelling errors. Electronically signed by: Kahlil Serrato M.D. 07/11/2022 10:59 AM
--- NOTE | 2022-07-11 13:11 | Surgery Progress Note ---
Date of Service July 11, 2022 Assessment & Plan (1) SBO (small bowel obstruction): Plan: Small bowel follow-through images and results personally viewed by myself, she does have passage of the contrast through her ileocolonic anastomosis, however she persists with dilated small bowel and emesis We will repeat a KUB in the morning to follow her contrast progression Pending results of the KUB and her clinical progress, she may require transfer to her facility in [place] for further treatment Admission and Anticipated Discharge Date Admission Date: July 07, 2022 Subjective Patient seen and examined. Still no abdominal pain. Afebrile. Small bowel follow-through was completed, however patient did vomit most of the residual contrast in her stomach. No BM today. Physical Exam Constitutional: WD/WN, vitals as above Gastrointestinal (Abdomen): Inspection/Auscultation: abdomen normal to inspection; abdomen not distended Percussion/Palpation: abdomen soft and + tympanic to percussion; abdomen nontender, no guarding and abdomen not rigid PG Care Time/CCT Total # of Minutes Spent Total Time Spent with Patient: Total time spent is greater than 50% in coordination of care (as documented) at patient's floor/unit and/or counseling patient: Coding Level of Care Code 30106 SUB INP/OBS CARE 05/03MIN Diagnoses SBO (small bowel obstruction) K56.609
[2022-07-11] MEDS: ACETAMINOPHEN 1,000 MG/100 ML VIAL IV PRN (19:44)
[2022-07-12] MEDS: CHECK fentaNYL PATCH PLACEMENT SCH ×4 (00:07→23:41)
[2022-07-12] MEDS ORDERED: ONDANSETRON INJ 2 MG/ML 2 ML VIAL IV STA (00:21)
--- NOTE | 2022-07-12 07:59 | Hospitalist Progress Note ---
Date of Service July 12, 2022 Assessment & Plan (1) SBO (small bowel obstruction): Plan: 72yo female with a history of SBO (recurrent), UTI (recurrent), metastatic bladder cancer (s/p cystectomy with ileal conduit placed at [facility] 3 at [facility], 2020; bilateral nephrostomy tubes placed at [facility] 06/28; receives chemo through physicians in [place]), anemia, and history of DVT presents to [facility] upon the instruction of her infectious disease physician after reporting a one-day history of abdominal pain and vomiting. Abdominal pain with Partial SBO Patient presents upon the instruction of her infectious disease physician d/t a one-day history of abdominal pain and vomiting Patient is noted to have a history of recurrent SBO, -SBO findings present on CT A/P and KUB. -General surgery - SBFT performed yesterday, does have passage of contrast through her ileocolonic anastomosis but persistent with dilated small bowel and emesis repeat KUB continues to demonstrate SBO recommend transfer for procedure, patient prefers [facility] for continuity of care at this time not tolerating PO intake due to nausea, abd pain, lack of appetite -IV fluid continued. Zofran, tylenol as-needed -contacted [facility], they have accepted patient's transfer, accepting physician is Dr. Cano. Poor appetite Severe Protein calorie malnutrition Poor appetite Reported by patient on 07/09 - Malnutrition - multifactorial - partial SBO and medication side effect. Since has PSBO - hold marinol. Script Worker consult placed for nutritional optimization - to benefit as outpatient. Sepsis POA Complicated UTI - h/o recurrent uti with one from pseudomonas as well. currently on cipro prophylaxis. was on bactrim prophylaxis in past. - day before admission - patient was also instructed by her ID physician to start linezolid - CT a/p: no overt sign of pyelonephritis; severe bilateral hydronephrosis (chronic per patient) Continue linezolid until tomorrow given fluconazole for a total of seven days d/t yeast in urine; stopped Working on contacting patient's ID physician to inquire about duration of linezolid therapy in addition to clarification regarding the ID physician's recommendation that patient go to the hospital, awaiting call back from [facility] Urology has been following Anemia Hgb on admission low at 7.1, suspected secondary to chemotherapy No sign of active bleeding 07/08: Hgb fell from 7.1 to 6.0; patient underwent transfusion of 2u pRBC (leukoreduced+irradiated) 07/09: Hgb jose nicely from 6.0 to 9.5 s/p transfusion Trend CBC Metastatic bladder cancer Patient is s/p cystectomy with bilateral nephroureteral stents, ileal c onduits, bilateral percutaneous nephrostomies Chemotherapy is managed by patient's physician in [place] FEN: clear liquid diet, advance as tolerated, NSS @ 80mL/hr Code status: full code DVT ppx: SCDs PT/OT: ordered Case management: following Dispo: med/surg (2) UTI (urinary tract infection): (3) History of DVT (deep vein thrombosis): (4) Immunocompromised state due to drug therapy: (5) Bladder cancer metastasized to bone: Admission and Anticipated Discharge Date Admission Date: July 07, 2022 Supervising Physician Co-Signing Physician Notes Resident Physician Supervision Note: I independently interviewed and examined the patient and verified the gómez history and physical, reviewed labs and image studies and agree with resident findings and care plan. Subjective Patient seen seated next to bedside. States she is not feeling well, this is the longest time she's had an ongoing SBO without resolution, has not had any bowel movements or flatulance today, is minorly nauseous and threw up last night, has no appetite at this time. Patient worried and upset about being sick. States if she needs surgery she would prefer it at [place]. Contacted [facility], they will accept her transfer. Will admit at Level 2, receiving physician is Dr. Cano. Will transfer over ground. Recommend NG tube. Physical Exam Constitutional: WD/WN, vitals as above + thin, cooperative and + in distress Eyes: PERRL, conjunctivae normal, anicteric sclerae ENMT: external ear and nose normal, oropharynx normal Neck: trachea midline, no thyromegaly Respiratory: normal respiratory effort, lungs clear to auscultation normal respiratory effort Cardiovascular: Rate/Rhythm: regular rate and regular rhythm Gastrointestinal (Abdomen): Inspection/Auscultation: abdomen normal to inspection Percussion/Palpation: + abdomen tender and abdomen soft Skin: no rashes, warm and dry Results & Data Results & Data Vital Signs (Past 12 Hours) Vital Signs Temp Pulse Resp BP Pulse Ox O2 Del Method 07/12/22 07:38 36.8 C 85 18 167/88 H 98 Room Air 07/11/22 20:56 36.9 C 75 16 176/85 H 98 Room Air Resident Activity Tracking Resident Involvement: Resident Care Provided Care Provided: Adult Hospital Medicine (2) UTI (urinary tract infection) Urinary tract infection type: site unspecified
[2022-07-12 08:00] LABS: Hematocrit (blood only) 31.1 % (37.0-47.0); Hemoglobin 10.5 g/dl (12.0-16.0); Mean Corpuscular Hemoglobin 33.4 pg (25.0-34.0); Mean Corpuscular Hgb Conc 33.8 g/dL (32.0-36.0); Mean Platelet Volume 8.9 fL (9.4-12.4); Platelet Count 337 K/uL (130-400); RDW Coefficient of Variation 16.9 % (11.5-14.5); RDW Standard Deviation 61.1 fL (36.4-46.3); Red Blood Count 3.14 M/uL (4.20-5.40)
[2022-07-12] MEDS: HEPARIN 100 UNIT/ML 5ML FLUSH FLUSH PRN (08:24)
[2022-07-12 08:29] LABS: BUN Creatinine Ratio 13.3 (10-20); Calcium 7.9 mg/dl (8.6-10.3); Creatinine Clr Calc Pharmacy 40.5 ml/min; Est GFR (African American) 81.1 ml/min; Potassium 3.4 mmol/L (3.5-5.1)
--- NOTE | 2022-07-12 08:48 | XRay Report ---
KUB HISTORY: Follow up study in a patient with reported bowel obstruction Follow contrast progression COMPARISON: Small bowel follow-through 07/11/2022, CT abdomen and pelvis 07/06/2022 FINDINGS: r bilateral percutaneous ureteral stents. Surgical clips within the pelvis. There is persis tent small bowel dilation with dilated loops measuring up to 3.9 cm. There is progression of the ente monisha contrast into distal small bowel loops within the pelvis. No definite contrast extension identifi ed in the patient's ostomy. Hardware of the left femoral neck again noted. IMPRESSION: Persistent small bowel dilation with distal progression of contrast into the pelvic small bowel. No d efinite contrast identified within the patient's ostomy. Findings are suggestive of a partial small b owel obstruction and continued follow-up is recommended. ACT 112: Negative or not required by law. The above report was generated using voice recognition software. It may contain grammatical, syntax o r spelling errors. Electronically signed by: Kahlil Serrato M.D. 07/12/2022 8:47 AM
[2022-07-12] MEDS: LINEZOLID 600 MG/300 ML BAG IV SCH ×2 (08:59→20:48)
[2022-07-12] MEDS: ONDANSETRON INJ 2 MG/ML 2 ML VIAL IV SCH ×3 (09:00→15:46)
--- NOTE | 2022-07-12 09:24 | Surgery Progress Note ---
Date of Service July 12, 2022 Assessment & Plan (1) SBO (small bowel obstruction): Plan: KUB images and results personally viewed by myself She continues to have persistently dilated small bowel with extremely slow transit of contrast consistent with a continued small bowel obstruction I think at this point she is unlikely to resolve without surgical intervention, with her history of cystectomy and ileal conduit as well as the patient's desire to be transferred back to her operating hospital in [place] this is what I would recommend at this point We will certainly follow the patient while she is here (2) Bladder cancer metastasized to bone: Admission and Anticipated Discharge Date Admission Date: July 07, 2022 Subjective Patient seen and examined. Still without abdominal pain. No BM or flatus. No emesis since yesterday. Review of Systems Constitutional: no fever and no chills Physical Exam Constitutional: WD/WN, vitals as above Gastrointestinal (Abdomen): Inspection/Auscultation: abdomen normal to inspection and + abdomen distended Percussion/Palpation: abdomen soft; abdomen nontender, no guarding and abdomen not rigid Results & Data Vital Signs (Past 12 Hours) Vital Signs Temp Pulse Resp BP Pulse Ox O2 Del Method 07/12/22 07:38 36.8 C 85 18 167/88 H 98 Room Air PG Care Time/CCT Total # of Minutes Spent Total Time Spent with Patient: Total time spent is greater than 50% in coordination of care (as documented) at patient's floor/unit and/or counseling patient: Coding Level of Care Code 92537 SUB INP/OBS CARE 05/03MIN Diagnoses SBO (small bowel obstruction) K56.609 Bladder cancer metastasized to bone C67.9; C79.51
[2022-07-12] MEDS: SODIUM CHLORIDE 0.9% 1000ML 1,000 ML IV SCH ×3 (10:40→23:10)
[2022-07-12] MEDS: droNABinol 2.5 MG CAP PO SCH ×2 (11:17→15:46)
[2022-07-12 13:52] LABS: Appearance Urine Turbid (Clear); Bilirubin Urine 1+ (Negative); Blood Urine 3+ (Negative); Color Urine Yellow; Glucose Urine UA Negative (Negative); Ketones Urine 1+ (Negative); Leukocyte Esterase Urine 3+ (Negative); Nitrite Urine Negative (Negative); Protein Urine 2+ (Negative); Specific Gravity Urine 1.015 (1.000-1.030); Urobilinogen Urine Negative (Negative)
[2022-07-12 14:04] LABS: Epithelial Cell Urine 0-5 /lpf (0-5)
[2022-07-12 14:05] LABS: Bacteria Urine 2+ (Negative); RBC Urine >30 /hpf (0-4)
[2022-07-12] MEDS: ACETAMINOPHEN 1,000 MG/100 ML VIAL IV PRN (15:46)
[2022-07-13] MEDS: ACETAMINOPHEN 1,000 MG/100 ML VIAL IV PRN ×2 (00:24→08:19)
[2022-07-13] MEDS: fentaNYL 50 MCG/HR TDSY TD SCH (05:05)
[2022-07-13] MEDS: oxyCODONE HCL IR 5 MG TAB (IMMEDIATE RELEASE) PO PRN ×2 (06:07→14:31)
[2022-07-13 07:11] LABS: Hematocrit (blood only) 27.4 % (37.0-47.0); Hemoglobin 8.9 g/dl (12.0-16.0); Mean Corpuscular Hemoglobin 32.7 pg (25.0-34.0); Mean Corpuscular Hgb Conc 32.5 g/dL (32.0-36.0); Mean Corpuscular Volume 100.7 fL (80.0-100.0); Platelet Count 274 K/uL (130-400); RDW Standard Deviation 61.8 fL (36.4-46.3); Red Blood Count 2.72 M/uL (4.20-5.40); White Blood Count 19.34 K/ul (4.8-10.8)
[2022-07-13 07:18] LABS: Calcium 7.5 mg/dl (8.6-10.3); Creatinine Clr Calc Pharmacy 35.8 ml/min; Est GFR (African American) 69.8 ml/min; Est GFR (Non-African American) 60.2 ml/min; Potassium 3.3 mmol/L (3.5-5.1)
[2022-07-13] MEDS: LINEZOLID 600 MG/300 ML BAG IV SCH (07:56)
[2022-07-13] MEDS: ONDANSETRON INJ 2 MG/ML 2 ML VIAL IV SCH ×3 (07:56→16:27)
[2022-07-13] MEDS: CHECK fentaNYL PATCH PLACEMENT SCH ×3 (07:56→23:53)
--- NOTE | 2022-07-13 08:08 | Surgery Progress Note ---
Date of Service July 13, 2022 Assessment & Plan (1) SBO (small bowel obstruction): Plan: Patient with history of metastatic bladder ca here with SBO KUB obtained yesterday revealed findings of persistent bowel obstruction She is feeling better without nausea or pain, but remains without bowel function Leonard has been reached out to yesterday by hospitalists and they agreed to accept her in transfer when bed avail Will continue to follow while in house Admission and Anticipated Discharge Date Admission Date: July 07, 2022 Supervising Physician Co-Signing Physician Notes I personally saw and evaluated the patient with Shelby Bernardo PA-C and agree with the assessment and plan. 72-year-old female with history of cystectomy and ileal conduit here with small bowel obstruction At this point she has not had a return of bowel function and has been in the hospital for most a week Her small bowel follow-through did show some progression of contrast but very slow enteric transit and she has not had a BM or passed flatus She has been accepted for transfer to [facility] is awaiting bed availability We will continue to follow while here Subjective Patient reports feeling better. Denies nausea this AM or abdominal pain. Still not passing flatus or BM in recent days. Physical Exam Physical Exam: awake/alert, no distress Respiratory: normal respiratory effort Gastrointestinal (Abdomen): Inspection/Auscultation: abdomen not distended Percussion/Palpation: abdomen soft; abdomen nontender Results & Data Vital Signs (Past 12 Hours) Vital Signs Temp Pulse Resp BP BP Pulse Ox Pulse Ox 07/13/22 07:27 36.9 C 91 H 18 144/62 H 98 07/12/22 21:20 07/12/22 21:20 98 07/12/22 23:06 36.9 C 74 18 168/76 H 98 O2 Del Method O2 Del Method 07/13/22 07:27 Room Air 07/12/22 21:20 Room Air 07/12/22 21:20 Room Air 07/12/22 23:06 Room Air PG Care Time/CCT Total # of Minutes Spent Total Time Spent with Patient: Total time spent is greater than 50% in coordination of care (as documented) at patient's floor/unit and/or counseling patient: Coding Level of Care Code 03903 SUB INP/OBS CARE 25MIN Diagnoses SBO (small bowel obstruction) K56.609
[2022-07-13] MEDS ORDERED: POTASSIUM CHLORIDE 20 MEQ in SODIUM CHLORIDE 0.9% 1000ML 1,000 ML IV SCH (08:24)
--- NOTE | 2022-07-13 09:41 | Hospitalist Progress Note ---
Date of Service July 13, 2022 Assessment & Plan (1) SBO (small bowel obstruction): Plan: 72yo female with a history of SBO (recurrent), UTI (recurrent), metastatic bladder cancer (s/p cystectomy with ileal conduit placed at [facility] 3 at [facility], 2020; bilateral nephrostomy tubes placed at [facility] 06/28; receives chemo through physicians in [place]), anemia, and history of DVT presents to [facility] upon the instruction of her infectious disease physician after reporting a one-day history of abdominal pain and vomiting. Abdominal pain with Partial SBO Patient presents upon the instruction of her infectious disease physician d/t a one-day history of abdominal pain and vomiting Patient is noted to have a history of recurrent SBO -SBO findings present on CT A/P and KUB. -General surgery - SBFT does have passage of contrast through her ileocolonic anastomosis but persistent with dilated small bowel and emesis repeat KUB continues to demonstrate SBO recommend transfer for procedure, patient prefers [facility] for continuity of care Patient made NPO, started TPN on 07/13 -IV fluid continued. Zofran, tylenol as-needed -contacted [facility], they have accepted patient's transfer, accepting physician is Dr. Cano. Poor appetite Severe Protein calorie malnutrition Poor appetite Reported by patient on 07/09 - Malnutrition - multifactorial - partial SBO and medication side effect. Since has PSBO - hold marinol. Electronic [employer]ist consult placed for nutritional optimization. TPN ordered Sepsis POA Complicated UTI - h/o recurrent uti with one from pseudomonas as well. currently on cipro prophylaxis. was on bactrim prophylaxis in past. - day before admission - patient was also instructed by her ID physician to start linezolid - CT a/p: no overt sign of pyelonephritis; severe bilateral hydronephrosis (chronic per patient) Reached her outpatient ID provider. No response back. No fever, symptoms. Linezolid stopped 07/13 - there was an issue with pharmacy yesterday, received flagyl instead of linezolid, tolerated without complications given fluconazole for a total of seven days d/t yeast in urine; stopped Anemia Hgb on admission low at 7.1, suspected secondary to chemotherapy No sign of active bleeding 07/09: Hgb jose nicely from 6.0 to 9.5 s/p 2u pRBC (leukoreduced, irradiated) transfusion Metastatic bladder cancer Patient is s/p cystectomy with bilateral nephroureteral stents, ileal conduits, bilateral percutaneous nephrostomies Chemotherapy is managed by patient's physician in [place] - Urology consulted. FEN: NPO on TPN Code status: full code DVT ppx: SCDs PT/OT: ordered Case management: following Dispo: med/surg (2) UTI (urinary tract infection): (3) History of DVT (deep vein thrombosis): (4) Immunocompromised state due to drug therapy: (5) Bladder cancer metastasized to bone: Admission and Anticipated Discharge Date Admission Date: July 07, 2022 Supervising Physician Co-Signing Physician Notes Resident Physician Supervision Note: I independently interviewed and examined the patient and verified the gómez history and physical, reviewed labs and image studies and agree with resident findings and care plan. Subjective Patient seen at bedside, calm comfortable cooperative. States she is feeling better this morning, was vomitting overnight and now feels like she could try eating something. At this time is still upset over her chronic medical conditions and hospital stay, still adamantly declines NG tube placement. Patient understands we are still waiting for transfer at this time. She has not had any bowel movement or flatulence yet. No SOB, abd pain improved, however her leg pain still bothers her. She understands her opioid regime may be contributing to her bowel difficulties. Physical Exam Constitutional: WD/WN, vitals as above + thin and cooperative Eyes: PERRL, conjunctivae normal, anicteric sclerae ENMT: external ear and nose normal, oropharynx normal Neck: trachea midline, no thyromegaly Respiratory: normal respiratory effort, lungs clear to auscultation Cardiovascular: Rate/Rhythm: regular rate and regular rhythm Gastrointestinal (Abdomen): Inspection/Auscultation: abdomen normal to inspection Percussion/Palpation: abdomen soft Skin: no rashes, warm and dry Results & Data Results & Data Vital Signs (Past 12 Hours) Vital Signs Temp Pulse Resp BP BP Pulse Ox O2 Del Method 07/13/22 07:27 36.9 C 91 H 18 144/62 H 98 Room Air 07/12/22 23:06 36.9 C 74 18 168/76 H 98 Room Air Resident Activity Tracking Resident Involvement: Resident Care Provided Care Provided: Adult Hospital Medicine (2) UTI (urinary tract infection) Urinary tract infection type: site unspecified
[2022-07-13] MEDS ORDERED: TPN/PPN CONSULT PHARMACY PRN (10:48)
[2022-07-13] MEDS ORDERED: TPN/PPN CONSULT PHARMACY STA (11:15)
[2022-07-13] MEDS: POTASSIUM CHLORIDE / WTR 10 MEQ/100 ML PLCT IV SCH ×2 (11:36→13:34)
[2022-07-13 12:40] LABS: Magnesium 1.5 mg/dl (1.7-2.4); Phosphorus 3.3 mg/dl (2.5-4.9)
[2022-07-13] MEDS: MAGNESIUM SULFATE / D5W 1 GM/100 ML BAG IV SCH ×4 (13:35→19:53)
[2022-07-13] MEDS: HEPARIN 100 UNIT/ML 5ML FLUSH FLUSH PRN (15:19)
--- NOTE | 2022-07-13 15:25 | Pharmacy Report ---
PHA: Parenteral Nutrition Con - Date of Service July 13, 2022 - Scope Pharmacy was consulted on 07/13/22 to manage parenteral nutrition orders for this patient. - Subjective The patient is currently on day 1 of central parenteral nutrition for SBO in the setting of metastatic bladder cancer. - Objective Height: 5 ft 5 in Weight: 42.5 kg Diet: NPO Intake & Output (24hrs):: Intake & Output 07/11/22 07/12/22 07/13/22 07/14/22 06:59 06:59 06:59 06:59 Intake Total 3125.833 / 3125.833 1850 / 1850 2800 / 2800 1011.666 / 1011.666 Output Total 1101 / 1101 2225 / 2225 575 / 575 326 / 326 Balance 2023.833 / 833 -375 / -375 2225 / 2225 685.666 / 685.666 Weight 42.5 kg 42.5 kg Laboratory Data (Last 24 Hr):: 07/13/22 06:35 Sodium 136 Potassium 3.3 L Chloride 105 Carbon Dioxide 19 L BUN 15 Creatinine 0.94 Glucose 86 Calcium 7.5 L Phosphorus 3.3 Magnesium 1.5 L Nutrition Assessment:: Please refer to the Notes section of the EMR for the most recent hearing healthcare practitioner note. - Assessment Nichole is a 72 yo admitted with SBO in the setting of metastatic bladder cancer. She is malnourished. She is currently awaiting transfer to [facility] * TPN day 1: 58 g AA, 101 g dextrose, 40 g lipids (973 kcal) * Will titrate to goal as tolerated: 86 g AA, 151 g dextrose, 40 g lipids (1261 kcal) * Hypokalemia and hypomagnesemia. Electrolyte repletion has been ordered prior to starting TPN. - Plan For day 1 of PN administration, the following will be ordered: Macronutrients Amino acids 58 grams/day Dextrose 101 grams/day Lipids 40 grams/day Micronutrients Combined electrolytes 20 mL - contains 35 mEq Na, 20 meq K, 4.5 mEq Ca, 5 mEq Mg, 35 mEq Cl, 29.5 mEq acetate per 20 mL Sodium chloride 30 mEq Potassium phosphate 21 mMol Magnesium sulfate 4.06 mEq Trace Elements 1 mL Additional additives: thiamine 100 mg Total volume 762 mL to be infused over 24 hrs will provide 973 kcal/day Labs, as indicated, will be ordered per protocol Pharmacy will continue to follow and adjust parenteral nutrition orders on a daily basis. Thank you for allowing us to participate in the care of this patient.
--- NOTE | 2022-07-13 15:57 | Ultrasound Report ---
LEFT LOWER EXTREMITY VENOUS DOPPLER CLINICAL HISTORY: Left lower extremity pain and swelling. Evaluate for deep venous thrombus. COMPARISON STUDY: No previous studies for comparison. TECHNIQUE: Sonography of the deep venous system of the left lower extremity was performed. Compressi on and augmentation were evaluated. FINDINGS: The left common femoral, superficial femoral and popliteal veins were compressible. Augmen tation was normal. Flow was shown within the deep calf vessels. Left lower extremity subcutaneous yulisa ma is noted. IMPRESSION: No evidence of deep venous thrombus within the left lower extremity. ACT 112: Negative or not required by law. Electronically signed by: Yony Cabral M.D. 07/13/2022 3:55 PM
[2022-07-13] MEDS ORDERED: DEXTROSE 10% 1,000 ML IV PRN (16:00)
[2022-07-13] MEDS ORDERED: CLINOLIPID 20% IV FAT EMULSION 250 ML IV SCH (16:00)
[2022-07-13] MEDS ORDERED: CENTRAL TPN IV SCH (16:00)
[2022-07-13] MEDS ORDERED: [UNRECOGNIZED DRUG - OTHER] IV SCH (16:00)
--- NOTE | 2022-07-13 16:03 | XRay Report ---
XR KUB/Abdomen 1 view CLINICAL HISTORY: sbo TECHNIQUE: 1 view of the abdomen was obtained. Comparison: Comparison is made to abdomen radiograph 07/12/2022 FINDINGS: Bilateral nephrostomy tubes are seen. Degenerative changes are seen in the visualized skeleton. Numer ous loops of small bowel measure up to 45 mm in diameter, distended by gas and retained enteric contr ast. Postsurgical changes are seen in the right lower quadrant. No significant stool burden is seen a lthough there is a small amount of colonic gas. IMPRESSION: Redemonstration of small bowel dilation with a small amount of colonic gas. ACT 112: Negative or not required by law. Electronically signed by: Paramjit Solo M.D. 07/13/2022 4:02 PM
[2022-07-13] MEDS: APIXABAN 5 MG TABLET PO SCH (19:46)
[2022-07-13] MEDS: STOP CLINOLIPID SCH (22:00)
[2022-07-14] MEDS: ACETAMINOPHEN 1,000 MG/100 ML VIAL IV PRN (04:23)
[2022-07-14 07:02] LABS: Basophils # (auto) 0.08 K/uL (0-0.2); Basophils % (auto) 0.4 %; Eosinophils # (auto) 0.39 K/uL (0-0.50); Eosinophils % (auto) 2.1 %; Hematocrit (blood only) 26.4 % (37.0-47.0); Hemoglobin 8.7 g/dl (12.0-16.0); Immature Granulocytes # (auto) 0.12 K/uL (0.01-0.20); Immature Granulocytes % (auto) 0.6 %; Lymphocytes # (auto) 1.25 K/uL (1.2-3.4); Lymphocytes % (auto) 6.8 %; Mean Corpuscular Hemoglobin 32.8 pg (25.0-34.0); Mean Corpuscular Volume 99.6 fL (80.0-100.0); Mean Platelet Volume 8.9 fL (9.4-12.4); Monocytes # (auto) 0.89 K/uL (0.11-0.59); Monocytes % (auto) 4.8 %; Neutrophils # (auto) 15.78 K/uL (1.40-6.50); Neutrophils % (auto) 85.3 %; Platelet Count 245 K/uL (130-400); RDW Coefficient of Variation 16.6 % (11.5-14.5); RDW Standard Deviation 60.6 fL (36.4-46.3); Red Blood Count 2.65 M/uL (4.20-5.40); White Blood Count 18.51 K/ul (4.8-10.8)
[2022-07-14 07:20] LABS: BUN Creatinine Ratio 21.3 (10-20); Calcium 7.8 mg/dl (8.6-10.3); Creatinine Clr Calc Pharmacy 44.3 ml/min; Est GFR (African American) 74.5 ml/min; Est GFR (Non-African American) 64.3 ml/min; Magnesium 2.2 mg/dl (1.7-2.4); Phosphorus 3.4 mg/dl (2.5-4.9); Potassium 3.8 mmol/L (3.5-5.1)
--- NOTE | 2022-07-14 08:07 | Hospitalist Progress Note ---
Date of Service July 14, 2022 Assessment & Plan (1) SBO (small bowel obstruction): Plan: 72yo female with a history of SBO (recurrent), UTI (recurrent), metastatic bladder cancer (s/p cystectomy with ileal conduit placed at [facility] 3 at [facility]2020; bilateral nephrostomy tubes placed at [facility] 06/28; receives chemo through physicians in [place]), anemia, and history of DVT presents to [facility] upon the instruction of her infectious disease physician after reporting a one-day history of abdominal pain and vomiting. Partial SBO Patient presents upon the instruction of her infectious disease physician due to a one-day history of abdominal pain and vomiting Patient is noted to have a history of recurrent SBO Imaging (CT a/p and multiple KUBs) consistent with SBO General surgery consulted: Small bowel follow-through: passage of contrast through ileocolonic anastomosis, though with dilated small bowel and emesis Repeat KUBs continue to suggest SBO Recommend transfer to [facility] as patient's prior surgeries have been done there 07/13: TPN started, appreciate pharmacy management; will discontinue once patient is tolerating a diet Continue IVF Zofran, tylenol as-needed Transfer to [facility] accepted (accepting physician is Dr. Cano) 07/14: patient is having BMs and abdominal pain/nausea have resolved; will reconsider hospital-hospital transfer pending how well patient tolerates diet advancement Poor appetite Severe Protein calorie malnutrition Poor appetite reported by patient on 07/09 Malnutrition likely multifactorial in etiology - partial SBO, cancer, chemotherapy, medication side effect 07/13: TPN started, appreciate pharmacy management 07/14: advancing diet as tolerated per GI recommendation; will discontinue TPN if patient tolerates a diet [employer] consult placed for nutritional optimization Sepsis POA Complicated UTI Patient's history of recurrent UTI noted; was preciously on bactrim prophylaxis, currently on ciprofloxacin prophylaxis Patient was instructed by her ID provider to start linezolid the day prior to admission; this was continued for six days before being discontinued CT a/p: severe bilateral hydronephrosis (chronic per patient); imaging not suggestive of pyelonephritis Patient has completed a seven-day course of fluconazole for yeast in urine Continue ciprofloxacin prophylaxis Anemia Hgb on admission low at 7.1, suspected secondary to chemotherapy No sign of active bleeding 4/2: Hgb jose nicely from 6.0 to 9.5 s/p 2u pRBC (leukoreduced, irradiated) transfusion 07/14: Hgb holding steady; continue to trend daily CBC Edema Patient reports new edema (07/14) likely secondary to the fluid burden of TPN Lasix 20mg IV (x1) ordered Continue to monitor Metastatic bladder cancer Patient is s/p cystectomy with bilateral nephroureteral stents, ileal conduits, bilateral percutaneous nephrostomies Chemotherapy is managed by patient's physician in [place] Urology consulted: No plan for urologic intervention at this time If patient develops flank pain, nephrostomy tubes can be unclamped If urostomy stops draining, contact urology Urology has signed off FEN: TPN, clear liquid diet (advancing as tolerated) Code status: full code DVT ppx: eliquis 5mg bid PT/OT: ordered Case management: following Dispo: med/surg (2) UTI (urinary tract infection): (3) History of DVT (deep vein thrombosis): (4) Immunocompromised state due to drug therapy: (5) Bladder cancer metastasized to bone: Admission and Anticipated Discharge Date Admission Date: July 07, 2022 Supervising Physician Co-Signing Physician Notes Resident Physician Supervision Note: I independently interviewed and examined the patient and verified the gómez history and physical, reviewed labs and image studies and agree with resident findings and care plan. Subjective Patient seen and evaluated at bedside this morning. Patient feels well, noting that she had a well-formed BM yesterday, and has not had abdominal pain, nausea, or vomiting since early yesterday. Patient is eager to go home and is questioning whether she wants to go through with the transfer to [facility] since her symptoms have resolved. Patient feels she's at her baseline. Patient denies CP, SOB, abdominal pain, nausea, vomiting, diarrhea, or other symptoms. Review of Systems Review of Systems: See HPI Physical Exam Physical Exam: Constitutional: well-appearing, no acute distress CV: regular rhythm, no murmur appreciated, extremities well-perfused, no LE edema Resp: CTABL, no wheezes/rales/rhonchi appreciated, no increased work of breathing GI: soft, nondistended, nontender, BS normoactive Neuro: alert, oriented, no focal neurologic deficit appreciated Results & Data Results & Data Vital Signs (Past 12 Hours) Vital Signs Temp Pulse Resp BP Pulse Ox O2 Del Method 07/14/22 08:00 36.9 C 74 18 167/79 H 98 Room Air 07/13/22 21:51 37.3 C 92 H 14 163/88 H 98 Room Air Resident Activity Tracking Resident Involvement: Resident Care Provided Care Provided: Adult Hospital Medicine (2) UTI (urinary tract infection) Urinary tract infection type: site unspecified
[2022-07-14] MEDS: APIXABAN 5 MG TABLET PO SCH ×2 (09:48→21:36)
[2022-07-14] MEDS: CHECK fentaNYL PATCH PLACEMENT SCH ×3 (09:49→23:18)
[2022-07-14] MEDS: ONDANSETRON INJ 2 MG/ML 2 ML VIAL IV SCH ×3 (09:50→16:30)
--- NOTE | 2022-07-14 10:33 | Surgery Progress Note ---
Date of Service July 14, 2022 Assessment & Plan (1) SBO (small bowel obstruction): Plan: Patient did have a decent sized bowel movement this morning and has no nausea or vomiting She is awaiting a bed at [facility] in [place], however this morning she conveyed to me that she would not want surgery if needed We will trial clear liquid diet and see how she tolerates this, can advance as tolerated if she continues to have return of bowel function I did discuss with her that if she is unable to tolerate a diet, we will have to revisit transfer for surgery versus discharge home on TPN We will continue to follow while here Admission and Anticipated Discharge Date Admission Date: July 07, 2022 Subjective Patient seen and examined. She had a bowel movement of decent size this morning. She denies any nausea or vomiting she mistakenly was given a clear liquid tray yesterday which she tolerated. She denies abdominal pain. Review of Systems Constitutional: no fever and no chills Physical Exam Constitutional: WD/WN, vitals as above Gastrointestinal (Abdomen): Inspection/Auscultation: abdomen normal to inspection; abdomen not distended Percussion/Palpation: abdomen soft; abdomen nontender and no guarding Results & Data Vital Signs (Past 12 Hours) Vital Signs Temp Pulse Resp BP Pulse Ox O2 Del Method 07/14/22 08:00 36.9 C 74 18 167/79 H 98 Room Air PG Care Time/CCT Total # of Minutes Spent Total Time Spent with Patient: Total time spent is greater than 50% in coordination of care (as documented) at patient's floor/unit and/or counseling patient: Coding Level of Care Code 91748 SUB INP/OBS CARE 05/03MIN Diagnoses SBO (small bowel obstruction) K56.609
[2022-07-14] MEDS ORDERED: FUROSEMIDE INJ 20 MG/2 ML VIAL IV ONE ×2 (14:11→16:24)
[2022-07-14] MEDS ORDERED: [UNRECOGNIZED DRUG - OTHER] IV SCH (16:00)
[2022-07-14] MEDS ORDERED: CLINOLIPID 20% IV FAT EMULSION 250 ML IV SCH (16:00)
[2022-07-14] MEDS ORDERED: CENTRAL TPN IV SCH (16:00)
[2022-07-14] MEDS: oxyCODONE HCL IR 5 MG TAB (IMMEDIATE RELEASE) PO PRN (17:27)
[2022-07-14] MEDS: STOP CLINOLIPID SCH (22:00)
--- NOTE | 2022-07-14 22:55 | Communication Note ---
Date of Service: July 14, 2022 10:23 per nursing [facility] had a bed available and called regarding transfer. Patient states she does not want transfer, would refuse surgery if it was offered, states she was told that her condition was improving. Transfer to [facility] canceled.
[2022-07-15] MEDS: oxyCODONE HCL IR 5 MG TAB (IMMEDIATE RELEASE) PO PRN (05:35)
[2022-07-15 06:22] LABS: Hematocrit (blood only) 27.1 % (37.0-47.0); Mean Corpuscular Hemoglobin 32.8 pg (25.0-34.0); Mean Corpuscular Hgb Conc 33.2 g/dL (32.0-36.0); Mean Corpuscular Volume 98.9 fL (80.0-100.0); Mean Platelet Volume 9.1 fL (9.4-12.4); Platelet Count 217 K/uL (130-400); RDW Coefficient of Variation 16.2 % (11.5-14.5); RDW Standard Deviation 59.1 fL (36.4-46.3); Red Blood Count 2.74 M/uL (4.20-5.40); White Blood Count 16.56 K/ul (4.8-10.8)
[2022-07-15 06:30] LABS: Albumin Level 2.6 gm/dl (3.4-5.0); BUN Creatinine Ratio 37.1 (10-20); Bilirubin,Total 0.5 mg/dl (0.2-1.0); Calcium 8.1 mg/dl (8.6-10.3); Creatinine Clr Calc Pharmacy 44.3 ml/min; Est GFR (African American) 74.5 ml/min; Est GFR (Non-African American) 64.3 ml/min; Globulin 2.7 gm/dl (2.5-4.0); Magnesium 1.8 mg/dl (1.7-2.4); Phosphorus 4.3 mg/dl (2.5-4.9); Total Protein 5.3 gm/dl (6.0-8.3)
[2022-07-15] MEDS ORDERED: NALOXONE HCL 0.4 MG/1 ML VIAL/CARP IV PRN (07:57)
[2022-07-15] MEDS: ACETAMINOPHEN 500 MG TAB PO PRN ×2 (08:05→18:05)
[2022-07-15] MEDS: APIXABAN 5 MG TABLET PO SCH ×2 (08:06→19:49)
[2022-07-15] MEDS: ONDANSETRON INJ 2 MG/ML 2 ML VIAL IV SCH ×3 (08:06→17:11)
[2022-07-15] MEDS: CHECK fentaNYL PATCH PLACEMENT SCH ×2 (08:06→17:11)
[2022-07-15] MEDS: MULTI VIT W/MINERALS LIQUID 15 ML UDP PO SCH (08:06)
--- NOTE | 2022-07-15 08:18 | Discharge Summary ---
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 Patient has also had bilateral nephrostomy tubes which were placed at [facility] in June 2021. Receives chemotherapy from physicians in [place]. Presents with 1 day abd pain. Daughter at bedside. Last night patient felt abdominal discomfort which was worse when she woke up this morning. Had single episode of non bilious vomiting. Chronically fatigued and has had some loose stools. Denies fevers, chest pain, sob, nausea, dysuria. Patient follows with ID outpatient and is currently being treated for a UTI. Patient is on oral Cipro prophylactically for UTI but had her nephrostomy drains exchanged in [place] on June 26, 2022 and was concerned to have a UTI so they started her on linezolid 600 mg p.o. twice daily yesterday. Patient is also on fluconazole 100 mg daily for the last 4 days for yeast in her urine. Admission Exam Per Admitting Provider Constitutional: frail, in no acute distress, pleasant. AOx3. Vitals as above. HEENT: No scleral injection or discharge. Moist mucous membranes. Neck: Supple without lymphadenopathy or thyromegaly. Trachea midline. Lungs: Clear to auscultation bilaterally with good effort. Cardiac: Regular rate and rhythm. No murmurs.No extremity edema. 2+ peripheral distal pulses Abdomen: Mild diffuse discomfort. Soft and nondistended.No guarding. No hepatosplenomegaly. MSK: No cyanosis or clubbing. Skin: No rashes, warm, dry. Neurologic: no focal deficits : nephrostomy bag in place Principal Diagnosis Persistent partial small bowel obstruction Discharge Exam General: Grossly A&O. NAD. Cooperative. HEENT: Atraumatic, normocephalic. EOMI Pulm: CTAB. -wheezes, -rales, -rhonchi. Symmetrical chest rise. No respiratory distress. Cardiac: RRR, -mrg. Left lower extremity swelling, no pain to palpation. Abdominal: Nontender, nondistended, soft. Urostomy bag intact. Integumentary: No erythema of right upper chest chemo port. Discharge Data Allergies Allergy/AdvReac Type Severity Reaction Status Date / Time Sulfa (Sulfonamide Allergy Unknown Verified 07/06/22 22:44 Antibiotics) Consultations 07/06/22 23:42 ED Decision to Admit Stat 07/07/22 00:00 Consult General Surgery Stat Consult Urology Stat 07/12/22 16:17 Burn CD for patient Routine Ordered Studies 07/06/22 22:27 CT abd pelvis IV con only Stat 07/11/22 07:30 FL small bowel follow through Routine 07/13/22 14:36 US venous doppler LE LT Routine Hospital Course (1) SBO (small bowel obstruction): 72yo female with a history of SBO (recurrent), UTI (recurrent), metastatic bladder cancer (s/p cystectomy with ileal conduit placed at [facility] [place], 2020; bilateral nephrostomy tubes placed at [facility] 06/28; receives chemo through physicians in [place]), anemia, and history of DVT presents to [facility] upon the instruction of her infectious disease physician after reporting a one-day history of abdominal pain and vomiting. Partial SBO Patient presents upon the instruction of her infectious disease physician due to a one-day history of abdominal pain and vomiting Patient is noted to have a history of recurrent SBO Imaging (CT a/p and multiple KUBs) consistent with SBO General surgery consulted: Small bowel follow-through: passage of contrast through ileocolonic anastomosis, though with dilated small bowel and emesis Repeat KUBs continue to suggest SBO Recommend transfer to [facility] as patient's prior surgeries have been done there 07/13: TPN started, appreciate pharmacy management; will discontinue once patient is tolerating a diet Continue IVF Zofran, tylenol as-needed Transfer to [facility] accepted (accepting physician is Dr. Cano); 07/14 evening; patient declines transfer Tolerating clear liquid diet, will attempt to advance; TPN held Poor appetite Severe Protein calorie malnutrition Poor appetite reported by patient on 07/09 Malnutrition likely multifactorial in etiology - partial SBO, cancer, chemotherapy, medication side effect 07/13: TPN started, appreciate pharmacy management 07/14: advancing diet as tolerated per GI recommendation; will discontinue TPN if patient tolerates a diet Maintenance Custodian consult placed for nutritional optimization Sepsis POA Complicated UTI Patient's history of recurrent UTI noted; was preciously on bactrim prophylaxis, currently on ciprofloxacin prophylaxis Patient was instructed by her ID provider to start linezolid the day prior to admission; this was continued for six days before being discontinued CT a/p: severe bilateral hydronephrosis (chronic per patient); imaging not suggestive of pyelonephritis Patient has completed a seven-day course of fluconazole for yeast in urine Continue ciprofloxacin prophylaxis 4/ urine culture with VRE. Per pharmacy, linezolid typically covers. We will need to correlate clinically. Patient has urostomy and it is difficult to tell if she has urinary symptoms. Procalcitonin 0.21. Downtrending chronic leukocytosis. We will check peripheral smear. Anemia Hgb on admission low at 7.1, suspected secondary to chemotherapy No sign of active bleeding 07/09: Hgb jose nicely from 6.0 to 9.5 s/p 2u pRBC (leukoreduced, irradiated) transfusion 07/14: Hgb holding steady; continue to trend daily CBC Edema Patient reports new edema (07/14) likely secondary to the fluid burden of TPN Lasix 20mg IV (x1) ordered Continue to monitor Metastatic bladder cancer Patient is s/p cystectomy with bilateral nephroureteral stents, ileal conduits, bilateral percutaneous nephrostomies Chemotherapy is managed by patient's physician in [place] Urology consulted: No plan for urologic intervention at this time If patient develops flank pain, nephrostomy tubes can be unclamped If urostomy stops draining, contact urology Urology has signed off FEN: TPN, clear liquid diet (advancing as tolerated) Code status: full code DVT ppx: eliquis 5mg bid Dispo: med/surg (2) UTI (urinary tract infection): (3) History of DVT (deep vein thrombosis): (4) Immunocompromised state due to drug therapy: (5) Bladder cancer metastasized to bone: Discharge Plan Discharge Items Patient Disposition: Transfer Acute Care Hospital Reason For Visit: ABDOMINAL PAIN Discharge Diagnosis: SBO Activity: Per Instructions section Non-emergency contact: Primary Care Provider Call non-emergency contact if: you have any medication questions, your symptoms worsen, your pain is concerning for you and you have a fever Follow-up/Referrals: Reyna Tidwell DO [Primary Care Provider] - Diet: Clear liquid Addtl Attending Provider Instructions: 72yo female with a history of SBO (recurrent), UTI (recurrent), metastatic bladder cancer (s/p cystectomy with ileal conduit placed at [facility] [place], 2020; bilateral nephrostomy tubes placed at [facility] 06/28; receives chemo through physicians in [place]), anemia, and history of DVT presents to [facility] upon the instruction of her infectious disease physician after reporting a one-day history of abdominal pain and vomiting. Abdominal painin the setting of immunosuppression Patient presents upon the instruction of her infectious disease physician d/t a one-day history of abdominal pain and vomiting Patient is noted to have a history of recurrent SBO SBO findings present on CT A/P and KUB. General surgerywas consulted 07/11: small bowell follow-through performed: does have passage of contrast through her ileocolonic anastomosis but persistent with dilated small bowel and emesis; repeat KUB continues to demonstrate SBO General surgery feels patient's SBO is unlikely to resolve without surgical intervention Given patient's history of cystectomy and ileal conduit performed at [facility] (2020) as well as the patient's preference, will proceed with transfer to [facility] Patient is not tolerating PO intake due to nausea/vomiting and lack of appetite. Started TPN 07/13 Zofran, tylenol as-needed 07/12: transfer to [facility] accepted (accepting physician is Dr. Cano) Patient refuses NG tube placement prior to transfer Patient will be transported via ACLS to allow for maintenance IVF to be administered while en-route. Sepsis POA Complicated UTI Patient has a history of recurrent UTI including a prior Psuedomonas UTI Currently on cipro prophylaxis; was previously on bactrim prophylaxis Patient was also instructed by her ID physician to start linezolid on the day of admission; discontinued on 07/13 CT a/p: no overt sign of pyelonephritis; severe bilateral hydronephrosis (which is chronic, per patient) Patient was also treated with fluconazole for a total of seven days d/t yeast in urine (started prior to admission) Urine culture shows more than 3 types of organisms all in high counts, repeat culture pending Urology following Anemia Hgb on admission low at 7.1, suspected secondary to chemotherapy No sign of active bleeding 07/08: Hgb fell from 7.1 to 6.0; patient underwent transfusion of 2u pRBC (leukoreduced+irradiated); Hgb jose to 9.5 07/12: anemia remains stable (Hgb 10.5) Poor appetite Severe Protein calorie malnutrition Reported by patient on 07/09 Multifactorial - SBO +/- medication side effect hold lizeth Maintenance Custodian consult placed for nutritional optimization Metastatic bladder cancer Patient is s/p cystectomy with bilateral nephroureteral stents, ileal conduits, bilateral percutaneous nephrostomies Chemotherapy is managed by patient's physician in [place] Pending Studies at Discharge: No Stand-Alone Forms: My [facility] Skilled Items Patient informed of condition?: Yes DNR: No Discharge Level of Care: Other Communicable Disease: No Discharge Prognosis: Stable Lines: Peripheral IV Urinary Catheter: No Medications and DC Order Prescriptions: Continued acetaminophen 500 mg Tablet 1,000 mg PO Q6H PRN (Reason: Fever Or Pain) Ayur-Boswellia Aniket 2 tab PO BID Rx Instructions: without food ondansetron HCl 4 mg Tablet 4 mg PO Q8H PRN (Reason: .NAUSEA/VOMITING) hydroxyzine HCl 25 mg tablet 25 mg PO QAM lysine [L-Lysine] 500 mg Tablet 500 mg PO DAILY cholecalciferol (vitamin D3) [Vitamin D3] 125 mcg (5,000 unit) Tablet 125 mcg PO DAILY magnesium citrate 100 mg Capsule 150 mg PO DAILY Berberine Complex 2 cap PO BID Curcu-Essentials 1 tab PO BID Curcumin Iv 0 mg IV DIRECTED Glutathione Iv 0 mg IV DIRECTED Rx Instructions: once per cycle Isoflavone Caps 2 cap PO BID Rx Instructions: TAKE ON EMPTY STOMACH Methyl-Guard 1 cap PO DAILY Multivitamin Iv 0 mg IV DIRECTED Rx Instructions: once per cycle Nutri-Essentials 2 cap PO DAILY Opti-Cell Plus 3 tab PO BID Proepa 1 tab PO BID Quercetin Iv 0 mg IV DIRECTED Reservatrol Iv 0 mg IV DIRECTED Rx Instructions: once per cycle Ultra Lipoic Essentials 2 tab PO BID Ultra Reishi 2 tab PO BID Rx Instructions: take without food Vitamin C Iv 0 mg IV DIRECTED Rx Instructions: once per cycle fentanyl 50 mcg/hr patch 72 hour 50 mcg topical [id number] digestive enzymes Capsule 1 cap PO TID Rx Instructions: administer with food; swallow whole; do not crush/chew/dissolve/break/cut ciprofloxacin HCl 250 mg tablet 250 mg PO DAILY docusate sodium [Colace] 100 mg Capsule 100 mg PO TID loratadine [Claritin] 10 mg Tablet 10 mg PO DIRECTED Rx Instructions: once norah every other week following udenyca injections. oxycodone 10 mg tablet 10 mg PO .Q4-6HRS PRN (Reason: Pain) oxycodone 10 mg tablet 10 mg PO DAILY Chemo Drugs 0 mg DIRECTED zinc 15 mg Tablet 15 mg PO DAILY Discontinued dronabinol 2.5 mg capsule 5 mg PO BID fluconazole 100 mg tablet 100 mg PO DAILY Rx Instructions: FOR 7 DAYS, FILLED 06/28/2022 linezolid 600 mg tablet 600 mg PO BID Rx Instructions: 07/05/2022 Admission Data Admit Date/Time: 07/07/22 12:39 Attending Provider: Coty Ospina Admit Provider: Lucas Padilla Primary Care Provider: Reyna Tidwell Other Providers: Jose Curtis ; David Magana ; Blaine Flores Resident Activity Tracking Resident Involvement: Resident Care Provided Care Provided: Adult Hospital Medicine
--- NOTE | 2022-07-15 08:56 | XRay Report ---
KUB CLINICAL HISTORY: f/u sbo COMPARISON STUDY: CT of the abdomen and pelvis July 07, 2019. KUB July 13, 2022. FINDINGS: Left femoral internal fixation is partially imaged. There are pelvic surgical clips and gualberto ateral nephrostomy catheters. Residual contrast from previous small bowel follow-through is noted wit hin small bowel loops. Multiple loops of mildly dilated small bowel measure up to 3.3 cm in caliber. Small bowel dilatation appears similar to slightly improved since prior exam. IMPRESSION: Findings suggestive of a persistent, but likely slightly improved, small bowel obstructi on. ACT 112: Negative or not required by law. Electronically signed by: Yony Cabral M.D. 07/15/2022 8:54 AM
[2022-07-15] MEDS ORDERED: MULTIVITAMIN CHEWABLE TAB PO SCH (09:00)
--- NOTE | 2022-07-15 12:40 | Surgery Progress Note ---
Date of Service July 15, 2022 Assessment & Plan (1) SBO (small bowel obstruction): Plan: Patient continues to have bowel movements and has no nausea or vomiting She is awaiting a bed at [facility] in [place], however this morning she conveyed to me that she would not want surgery if needed She seems to be tolerating her diet. Advance the diet as tolerated. Still states that she is not interested in any surgery. As she is tolerating her diet, consideration for discharge to home. We will continue to follow. Admission and Anticipated Discharge Date Admission Date: July 07, 2022 Subjective Patient seen and examined. She continues to have bowel movements. She denies any nausea or vomiting. She is tolerating her diet. She denies abdominal pain. Physical Exam Gastrointestinal (Abdomen): Inspection/Auscultation: abdomen normal to inspection; abdomen not distended Percussion/Palpation: abdomen soft; abdomen nontender and no guarding Results & Data Vital Signs (Past 12 Hours) Vital Signs Temp Pulse Resp BP Pulse Ox O2 Del Method 07/15/22 07:09 37.0 C 81 18 169/84 H 98 Room Air
--- NOTE | 2022-07-15 13:48 | Hospitalist Progress Note ---
Date of Service July 15, 2022 Assessment & Plan (1) SBO (small bowel obstruction): Plan: 72yo female with a history of SBO (recurrent), UTI (recurrent), metastatic bladder cancer (s/p cystectomy with ileal conduit placed at [facility] at [facility], 2020; [facility]; receives chemo through physicians in [place]), anemia, and history of DVT presents to [facility] upon the instruction of her infectious disease physician after reporting a one-day history of abdominal pain and vomiting. Partial SBO History of recurrent SBO: risk factors: abdominal surgeries and cancer Imaging (CT a/p and multiple KUBs) consistent with SBO General surgery consulted: Small bowel follow-through: passage of contrast through ileocolonic anastomosis, though with dilated small bowel and emesis Repeat KUBs continue to suggest SBO Recommend transfer to [facility] as patient's prior surgeries have been done there [facility] (accepting physician is Dr. Cano) w/ bed availability 07/14 evening; patient declined transfer due to improvement in symptoms I discussed with patient that the latest KUB still shows persistent bowel loop dilation (implying SBO) and that despite slight improvement in the loop size, her having 2 bowel movements, and improvement in p.o. tolerance, will likely be a recurring issue with flare-ups in the future. If presents with exacerbation in the future, would recommend discussion with [facility] team regarding treatment. Prior to consideration of surgical options, would recommend NG tube trial, which patient has not yet needed. If recurrent SBO's becomes severe and keep reoccurring, then further discussion of goals of care would be warranted. Patient expresses understanding of the above. Complicated UTI Patient's history of recurrent UTI noted; prior cultures have grown Citrobacte r, E. coli, Pseudomonas, and Enterococcus (Vanc sensitive). She reportedly [facility]. Her outpatient ID provider had instructed to start the linezolid on 07/07/22 for possible MRSA UTI. completed 5 days of IV cipro 200mg daily on 07/11/22 and unknown duration of PO cipro for prophylaxis prior to admission completed 6 days of IV linezolid on 07/12/22. completed 5 days of IV fluconazole on 4/4/23 and 4 days of oral fluconazole prior to admission for yeast on previous urine culture CT a/p: severe bilateral hydronephrosis (chronic per patient); imaging not suggestive of pyelonephritis 4/5 urine culture with VRE (contact precautions ordered). Per pharmacy, linezolid typically covers. Procalcitonin 0.21. Downtrending chronic leukocytosis (checking peripheral smear) Per patient previous 2 urine cultures were drawn from the ileal conduit bag; will not be repeating urine culture Currently not treating the VRE as patient is asymptomatic. Remains afebrile (tmax 37.3C). Given the nephrostomy tubes and hx of cystectomy with ileal conduit, consider consult ID for recommendations regarding prophylaxis and/or treating t he VRE [facility] ID telehealth consult service is not available for routine consults on weekend; consider outpatient ID follow up Left femur pain, known mets to bone XR L femur and hip w/o acute pathological fracture. Status post internal fixation for a permeative mid diaphyseal lesion of left femur. LLE venous duplex neg for DVT prn PO Tylenol restarted for pain control. Also has Fentanyl patch. Severe Protein calorie malnutrition 07/13-07/14 TPN started, currently on hold as patient tolerating liquid diet Anemia Hgb on admission low at 7.1, suspected secondary to chemotherapy No sign of active bleeding 07/09: Hgb 6.0 to 9.5 s/p 2u pRBC (leukoreduced, irradiated) transfusion; remains stable after Metastatic bladder cancer Patient is s/p cystectomy with bilateral nephroureteral stents, ileal conduits, bilateral percutaneous nephrostomies Chemotherapy is managed by patient's physician in [place] Urology consulted: No plan for urologic intervention at this time If patient develops flank pain, nephrostomy tubes can be unclamped If urostomy stops draining, contact urology Urology has signed off FEN: pureed diet Code status: full code DVT ppx: eliquis 5mg bid Dispo: med/surg (2) UTI (urinary tract infection): (3) History of DVT (deep vein thrombosis): (4) Immunocompromised state due to drug therapy: (5) Bladder cancer metastasized to bone: (6) Pain of left femur: Admission and Anticipated Discharge Date Admission Date: July 07, 2022 Supervising Physician Co-Signing Physician Notes Resident Physician Supervision Note: I independently interviewed and examined the patient and verified the gómez hi story and physical, reviewed labs and image studies and agree with resident findings and care plan. Subjective Patient had 2 bowel movements yesterday she is feeling good. No fever/chills. No dysuria, but because she has urostomy bag is unable to tell and during previous UTI did not have specific urinary symptoms. Afternoon update: Patient notes that she has been having 2 months of pain from her left hip going down her femur. 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 The pain presents with exertion and activity. She had to discontinue physical therapy previously because of this pain. Her main source of pain is from her left thigh as opposed to from her abdomen. Regarding possible home dispo when able to tolerate diet, she notes that her daughter has been providing 24-hour care at home and plans to continue doing so. Patient states that her previous 2 urine cultures were drawn from her ileal conduit bag and not from ureteral source. Review of Systems Review of Systems: All systems reviewed & are unremarkable except as noted in HPI & below Physical Exam Physical Exam: General: Grossly A&O. NAD. Cooperative. HEENT: Atraumatic, normocephalic. EOMI Pulm: CTAB. -wheezes, -rales, -rhonchi. Symmetrical chest rise. No respiratory distress. Cardiac: RRR, -mrg. Left lower extremity swelling, no pain to palpation. Abdominal: Nontender, nondistended, soft. Urostomy bag intact. Musculoskeletal: While sitting in chair (nonideal exam), negative straight leg raise, ABIEL, and FADIR.No tenderness to palpation of the lumbar spine or left hip or left anterior femur. Integumentary: No erythema of right upper chest chemo port. Results & Data Results & Data Vital Signs (Past 12 Hours) Vital Signs Temp Pulse Resp BP Pulse Ox O2 Del Method 07/15/22 07:09 37.0 C 81 18 169/84 H 98 Room Air Diagnostic Findings KUB X-Ray 07/15/22 08:18 KUB CLINICAL HISTORY: f/u sbo COMPARISON STUDY: CT of the abdomen and pelvis July 07, 2019. KUB July 13, 2022. FINDINGS: Left femoral internal fixation is partially imaged. There are pelvic surgical clips and bilateral nephrostomy catheters. Residual contrast from previous small bowel follow-through is noted within small bowel loops. Multiple loops of mildly dilated small bowel measure up to 3.3 cm in caliber. Small bowel dilatation appears similar to slightly improved since prior exam. IMPRESSION: Findings suggestive of a persistent, but likely slightly improved, small bowel obstruction. ACT 112: Negative or not required by law. Electronically signed by: Yony Cabral M.D. 07/15/2022 8:54 AM Femur X-Ray 07/15/22 13:38 XR femur LT 2V routine CLINICAL HISTORY: pain. hx evelyn and mets COMPARISON: Left femur radiographs May 15, 2022. FINDINGS: Internal fixation hardware within the left femur is noted. This fixates the permeative mid shaft lesion of the left femur with associated periosteal reaction. No acute pathologic fracture is present. The hardware is intact. Similar findings were shown on prior radiographs. Alignment of the left hip is anatomic. There are pelvic surgical clips. Nephrostomy catheters are partially imaged. IMPRESSION: Status post internal fixation of the left femur for a permeative mid diaphyseal lesion of the left femur. Similar findings shown on prior radiographs. No acute pathologic fracture. Hardware intact. ACT 112: Negative or not required by law. Electronically signed by: Yony Cabral M.D. 07/15/2022 2:21 PM Pelvis X-Ray 07/15/22 13:39 XR pelvis 1-2V routine CLINICAL HISTORY: pain. hx of mets COMPARISON: Left femur radiographs May 15, 2022. CT of the abdomen and pelvis July 06, 2022. FINDINGS: Bilateral nephrostomy catheters are partially imaged. There are pelvic surgical clips. Patient is rotated. Therefore, the pelvis is suboptimally assessed. A left femoral internal fixation is noted. Hardware fixates a permeative destructive lesion within the mid shaft of the left femur, as shown on radiographs of May 15, 2022. No acute pathologic fracture is present. An old pathologic fracture cannot be excluded. Small bowel dilatation is partially imaged. IMPRESSION: 1. No acute pelvic fracture identified although patient rotated. 2. Left femoral internal fixation which fixates a permeative lesion within the mid shaft of the left femur, as shown on radiographs of May 15, 2022. No acute pathologic fracture. ACT 112: Negative or not required by law. Electronically signed by: Yony Cabral M.D. 07/15/2022 2:17 PM Resident Activity Tracking Resident Involvement: Resident Care Provided Care Provided: Adult Hospital Medicine (2) UTI (urinary tract infection) Urinary tract infection type: site unspecified
--- NOTE | 2022-07-15 14:19 | XRay Report ---
XR pelvis 1-2V routine CLINICAL HISTORY: pain. hx of mets COMPARISON: Left femur radiographs May 15, 2022. CT of the abdomen and pelvis July 06, 2022. FINDINGS: Bilateral nephrostomy catheters are partially imaged. There are pelvic surgical clips. Gabby ent is rotated. Therefore, the pelvis is suboptimally assessed. A left femoral internal fixation is n oted. Hardware fixates a permeative destructive lesion within the mid shaft of the left femur, as amina wn on radiographs of May 15, 2022. No acute pathologic fracture is present. An old pathologic fra cture cannot be excluded. Small bowel dilatation is partially imaged. IMPRESSION: 1. No acute pelvic fracture identified although patient rotated. 2. Left femoral internal fixation which fixates a permeative lesion within the mid shaft of the left femur, as shown on radiographs of May 15, 2022. No acute pathologic fracture. ACT 112: Negative or not required by law. Electronically signed by: Yony Cabral M.D. 07/15/2022 2:17 PM
--- NOTE | 2022-07-15 14:22 | XRay Report ---
XR femur LT 2V routine CLINICAL HISTORY: pain. hx evelyn and mets COMPARISON: Left femur radiographs May 15, 2022. FINDINGS: Internal fixation hardware within the left femur is noted. This fixates the permeative mid shaft lesion of the left femur with associated periosteal reaction. No acute pathologic fracture is present. The hardware is intact. Similar findings were shown on prior radiographs. Alignment of the l eft hip is anatomic. There are pelvic surgical clips. Nephrostomy catheters are partially imaged. IMPRESSION: Status post internal fixation of the left femur for a permeative mid diaphyseal lesion of the left femur. Similar findings shown on prior radiographs. No acute pathologic fracture. Hardware intact. ACT 112: Negative or not required by law. Electronically signed by: Yony Cabral M.D. 07/15/2022 2:21 PM
[2022-07-15] MEDS: MAGNESIUM SULFATE / D5W 1 GM/100 ML BAG IV SCH ×2 (18:05→19:48)
[2022-07-15] MEDS: HEPARIN 100 UNIT/ML 5ML FLUSH FLUSH PRN (21:57)
[2022-07-16] MEDS: CHECK fentaNYL PATCH PLACEMENT SCH ×4 (01:15→23:49)
[2022-07-16] MEDS: fentaNYL 50 MCG/HR TDSY TD SCH (05:04)
[2022-07-16] MEDS: oxyCODONE HCL IR 5 MG TAB (IMMEDIATE RELEASE) PO PRN (05:10)
--- NOTE | 2022-07-16 07:02 | Hospitalist Progress Note ---
Date of Service July 16, 2022 Assessment & Plan (1) SBO (small bowel obstruction): Plan: 72yo female with a history of recurrent SBOs, recurrent UTIs, metastatic bladder cancer w/ ileal conduit, anemia, and DVT who presented on 07/07/22 w/ 1 day hx of abd pain and vomiting. Partial SBO Imaging (CT a/p and multiple KUBs) consistent with SBO, w/ persistence on serial imaging though slightly improved. Clinically improving. Gen surg had recommended eval at tertiary center. [facility] had bed availability on 07/14; patient declined to transfer due to improvement in symptoms. [facility] (accepting physician is Dr. Cano) w/ bed availability 07/14 evening; patient declined transfer due to improvement in symptoms. Discussed w/ patient regarding likely reoccurrence of SBOs in future given her hx of abd surgeries. In that scenario, would recommend consideration of NG tube if severe symptoms and discussion w/ her primary team at [facility]. Zofran changed from scheduled w/ meals to daily @6AM, 10AM, 3PM, and as needed at night. Complicated UTI Prior cultures have grown Citrobacter, E. coli, Pseudomonas, and Enterococcus (Vanc sensitive). She had bilateral nephrostomy tubes placed at [facility] on 06/26/22. Her outpatient ID provider had instructed to start PO linezolid on 07/06/22. completed 6 days of IV linezolid on 07/12/22 as well as cipro prophylaxis completed 5 days of IV fluconazole on 07/11/22 and 4 days of oral fluconazole prior to admission for yeast on previous urine culture CT a/p: severe bilateral hydronephrosis (chronic per patient); imaging not suggestive of pyelonephritis 4/5 urine culture with VRE. Per pharmacy, linezolid typically covers. Procalcitonin 0.21. Downtrending chronic leukocytosis (peripheral smear pending). Asymptomatic (though difficult to discern) and afebrile. 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 Full eradication is difficult. Left femur pain, known mets to bone XR L femur and hip w/o acute pathological fracture. Status post internal fixation for a permeative mid diaphyseal lesion of left femur. LLE venous duplex neg for DVT Pain control w/ Fentanyl patch and prn oxycodone 5mg q6h prn. Tylenol 1000mg PO q8h prn changed to scheduled. Defer increase of oxycodone at this time. Recommend reduction of outpatient oxycodone (10mg tabs, 120 tabs rx'd for 20 days, filled 2 months apart) if possible given patient's <50kg weight and use of Fentanyl patch. Severe Protein calorie malnutrition 07/13-07/14 TPN started, currently on hold as patient tolerating diet Anemia Hgb on admission low at 7.1, suspected secondary to chemotherapy No sign of active bleeding 07/09: Hgb 6.0 to 9.5 s/p 2u pRBC (leukoreduced, irradiated) transfusion; remains stable after Hx of DVT Continue home Eliquis 5mg PO BID Metastatic bladder cancer Chemotherapy is managed by physician in [place] U[facility] consulted: No plan for urologic intervention at this time If patient develops flank pain, nephrostomy tubes can be unclamped If urostomy stops draining, contact urology FEN: low fiber diet Code status: full code Anticoag: Eliquis Dispo: med/surg (2) UTI (urinary tract infection): (3) History of DVT (deep vein thrombosis): (4) Immunocompromised state due to drug therapy: (5) Bladder cancer metastasized to bone: (6) Pain of left femur: Admission and Anticipated Discharge Date Admission Date: July 07, 2022 Supervising Physician Co-Signing Physician Notes I also saw the patient and confirmed gómez portions of the history and physical examination. I agree with the impression and plan as noted in the resident documentation. Upon our midmorning exam, the patient was sleeping in bed. She awakened to voice. She complained of persistent nausea despite medication. She really did not have too much in terms of breakfast secondary to the nausea this morning. EXAM 171/95, 101, 18, 37, 90% room air Respirations are non-labored, lungs are clear Heart regular rate and rhythm DATA Hemoglobin 9.1, WBC 13.46, platelet count 191 Sodium 137, potassium 3.7, BUN 31, creatinine 0.82 IMPRESSION AND PLAN SBO Overall, continues slow improvement, some increased nausea this morning limiting p.o. We will try to schedule her Zofran 30 minutes prior to meals, as this seemed to help her more in the past We will see how she does in terms of tolerating diet with respect to discharge; not quite there upon our exam this morning, although discussed that we could revisit should she improve through the course of the day UTI, complicated Anemia Metastatic bladder cancer Additional per resident documentation Subjective Patient was mildly tearful this morning. She reported left hip pain up to 7 out of 10 in severity. The patient her right hip to her tube with change in positioning. At time of exam there was some improvement. Patient asked about increase of her oxycodone to her home dose 10 mg, but is agreeable to having the Tylenol on a scheduled as opposed to as needed basis. Her appetite was poor this morning. She stopped eating after a spoonful. Regarding the Zofran is given right before meals, patient notes that it does not provide sufficient relief due to the timing of administration. 4PM: Updated patient and daughter who is at bedside. Patient ate part of her meal. She had mild nausea after and notes that she had churning sensation of her bowels. Review of Systems Review of Systems: All systems reviewed & are unremarkable except as noted in HPI & below Physical Exam Physical Exam: General: Grossly A&O. NAD. Cooperative. HEENT: Atraumatic, normocephalic. Pulm: CTAB. -wheezes, -rales, -rhonchi. Symmetrical chest rise. No respiratory distress. Cardiac: RRR, -mrg. Left lower extremity puffy appearance. Abdominal: Nontender, nondistended, soft. Integumentary: No erythema of right upper chest chemo port. Results & Data Results & Data Vital Signs (Past 12 Hours) Vital Signs Temp Pulse Resp BP Pulse Ox Pulse Ox O2 Del Method 07/15/22 19:49 Room Air 07/15/22 19:49 98 07/15/22 20:21 36.9 C 81 18 172/89 H 98 Room Air O2 Del Method 07/15/22 19:49 07/15/22 19:49 Room Air 07/15/22 20:21 Resident Activity Tracking Resident Involvement: Resident Care Provided Care Provided: Adult Hospital Medicine (2) UTI (urinary tract infection) Urinary tract infection type: site unspecified
[2022-07-16 07:03] LABS: BUN Creatinine Ratio 37.8 (10-20); Calcium 8.5 mg/dl (8.6-10.3); Creatinine Clr Calc Pharmacy 47.7 ml/min; Est GFR (African American) 82.3 ml/min; Magnesium 1.8 mg/dl (1.7-2.4); Phosphorus 3.8 mg/dl (2.5-4.9); Potassium 3.7 mmol/L (3.5-5.1)
[2022-07-16] MEDS ORDERED: POTASSIUM CHLORIDE CRTAB 20 MEQ TABCR PO STA (07:46)
[2022-07-16] MEDS: ACETAMINOPHEN 500 MG TAB PO PRN (07:49)
[2022-07-16] MEDS: ONDANSETRON INJ 2 MG/ML 2 ML VIAL IV SCH ×3 (07:51→16:15)
[2022-07-16] MEDS: MAGNESIUM SULFATE / D5W 1 GM/100 ML BAG IV SCH ×2 (08:04→10:06)
[2022-07-16] MEDS: APIXABAN 5 MG TABLET PO SCH ×2 (08:11→21:10)
[2022-07-16] MEDS: MULTI VIT W/MINERALS LIQUID 15 ML UDP PO SCH (08:11)
[2022-07-16 08:26] LABS: Basophils # (auto) 0.07 K/uL (0-0.2); Basophils % (auto) 0.5 %; Eosinophils # (auto) 0.37 K/uL (0-0.50); Eosinophils % (auto) 2.7 %; Hematocrit (blood only) 27.3 % (37.0-47.0); Hemoglobin 9.1 g/dl (12.0-16.0); Immature Granulocytes # (auto) 0.05 K/uL (0.01-0.20); Immature Granulocytes % (auto) 0.4 %; Lymphocytes # (auto) 1.09 K/uL (1.2-3.4); Lymphocytes % (auto) 8.1 %; Mean Corpuscular Hgb Conc 33.3 g/dL (32.0-36.0); Mean Corpuscular Volume 98.9 fL (80.0-100.0); Monocytes # (auto) 1.03 K/uL (0.11-0.59); Monocytes % (auto) 7.7 %; Neutrophils # (auto) 10.85 K/uL (1.40-6.50); Neutrophils % (auto) 80.6 %; Platelet Count 191 K/uL (130-400); RDW Coefficient of Variation 15.9 % (11.5-14.5); RDW Standard Deviation 57.4 fL (36.4-46.3); Red Blood Count 2.76 M/uL (4.20-5.40); White Blood Count 13.46 K/ul (4.8-10.8)
--- NOTE | 2022-07-16 11:19 | Surgery Progress Note ---
Date of Service July 16, 2022 Assessment & Plan (1) SBO (small bowel obstruction): Plan: Patient continues to have bowel movements and has no nausea or vomiting She seems to be tolerating her diet. Advance the diet as tolerated. Still states that she is not interested in any surgery. As she is tolerating her diet, consideration for discharge to home. We will continue to follow. Admission and Anticipated Discharge Date Admission Date: July 07, 2022 Subjective No changes from yesterday Physical Exam Gastrointestinal (Abdomen): Inspection/Auscultation: abdomen normal to inspection; abdomen not distended Percussion/Palpation: abdomen soft; abdomen nontender and no guarding Results & Data Vital Signs (Past 12 Hours) Vital Signs Temp Pulse Resp BP Pulse Ox O2 Del Method 07/16/22 07:21 37.0 C 101 H 18 171/95 H 98 Room Air
[2022-07-16] MEDS: ACETAMINOPHEN 500 MG TAB PO SCH ×2 (16:12→21:10)
[2022-07-16] MEDS ORDERED: ONDANSETRON INJ 2 MG/ML 2 ML VIAL IV PRN (16:24)
[2022-07-17] MEDS: oxyCODONE HCL IR 5 MG TAB (IMMEDIATE RELEASE) PO PRN ×3 (04:19→20:03)
[2022-07-17] MEDS: ACETAMINOPHEN 500 MG TAB PO SCH ×3 (05:35→22:54)
[2022-07-17] MEDS: ONDANSETRON INJ 2 MG/ML 2 ML VIAL IV SCH ×3 (05:36→14:09)
[2022-07-17] MEDS: APIXABAN 5 MG TABLET PO SCH ×2 (08:05→20:03)
[2022-07-17] MEDS: CHECK fentaNYL PATCH PLACEMENT SCH ×2 (08:05→15:16)
[2022-07-17 08:46] LABS: Hematocrit (blood only) 29.4 % (37.0-47.0); Hemoglobin 9.6 g/dl (12.0-16.0); Mean Corpuscular Hemoglobin 32.3 pg (25.0-34.0); Mean Corpuscular Hgb Conc 32.7 g/dL (32.0-36.0); Mean Platelet Volume 8.9 fL (9.4-12.4); Platelet Count 202 K/uL (130-400); RDW Coefficient of Variation 15.8 % (11.5-14.5); RDW Standard Deviation 56.9 fL (36.4-46.3); Red Blood Count 2.97 M/uL (4.20-5.40); White Blood Count 16.37 K/ul (4.8-10.8)
--- NOTE | 2022-07-17 09:05 | Surgery Progress Note ---
Date of Service July 17, 2022 Assessment & Plan (1) SBO (small bowel obstruction): Plan: Patient here with SBO in setting of metastatic bladder ca appears she was doing well over wknd, having + bowel function, diet advanced she states early this AM woke up in pain and experiencing nausea. denies recent flatus/bm on exam abdomen is soft and non tender she may benefit from some enemas told her to hold off on regular bfast this AM and see if symptoms improve later today re-discussed if she needed surgery at some point would she reconsider and she was unable to give me a clear answer on her wishes...appears frustrated in general with set back can likely hold off on repeat KUB for now and see how she fairs. no plans for surgical intervention here if comes to that point Admission and Anticipated Discharge Date Admission Date: July 07, 2022 Subjective Patient feeling worse as of early this AM. Reports + nausea and pain. No recent BM. No emesis Physical Exam Physical Exam: awake/alert, tearful Gastrointestinal (Abdomen): Inspection/Auscultation: abdomen not distended Percussion/Palpation: abdomen soft; abdomen nontender PG Care Time/CCT Total # of Minutes Spent Total Time Spent with Patient: Total time spent is greater than 50% in coordination of care (as documented) at patient's floor/unit and/or counseling patient: Coding Level of Care Code 96141 SUB INP/OBS CARE 25MIN Diagnoses SBO (small bowel obstruction) K56.609
[2022-07-17 09:14] LABS: BUN Creatinine Ratio 29.6 (10-20); Calcium 8.7 mg/dl (8.6-10.3); Creatinine Clr Calc Pharmacy 39.9 ml/min; Est GFR (African American) 66.3 ml/min; Est GFR (Non-African American) 57.2 ml/min; Magnesium 1.9 mg/dl (1.7-2.4); Potassium 4.4 mmol/L (3.5-5.1)
[2022-07-17] MEDS: hydrOXYzine HCl 25 MG TAB PO SCH (14:38)
[2022-07-17] MEDS ORDERED: ONDANSETRON 4 MG OD TAB PO STA (17:15)
[2022-07-17] MEDS ORDERED: FAMOTIDINE 20 MG TAB PO ONE (17:15)
--- NOTE | 2022-07-17 18:35 | Hospitalist Progress Note ---
Date of Service July 17, 2022 Assessment & Plan (1) SBO (small bowel obstruction): Plan: 72yo female with a history of recurrent SBOs, recurrent UTIs, metastatic bladder cancer w/ ileal conduit, anemia, and DVT who presented on 07/07/22 w/ 1 day hx of abd pain and vomiting. Partial SBO Imaging (CT a/p and multiple KUBs) consistent with SBO, w/ persistence on serial imaging. Unfortunately it seems symptoms worsen over the course of today Increased Marinol and Zofran and will give the patient 48 hours for improvement, however, if no improvement patient may need surgical intervention as we could likely assume that this is a metastatic related SBO. Gen surg had recommended eval at tertiary center. [facility] had bed availability on 07/14; patient declined to transfer due to improvement in symptoms. [facility] (accepting physician is Dr. Cano) w/ bed availability 07/14 evening; patient declined transfer due to improvement in symptoms. Discussed w/ patient regarding likely reoccurrence of SBOs in future given her hx of abd surgeries. In that scenario, would recommend consideration of NG tube if severe symptoms and discussion w/ her primary team at [facility]. Zofran changed from scheduled w/ meals to daily @6AM, 10AM, 3PM, and as needed at night. Complicated UTI Prior cultures have grown Citrobacter, E. coli, Pseudomonas, and Enterococcus (Vanc sensitive). She had bilateral nephrostomy tubes placed at [facility] on 06/26/22. Her outpatient ID provider had instructed to start PO linezolid on 07/06/22. completed 6 days of IV linezolid on 07/12/22 as well as cipro prophylaxis completed 5 days of IV fluconazole on 07/11/22 and 4 days of oral fluconazole prior to admission for yeast on previous urine culture CT a/p: severe bilateral hydronephrosis (chronic per patient); imaging not suggestive of pyelonephritis 4/5 urine culture with VRE. Per pharmacy, linezolid typically covers. Procalcitonin 0.21. Downtrending chronic leukocytosis (peripheral smear pending). Asymptomatic (though difficult to discern) and afebrile. 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 Full eradication is difficult. Left femur pain, known mets to bone XR L femur and hip w/o acute pathological fracture. Status post internal fixation for a permeative mid diaphyseal lesion of left femur. LLE venous duplex neg for DVT Pain control w/ Fentanyl patch and prn oxycodone 5mg q6h prn. Tylenol 1000mg PO q8h prn changed to scheduled. Defer increase of oxycodone at this time. Recommend reduction of outpatient oxycodone (10mg tabs, 120 tabs rx'd for 20 days, filled 2 months apart) if possible given patient's <50kg weight and use of Fentanyl patch. Severe Protein calorie malnutrition 07/13-07/14 TPN started, currently on hold will wait to see if she can tolerate a diet. Anemia Hgb on admission low at 7.1, suspected secondary to chemotherapy No sign of active bleeding 07/09: Hgb 6.0 to 9.5 s/p 2u pRBC (leukoreduced, irradiated) transfusion; remains stable after Hx of DVT Continue home Eliquis 5mg PO BID Metastatic bladder cancer Chemotherapy is managed by physician in [place] Urology consulted: No plan for urologic intervention at this time If patient develops flank pain, nephrostomy tubes can be unclamped If urostomy stops draining, contact urology FEN: low fiber diet Code status: full code Anticoag: Eliquis Dispo: med/surg (2) UTI (urinary tract infection): (3) History of DVT (deep vein thrombosis): (4) Immunocompromised state due to drug therapy: (5) Bladder cancer metastasized to bone: (6) Pain of left femur: Admission and Anticipated Discharge Date Admission Date: July 07, 2022 Supervising Physician Co-Signing Physician Notes I personally examined the patient and verified all gómez points of history and exam, discussed case, and agree with decision making with Dr Sanders still struggling w poor appetite, some nausea, some pain. is not vomiting/bloated. is having BMs vitals noted frail and thin nad heent nc at mmm breathing unlabored no accessory muscles good effort abd soft mild distended at worst nontender no guarding/rebound/rigidity SBO - persistent. vs GI symptoms related to cancer/nausea/frailty. d/w pt and dtr 10 days without resolution - if SBO - becomes more worrisome that cancer is cause of obstruction. at the same time, her exam and BMs make it not totally clear that SBO is persisting, just GI symptoms. for now - aggressive symptomatic care (marinol 10mg bid, zofran 4mg qid scheduled, pepcid 20mg bid, protonix 40mg bid) - if helps, can cautiously manage as symptoms related to illness/etc - if fails, will need to revisit cancer as cause of symptoms. follow for next ~48hrs for now (unless, of course, she were to show dramatic improvement, then could consider home sooner) otherwise as above Subjective Patient seen at bedside this morning. No acute events reported overnight. Unfortunately it seems her symptoms have gotten worse and she is having abdominal pain and nausea. Patient rightfully frustrated with all and is taking for her to get better. Otherwise no new complaints at this time. Review of Systems Review of Systems: See HPI Physical Exam Physical Exam: General: Grossly A&O. NAD. Cooperative. HEENT: Atraumatic, normocephalic. Pulm: CTAB. -wheezes, -rales, -rhonchi. Symmetrical chest rise. No respiratory distress. Cardiac: RRR, -mrg. Left lower extremity puffy appearance. Abdominal: Nontender, nondistended, soft. Integumentary: No erythema of right upper chest chemo port. Results & Data Results & Data Vital Signs (Past 12 Hours) Vital Signs Temp Pulse Pulse Resp BP BP Pulse Ox 07/17/22 16:26 36.9 C 89 16 162/87 H 97 07/17/22 07:20 07/17/22 09:11 36.7 C 89 18 160/92 H 97 O2 Del Method 07/17/22 16:26 Room Air 07/17/22 07:20 Room Air 07/17/22 09:11 Room Air (2) UTI (urinary tract infection) Urinary tract infection type: site unspecified
--- NOTE | 2022-07-17 19:03 | Billing Data ---
Date of Service July 17, 2022 Coding Level of Care Code 91409 SUB INP/OBS CARE MIN
[2022-07-17] MEDS: ONDANSETRON 4 MG OD TAB PO SCH (20:56)
[2022-07-17] MEDS: FAMOTIDINE 20 MG TAB PO SCH (20:57)
[2022-07-17] MEDS: droNABinol 2.5 MG CAP PO SCH (20:57)
[2022-07-17] MEDS: PANTOprazole 40 MG TAB PO SCH (20:57)
[2022-07-17] MEDS ORDERED: droNABinol 2.5 MG CAP PO SCH (21:00)
[2022-07-18] MEDS: CHECK fentaNYL PATCH PLACEMENT SCH ×2 (00:59→09:29)
[2022-07-18] MEDS: ACETAMINOPHEN 500 MG TAB PO SCH ×2 (06:03→13:51)
--- NOTE | 2022-07-18 08:39 | Surgery Progress Note ---
Date of Service July 18, 2022 Assessment & Plan (1) SBO (small bowel obstruction): Plan: She is tolerating small amounts of low fiber diet without nausea or vomiting and had a bowel movement yesterday She continues without abdominal pain She will be discharged from a surgical standpoint when cleared by medicine Surgery will sign off at this time, please call with any questions or concerns Admission and Anticipated Discharge Date Admission Date: July 07, 2022 Subjective Patient seen and examined. No nausea or vomiting. No abdominal pain. She had a bowel movement yesterday, but not yet today. She is tolerating low fiber diet. Review of Systems Constitutional: no fever and no chills Physical Exam Constitutional: WD/WN, vitals as above Gastrointestinal (Abdomen): Inspection/Auscultation: abdomen normal to inspection; abdomen not distended Percussion/Palpation: abdomen soft; abdomen nontender and no guarding Results & Data Vital Signs (Past 12 Hours) Vital Signs Temp Pulse Resp BP Pulse Ox O2 Del Method 07/18/22 07:36 37.1 C 78 18 148/77 H 98 Room Air 07/17/22 21:35 37.0 C 85 18 165/91 H 96 Room Air PG Care Time/CCT Total # of Minutes Spent Total Time Spent with Patient: Total time spent is greater than 50% in coordination of care (as documented) at patient's floor/unit and/or counseling patient: Coding Level of Care Code 98198 SUB INP/OBS CARE /25MIN Diagnoses SBO (small bowel obstruction) K56.609
[2022-07-18] MEDS: PANTOprazole 40 MG TAB PO SCH (09:30)
[2022-07-18] MEDS: APIXABAN 5 MG TABLET PO SCH (09:30)
[2022-07-18] MEDS: FAMOTIDINE 20 MG TAB PO SCH (09:31)
[2022-07-18] MEDS: ONDANSETRON 4 MG OD TAB PO SCH ×2 (09:31→12:34)
[2022-07-18] MEDS: droNABinol 2.5 MG CAP PO SCH (09:46)
[2022-07-18] MEDS: hydrOXYzine HCl 25 MG TAB PO SCH (09:46)
[2022-07-18] MEDS: oxyCODONE HCL IR 5 MG TAB (IMMEDIATE RELEASE) PO PRN (12:33)
[2022-07-18] MEDS ORDERED: ONDANSETRON 4 MG OD TAB PO PRN (17:02)
--- NOTE | 2022-07-18 17:39 | Discharge Summary ---
Date of Service July 18, 2022 Principal Diagnosis SBO, nausea - improving Discharge Exam In general she is awake and alert pleasant no distress. HEENT normocephalic atraumatic mucous membranes moist. Breathing unlabored no accessory muscle use good effort. Skin shows no rashes no pallor or icterus. Neuro without focal deficits. Discharge Data Allergies Allergy/AdvReac Type Severity Reaction Status Date / Time Sulfa (Sulfonamide Allergy Unknown Verified 07/06/22 22:44 Antibiotics) Consultations 07/06/22 23:42 ED Decision to Admit Stat 07/07/22 00:00 Consult General Surgery Stat Consult Urology Stat 07/12/22 16:17 Burn CD for patient Routine Ordered Studies 07/06/22 22:27 CT abd pelvis IV con only Stat 07/11/22 07:30 FL small bowel follow through Routine 07/13/22 14:36 US venous doppler LE LT Routine Hospital Course (1) SBO (small bowel obstruction): 72yo female with a history of recurrent SBOs, recurrent UTIs, metastatic bladder cancer w/ ileal conduit, anemia, and DVT who presented on 07/07/22 w/ 1 day hx of abd pain and vomiting. Partial SBO Imaging (CT a/p and multiple KUBs) consistent with SBO, w/ persistence on serial imaging. Unfortunately it seems symptoms worsen over the course of today Increased Marinol, added aggressive acid suppression, scheduled Zofranp.o. intake improved, she feels good enough to go home. Discussed with patient that it is difficult to rule out partial/chronic obstruction related to malignancy, and that certainly would be the diagnosis of greatest concernshe sees her oncologist in the very near future and will follow-up with that team in regards to this as well. In the meantime continue aggressive symptom controlwith the hopes that maybe it is just GI symptoms related to her physiologic and chemical milieu. Continue Marinol 10 mg twice daily, Pepcid 20 mg twice daily for now, Protonix 40 mg twice daily for now, Zofran as neededif she is doing well enough, can try to "peel back" the acid suppression 1 dose at a time over several weeks. Gen surg had recommended eval at tertiary center. [facility] had bed availability on 07/14; patient declined to transfer due to improvement in symptoms. Complicated UTI Prior cultures have grown Citrobacter, E. coli, Pseudomonas, and Enterococcus (Vanc sensitive). She had bilateral nephrostomy tubes placed at [facility] on 06/26/22. Her outpatient ID provider had instructed to start PO linezolid on 07/06/22. completed 6 days of IV linezolid on 07/12/22 as well as cipro prophylaxis completed 5 days of IV fluconazole on 07/11/22 and 4 days of oral fluconazole prior to admission for yeast on previous urine culture CT a/p: severe bilateral hydronephrosis (chronic per patient); imaging not suggestive of pyelonephritis 4/5 urine culture with VRE. Per pharmacy, linezolid typically covers. Procalcitonin 0.21. Downtrending chronic leukocytosis (peripheral smear pending). Asymptomatic (though difficult to discern) and afebrile. 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 Full eradication is difficult. Left femur pain, known mets to bone XR L femur and hip w/o acute pathological fracture. Status post internal fixation for a permeative mid diaphyseal lesion of left femur. LLE venous duplex neg for DVT Severe Protein calorie malnutrition Discussed with patient the paradoxical problem of needing to go slow with p.o. intake due to GI symptoms, but also try to get to goal as far as calories. Discussed utilization of very calorie dense supplements such as boost/Ensure, an d keeping a log of calories to try to ensure that she gets to goal. Anemia Hgb on admission low at 7.1, suspected secondary to chemotherapy No sign of active bleeding /: Hgb 6.0 to 9.5 s/p 2u pRBC (leukoreduced, irradiated) transfusion; remains stable after Hx of DVT Continue home Eliquis 5mg PO BID Metastatic bladder cancer Chemotherapy is managed by physician in [place] [facility] consulted: No plan for urologic intervention at this time If patient develops flank pain, nephrostomy tubes can be unclamped If urostomy stops draining, contact urology Stable for home for now, close oncology follow-up. Total Time Total Time Spent Total Time Spent (In Minutes): Less than 30 Discharge Plan Discharge Items Patient Disposition: Home - Self-Care Reason For Visit: ABDOMINAL PAIN Discharge Diagnosis: SBO Condition on Discharge: Fair Activity: Per Instructions section Non-emergency contact: Primary Care Provider, Surgeon and Oncologist Call non-emergency contact if: you have any medication questions, your symptoms worsen, your pain is concerning for you and you have a fever Follow-up/Referrals: Reyna Tidwell DO [Primary Care Provider] - 07/26/22 9:00 am Diet: Low Fiber Fluids: 1500ml (6 cups) Diet Texture: Pureed (blended smooth) Addtl Attending Provider Instructions: You were seen in the hospital for concern of abdominal pain. While you were here imaging had shown that you are experiencing a small bowel obstruction. At this time is unsure as to whether the cause was due to adhesions (scar tissue from previous surgeries) or from metastatic cancer. Over the past few days, they have been trialed on progressing her diet from nothing by mouth to your diet at home which was pured foods. Today, at the time of discharge, you reported good tolerance to food and your bowel sounds were normal. This may show a direction of resolution in your small bowel obstruction. However, we cannot guarantee that the small bowel obstruction will not return. Our surgeons felt that it would not correct entirely without surgical intervention. For this reason, we do feel it is reasonably safe for you to go home, however, if you begin feeling abdominal pain, nausea, or vomiting you will need to return for reevaluation which may require you to have a surgical intervention done. It is important for you to consume at least 1500 yoni/day which you may want to use protein shakes from the pharmacy as they contain about 300 yoni per drink. We are also sending you refills of your Dronabinol, Pepcid, and Protonix. These will go to your pharmacy. Please take as instructed as this may increase your appetite. We would like you to slowly titrate your acid suppression medication (Protonix) over the next few weeks to months to the lowest possible dose that gives you your symptomatic relief. I would recommend decreasing your dose by 20 mg weekly until you are still receiving the benefit of the medication and having on the lowest possible dose. Your PCP can help you with this transition. Otherwise no other changes in your medications. Also, please follow-up with your oncologist and discuss your hospitalization with them as soon as possible. Is been a pleasure to be a part of your care and we wish you the best with your health and your recovery Pending Studies at Discharge: No Stand-Alone Forms: My [facility] [employer] Online, Smoking Cessation Medications and DC Order Prescriptions: New famotidine 20 mg Tablet 20 mg PO BID 30 Days Qty: 60 1RF pantoprazole 40 mg Tablet,Delayed Release (Dr/Ec) 40 mg PO BID 30 Days Qty: 60 1RF ondansetron 4 mg Tablet,Disintegrating 4 mg PO QID PRN (Reason: nausea and vomiting) 30 Days Qty: 60 2RF dronabinol 10 mg capsule 10 mg PO BID Qty: 60 0RF Rx Instructions: administer before lunch and evening meal/dinner Continued acetaminophen 500 mg Tablet 1,000 mg PO Q6H PRN (Reason: Fever Or Pain) Ayur-Boswellia Aniket 2 tab PO BID Rx Instructions: without food ondansetron HCl 4 mg Tablet 4 mg PO Q8H PRN (Reason: .NAUSEA/VOMITING) hydroxyzine HCl 25 mg tablet 25 mg PO QAM lysine [L-Lysine] 500 mg Tablet 500 mg PO DAILY cholecalciferol (vitamin D3) [Vitamin D3] 125 mcg (5,000 unit) Tablet 125 mcg PO DAILY magnesium citrate 100 mg Capsule 150 mg PO DAILY Berberine Complex 2 cap PO BID Curcu-Essentials 1 tab PO BID Curcumin Iv 0 mg IV DIRECTED Glutathione Iv 0 mg IV DIRECTED Rx Instructions: once per cycle Isoflavone Caps 2 cap PO BID Rx Instructions: TAKE ON EMPTY STOMACH Methyl-Guard 1 cap PO DAILY Multivitamin Iv 0 mg IV DIRECTED Rx Instructions: once per cycle Nutri-Essentials 2 cap PO DAILY Opti-Cell Plus 3 tab PO BID Proepa 1 tab PO BID Quercetin Iv 0 mg IV DIRECTED Reservatrol Iv 0 mg IV DIRECTED Rx Instructions: once per cycle Ultra Lipoic Essentials 2 tab PO BID Ultra Reishi 2 tab PO BID Rx Instructions: take without food Vitamin C Iv 0 mg IV DIRECTED Rx Instructions: once per cycle fentanyl 50 mcg/hr patch 72 hour 50 mcg topical [id number] digestive enzymes Capsule 1 cap PO TID Rx Instructions: administer with food; swallow whole; do not crush/chew/dissolve/break/cut ciprofloxacin HCl 250 mg tablet 250 mg PO DAILY docusate sodium [Colace] 100 mg Capsule 100 mg PO TID loratadine [Claritin] 10 mg Tablet 10 mg PO DIRECTED Rx Instructions: once norah every other week following udenyca injections. oxycodone 10 mg tablet 10 mg PO .Q4-6HRS PRN (Reason: Pain) oxycodone 10 mg tablet 10 mg PO DAILY Chemo Drugs 0 mg DIRECTED zinc 15 mg Tablet 15 mg PO DAILY Discontinued dronabinol 2.5 mg capsule 5 mg PO BID fluconazole 100 mg tablet 100 mg PO DAILY Rx Instructions: FOR 7 DAYS, FILLED 06/28/2022 linezolid 600 mg tablet 600 mg PO BID Rx Instructions: 07/05/2022 Discharge Orders: Discharge Order (Routine); Ordered 07/18/22 Ordered By: Gunnar Sanders Admission Data Admit Date/Time: 07/07/22 12:39 Attending Provider: Blaine Flores Admit Provider: Lucas Padilla Primary Care Provider: Reyna Tidwell Other Providers: Jose Curtis ; David Magana ; Blaine Flores ; Coty Ospina Other Interventions: Discharge Summary Assessment (RN) Last Done: 07/18/22 13:03 Coding Level of Care Code 72801 IN/OBS DISCH 30 MIN/LESS Diagnoses SBO (small bowel obstruction) K56.609
== END 2022-07-18 14:30 | disposition home or self-care (01) | DRG 871 ==
LOC: 3W 20:10 → ED 20:10 → SUATTDRO 07-07 01:02 → 3W 07-07 02:01 → SUATTDRO 07-07 12:39

== ENCOUNTER 2022-07-22 14:46 | Inpatient (IN) ==
[2022-07-22] MEDS ORDERED: SODIUM CHLORIDE 0.9% 1000ML 1,000 ML IV ONE (15:22)
--- NOTE | 2022-07-22 15:25 | Emergency Department Note ---
Impression & Plan SBO (small bowel obstruction), Abdominal pain, Leukocytosis ED Provider Note NAME: DANIEL ANGLIN AGE: 72 SEX: F : 1950 ARRIVES VIA: Walk-In INFORMANT: Patient ED PROVIDER(S): Blaine Dalton DO CHIEF COMPLAINT: abdominal pain HPI: Patient is a 72-year-old female with a past medical history of bladder cancer and bladder removal, as well as has hysterectomy who presents the ER for nausea, vomiting when eating. She is only able to keep down some liquids. She notes her belly pain is getting worse infraumbilically. Feels like her previous obstruction. Does feel worse than when she was here last week. She was just discharged on Sunday. Denies any chest pain or shortness of breath. No dysuria, urgency, or frequency. No other exacerbating or remitting factors. PAST MEDICAL HISTORY:See Below PAST SURGICAL HISTORY:See Below FAMILY HISTORY:See Below SOCIAL HISTORY:See Below HOME MEDICATIONS:See Below ALLERGIES:See Below VITALS:See Below PHYSICAL EXAMINATION: GENERAL: Sitting up in bed, alert, cachectic, disheveled EYE EXAM: normal conjunctiva. OROPHARYNX: no exudate, no erythema, lips, buccal mucosa, and tongue normal and mucous membranes are moist NECK: supple, no nuchal rigidity, no adenopathy, non-tender LUNGS: Clear to auscultation. Normal chest wall mechanics HEART: no murmurs, S1 normal and S2 normal ABDOMEN: abdomen soft, non-tender, normo-active bowel sounds, no masses, no rebound or guarding. UPPER EXTREMITIES: upper extremities are grossly normal. LOWER EXTREMITIES: No pitting edema. NEURO EXAM: Normal sensorium, cranial nerves II-XII grossly intact, normal speech, no gross weakness of arms, no gross weakness of legs. MEDICAL DECISION MAKING: Patient is a 72-year-old female who presents ER for small bowel obstruction. E xternal records were reviewed. History of bladder cancer with metastasis to the bone. She was just discharged on Sunday and CT confirms high-grade small bowel obstruction. This was discussed with Dr. Magana who notes that patient was just recently admitted and was in the process of being transferred to [place]. Is agreeable for the patient to be admitted here but would recommend transfer i n case the patient needs surgery as they would not do that here. IV was established blood work was obtained and showed leukocytosis of 18,000. Mild anemia at 9. BMP with a creatinine 1.3. LFTs bilirubin was unremarkable. Lipase was 5. COVID was negative. I discussed the case with the patient and Dr. Katz at bedside from the hospitalist service. Dr. Katz did discuss in regards to the NG tube placement with the patient at bedside. Will defer to him. Following this I spoke with Dr. Crowley from [facility] general surgery at [place]. He is unsure of what additionally he would have to offer the patient as any surgery performed on there could be performed here. He also feels as though they have not had any contact with this patient and the patient does have a known malignancy and the patient should be evaluated by general surgery here. Did rediscuss this with Dr. Valencia and then updated general surgery and they will contact [facility] tomorrow if needed. Triage Nursing notes reviewed. Limited review of prior medical records performed Vital Signs: reviewed and remarkable for Tachy Differential diagnosis: Differential diagnoses includes but is not limited to gastritis, peptic ulcer disease, GERD, gallbladder disease, pancreatitis, small bowel obstruction, appendicitis, diverticulitis, hernia, urinary tract infection, torsion, [/ectopic (if female)], perforation, trauma, infectious. ER treatment provided: See below Diagnostics interpreted by me include EKG and cardiac monitoring as listed below: -Cardiac Monitoring: An order was placed for continuous cardiac monitoring. The monitor shows a rate of 80 with sinus rhythm. -ECG: none -Laboratory studies:Interpreted by me as stated above in MDM and shown below. Imaging studies: Xrays: As interpreted by me:none CTs show: CT abdomen pelvis shows small bowel obstruction CT per my read shows large distended bowel. Consultation(s): As described in MDM Procedures:none Critical Care: None Past Med/Surg History Medical History Acute DVT (deep venous thrombosis) Bladder cancer metastasized to bone Fever Hyponatremia Leukocytosis Sepsis Thrombocytopenia Surgical History History of fracture of femur with evelyn placement; LEFT History of hysterectomy History of nephrostomy History of total cystectomy Family History Other Family history non-contributory Social History Smoking Status: Never smoker Second Hand Exposure: No; Hx Alcohol Use: No Hx Substance Use: No Preferred Language: Persian Communication Ability: Effective Communication Tools: IPad, Facial Expression, Physical Gestures and Lip Movement/Reading Sanitarian Required: Voice Beliefs That Will Affect Care: None marital status: / Current Living Situation: Family Current Living Situation Comment: daughter Feels Safe at Home: Yes Assistive Devices: Walker and Wheelchair Allergies Allergies Allergy/AdvReac Type Severity Reaction Status Date / Time Sulfa (Sulfonamide Allergy Unknown CAN'T Verified 07/22/22 16:54 Antibiotics) REMEMBER Home Meds Home Medications Medication Instructions Recorded Confirmed Ayur-Boswellia Aniket 2 tab PO BID 01/28/22 07/22/22 Berberine Complex 2 cap PO BID 01/28/22 07/22/22 Curcu-Essentials 1 tab PO BID 01/28/22 07/22/22 Curcumin Iv 0 mg IV DIRECTED 01/28/22 07/22/22 Glutathione Iv 0 mg IV DIRECTED 01/28/22 07/22/22 Isoflavone Caps 2 cap PO BID 01/28/22 07/22/22 Methyl-Guard 1 cap PO DAILY 01/28/22 07/22/22 Multivitamin Iv 0 mg IV DIRECTED 01/28/22 07/22/22 Nutri-Essentials 2 cap PO DAILY 01/28/22 07/22/22 Opti-Cell Plus 3 tab PO BID 01/28/22 07/22/22 Proepa 1 tab PO BID 01/28/22 07/22/22 Quercetin Iv 0 mg IV DIRECTED 01/28/22 07/22/22 Reservatrol Iv 0 mg IV DIRECTED 01/28/22 07/22/22 Ultra Lipoic Essentials 2 tab PO BID 01/28/22 07/22/22 Ultra Reishi 2 tab PO BID 01/28/22 07/22/22 Vitamin C Iv 0 mg IV DIRECTED 01/28/22 07/22/22 acetaminophen 500 mg tablet 1,000 mg PO Q6H PRN Fever Or Pain 01/28/22 07/22/22 cholecalciferol (vitamin D3) 125 125 mcg PO DAILY 01/28/22 07/22/22 mcg (5,000 unit) tablet (Vitamin D3) hydroxyzine HCl 25 mg tablet 25 mg PO QAM 01/28/22 07/22/22 lysine 500 mg tablet (L-Lysine) 500 mg PO DAILY 01/28/22 07/22/22 magnesium citrate 100 mg capsule 150 mg PO DAILY 01/28/22 07/22/22 zinc 15 mg tablet 15 mg PO DAILY 04/26/22 07/22/22 Chemo Drugs 0 mg DIRECTED 07/06/22 07/22/22 ciprofloxacin HCl 250 mg tablet 250 mg PO DAILY 07/06/22 07/22/22 digestive enzymes 1 cap PO TID 07/06/22 07/22/22 docusate sodium 100 mg capsule 100 mg PO TID 07/06/22 07/22/22 (Colace) fentanyl 50 mcg/hr transdermal 50 mcg topical [id number] 07/06/22 07/22/22 patch loratadine 10 mg tablet (Claritin) 10 mg PO DIRECTED 07/06/22 07/22/22 oxycodone 10 mg tablet 10 mg PO .Q4-6HRS PRN Pain 07/06/22 07/22/22 oxycodone 10 mg tablet 10 mg PO DAILY 07/06/22 07/22/22 Previous Rx's Medication Instructions Recorded dronabinol 10 mg capsule 10 mg PO BID #60 caps 07/18/22 famotidine 20 mg tablet 20 mg PO BID 30 days #60 tabs 07/18/22 ondansetron 4 mg disintegrating 4 mg PO QID PRN nausea and 07/18/22 tablet vomiting 30 days #60 tabs pantoprazole 40 mg tablet,delayed 40 mg PO BID 30 days #60 tabs 07/18/22 release Results & Data (ED) Vital Signs Vital Signs - 24 hr 07/22/22 14:51 07/22/22 15:44 07/22/22 17:02 Temperature 36.8 C Temperature Source Temporal Artery Scan Pulse Rate 104 H Pulse Rate [Apical] 79 80 Pulse Rhythm [Apical] Respiratory Rate 18 20 16 Respiratory Depth Blood Pressure 131/80 Blood Pressure [Left Arm] 153/80 H Blood Pressure Mean 97 Blood Pressure Mean [Left Arm] 104 Blood Pressure Position [Left Arm] Lying Pulse Oximetry 99 97 98 Oxygen Delivery Method Room Air Room Air Room Air Sepsis Recent Fever Within 48 Hours No Sepsis New/Unexplained Change in Mental Status No Sepsis Action Taken by Nursing No Action Required 07/22/22 17:30 07/22/22 17:45 07/22/22 18:36 Temperature Temperature Source Pulse Rate 88 Pulse Rate [Apical] 78 86 Pulse Rhythm [Apical] Regular Respiratory Rate 16 14 Respiratory Depth Normal Normal Blood Pressure Blood Pressure [Left Arm] 138/86 135/69 Blood Pressure Mean Blood Pressure Mean [Left Arm] 103 91 Blood Pressure Position [Left Arm] Lying Pulse Oximetry 96 96 Oxygen Delivery Method Room Air Room Air Sepsis Recent Fever Within 48 Hours Sepsis New/Unexplained Change in Mental Status Sepsis Action Taken by Nursing Laboratory Data 07/22/22 15:29 07/22/22 15:29 Lab Results 07/22/22 07/22/22 07/22/22 Range/Units 15:29 15:29 17:23 WBC 18.86 H (4.8-10.8) K/ul RBC 2.74 L (4.20-5.40) M/uL Hgb 9.0 L (12.0-16.0) g/dl Hct 27.8 L (37.0-47.0) % MCV 101.5 H (80.0-100.0) fL MCH 32.8 (25.0-34.0) pg MCHC 32.4 (32.0-36.0) g/dL RDW Std Deviation 60.6 H (36.4-46.3) fL RDW Coeff of Macario 16.4 H (11.5-14.5) % Plt Count 324 (130-400) K/uL MPV 9.5 (9.4-12.4) fL Immature Gran % (Auto) 0.9 % Neut % (Auto) 84.2 % Lymph % (Auto) 6.3 % [place] % (Auto) 7.6 % Eos % (Auto) 0.6 % Baso % (Auto) 0.4 % Neut # (Auto) 15.88 H (1.40-6.50) K/uL Lymph # (Auto) 1.18 L (1.2-3.4) K/uL [place] # (Auto) 1.44 H (0.11-0.59) K/uL Eos # (Auto) 0.12 (0-0.50) K/uL Baso # (Auto) 0.07 (0-0.2) K/uL Immature Gran # (Auto) 0.17 (0.01-0.20) K/uL Sodium 134 L (136-145) mmol/L Potassium 4.5 (3.5-5.1) mmol/L Chloride 98 (98-107) mmol/L Carbon Dioxide 24 (21-32) mmol/L Anion Gap 12 H (3-11) BUN 38 H (6-23) mg/dl Creatinine 1.30 H (0.6-1.2) mg/dl Est Cr Clr Drug Dosing Not Reportable Est GFR ( Amer) 47.1 ml/min Est GFR (Non-Af Amer) 40.7 ml/min BUN/Creatinine Ratio 29.2 H (10-20) Glucose 105 H (70-99(Fasting)) mg/dl Calcium 8.6 (8.6-10.3) mg/dl Total Bilirubin 0.4 (0.2-1.0) mg/dl AST 10 L (13-39) U/L ALT 5 L (7-52) U/L Alkaline Phosphatase 90 (34-104) U/L Total Protein 6.2 (6.0-8.3) gm/dl Albumin 3.2 L (3.4-5.0) gm/dl Globulin 3.0 (2.5-4.0) gm/dl Albumin/Globulin Ratio 1.1 (0.9-2) Lipase 5 L (11-82) U/L SARS-CoV-2, RNA, NAAT NEGATIVE (NEGATIVE) Administered Medications Lactated Ringer's (Lr) 1,000 mls @ 100 mls/hr IV .Q10H DELORES Stop: 08/21/22 19:44 Last Admin: 07/22/22 19:59 Dose: 100 mls/hr Documented By: ML Discontinued Medications Sodium Chloride (Nss 1000ml) 1,000 mls @ 999 mls/hr IV .Q1H1M ONE Stop: 07/22/22 16:22 Last Infusion: 07/22/22 17:12 Dose: 0 mls/hr Documented By: Admin: 07/22/22 15:33 Dose: 999 mls/hr Documented By: JARVIS Lactated Ringer's (Lr) 250 mls @ 999 mls/hr IV .Q16M ONE Stop: 07/22/22 19:53 Last Admin: 07/22/22 19:59 Dose: 999 mls/hr Documented By: ML Ioversol (Optiray 350 100ml) 86 ml IV ONCE ONE Stop: 07/22/22 16:28 Last Admin: 07/22/22 16:27 Dose: 86 ml Documented By: EDK Morphine Sulfate (Morphine Sulfate 4 Mg/Ml 1 Ml Carp\Vial) 4 mg IV NOW STA Stop: 07/22/22 16:10 Last Admin: 07/22/22 16:12 Dose: 4 mg Documented By: HANSELB Ondansetron HCl (Ondansetron Inj 2 Mg/Ml 2 Ml Vial) 4 mg IV NOW STA Stop: 07/22/22 16:10 Last Admin: 07/22/22 16:12 Dose: 4 mg Documented By: JARVIS Imaging Data Radiologist's Impression: Abdomen/Pelvis CT 07/22/22 15:22 CT SCAN OF THE ABDOMEN AND PELVIS WITH IV CONTRAST CLINICAL HISTORY: Generalized abdominal pain. COMPARISON STUDY: Abdominal CT dated 07/06/2022. TECHNIQUE: Following the IV administration of 86 cc of Optiray 350, CT scan of the abdomen and pelvis is performed from the lung bases to the proximal femora. Images are reviewed in the axial, sagittal, and coronal planes. IV contrast was administered without complication. A dose lowering technique was utilized adhering to the principles of ALARA. CT DOSE: 237.74 mGy.cm FINDINGS: Lung bases: The heart is normal in size and without pericardial effusion. The coronary arteries are densely calcified. The lung bases are clear. Liver: The contrast-enhanced liver is normal in size, contour, and attenuation. There is no intrahepatic biliary ductal dilatation. The hepatic veins and portal veins are patent. Gallbladder: Unremarkable. Spleen: Normal in size and attenuation. Pancreas: Moderately atrophic and grossly unremarkable. Adrenal glands: Unremarkable. Kidneys: The contrast enhanced kidneys demonstrate mild cortical atrophy. Bilateral percutaneous nephrostomy tubes are in place, and there are bilateral ureteral stents. Nonspecific foci of gas are seen within the right renal collecting system. There is moderate to severe bilateral hydronephrosis. Cortical enhancement is heterogeneous bilaterally. No calcifications are identified in either ureter or along the course of the stents. Abdominal vasculature: The abdominal aorta is normal in course and caliber. Bowel: An ostomy is seen in the right lower quadrant. A neobladder versus ileal conduit is seen in the right lower quadrant, in this contains the distal ends of ureteral stents. There are adjacent small bowel anastomosis suture lines. Residual enteric contrast is noted in the decompressed colon. The stomach and small bowel loops are markedly distended and filled with fluid. Small bowel loops measure up to 4.1 cm in diameter this is consistent with a high-grade obstruction. The exact transition point is not well delineated, but is likely related to the anastomoses in the right anterior pelvis. The degree of distention has increased as compared to 07/06/2022. The focally thick-walled bowel loops are seen. No pneumatosis intestinalis or portal venous gas is identified. Peritoneum: There is no intraperitoneal free air or abdominal ascites. Lymphadenopathy: Question a pathologically enlarged lymph node in the upper pelvis on image #[id number]. This measures 1.8 x 1.3 cm. No additional pathologically enlarged lymph nodes are suspected. Pelvic viscera: A normal bladder is not identified and this is presumed surgically absent. The patient is status post hysterectomy. No adnexal lesion is seen. Skeletal structures: The skeletal structures are osteopenic. No lytic or blastic lesions are seen. There is mild lumbosacral spondylosis. Sclerotic change is noted in the sacroiliac joints and pubic symphysis. Chronic deformity and postsurgical change is noted in the left proximal femur. Soft tissues: The patient is cachectic. IMPRESSION: 1. Postsurgical changes as above, with cystectomy, ileal conduit versus neobladder, and right lower quadrant ostomy. Correlate with the surgical history. 2. There is evidence of high-grade small bowel obstruction. A discrete transition point is not delineated, but likely located in the right lower quadrant at the site of postsurgical change. The degree of bowel distention has increased from 07/06/2022. 3. No focally thickened small bowel loops identified. There is no pneumatosis intestinalis, portal venous gas, or intraperitoneal free air. 4. Bilateral percutaneous nephrostomy tubes and ureteral stents are in place. There is severe bilateral hydronephrosis, similar to previous. 5. There are nonspecific foci of gas within the right renal pelvis as well as heterogeneous enhancement of the renal parenchyma. These findings could be related to instrumentation and hydronephrosis. Correlate with clinical findings and urinalysis for evidence of superimposed infection. 6. Question a pathologically enlarged lymph node in the central pelvis. Correlate with the oncological history. 7. Additional findings as above. ACT 112: Negative or not required by law. Electronically signed by: Tereso Maxwell M.D. 07/22/2022 5:09 PM Discharge Plan Visit Data Chief Complaint: Abdominal Pain Stated Complaint: ABDOMINAL PAIN, POSS SMALL BOWEL OBSTRUCTION ED Provider: Blaine Dalton Discharge Problem: SBO (small bowel obstruction), Abdominal pain, Leukocytosis Forms Stand Alone Forms: [facility] Prescriptions Prescriptions: No Action acetaminophen 500 mg Tablet 1,000 mg PO Q6H PRN (Reason: Fever Or Pain) Ayur-Boswellia Aniket 2 tab PO BID Rx Instructions: without food hydroxyzine HCl 25 mg tablet 25 mg PO QAM lysine [L-Lysine] 500 mg Tablet 500 mg PO DAILY cholecalciferol (vitamin D3) [Vitamin D3] 125 mcg (5,000 unit) Tablet 125 mcg PO DAILY magnesium citrate 100 mg Capsule 150 mg PO DAILY Berberine Complex 2 cap PO BID Curcu-Essentials 1 tab PO BID Curcumin Iv 0 mg IV DIRECTED Glutathione Iv 0 mg IV DIRECTED Rx Instructions: once per cycle Isoflavone Caps 2 cap PO BID Rx Instructions: TAKE ON EMPTY STOMACH Methyl-Guard 1 cap PO DAILY Multivitamin Iv 0 mg IV DIRECTED Rx Instructions: once per cycle Nutri-Essentials 2 cap PO DAILY Opti-Cell Plus 3 tab PO BID Proepa 1 tab PO BID Quercetin Iv 0 mg IV DIRECTED Reservatrol Iv 0 mg IV DIRECTED Rx Instructions: once per cycle Ultra Lipoic Essentials 2 tab PO BID Ultra Reishi 2 tab PO BID Rx Instructions: take without food Vitamin C Iv 0 mg IV DIRECTED Rx Instructions: once per cycle fentanyl 50 mcg/hr patch 72 hour 50 mcg topical CQ72HR Rx Instructions: CHANGED 07/23/22. digestive enzymes Capsule 1 cap PO TID Rx Instructions: administer with food; swallow whole; do not crush/chew/dissolve/break/cut ciprofloxacin HCl 250 mg tablet 250 mg PO DAILY docusate sodium [Colace] 100 mg Capsule 100 mg PO TID loratadine [Claritin] 10 mg Tablet 10 mg PO DIRECTED Rx Instructions: once norah every other week following udenyca injections. oxycodone 10 mg tablet 10 mg PO .Q4-6HRS PRN (Reason: Pain) oxycodone 10 mg tablet 10 mg PO DAILY Chemo Drugs 0 mg DIRECTED famotidine 20 mg Tablet 20 mg PO BID 30 Days Qty: 60 1RF pantoprazole 40 mg Tablet,Delayed Release (Dr/Ec) 40 mg PO BID 30 Days Qty: 60 1RF ondansetron 4 mg Tablet,Disintegrating 4 mg PO QID PRN (Reason: nausea and vomiting) 30 Days Qty: 60 2RF dronabinol 10 mg capsule 10 mg PO BID Qty: 60 0RF Rx Instructions: administer before lunch and evening meal/dinner zinc 15 mg Tablet 15 mg PO DAILY Referrals Referrals: Reyna Tidwell DO [Primary Care Provider] -
[2022-07-22 15:48] LABS: Basophils # (auto) 0.07 K/uL (0-0.2); Basophils % (auto) 0.4 %; Eosinophils # (auto) 0.12 K/uL (0-0.50); Eosinophils % (auto) 0.6 %; Hematocrit (blood only) 27.8 % (37.0-47.0); Immature Granulocytes # (auto) 0.17 K/uL (0.01-0.20); Immature Granulocytes % (auto) 0.9 %; Lymphocytes # (auto) 1.18 K/uL (1.2-3.4); Lymphocytes % (auto) 6.3 %; Mean Corpuscular Hemoglobin 32.8 pg (25.0-34.0); Mean Corpuscular Hgb Conc 32.4 g/dL (32.0-36.0); Mean Corpuscular Volume 101.5 fL (80.0-100.0); Mean Platelet Volume 9.5 fL (9.4-12.4); Monocytes # (auto) 1.44 K/uL (0.11-0.59); Monocytes % (auto) 7.6 %; Neutrophils # (auto) 15.88 K/uL (1.40-6.50); Neutrophils % (auto) 84.2 %; Platelet Count 324 K/uL (130-400); RDW Coefficient of Variation 16.4 % (11.5-14.5); RDW Standard Deviation 60.6 fL (36.4-46.3); Red Blood Count 2.74 M/uL (4.20-5.40); White Blood Count 18.86 K/ul (4.8-10.8)
[2022-07-22 16:04] LABS: Alanine Aminotransferase 5 U/L (7-52); Albumin Globulin Ratio 1.1 (0.9-2); Albumin Level 3.2 gm/dl (3.4-5.0); Alkaline Phosphatase 90 U/L (34-104); Anion Gap 12 (3-11); Aspartate Aminotransferase 10 U/L (13-39); BUN Creatinine Ratio 29.2 (10-20); Bilirubin,Total 0.4 mg/dl (0.2-1.0); Blood Urea Nitrogen 38 mg/dl (6-23); Calcium 8.6 mg/dl (8.6-10.3); Carbon Dioxide 24 mmol/L (21-32); Chloride 98 mmol/L (98-107); Est GFR (African American) 47.1 ml/min; Est GFR (Non-African American) 40.7 ml/min; Glucose 105 mg/dl (70-99(Fasting)); Lipase 5 U/L (11-82); Potassium 4.5 mmol/L (3.5-5.1); Sodium 134 mmol/L (136-145); Total Protein 6.2 gm/dl (6.0-8.3)
[2022-07-22] MEDS ORDERED: MoRPHine SULFATE 4 MG/ML 1 ML CARP\\VIAL IV STA ×2 (16:09→17:17)
[2022-07-22] MEDS ORDERED: ONDANSETRON INJ 2 MG/ML 2 ML VIAL IV STA (16:09)
[2022-07-22] MEDS ORDERED: OPTIRAY 350 100ml IV ONE (16:27)
--- NOTE | 2022-07-22 17:11 | CT Scan Report ---
CT SCAN OF THE ABDOMEN AND PELVIS WITH IV CONTRAST CLINICAL HISTORY: Generalized abdominal pain. COMPARISON STUDY: Abdominal CT dated 07/06/2022. TECHNIQUE: Following the IV administration of 86 cc of Optiray 350, CT scan of the abdomen and pelvi s is performed from the lung bases to the proximal femora. Images are reviewed in the axial, sagittal , and coronal planes. IV contrast was administered without complication. A dose lowering technique wa s utilized adhering to the principles of ALARA. CT DOSE: 237.74 mGy.cm FINDINGS: Lung bases: The heart is normal in size and without pericardial effusion. The coronary arteries are d ensely calcified. The lung bases are clear. Liver: The contrast-enhanced liver is normal in size, contour, and attenuation. There is no intrahepa tic biliary ductal dilatation. The hepatic veins and portal veins are patent. Gallbladder: Unremarkable. Spleen: Normal in size and attenuation. Pancreas: Moderately atrophic and grossly unremarkable. Adrenal glands: Unremarkable. Kidneys: The contrast enhanced kidneys demonstrate mild cortical atrophy. Bilateral percutaneous neph rostomy tubes are in place, and there are bilateral ureteral stents. Nonspecific foci of gas are seen within the right renal collecting system. There is moderate to severe bilateral hydronephrosis. [place] ical enhancement is heterogeneous bilaterally. No calcifications are identified in either ureter or a long the course of the stents. Abdominal vasculature: The abdominal aorta is normal in course and caliber. Bowel: An ostomy is seen in the right lower quadrant. A neobladder versus ileal conduit is seen in th e right lower quadrant, in this contains the distal ends of ureteral stents. There are adjacent small bowel anastomosis suture lines. Residual enteric contrast is noted in the decompressed colon. The st omach and small bowel loops are markedly distended and filled with fluid. Small bowel loops measure u p to 4.1 cm in diameter this is consistent with a high-grade obstruction. The exact transition point is not well delineated, but is likely related to the anastomoses in the right anterior pelvis. The de gree of distention has increased as compared to 07/06/2022. The focally thick-walled bowel loops are s een. No pneumatosis intestinalis or portal venous gas is identified. Peritoneum: There is no intraperitoneal free air or abdominal ascites. Lymphadenopathy: Question a pathologically enlarged lymph node in the upper pelvis on image #[id number]. Thi s measures 1.8 x 1.3 cm. No additional pathologically enlarged lymph nodes are suspected. Pelvic viscera: A normal bladder is not identified and this is presumed surgically absent. The patien t is status post hysterectomy. No adnexal lesion is seen. Skeletal structures: The skeletal structures are osteopenic. No lytic or blastic lesions are seen. Th ere is mild lumbosacral spondylosis. Sclerotic change is noted in the sacroiliac joints and pubic sym physis. Chronic deformity and postsurgical change is noted in the left proximal femur. Soft tissues: The patient is cachectic. IMPRESSION: 1. Postsurgical changes as above, with cystectomy, ileal conduit versus neobladder, and right lower q uadrant ostomy. Correlate with the surgical history. 2. There is evidence of high-grade small bowel obstruction. A discrete transition point is not deline ated, but likely located in the right lower quadrant at the site of postsurgical change. The degree o f bowel distention has increased from 07/06/2022. 3. No focally thickened small bowel loops identified. There is no pneumatosis intestinalis, portal ve nous gas, or intraperitoneal free air. 4. Bilateral percutaneous nephrostomy tubes and ureteral stents are in place. There is severe bilater al hydronephrosis, similar to previous. 5. There are nonspecific foci of gas within the right renal pelvis as well as heterogeneous enhanceme nt of the renal parenchyma. These findings could be related to instrumentation and hydronephrosis. Co rrelate with clinical findings and urinalysis for evidence of superimposed infection. 6. Question a pathologically enlarged lymph node in the central pelvis. Correlate with the oncologica l history. 7. Additional findings as above. ACT 112: Negative or not required by law. Electronically signed by: Tereso Maxwell M.D. 07/22/2022 5:09 PM
--- NOTE | 2022-07-22 17:34 | History & Physical Report ---
Date of Service July 22, 2022 Assessment & Plan (1) SBO (small bowel obstruction): Plan: High-grade small bowel obstruction CTA/P: High-grade small bowel obstruction, no transition point but suspected on right lower quadrant at site of postsurgical change. Increased compared to 07/06/2022. Postsurgical changes are noted. Bilateral hydronephrosis with percutaneous nephrostomy tubes in place. Small foci of gas in the renal pelvis suspicious for post instrumentation/hydro-, recommend for clinical correlation with UA for infection.? Pathologically enlarged lymph node in central pelvis. Recently discharged 07/18 after SBO which improved with medical care. Patient does wish to have surgical options available, see goals of care discussion below. Is admitted to medical service pending transfer Leukocytosis of 18.86 Hemoglobin 9.0, baseline 910 Sodium 134, potassium normal. Creatinine baseline less than 1, elevated to 1.3 on admission Lipase normal Goals of care: Discussed goals of care with the patient and her daughter at bedside rudy cox. Patient expresses frustration over her course with multiple complications including the need for nephrostomy tubes, cystectomy, and multiple recurrences of bowel obstruction with recurrent episode feeling worse than prior. She had previously expressed that she did not wish to pursue surgical treatment for small bowel obstruction if at all possible. Discussed various options with patient including surgical intervention, continuing conservative medical care, and transition to palliative or comfort oriented care in the future. Patient expresses appreciation of discussion, notes that she has thought at times that "the good Lord would just take me "but notes that this comes from a place of frustration. She reports that while she would like to avoid surgery out of fear of the risks and complications, she would still like to have this available as a last resort if her bowel obstruction continues to persist or worsens and would find this preferable at least at this time to TPN or palliative measures. Metastatic bladder cancer Continues with chemotherapy at [place] Patient with prior evaluation for left femur pain, noted to have metastasis to bone but negative DVT eval No acute change in management at this time, see goals of care Recently treated UTI Patient with recently treated complicated UTI and has bilateral nephrostomy tubes placed at Pending sale to [facility] 06/26/2022. She completed fluconazole and linezolid 07/11 and 07/12, in addition to Cipro prophylaxis. Urine culture did show VRE which was covered by linezolid. Follow clinically for signs of recurrent infection. She does not have any fever, chills or signs similar to prior UTIs Left femur pain, history of metastasis to bone No DVT noted, no pathologic fracture noted at prior admit Chronic anemia Hemoglobin at last admission as low as 7.1, recent baseline 10 Suspect 2/ chemotherapy Trend CBC daily Transfuse for hemoglobin less than 7, will require irradiated blood if transfusion indicated No bleeding on admission History of DVT Previously on Eliquis DVT prophylaxis: CODE STATUS: Full code Diet: N.p.o. Disposition: Medical surgical (2) Bladder cancer metastasized to bone: (3) Acute DVT (deep venous thrombosis): (4) Hypokalemia: History of Present Illness Primary Care Provider: Reynaalli TidwellDO Varela is a 72-year-old female with past medical history of bladder cancer, bladder removal, hysterectomy who presents with nausea/vomiting and inability to keep down solid food. She has had a history of prior bowel obstruction which feels similar. She was recently discharged this past Sunday after an admission for SBO. Nichole reports she was doing OK with a liquid diet inpatient. When she went home tried cream of wheat, a poached egg, boiled soft foods, at most 1 or two bites at a time but in general could not keep much down. Sunday did not eat anything at all. Has been able to keep fluids down, but no appetite and cannot keep down anything with a thicker texture. No shortness of breath, no aspiration. No chest pain. Started to throw up yesterday, several times. Green in color. No blood/melena. Having a loose bowel movement each morning. BMs are normal, brown but loose. Nothing red or black. No pain at urostomy site. NO discharge. Usually presenting sx of UTI is fever, does not have other urinary symptoms. Temp at home normal. Has not been able to keep most medications down See A&P for goals of care discussion Medical History: Reviewed Medications: Reviewed Surgical History: Reviewed Family history: Reviewed Allergies: Reviewed Social History: No tobacco/ETOH Code Status: Full code Allergies Allergy/AdvReac Type Severity Reaction Status Date / Time Sulfa (Sulfonamide Allergy Unknown CAN'T Verified 07/22/22 16:54 Antibiotics) REMEMBER Home Medications Medication Instructions Recorded Confirmed Type Ayur-Boswellia Aniket 2 tab PO BID 01/28/22 07/22/22 History Berberine Complex 2 cap PO BID 01/28/22 07/22/22 History Curcu-Essentials 1 tab PO BID 01/28/22 07/22/22 History Curcumin Iv 0 mg IV DIRECTED 01/28/22 07/22/22 History Glutathione Iv 0 mg IV DIRECTED 01/28/22 07/22/22 History Isoflavone Caps 2 cap PO BID 01/28/22 07/22/22 History Methyl-Guard 1 cap PO DAILY 01/28/22 07/22/22 History Multivitamin Iv 0 mg IV DIRECTED 01/28/22 07/22/22 History Nutri-Essentials 2 cap PO DAILY 01/28/22 07/22/22 History Opti-Cell Plus 3 tab PO BID 01/28/22 07/22/22 History Proepa 1 tab PO BID 01/28/22 07/22/22 History Quercetin Iv 0 mg IV DIRECTED 01/28/22 07/22/22 History Reservatrol Iv 0 mg IV DIRECTED 01/28/22 07/22/22 History Ultra Lipoic Essentials 2 tab PO BID 01/28/22 07/22/22 History Ultra Reishi 2 tab PO BID 01/28/22 07/22/22 History Vitamin C Iv 0 mg IV DIRECTED 01/28/22 07/22/22 History acetaminophen 500 mg tablet 1,000 mg PO Q6H PRN Fever Or Pain 01/28/22 07/22/22 History cholecalciferol (vitamin D3) 125 125 mcg PO DAILY 01/28/22 07/22/22 History mcg (5,000 unit) tablet (Vitamin D3) hydroxyzine HCl 25 mg tablet 25 mg PO QAM 01/28/22 07/22/22 History lysine 500 mg tablet (L-Lysine) 500 mg PO DAILY 01/28/22 07/22/22 History magnesium citrate 100 mg capsule 150 mg PO DAILY 01/28/22 07/22/22 History zinc 15 mg tablet 15 mg PO DAILY 04/26/22 07/22/22 History Chemo Drugs 0 mg DIRECTED 07/06/22 07/22/22 History ciprofloxacin HCl 250 mg tablet 250 mg PO DAILY 07/06/22 07/22/22 History digestive enzymes 1 cap PO TID 07/06/22 07/22/22 History docusate sodium 100 mg capsule 100 mg PO TID 07/06/22 07/22/22 History (Colace) fentanyl 50 mcg/hr transdermal 50 mcg topical [id number] 07/06/22 07/22/22 History patch loratadine 10 mg tablet (Claritin) 10 mg PO DIRECTED 07/06/22 07/22/22 History oxycodone 10 mg tablet 10 mg PO .Q4-6HRS PRN Pain 07/06/22 07/22/22 History oxycodone 10 mg tablet 10 mg PO DAILY 07/06/22 07/22/22 History dronabinol 10 mg capsule 10 mg PO BID #60 caps 07/18/22 07/22/22 Rx famotidine 20 mg tablet 20 mg PO BID 30 days #60 tabs 07/18/22 07/22/22 Rx ondansetron 4 mg disintegrating 4 mg PO QID PRN nausea and 07/18/22 07/22/22 Rx tablet vomiting 30 days #60 tabs pantoprazole 40 mg tablet,delayed 40 mg PO BID 30 days #60 tabs 07/18/22 07/22/22 Rx release Past Med/Surg History Medical History Acute DVT (deep venous thrombosis) Bladder cancer metastasized to bone Fever Hyponatremia Leukocytosis Sepsis Thrombocytopenia Surgical History History of fracture of femur with evelyn placement; LEFT History of hysterectomy History of nephrostomy History of total cystectomy Family History Other Family history non-contributory Social History Smoking Status: Never smoker Second Hand Exposure: No; Hx Alcohol Use: No Hx Substance Use: No Preferred Language: Turkish Communication Ability: Effective Communication Tools: IPad, Facial Expression, Physical Gestures and Lip Movement/Reading Cover Cutter Required: Voice Beliefs That Will Affect Care: None marital status: / Current Living Situation: Family Current Living Situation Comment: daughter Feels Safe at Home: Yes Assistive Devices: Walker and Wheelchair Review of Systems Review of Systems: All systems reviewed & are unremarkable except as noted in HPI & below Physical Exam Physical Exam: General: Thin, frail-appearing HEENT: Atraumatic, normocephalic. Pulm: CTAB A&P. -wheezes, -rales, -rhonchi. Symmetrical chest rise. No increased work of breathing. No respiratory distress. Cardiac: RRR, -mrg. Radial pulses intact and symmetrical. Abdominal: Mildly distended, diffuse mild tenderness without rebound/guarding/rigidity. Urostomy in place, nephrostomy tubes in place. Extremities: Warm, dry, thin Results & Data Results & Data Vital Signs (Past 12 Hours) Vital Signs Temp Pulse Pulse Resp BP BP Pulse Ox 07/22/22 17:30 78 16 138/86 96 07/22/22 17:02 80 16 98 07/22/22 15:44 79 20 153/80 H 97 07/22/22 14:51 36.8 C 104 H 18 131/80 99 O2 Del Method 07/22/22 17:30 Room Air 07/22/22 17:02 Room Air 07/22/22 15:44 Room Air 07/22/22 14:51 Room Air PG Care Time/CCT Total # of Minutes Spent Total Time Spent with Patient: Total time spent is greater than 50% in coordination of care (as documented) at patient's floor/unit and/or counseling patient: Coding Level of Care Code 08957 INT INP/OBS CARE 2/55MIN Diagnoses SBO (small bowel obstruction) K56.609 Bladder cancer metastasized to bone C67.9; C79.51 Acute DVT (deep venous thrombosis) I82.409 Hypokalemia E87.6
[2022-07-22] MEDS ORDERED: LACTATED RINGER'S 250 ML IV ONE (19:38)
[2022-07-22] MEDS ORDERED: Heparin IV Adult Wt-Based Low-Dose *NO* Bolus Protocol IV STA (19:44)
[2022-07-22] MEDS: LACTATED RINGER'S 1,000 ML IV SCH ×2 (19:59→22:44)
--- NOTE | 2022-07-22 21:15 | Surgery Consultation ---
Date of Consultation July 22, 2022 Assessment & Plan (1) SBO (small bowel obstruction): Due to the complex nature of patient's oncologic and past surgical history it is recommended that patient consider evaluation at a tertiary care center. The emergency room physician has contacted [facility] and is felt that conservative measures at [facility] should be employed prior to transfer. We therefore recommend proceeding as follows: Implement n.p.o. status Provide IV fluid for hydration I have discussed the modality of NG tube with the patient. During her previous admission she was not in favor of this modality but is more open to this if her symptoms worsen. At the present time the patient's abdomen is nondistended and she has not had any emesis since yesterday, therefore she would like to see how her symptoms progress overnight. She notes that if her abdominal exam becomes worse or if she has further emesis she will rethink allowing having an NG tube placed. If patient does not have improvement of her symptoms or worsening of her symptoms is noted consideration may need to be again be given to transfer to [facility] Supervising Physician Co-Signing Physician Notes I personally saw and evaluated the patient with Soy Grullon PA-C and agree with the assessment and plan 72-year-old female with history of metastatic bladder cancer status post cystectomy with ileal conduit here with small bowel obstruction CT images and results were personally viewed by myself, small bowel obstruction with no discrete transition point She has no abdominal pain at this point Would recommend transfer to [facility] if operative intervention is required due to her multiple abdominal surgeries and ileal conduit in place The patient also would prefer to go there if any operative intervention was needed History of Present Illness Reason for Consultation: Small bowel obstruction History of Present Illness This is a 72-year-old female who is known to [facility] physician [facility] surgical services. This patient has a complicated oncologic and surgical history. She has a history of metastatic bladder cancer for which she underwent a cystectomy with ileal conduit at [facility] in 2020. Patient is also required bilateral nephrostomy tubes which were placed in [facility] in June 2021. Patient noted that since her cystectomy she has had multiple small bowel obstruction that she estimated at 14-15 times. She notes that these were always treated conservatively in a successful manner and she never required NG tube placement. The patient was most recently admitted to [facility] from 07/07/2022 through . During this admission patient was treated for small bowel obstruction. It was treated in a conservative manner and due to patient's complicated past surgical and oncologic history was recommended she be evaluated at a tertiary care center. As the patient received her previous surgical care at [facility], this facility was contacted and there was bed availability on 07/14/2022, however the patient declined transfer as her small bowel obstruction symptoms were improving. The patient presented to [facility] today secondary to worsening abdominal pain. The patient notes over the past few days she has been unable to eat and has had worsening abdominal pain. She did report some nausea and vomiting with her most recent episode being yesterday. She does note that she did have a bowel movement yesterday as well. As her symptoms progressed she presented to the emergency department today. Concerning additional symptoms the patient notes that she feels tired and fatigued and again has decreased appetite. She denies any fevers, shakes, or chills. She notes that her urostomy is functioning appropriately and she has not had uncapped her nephrostomy tubes for discomfort. She denies any back or flank pain. Since arrival to the hospital today the patient has had labs and imaging which independent reviewed. Patient had a CT scan of the abdomen and pelvis that showed postsurgical changes consistent with a cystectomy and ileal conduit. The patient has a right lower quadrant ostomy as noted before. There is evidence of high-grade small bowel obstruction without a clear transition point delineated but was felt to be likely in the right lower quadrant. There is no pneumatosis intestinalis, portal venous gas, or intraperitoneal free air. Bilateral percutaneous nephrostomy tubes are in place with severe bilateral hydronephrosis which appears similar to what was noted previously. Labs include a CBC her white blood cell count was elevated at 18.8. (Review of records show the patient has a persistent leukocytosis which ranges anywhere from 15-21) CBC revealed hemoglobin and hematocrit were 9.0 and 27.8. Platelet count was normal. Chemistry profile showed sodium was 134 with a potassium of 4.5. BUN and creatinine were 38 and 1.3. A COVID test was noted be negative. At the time of my interview the patient was resting comfortably in bed and she was in no distress. Allergies Allergy/AdvReac Type Severity Reaction Status Date / Time Sulfa (Sulfonamide Allergy Unknown CAN'T Verified 07/22/22 16:54 Antibiotics) REMEMBER Home Medications Medication Instructions Recorded Confirmed Type Ayur-Juan Manuelwellia Aniket 2 tab PO BID 01/28/22 07/22/22 History Berberine Complex 2 cap PO BID 01/28/22 07/22/22 History Curcu-Essentials 1 tab PO BID 01/28/22 07/22/22 History Curcumin Iv 0 mg IV DIRECTED 01/28/22 07/22/22 History Glutathione Iv 0 mg IV DIRECTED 01/28/22 07/22/22 History Isoflavone Caps 2 cap PO BID 01/28/22 07/22/22 History Methyl-Guard 1 cap PO DAILY 01/28/22 07/22/22 History Multivitamin Iv 0 mg IV DIRECTED 01/28/22 07/22/22 History Nutri-Essentials 2 cap PO DAILY 01/28/22 07/22/22 History Opti-Cell Plus 3 tab PO BID 01/28/22 07/22/22 History Proepa 1 tab PO BID 01/28/22 07/22/22 History Quercetin Iv 0 mg IV DIRECTED 01/28/22 07/22/22 History Reservatrol Iv 0 mg IV DIRECTED 01/28/22 07/22/22 History Ultra Lipoic Essentials 2 tab PO BID 01/28/22 07/22/22 History Ultra Reishi 2 tab PO BID 01/28/22 07/22/22 History Vitamin C Iv 0 mg IV DIRECTED 01/28/22 07/22/22 History acetaminophen 500 mg tablet 1,000 mg PO Q6H PRN Fever Or Pain 01/28/22 07/22/22 History cholecalciferol (vitamin D3) 125 125 mcg PO DAILY 01/28/22 07/22/22 History mcg (5,000 unit) tablet (Vitamin D3) hydroxyzine HCl 25 mg tablet 25 mg PO QAM 01/28/22 07/22/22 History lysine 500 mg tablet (L-Lysine) 500 mg PO DAILY 01/28/22 07/22/22 History magnesium citrate 100 mg capsule 150 mg PO DAILY 01/28/22 07/22/22 History zinc 15 mg tablet 15 mg PO DAILY 04/26/22 07/22/22 History Chemo Drugs 0 mg DIRECTED 07/06/22 07/22/22 History ciprofloxacin HCl 250 mg tablet 250 mg PO DAILY 07/06/22 07/22/22 History digestive enzymes 1 cap PO TID 07/06/22 07/22/22 History docusate sodium 100 mg capsule 100 mg PO TID 07/06/22 07/22/22 History (Colace) fentanyl 50 mcg/hr transdermal 50 mcg topical [id number] 07/06/22 07/22/22 History patch loratadine 10 mg tablet (Claritin) 10 mg PO DIRECTED 07/06/22 07/22/22 History oxycodone 10 mg tablet 10 mg PO .Q4-6HRS PRN Pain 07/06/22 07/22/22 History oxycodone 10 mg tablet 10 mg PO DAILY 07/06/22 07/22/22 History dronabinol 10 mg capsule 10 mg PO BID #60 caps 07/18/22 07/22/22 Rx famotidine 20 mg tablet 20 mg PO BID 30 days #60 tabs 07/18/22 07/22/22 Rx ondansetron 4 mg disintegrating 4 mg PO QID PRN nausea and 07/18/22 07/22/22 Rx tablet vomiting 30 days #60 tabs pantoprazole 40 mg tablet,delayed 40 mg PO BID 30 days #60 tabs 07/18/22 07/22/22 Rx release Patient History Medical History Acute DVT (deep venous thrombosis) Bladder cancer metastasized to bone Fever Hyponatremia Leukocytosis Sepsis Thrombocytopenia Surgical History History of fracture of femur with evelyn placement; LEFT History of hysterectomy History of nephrostomy History of total cystectomy Family History Other Family history non-contributory Social History Smoking Status: Never smoker Second Hand Exposure: No; Hx Alcohol Use: No Hx Substance Use: No Preferred Language: Thai Communication Ability: Effective Communication Tools: IPad, Facial Expression, Physical Gestures and Lip Movement/Reading Aging Room Operator Required: No Beliefs That Will Affect Care: None marital status: / Current Living Situation: Family Current Living Situation Comment: daughter Other Information That Helps Us Care for You: No Feels Safe at Home: Yes Safety Concerns: Feels Safe At This Time Assistive Devices: Glasses, Hearing Aid - Bilateral and Walker Review of Systems Constitutional: no fever and no chills Eyes: + corrective lenses Ear, Nose, Mouth, Throat: no hearing loss Respiratory: no dyspnea Cardiovascular: no chest pain Gastrointestinal: + abdominal pain, + nausea and + vomiting Genitourinary: no flank pain Musculoskeletal: no back pain Integumentary: no rash Neurologic: + generalized weakness Physical Exam Constitutional: + thin and + frail appearing Eyes: Wears glasses ENMT: Ears: no hearing impairment and no external ear abnormality Mouth: no oropharynx abnormality Neck: trachea midline Respiratory: normal respiratory effort; no respiratory distress and no labored breathing Cardiovascular: Rate/Rhythm: regular rate and regular rhythm Gastrointestinal (Abdomen): Bowel sounds are hypoactive. Abdomen is soft with minimal distention. There is no rebound tenderness or guarding. There is no pain with palpation at the time of my exam. The patient has a urostomy in the right lower quadrant of her abdomen which has dark-colored urine draining. Musculoskeletal: No calf tenderness Skin: no rashes Neurologic: moves all extremities Psychiatric: Orientation: alert and oriented x 3 Affect: + flat affect Results & Data Vital Signs (Past 12 Hours) Vital Signs Temp Pulse Pulse Resp BP BP Pulse Ox 07/22/22 20:58 86 20 139/73 95 07/22/22 18:36 86 14 135/69 96 07/22/22 17:45 88 07/22/22 17:30 78 16 138/86 96 07/22/22 17:02 80 16 98 07/22/22 15:44 79 20 153/80 H 97 07/22/22 14:51 36.8 C 104 H 18 131/80 99 O2 Del Method 07/22/22 20:58 Room Air 07/22/22 18:36 Room Air 07/22/22 17:45 07/22/22 17:30 Room Air 07/22/22 17:02 Room Air 07/22/22 15:44 Room Air 07/22/22 14:51 Room Air PG Care Time/CCT Total # of Minutes Spent Total Time Spent with Patient: Total time spent is greater than 50% in coordination of care (as documented) at patient's floor/unit and/or counseling patient: Coding Level of Care Code 52747 INT INP/OBS CARE MIN Diagnoses SBO (small bowel obstruction) K56.609
[2022-07-22] MEDS: HEPARIN SODIUM/DEXTROSE 25,000 UNITS/500 ML BAG IV SCH (23:39)
[2022-07-22] MEDS: HYDROmorphone INJ 0.5 MG/0.5 ML SYR IV PRN (23:45)
[2022-07-23] MEDS ORDERED: HEPARIN 100 UNIT/ML 5ML FLUSH FLUSH PRN (03:59)
[2022-07-23] MEDS: LACTATED RINGER'S 1,000 ML IV SCH ×3 (05:56→15:59)
--- NOTE | 2022-07-23 05:58 | Surgery Progress Note ---
Date of Service July 23, 2022 Assessment & Plan (1) SBO (small bowel obstruction): Plan: Patient has been admitted on the hospitalist service. We recommend proceeding as follows: Continue IV fluid for hydration Continue n.p.o. status. May consider slowly advancing diet upon return of bowel function. The possibility of placing NG tube was previously discussed with the patient and she wishes to hold off on this modality at the present time due to the sli ght improvement noted of her symptoms. She did note that she would be agreeable to considering this if her abdominal symptoms worsen or if she has further nausea or vomiting Check a.m. labs when available If patient would require surgical intervention, it would likely be best to have her transferred to a tertiary center as she has a complex surgical and oncologic history. She has had previous surgery at [facility]. The treating emergency room physician has contacted a surgeon at this facility who noted that if surgery will need to be entertained he would like to discuss with the surgical team here. Admission and Anticipated Discharge Date Admission Date: July 22, 2022 Supervising Physician Co-Signing Physician Notes I personally saw and evaluated the patient with Soy Grullon PA-C and agree with the assessment and plan 72-year-old female with history of metastatic bladder cancer status post cystectomy with ileal conduit here with small bowel obstruction CT images and results were personally viewed by myself, small bowel obstruction with no discrete transition point She has no abdominal pain at this point Would recommend transfer to [facility] if operative intervention is required due to her multiple abdominal surgeries and ileal conduit in place The patient also would prefer to go there if any operative intervention was needed Subjective Since admission the patient notes that her abdominal symptoms have improved slightly. She denies any worsening pain. She denies any emesis since admission. No bowel movement or flatus noted since admission. Physical Exam Gastrointestinal (Abdomen): Abdomen is soft with minimal distention as noted previously. No rebound tenderness or guarding is noted. No pain with palpation noted. Results & Data Vital Signs (Past 12 Hours) Vital Signs Temp Pulse Pulse Resp BP BP Pulse Ox 07/22/22 22:10 36.8 C 97 H 18 160/97 H 99 07/22/22 21:51 96 H 19 132/75 95 07/22/22 21:14 81 07/22/22 20:58 86 20 139/73 95 07/22/22 18:36 86 14 135/69 96 O2 Del Method 07/22/22 22:10 Room Air 07/22/22 21:51 Room Air 07/22/22 21:14 07/22/22 20:58 Room Air 07/22/22 18:36 Room Air PG Care Time/CCT Total # of Minutes Spent Total Time Spent with Patient: Total time spent is greater than 50% in coordination of care (as documented) at patient's floor/unit and/or counseling patient: Coding Level of Care Code 87326 SUB INP/OBS CARE 05/03MIN Diagnoses SBO (small bowel obstruction) K56.609
[2022-07-23 06:12] LABS: Basophils # (auto) 0.06 K/uL (0-0.2); Basophils % (auto) 0.3 %; Eosinophils # (auto) 0.31 K/uL (0-0.50); Eosinophils % (auto) 1.8 %; Hematocrit (blood only) 23.9 % (37.0-47.0); Hemoglobin 7.7 g/dl (12.0-16.0); Immature Granulocytes # (auto) 0.14 K/uL (0.01-0.20); Immature Granulocytes % (auto) 0.8 %; Lymphocytes # (auto) 1.16 K/uL (1.2-3.4); Lymphocytes % (auto) 6.8 %; Mean Corpuscular Hemoglobin 32.6 pg (25.0-34.0); Mean Corpuscular Hgb Conc 32.2 g/dL (32.0-36.0); Mean Corpuscular Volume 101.3 fL (80.0-100.0); Mean Platelet Volume 9.7 fL (9.4-12.4); Monocytes % (auto) 7.6 %; Neutrophils # (auto) 14.19 K/uL (1.40-6.50); Neutrophils % (auto) 82.7 %; Platelet Count 328 K/uL (130-400); RDW Coefficient of Variation 16.6 % (11.5-14.5); RDW Standard Deviation 60.6 fL (36.4-46.3); Red Blood Count 2.36 M/uL (4.20-5.40); White Blood Count 17.16 K/ul (4.8-10.8)
[2022-07-23 06:20] LABS: Partial Thromboplastin Ratio 1.5
[2022-07-23 06:35] LABS: BUN Creatinine Ratio 26.2 (10-20); Creatinine Clr Calc Pharmacy 28.2 ml/min; Est GFR (African American) 48.9 ml/min; Est GFR (Non-African American) 42.2 ml/min; Potassium 4.6 mmol/L (3.5-5.1)
[2022-07-23] MEDS ORDERED: PANTOprazole 40 MG TAB PO SCH (09:00)
[2022-07-23] MEDS: PANTOprazole 40 MG in SYRINGE 0 ML IV SCH (12:33)
[2022-07-23 12:54] LABS: Appearance Urine Turbid (Clear); Bacteria Urine Automated 3+ (Negative); Bilirubin Urine Negative (Negative); Blood Urine 3+ (Negative); Epithelial Cell Urine Auto 20-30 /lpf (0-5); Glucose Urine UA Negative (Negative); Ketones Urine 1+ (Negative); Leukocyte Esterase Urine 3+ (Negative); Nitrite Urine Negative (Negative); Protein Urine 2+ (Negative); Specific Gravity Urine 1.033 (1.000-1.030); Urobilinogen Urine Negative (Negative); WBC Urine Automated >30 /hpf (0-5)
[2022-07-23 12:56] LABS: Color Urine Amber
[2022-07-23 13:00] LABS: Partial Thromboplastin Ratio 1.5; Partial Thromboplastin Time 41.9 Seconds (21.0-31.0)
[2022-07-23 13:07] LABS: RBC Urine Automated >30 /hpf (0-4)
--- NOTE | 2022-07-23 13:09 | XRay Report ---
KUB CLINICAL HISTORY: Enteric tube placement. FINDINGS: 2 AP, portable, supine abdominal radiographs are compared to study dated 07/15/2022 and corre lated with abdominal CT dated 07/22/2022. An enteric tube has been placed. The tip projects below the diaphragm over the mid to distal stomach. An ostomy projects over the right lower quadrant. Excreted IV sclerotic contrast fills the hydronephrotic right renal collecting systems. Excreted contrast is s een within the bowel loops. There are distended loops of small bowel consistent with patient's known obstruction. This was better assessed on yesterday's CT scan. Bilateral percutaneous nephrostomy tube s and bilateral ureteral stents are in place. Surgical clips project over the pelvis. The skeletal st ructures are osteopenic and appear intact. IMPRESSION: 1. An enteric tube has been placed as above. 2. Excreted IV contrast fills the hydronephrotic renal collecting systems. Excreted contrast is seen within bowel loops. 3. Distended small bowel loops are consistent with the patient's known bowel obstruction. This was be tter assessed on yesterday's CT scan. 4. Additional findings as above. Electronically signed by: Tereso Maxwell M.D. 07/23/2022 1:07 PM
--- NOTE | 2022-07-23 17:15 | Hospitalist Progress Note ---
Date of Service July 23, 2022 Assessment & Plan (1) SBO (small bowel obstruction): Plan: Acute/unstable - High-grade small bowel obstruction - high risk to patient CTA/P: High-grade small bowel obstruction, no transition point but suspected on right lower quadrant at site of postsurgical change. Increased compared to 07/06/2022. Postsurgical changes are noted. Recently discharged 07/18 after SBO which improved with medical care. Patient does wish to have surgical options available, see goals of care discussion below. Is admitted to medical service but would transfer to [facility] if surgical indication is warranted Leukocytosis of 18.86 on admit, reviewed cbc today wbc count 17.16 Pt with worsening abd pain - now agreeable to NGT placement, order placed, auditor supervisor to low intermittent suction - Continue NPO status, IVF, pain control, and antiemetics - Ambulate as able - Will re-eval tomorrow, if no significant improvement, will reach back out re: transfer to [facility] - Appreciate general surgery assistance Goals of care: (from admitting physician) Discussed goals of care with the patient and her daughter at bedside extensively. Patient expresses frustration over her course with multiple complications including the need for nephrostomy tubes, cystectomy, and multiple recurrences of bowel obstruction with recurrent episode feeling worse than prior. She had previously expressed that she did not wish to pursue surgical treatment for small bowel obstruction if at all possible. Discussed various options with patient including surgical intervention, continuing conservative medical care, and transition to palliative or comfort oriented care in the future. Patient expresses appreciation of discussion, notes that she has thought at times that "the good Lord would just take me "but notes that this c omes from a place of frustration. She reports that while she would like to avoid surgery out of fear of the risks and complications, she would still like to have this available as a last resort if her bowel obstruction continues to persist or worsens and would find this preferable at least at this time to TPN or palliative measures. (2) Bladder cancer metastasized to bone: Plan: Chronic/unstable - Follows for cancer treatment in [place] - [facility] - Recently treated for UTI with Zyvox and Fluconazole (3) Acute DVT (deep venous thrombosis): Plan: Chronic/stable - Currently on Heparin gtt d/t NPO status - Normally takes Eliquis at home (4) Hypokalemia: Plan: Acute/stable - Treated and resolved - Reviewed BMP this AM, potassium normal at 4.6 (5) Anemia: Plan: Chronic/stable Hemoglobin at last admission as low as 7.1, recent baseline 12/17 Suspect 2/2 chemotherapy Trend CBC daily Transfuse for hemoglobin less than 7, will require irradiated blood if transfusion indicated No bleeding on admission Plan Above plan of care as outlined. Repeat labs in AM. NGT now place and to low intermittent suction. Above plan of care to be d/w Dr. Houser. Admission and Anticipated Discharge Date Admission Date: July 22, 2022 Subjective Patient was seen on daily rounds this morning. She reports ongoing abdominal pain, prior to this was resistant to placement of an NGT. Has not passed flatus or had BM today. Denies n/v. Physical Exam Physical Exam: GENERAL: 72 yo thin WF who appears chronically ill. NAD. LUNGS: Clear to auscultation bilaterally. No W/R/R. CARDIOVASCULAR: Regular rate and rhythm. ABDOMEN: Soft, mildly distended with tenderness in epigastrium. No BS appreciated. Results & Data Results & Data Vital Signs (Past 12 Hours) Vital Signs Temp Pulse Resp BP Pulse Ox O2 Del Method 07/23/22 14:50 36.8 C 89 17 134/66 96 Room Air 07/23/22 07:13 37.0 C 89 19 137/65 99 Room Air Laboratory Results 07/23/22 05:37 07/23/22 05:37 PG Care Time/CCT Total # of Minutes Spent Total Time Spent with Patient: Total time spent is greater than 50% in coordination of care (as documented) at patient's floor/unit and/or counseling patient: Coding Level of Care Code 74910 SUB INP/OBS CARE 3/50MIN Diagnoses SBO (small bowel obstruction) K56.609 Bladder cancer metastasized to bone C67.9; C79.51 Acute DVT (deep venous thrombosis) I82.409 Hypokalemia E87.6 Anemia D64.9 Anemia type: unspecified type (5) Anemia Anemia type: unspecified type Qualified Code(s): D64.9 - Anemia, unspecified
[2022-07-23] MEDS: HYDROmorphone INJ 0.5 MG/0.5 ML SYR IV PRN (19:20)
[2022-07-23] MEDS: ONDANSETRON INJ 2 MG/ML 2 ML VIAL IV PRN (19:21)
[2022-07-23] MEDS ORDERED: ACETAMINOPHEN 1,000 MG/100 ML VIAL IV STA (19:56)
[2022-07-23 20:25] LABS: Partial Thromboplastin Ratio 1.7
[2022-07-23 21:00] LABS: Partial Thromboplastin Time 46.3 Seconds (21.0-31.0)
[2022-07-23] MEDS: HEPARIN SODIUM/DEXTROSE 25,000 UNITS/500 ML BAG IV SCH (21:45)
[2022-07-24] MEDS: LACTATED RINGER'S 1,000 ML IV SCH ×3 (00:54→20:49)
[2022-07-24] MEDS: HYDROmorphone INJ 0.5 MG/0.5 ML SYR IV PRN (05:48)
[2022-07-24] MEDS: ONDANSETRON INJ 2 MG/ML 2 ML VIAL IV PRN (05:49)
--- NOTE | 2022-07-24 08:32 | XRay Report ---
XR KUB/Abdomen 1 view CLINICAL HISTORY: sbo TECHNIQUE: 1 view of the abdomen was obtained. Comparison: Comparison is made to abdomen radiograph 07/23/2022 FINDINGS: Bilateral percutaneous nephrostomy tubes and ureteral stents are unchanged. Enteric tube is again see n. Redemonstration of left femoral neck fixation hardware. Degenerative changes are seen in the visua lized skeleton. No significant bowel gas is seen. Enteric contrast is seen within bowel loops. IMPRESSION: Previously noted small bowel obstruction is difficult to evaluate due to a paucity of bowel gas. Find ings are otherwise unchanged apart from passage of IV contrast from the renal collecting system. ACT 112: Negative or not required by law. Electronically signed by: Paramjit Solo M.D. 07/24/2022 8:30 AM
[2022-07-24 08:56] LABS: Basophils # (auto) 0.06 K/uL (0-0.2); Basophils % (auto) 0.4 %; Eosinophils # (auto) 0.23 K/uL (0-0.50); Eosinophils % (auto) 1.4 %; Hematocrit (blood only) 25.3 % (37.0-47.0); Immature Granulocytes # (auto) 0.42 K/uL (0.01-0.20); Immature Granulocytes % (auto) 2.5 %; Lymphocytes # (auto) 0.84 K/uL (1.2-3.4); Mean Corpuscular Hemoglobin 32.1 pg (25.0-34.0); Mean Corpuscular Hgb Conc 31.6 g/dL (32.0-36.0); Mean Corpuscular Volume 101.6 fL (80.0-100.0); Mean Platelet Volume 9.6 fL (9.4-12.4); Monocytes # (auto) 0.99 K/uL (0.11-0.59); Monocytes % (auto) 5.9 %; Neutrophils # (auto) 14.14 K/uL (1.40-6.50); Neutrophils % (auto) 84.8 %; Platelet Count 343 K/uL (130-400); RDW Coefficient of Variation 16.7 % (11.5-14.5); RDW Standard Deviation 61.1 fL (36.4-46.3); Red Blood Count 2.49 M/uL (4.20-5.40); White Blood Count 16.68 K/ul (4.8-10.8)
[2022-07-24 09:14] LABS: Partial Thromboplastin Ratio 1.7
[2022-07-24 09:18] LABS: Partial Thromboplastin Time 47.2 Seconds (21.0-31.0)
[2022-07-24 10:13] LABS: BUN Creatinine Ratio 24.8 (10-20); Calcium 8.5 mg/dl (8.6-10.3); Creatinine Clr Calc Pharmacy 32.6 ml/min; Est GFR (African American) 58.3 ml/min; Est GFR (Non-African American) 50.3 ml/min; Magnesium 1.6 mg/dl (1.7-2.4); Potassium 4.2 mmol/L (3.5-5.1)
--- NOTE | 2022-07-24 10:28 | Surgery Progress Note ---
Date of Service July 24, 2022 Assessment & Plan (1) SBO (small bowel obstruction): Plan: Patient here with recurrent SBO NGT in place- 1000cc documented over last 12 hours She denies any pain/n/v. She is not passing any gas/BM Wants to give conservative management another try. If fails may need to reconsider transfer to [facility] where her pervious surgeries were for surgical intervention Recommend starting TPN for nutrition while NPO Admission and Anticipated Discharge Date Admission Date: July 22, 2022 Supervising Physician Co-Signing Physician Notes I personally saw and evaluated the patient with Shelby Bernardo PA-C and agree with the assessment and plan. 72-year-old female here with small bowel obstruction, history of metastatic bladder cancer status post cystectomy with ileal conduit She continues to be without abdominal pain however an NG tube was placed overnight Denies any flatus or BM We can continue to try conservative management, if she were to need an operation I think transfer to her [facility] where all of her operations have been performed would be indicated, also the patient would desire to be operated on there as well We will continue to follow while she is here in the hospital We will start TPN on her as it has been about 2 weeks since she has had any meaningful p.o. intake Subjective Patient denying any abdominal pain or nausea. She currently has NGT in place. Wants to try conservative management again first before entertaining possible surgery Physical Exam Physical Exam: awake/alert, no distress Respiratory: normal respiratory effort Gastrointestinal (Abdomen): Inspection/Auscultation: abdomen not distended Percussion/Palpation: abdomen soft; abdomen nontender NGT in place Results & Data Vital Signs (Past 12 Hours) Vital Signs Temp Pulse Resp BP Pulse Ox O2 Del Method 07/24/22 07:17 36.6 C 78 17 148/76 H 96 Room Air PG Care Time/CCT Total # of Minutes Spent Total Time Spent with Patient: Total time spent is greater than 50% in coordination of care (as documented) at patient's floor/unit and/or counseling patient: Coding Level of Care Code 32101 SUB INP/OBS CARE 25MIN Diagnoses SBO (small bowel obstruction) K56.609
--- NOTE | 2022-07-24 10:52 | Hospitalist Progress Note ---
Date of Service July 24, 2022 Assessment & Plan (1) SBO (small bowel obstruction): Plan: Acute/unstable - High-grade small bowel obstruction - high risk to patient CTA/P: High-grade small bowel obstruction, no transition point but suspected on right lower quadrant at site of postsurgical change. Increased compared to 07/06/2022. Recently discharged 07/18 after SBO which improved with medical care. Patient does wish to have surgical options available, see goals of care discussion below. Is admitted to medical service but would transfer to [facility] if surgical indication is warranted Leukocytosis of 18.86 on admit, reviewed cbc today wbc count essentially unchanged at 16.68 Pt with worsening abd pain - now agreeable to NGT placement, order placed, director of group counseling program to low intermittent suction - Continue NPO status, IVF, pain control, and antiemetics - Ambulate as able - If has to remain NPO into tomorrow - will consider initiating TPN - Appreciate general surgery assistance Goals of care: (from admitting physician) Discussed goals of care with the patient and her daughter at bedside extensively. Patient expresses frustration over her course with multiple complications including the need for nephrostomy tubes, cystectomy, and multiple recurrences of bowel obstruction with recurrent episode feeling worse than prior. She had previously expressed that she did not wish to pursue surgical treatment for small bowel obstruction if at all possible. Discussed various options with patient including surgical intervention, continuing conservative medical care, and transition to palliative or comfort oriented care in the future. Patient expresses appreciation of discussion, notes that she has thought at times that "the good Lord would just take me "but notes that this comes from a place of frustration. She reports that while she would like to avoid surgery out of fear of the risks and complications, she would still like to have this available as a last resort if her bowel obstruction continues to persist or worsens and would find this preferable at least at this time to TPN or palliative measures. (2) UTI (urinary tract infection): Plan: Recurrent/acute/unstable - UA from 07/23 appears grossly infected, urine cx growing multiple organisms - Given foul smelling urine, appearance of UA, h/o recurrent UTIs (most recent VRE), and leukocytosis, will repeat UA/UCx, obtain blood cultures - Initiate IV antibiotics, this was d/w pharmacy, will start empirically on Cefepime + Dapto after cultures and UA collected - Reviewed CBC (as noted above) - repeat in AM in to trend leukocytosis (3) Bladder cancer metastasized to bone: Plan: Chronic/unstable - Follows for cancer treatment in [place] - Recent exchange of nephrost[facility] tubes at [facility] in June 2022 - Recently treated for UTI 07/14 with Zyvox and Fluconazole for VRE + Angie (4) Acute DVT (deep venous thrombosis): Plan: Chronic/stable - Currently on Heparin gtt d/t NPO status - Normally takes Eliquis at home (5) Hypokalemia: Plan: Acute/stable - Treated and resolved - Reviewed BMP this AM, potassium normal at 4.2 (6) Anemia: Plan: Chronic/stable Hemoglobin at last admission as low as 7.1, recent baseline 9-10 Suspect 2/2 chemotherapy Trend CBC daily Transfuse for hemoglobin less than 7, will require irradiated blood if transfusion indicated No bleeding on admission - Reviewed cbc, hgb 8.0 today, no indication for blood (7) Severe protein-calorie malnutrition: Plan: - Weight loss, BMI of 16.5, poor oral intake in setting of metastatic cancer and recurrent small bowel obstruction - Supportive care, unfortunately, pt is currently NPO d/t SBO - Will consider initiating TPN tomorrow but if not, when we advance diet, will add nutrition consult + supplements Plan Above plan of care as outlined. Repeat labs in AM. Discussed with general surgery team. Above plan of care to be d/w Dr. Houser. Admission and Anticipated Discharge Date Admission Date: July 22, 2022 Subjective Patient was seen on daily rounds this morning. She is resting comfortably in bedside chair. Reports no abdominal pain, n/v. She passed a small liquid stool this AM just prior to my arrival. Reports that since NGT placement she has filled 2.5 canisters. Physical Exam Physical Exam: GENERAL: 72 yo thin WF who appears chronically ill. NAD. LUNGS: Clear to auscultation bilaterally. No W/R/R. CARDIOVASCULAR: Regular rate and rhythm. ABDOMEN: Soft, nontender, nondistended. BS present x4 quad. Urostomy bag present, urine dark. Results & Data Results & Data Vital Signs (Past 12 Hours) Vital Signs Temp Pulse Resp BP Pulse Ox O2 Del Method 07/24/22 07:17 36.6 C 78 17 148/76 H 96 Room Air Laboratory Results 07/24/22 08:09 07/24/22 08:09 PG Care Time/CCT Total # of Minutes Spent Total Time Spent with Patient: Total time spent is greater than 50% in coordination of care (as documented) at patient's floor/unit and/or counseling patient: Coding Level of Care Code 57779 SUB INP/OBS CARE 3/50MIN Diagnoses SBO (small bowel obstruction) K56.609 UTI (urinary tract infection) N39.0 Urinary tract infection type: site unspecified Bladder cancer metastasized to bone C67.9; C79.51 Acute DVT (deep venous thrombosis) I82.409 Hypokalemia E87.6 Anemia D64.9 Anemia type: unspecified type Severe protein-calorie malnutrition E43 (2) UTI (urinary tract infection) Urinary tract infection type: site unspecified (6) Anemia Anemia type: unspecified type Qualified Code(s): D64.9 - Anemia, unspecified
[2022-07-24] MEDS: PANTOprazole 40 MG in SYRINGE 0 ML IV SCH (11:00)
[2022-07-24] MEDS: DAPTOmycin 350 MG in SYRINGE 0 ML IV SCH (11:53)
[2022-07-24] MEDS: CEFEPIME 2,000 MG in SYRINGE 0 ML IV SCH ×2 (11:53→20:48)
[2022-07-24 11:59] LABS: Appearance Urine Cloudy (Clear); Bacteria Urine Automated 3+ (Negative); Bilirubin Urine Negative (Negative); Blood Urine 3+ (Negative); Color Urine Yellow; Glucose Urine UA Negative (Negative); Ketones Urine 1+ (Negative); Leukocyte Esterase Urine 3+ (Negative); Nitrite Urine Negative (Negative); Protein Urine 1+ (Negative); Specific Gravity Urine 1.013 (1.000-1.030); Urobilinogen Urine Negative (Negative); WBC Urine Automated >30 /hpf (0-5); pH Urine 6.5 (4.5-7.5)
[2022-07-24 12:26] LABS: RBC Urine Automated >30 /hpf (0-4)
[2022-07-24] MEDS: HEPARIN SODIUM/DEXTROSE 25,000 UNITS/500 ML BAG IV SCH (17:01)
[2022-07-24] MEDS: ACETAMINOPHEN 1,000 MG/100 ML VIAL IV PRN (17:29)
[2022-07-25 07:15] LABS: Basophils # (auto) 0.05 K/uL (0-0.2); Basophils % (auto) 0.3 %; Eosinophils # (auto) 0.19 K/uL (0-0.50); Hematocrit (blood only) 22.2 % (37.0-47.0); Hemoglobin 7.2 g/dl (12.0-16.0); Immature Granulocytes # (auto) 0.13 K/uL (0.01-0.20); Immature Granulocytes % (auto) 0.7 %; Lymphocytes # (auto) 1.09 K/uL (1.2-3.4); Mean Corpuscular Hemoglobin 32.7 pg (25.0-34.0); Mean Corpuscular Hgb Conc 32.4 g/dL (32.0-36.0); Mean Corpuscular Volume 100.9 fL (80.0-100.0); Mean Platelet Volume 9.7 fL (9.4-12.4); Monocytes # (auto) 0.91 K/uL (0.11-0.59); Neutrophils # (auto) 15.78 K/uL (1.40-6.50); Platelet Count 355 K/uL (130-400); RDW Coefficient of Variation 16.5 % (11.5-14.5); RDW Standard Deviation 59.7 fL (36.4-46.3); White Blood Count 18.15 K/ul (4.8-10.8)
[2022-07-25 07:22] LABS: BUN Creatinine Ratio 26.7 (10-20); Calcium 8.3 mg/dl (8.6-10.3); Creatinine Clr Calc Pharmacy 41.4 ml/min; Est GFR (African American) 77.7 ml/min; Potassium 3.9 mmol/L (3.5-5.1)
[2022-07-25] MEDS: LACTATED RINGER'S 1,000 ML IV SCH ×2 (07:28→17:11)
[2022-07-25 07:40] LABS: RBC Morphology Unremarkable
[2022-07-25 07:44] LABS: Partial Thromboplastin Ratio 2.2
[2022-07-25 07:50] LABS: Partial Thromboplastin Time 59.7 Seconds (21.0-31.0)
--- NOTE | 2022-07-25 08:48 | Surgery Progress Note ---
Date of Service July 25, 2022 Assessment & Plan (1) SBO (small bowel obstruction): Plan: 72-year-old female here with small bowel obstruction, history of metastatic bladder cancer status post cystectomy with ileal conduit NGT in place, 550cc dark output noted over last 12 hours Denies pain/nausea/vomiting, but expresses feelings that she just doesn't feel right and "wants something done" Had a small bm yesterday and today, no flatus At this point think transfer to her [facility] where all of her operations have been performed would be indicated, also the patient would desire to be operated on there as well We will continue to follow while she is here in the hospital Consider starting TPN on her as it has been about 2 weeks since she has had any meaningful p.o. intake Admission and Anticipated Discharge Date Admission Date: July 22, 2022 Supervising Physician Co-Signing Physician Notes I personally saw and evaluated the patient with Shelby Bernardo PA-C and agree with the assessment and plan. 72-year-old female here with small bowel obstruction, history of metastatic bladder cancer status post cystectomy with ileal conduit She is having very small bowel movements without much flatus Her NG tube is still dark bilious output We will continue to recommend contacting [facility] in [place] for transfer as I do not think she is going to completely resolve her obstruction without intervention She has no abdominal pain or peritoneal signs Subjective Patient denies any abdominal pain/nausea/vomiting. Says she just doesn't feel right, but cannot pinpoint what is bothering her. She had a small BM yesterday and today, but no flatus. She does feel some hunger. Physical Exam Physical Exam: awake/alert, no distress Respiratory: normal respiratory effort Gastrointestinal (Abdomen): Percussion/Palpation: abdomen soft; abdomen nontender Results & Data Vital Signs (Past 12 Hours) Vital Signs Temp Pulse Resp BP Pulse Ox O2 Del Method 07/25/22 07:12 36.4 C L 107 H 16 154/82 H 99 Room Air PG Care Time/CCT Total # of Minutes Spent Total Time Spent with Patient: Total time spent is greater than 50% in coordination of care (as documented) at patient's floor/unit and/or counseling patient: Coding Level of Care Code 03410 SUB INP/OBS CARE 05/03MIN Diagnoses SBO (small bowel obstruction) K56.885
--- NOTE | 2022-07-25 09:26 | XRay Report ---
XR KUB/Abdomen 1 view CLINICAL HISTORY: f/u sbo TECHNIQUE: 1 view of the abdomen was obtained. Comparison: Comparison is made to abdomen radiograph 07/25/2019 FINDINGS: Stable lines and tubes. Degenerative changes are seen in the visualized skeleton. A few foci of gas a re noted in the small bowel, however degree of distention is difficult to evaluate. Contrast is again noted in the large bowel. IMPRESSION: Findings are essentially unchanged from prior exam. Small bowel obstruction remains difficult to eval uate. ACT 112: Negative or not required by law. Electronically signed by: Paramjit Solo M.D. 07/25/2022 9:25 AM
[2022-07-25] MEDS: CEFEPIME 2,000 MG in SYRINGE 0 ML IV SCH ×2 (10:14→21:09)
[2022-07-25] MEDS: DAPTOmycin 350 MG in SYRINGE 0 ML IV SCH (10:15)
[2022-07-25] MEDS: ACETAMINOPHEN 1,000 MG/100 ML VIAL IV PRN (10:39)
[2022-07-25] MEDS: PANTOprazole 40 MG in SYRINGE 0 ML IV SCH (11:37)
[2022-07-25] MEDS ORDERED: DEXTROSE 10% 1,000 ML IV PRN (14:14)
[2022-07-25] MEDS ORDERED: TPN/PPN CONSULT PHARMACY PRN (14:16)
--- NOTE | 2022-07-25 14:27 | Hospitalist Progress Note ---
Date of Service July 25, 2022 Assessment & Plan (1) SBO (small bowel obstruction): Plan: Acute/unstable - High-grade small bowel obstruction - high risk to patient CTA/P: High-grade small bowel obstruction, no transition point but suspected on right lower quadrant at site of postsurgical change. Increased compared to 07/06/2022. Recently discharged 07/18 after SBO which improved with medical care. Patient does wish to have surgical options available, see goals of care discussion below. Is admitted to medical service but would transfer to [facility] if surgical indication is warranted (surgeon Dr. Brant Farris) Leukocytosis of 18.86 on admit, reviewed cbc today wbc count essentially unchanged, today is 18.15 Pt with worsening abd pain on 07/23 - NGT inserted and placed on low intermittent suction - Continue NPO status, IVF, pain control, and antiemetics - Ambulate as able - Appreciate general surgery assistance - advising transfer to [place] given pt's lack of improvement - Given persistent NPO status, will initiate TPN, order placed and will start on 07/26 - access via port - Call placed to [facility], have spent several hours back and forth with [facility]- will await acceptance and arrange transfer when able. Goals of care: (from admitting physician) Discussed goals of care with the patient and her daughter at bedside extensively. Patient expresses frustration over her course with multiple complications including the need for nephrostomy tubes, cystectomy, and multiple recurrences of bowel obstruction with recurrent episode feeling worse than prior. She had previously expressed that she did not wish to pursue surgical treatment for small bowel obstruction if at all possible. Discussed various options with patient including surgical intervention, continuing conservative medical care, and transition to palliative or comfort oriented care in the future. Patient expresses appreciation of discussion, notes that she has thought at times that "the good Lord would just take me "but notes that this comes from a place of frustration. She reports that while she would like to avoid surgery out of fear of the risks and complications, she would still like to have this available as a last resort if her bowel obstruction continues to persist or worsens and would find this preferable at least at this time to TPN or palliative measures. (2) UTI (urinary tract infection): Plan: Recurrent/acute/unstable - UA from 07/23 appears grossly infected, urine cx growing multiple organisms - Given foul smelling urine, appearance of UA, h/o recurrent UTIs (most recent VRE), and leukocytosis, will repeat UA/UCx - Prelim urine culture with growth of enterococcus (likely vre) - Blood cultures NGTD - Initiate IV antibiotics, this was d/w pharmacy, will start empirically on Cefepime + Dapto after cultures and UA collected - Reviewed CBC (as noted above) - repeat in AM in to trend leukocytosis (3) Bladder cancer metastasized to bone: Plan: Chronic/unstable - Follows for cancer treatment in [place] - Recent exchange of nephrostomy tubes at [facility] in June 2022 - Recently treated for UTI 07/14 with Zyvox and Fluconazole for VRE + Angie (4) Acute DVT (deep venous thrombosis): Plan: Chronic/stable - Currently on Heparin gtt d/t NPO status - Normally takes Eliquis at home (5) Hypokalemia: Plan: Acute/stable - Treated and resolved - Reviewed BMP this AM, potassium normal at 3.9 (6) Anemia: Plan: Chronic/stable Hemoglobin at last admission as low as 7.1, recent baseline 9-10 Suspect 2/2 chemotherapy Trend CBC daily Transfuse for hemoglobin less than 7, will require irradiated blood if transfusion indicated No bleeding on admission - Reviewed cbc, hgb 7.2 today, no indication for blood - continue to monitor (7) Severe protein-calorie malnutrition: Plan: - Weight loss, BMI of 16.5, poor oral intake in setting of metastatic cancer and recurrent small bowel obstruction - Supportive care, unfortunately, pt is currently NPO d/t SBO - Consult to pharmacy to start TPN Plan Plan to arrange for transfer to [facility]. Patient accepted by Dr. Julio Wei, paperwork filled out, patient is just waiting for a bed to be assigned. She is medically stable for ground transport once bed assigned. Above plan of care to be d/w Dr. Houser. Admission and Anticipated Discharge Date Admission Date: July 22, 2022 Subjective Patient was seen on daily rounds this morning. She had another small BM this AM but no flatus. Denies abdominal pain or nausea/vomiting. NGT continues to put out copious amounts of dark bilious material. She denies fever/chills. Continues to have pain in her left thigh/femur. Physical Exam Physical Exam: GENERAL: 72 yo thin WF who appears chronically ill. NAD. LUNGS: Clear to auscultation bilaterally. No W/R/R. CARDIOVASCULAR: Regular rate and rhythm. ABDOMEN: Soft, nontender, nondistended. BS present x4 quad. Urostomy bag present, urine dark. Results & Data Results & Data Vital Signs (Past 12 Hours) Vital Signs Temp Pulse Resp BP Pulse Ox O2 Del Method 07/25/22 11:34 36.6 C 97 H 18 151/79 H 98 Room Air 07/25/22 07:12 36.4 C L 107 H 16 154/82 H 99 Room Air Laboratory Results 07/25/22 06:26 07/25/22 06:26 PG Care Time/CCT Total # of Minutes Spent Total Time Spent with Patient: Total time spent is greater than 50% in coordination of care (as documented) at patient's floor/unit and/or counseling patient: Coding Level of Care Code 08611 SUB INP/OBS CARE 3/50MIN Diagnoses SBO (small bowel obstruction) K56.609 UTI (urinary tract infection) N39.0 Urinary tract infection type: site unspecified Bladder cancer metastasized to bone C67.9; C79.51 Acute DVT (deep venous thrombosis) I82.409 Hypokalemia E87.6 Anemia D64.9 Anemia type: unspecified type Severe protein-calorie malnutrition E43 (2) UTI (urinary tract infection) Urinary tract infection type: site unspecified (6) Anemia Anemia type: unspecified type Qualified Code(s): D64.9 - Anemia, unspecified
[2022-07-25] MEDS ORDERED: TPN/PPN CONSULT PHARMACY STA (14:28)
[2022-07-25] MEDS: HYDROmorphone INJ 1 MG/ML SYRINGE IV PRN (21:09)
[2022-07-26] MEDS: HYDROmorphone INJ 1 MG/ML SYRINGE IV PRN ×2 (02:04→08:17)
[2022-07-26] MEDS: LACTATED RINGER'S 1,000 ML IV SCH (03:00)
[2022-07-26] MEDS: HEPARIN SODIUM/DEXTROSE 25,000 UNITS/500 ML BAG IV SCH ×2 (03:01→08:03)
[2022-07-26 06:25] LABS: Calcium 8.4 mg/dl (8.6-10.3); Creatinine Clr Calc Pharmacy 48.7 ml/min; Est GFR (African American) 94.7 ml/min; Est GFR (Non-African American) 81.7 ml/min; Magnesium 1.2 mg/dl (1.7-2.4); Phosphorus 2.8 mg/dl (2.5-4.9); Potassium 3.6 mmol/L (3.5-5.1)
[2022-07-26 06:59] LABS: Partial Thromboplastin Ratio 2.7
[2022-07-26 07:02] LABS: Partial Thromboplastin Time 75.3 Seconds (21.0-31.0)
[2022-07-26] MEDS: CEFEPIME 2,000 MG in SYRINGE 0 ML IV SCH ×2 (08:03→22:00)
[2022-07-26] MEDS: DAPTOmycin 350 MG in SYRINGE 0 ML IV SCH (08:03)
--- NOTE | 2022-07-26 08:11 | Hospitalist Progress Note ---
Date of Service July 26, 2022 Assessment & Plan (1) SBO (small bowel obstruction): Plan: Acute/unstable - High-grade small bowel obstruction - high risk to patient CTA/P: High-grade small bowel obstruction, no transition point but suspected on right lower quadrant at site of postsurgical change. Increased compared to 07/06/2022. WB 18.8k on admit Recently discharged 07/18 after SBO which improved with medical care. Patient does wish to have surgical options available, see goals of care discussion below. Is admitted to medical service but would transfer to [facility] if surgical indication is warranted (surgeon Dr. Brant Farris) Worsening abdominal pain 07/23, NGT inserted and placed on LIWS General surgery consulted and following -- advising transfer to [place] given pt's lack of improvement, no bed as of present. Paperwork filled out/accepting provider but no bed yet Continue NPO IVF w/ LR @ 100cc/hr provided since admission (wt 44kg) and w/ 3+ LE edema worsened by report DISCONTINUED further IVF at this time (per I&O, patient +4L positive this admission) Will repeat KUB for today TPN to start today (07/26) discussed w/ pharmacy and 1gm mag added as well as 3gm IV this mroning for mag 1.2 Repeat labs this afternoon/further replacement if needed HIGH RISK FOR REFEEDING SYNDROME On Dapto/Cefepime (may need to consider adding Flagyl for anaerobic coverage?) Will repeat CBC w/ diff in AM. Remains AFEBRILE. Bcx ngtd after 24 hours Monitor labs/replacement as indicated Goals of care: (from admitting physician) Discussed goals of care with the patient and her daughter at bedside extensively. Patient expresses frustration over her course with multiple complications including the need for nephrostomy tubes, cystectomy, and multiple recurrences of bowel obstruction with recurrent episode feeling worse than prior. She had previously expressed that she did not wish to pursue surgical treatment for small bowel obstruction if at all possible. Discussed various options with patient including surgical intervention, continuing conservative medical care, and transition to palliative or comfort oriented care in the future. Patient expresses appreciation of discussion, notes that she has thoug ht at times that "the good Lord would just take me "but notes that this comes from a place of frustration. She reports that while she would like to avoid surgery out of fear of the risks and complications, she would still like to have this available as a last resort if her bowel obstruction continues to persist or worsens and would find this preferable at least at this time to TPN or palliative measures. (2) UTI (urinary tract infection): Plan: Recurrent/acute/unstable UA from 07/23 appears grossly infected, urine cx growing multiple organisms - Prelim urine culture with growth of enterococcus (likely vre) - Blood cultures NGTD Repeat now finalized w/ all high counts/repeat collection recommended Will continue for now, monitor blood cultures Monitor CBC in AM to trend leukocytosis (3) Bladder cancer metastasized to bone: Plan: Chronic/unstable Follows for cancer treatment in [place] Recent exchange of nephrostomy tubes at [facility] in June 2022 Recently treated for UTI 07/14 with Zyvox and Fluconazole for VRE + Angie (4) Acute DVT (deep venous thrombosis): Plan: Chronic/stable - Currently on Heparin gtt d/t NPO status - Normally takes Eliquis at home (resume when able if gets to that point) Given hgb 7.2 on labs yesterday, will monitor CBC in AM/check iron panel. Suspect from copious IVF on admit, but also on heparin. No hermelindo bleeding reported. Will also check B12/folate given MCV >100 (5) Hypokalemia: Plan: Acute/stable - Treated and resolved - Reviewed BMP this AM, potassium normal at 3.6 (6) Anemia: Plan: Chronic/stable Hemoglobin at last admission as low as 7.1, recent baseline 9-10 Suspect 2/2 chemotherapy Transfuse for hemoglobin less than 7, will require irradiated blood if transfusion indicated No bleeding on admission - Reviewed cbc, hgb 7.2 yesterday and will monitor repeat counts in AM (7) Severe protein-calorie malnutrition: Plan: - Weight loss, BMI of 16.5, poor oral intake in setting of metastatic cancer and recurrent small bowel obstruction - Supportive care, unfortunately, pt is currently NPO d/t SBO - Consult to pharmacy to start TPN today Plan Planning for transfer to [facility] (accepted by Dr. Julio Wei, paperwork on chart/filled out) Repeating KUB, starting TPN today, electrolyte replacement as indicated Admission and Anticipated Discharge Date Admission Date: July 22, 2022 Subjective eval this morning, states feeling better. no abdominal pain. NGT continues with billious drainage, however she notes a "pop" and reports two larger liquid BM, ostomy w/ liquid output. Discussed repeating KUB, [facility] still without bed at present. Denies being seen by surgery yet this morning. Discussed low mag/TPN to start this afternoon. Denies any SOB/CP at present but does have significant LE edema, much worse than days prior. She notes right always swollen but both are at present. Discontinuing further IVF as had been getting at 100cc/hr. She was inquiring if feeling better/improving on imaging maybe will not require surgery/transfer. Will reach out to general surgery team as well. Repeating labs/mag/phos for this afternoon given risk for refeeding syndrome. She notes she has received TPN in the past. Physical Exam Physical Exam: GENERAL: chronically ill appearing 72 yo female, thin/cachectic, sitting up in recliner, NAD HEENT: NGT w/ bilious drainage present, trachea midline Resp: CTA, no w/c, on room air CV: RRR, no significant m/r, 3+ pitting edema bilateral LE GI: +BS throughout, slight distension, urostomy w/ clear drainage present MSK/Neuro: moves all extremities, follows commands, no facial droop/slurred speech Results & Data Results & Data Vital Signs (Past 12 Hours) Vital Signs Temp Pulse Resp BP Pulse Ox O2 Del Method 07/26/22 07:20 36.6 C 92 H 18 164/87 H 98 Room Air 07/25/22 21:26 Room Air 07/25/22 20:20 36.4 C L 85 166/85 H 98 Room Air Laboratory Results 07/26/22 07/26/22 Range/Units 05:44 05:44 APTT 75.3 H* (21.0-31.0) Seconds PTT Ratio 2.7 Sodium 138 (136-145) mmol/L Potassium 3.6 (3.5-5.1) mmol/L Chloride 101 (98-107) mmol/L Carbon Dioxide 24 (21-32) mmol/L Anion Gap 13 H (3-11) BUN 19 (6-23) mg/dl Creatinine 0.73 (0.6-1.2) mg/dl Est Cr Clr Drug Dosing 48.7 ml/min Est GFR ( Amer) 94.7 ml/min Est GFR (Non-Af Amer) 81.7 ml/min BUN/Creatinine Ratio 26.0 H (10-20) Glucose 69 L (70-99(Fasting)) mg/dl Calcium 8.4 L (8.6-10.3) mg/dl Phosphorus 2.8 (2.5-4.9) mg/dl Magnesium 1.2 L (1.7-2.4) mg/dl Triglycerides 112 (0-150) mg/dl PG Care Time/CCT Total # of Minutes Spent Total Time Spent with Patient: Total time spent is greater than 50% in coordination of care (as documented) at patient's floor/unit and/or counseling patient: Coding Level of Care Code 58577 SUB INP/OBS CARE 3/50MIN Diagnoses SBO (small bowel obstruction) K56.609 UTI (urinary tract infection) N39.0 Urinary tract infection type: site unspecified Bladder cancer metastasized to bone C67.9; C79.51 Acute DVT (deep venous thrombosis) I82.409 Hypokalemia E87.6 Anemia D64.9 Anemia type: unspecified type Severe protein-calorie malnutrition E43 (2) UTI (urinary tract infection) Urinary tract infection type: site unspecified (6) Anemia Anemia type: unspecified type Qualified Code(s): D64.9 - Anemia, unspecified
[2022-07-26] MEDS: MAGNESIUM SULFATE / D5W 1 GM/100 ML BAG IV SCH ×3 (08:18→12:23)
[2022-07-26] MEDS: PANTOprazole 40 MG in SYRINGE 0 ML IV SCH (12:23)
--- NOTE | 2022-07-26 12:36 | Pharmacy Report ---
Pharmacy PN Initial Consult - Date of Service July 26, 2022 - Scope Pharmacy has been consulted to manage parenteral nutrition orders and order appropriate labs. As part of the Nutrition Support Team guidelines, pharmacy will work in conjunction with dietary when determining the patients caloric needs. - Subjective The patient is a 72 year old F admitted on 07/22/22 19:38 for SBO. - Objective Height: 5 ft 5 in Weight: 44.96 kg Diet: NPO Intake & Output (Last 24Hrs): Intake & Output 07/24/22 07/25/22 07/26/22 07/27/22 06:59 06:59 06:59 06:59 Intake Total 2183.317 / 2183.317 3613.450 / 3613.450 2365.335 / 2365.335 257.882 / 257.882 Output Total 3725 / 3725 1839 / 1839 1112 / 1112 Balance -1541.683 / -9507.816 9039.450 / 7460.369 0969.335 / 1253.335 257.882 / 257.882 Weight 44.96 kg 44.96 kg Laboratory Data (Last 24 Hrs):: 07/26/22 05:44 Sodium 138 Potassium 3.6 Chloride 101 Carbon Dioxide 24 BUN 19 Creatinine 0.73 Glucose 69 L Calcium 8.4 L Phosphorus 2.8 Magnesium 1.2 L Triglycerides 112 Nutrition Assessment:: Please refer to the Notes section of the EMR for the most recent vocational examiner note. - Plan Pharmacy consulted to begin TPN today due to prolonged NPO status/SBO. PMHx significant for metastatic bladder cancer. Per notes, plan to transfer to [facility] when bed is available. * Mg low - IV replacement ordered this AM prior to TPN start * Plan to add IV MVI 3x/week due to shortage * All other labs within range, plan to start electrolytes at standard amounts * Will begin TPN at ~75% of Kcal goal today * Discussed with provider and plan to decrease LR fluids at time of start of TPN today to provide patient with additional fluids Macronutrients Amino acids 58 grams/day Dextrose 101 grams/day Lipids 40 grams/day Micronutrients Sodium chloride 40 mEq Sodium acetate 40 mEq Potassium phosphate 21 mMol Potassium chloride 10 mEq Magnesium sulfate 8.12 mEq Calcium gluconate 4.65 mEq Multivitamins 10 mL Trace Elements 10 mL Additional additives: thiamine 100 mg Total volume 792 mL to be infused over 24 hrs will provide 973 kcal/day Labs to be ordered per PN order protocol Pharmacy will follow and adjust parenteral nutrition orders on a daily basis. Thank you.
--- NOTE | 2022-07-26 12:50 | Surgery Progress Note ---
Date of Service July 26, 2022 Assessment & Plan (1) SBO (small bowel obstruction): Plan: She continues to have smoldering symptoms of her small bowel obstruction even though she is having small bowel movements I still think transfer to [facility] would be in her best interest as I do not think this will fully resolve without surgical intervention Continue n.p.o. and NG tube Admission and Anticipated Discharge Date Admission Date: July 22, 2022 Subjective Patient seen and examined. Feeling little bit better. Had a bowel movement. Still with some bilious output in her NG tube. Review of Systems Constitutional: no fever and no chills Physical Exam Constitutional: WD/WN, vitals as above Gastrointestinal (Abdomen): Inspection/Auscultation: abdomen normal to inspection; abdomen not distended Percussion/Palpation: abdomen soft; abdomen nontender and no guarding Results & Data Vital Signs (Past 12 Hours) Vital Signs Temp Pulse Resp BP Pulse Ox O2 Del Method 07/26/22 07:42 Room Air 07/26/22 07:20 36.6 C 92 H 18 164/87 H 98 Room Air PG Care Time/CCT Total # of Minutes Spent Total Time Spent with Patient: Total time spent is greater than 50% in coordination of care (as documented) at patient's floor/unit and/or counseling patient: Coding Level of Care Code 75957 Post Operative Follow-Up Diagnoses SBO (small bowel obstruction) K56.609
--- NOTE | 2022-07-26 14:54 | Discharge Summary ---
Date of Service July 27, 2022 Admission HPI Per Admitting Provider Nichole is a 72-year-old female with past medical history of bladder cancer, bladder removal, hysterectomy who presents with nausea/vomiting and inability to keep down solid food. She has had a history of prior bowel obstruction which feels similar. She was recently discharged this past Sunday after an admission for SBO. Nichole reports she was doing OK with a liquid diet inpatient. When she went home tried cream of wheat, a poached egg, boiled soft foods, at most 1 or two bites at a time but in general could not keep much down. Sunday did not eat anything at all. Has been able to keep fluids down, but no appetite and cannot keep down anything with a thicker texture. No shortness of breath, no aspiration. No chest pain. Started to throw up yesterday, several times. Green in color. No blood/melena. Having a loose bowel movement each morning. BMs are normal, brown but loose. Nothing red or black. No pain at urostomy site. NO discharge. Usually presenting sx of UTI is fever, does not have other urinary symptoms. Temp at home normal. Has not been able to keep most medications down See A&P for goals of care discussion Medical History: Reviewed Medications: Reviewed Surgical History: Reviewed Family history: Reviewed Allergies: Reviewed Social History: No tobacco/ETOH Code Status: Full code Admission Exam Per Admitting Provider General: Thin, frail-appearing HEENT: Atraumatic, normocephalic. Pulm: CTAB A&P. -wheezes, -rales, -rhonchi. Symmetrical chest rise. No increased work of breathing. No respiratory distress. Cardiac: RRR, -mrg. Radial pulses intact and symmetrical. Abdominal: Mildly distended, diffuse mild tenderness without rebound/guarding/rigidity. Urostomy in place, nephrostomy tubes in place. Extremities: Warm, dry, thin Principal Diagnosis Small Bowel Obstruction, Malnourishment Discharge Exam GENERAL: chronically ill appearing 72 yo female, thin/cachectic, sitting up in recliner, NAD HEENT: NGT w/ bilious drainage present, trachea midline Resp: CTA, no w/c, on room air CV: RRR, no significant m/r, 3+ pitting edema bilateral LE GI: +BS throughout, slight distension, urostomy w/ clear drainage present MSK/Neuro: moves all extremities, follows commands, no facial droop/slurred speech Discharge Data Allergies Allergy/AdvReac Type Severity Reaction Status Date / Time Sulfa (Sulfonamide Allergy Unknown CAN'T Verified 07/22/22 16:54 Antibiotics) REMEMBER Consultations 07/22/22 17:16 ED Decision to Admit Stat 07/22/22 22:17 Consult General Surgery Routine Ordered Studies Abdomen/Pelvis CT 07/22/22 15:22 CT SCAN OF THE ABDOMEN AND PELVIS WITH IV CONTRAST CLINICAL HISTORY: Generalized abdominal pain. COMPARISON STUDY: Abdominal CT dated 07/06/2022. TECHNIQUE: Following the IV administration of 86 cc of Optiray 350, CT scan of the abdomen and pelvis is performed from the lung bases to the proximal femora. Images are reviewed in the axial, sagittal, and coronal planes. IV contrast was administered without complication. A dose lowering technique was utilized adhering to the principles of ALARA. CT DOSE: 237.74 mGy.cm FINDINGS: Lung bases: The heart is normal in size and without pericardial effusion. The coronary arteries are densely calcified. The lung bases are clear. Liver: The contrast-enhanced liver is normal in size, contour, and attenuation. There is no intrahepatic biliary ductal dilatation. The hepatic veins and portal veins are patent. Gallbladder: Unremarkable. Spleen: Normal in size and attenuation. Pancreas: Moderately atrophic and grossly unremarkable. Adrenal glands: Unremarkable. Kidneys: The contrast enhanced kidneys demonstrate mild cortical atrophy. Bilateral percutaneous nephrostomy tubes are in place, and there are bilateral ureteral stents. Nonspecific foci of gas are seen within the right renal collecting system. There is moderate to severe bilateral hydronephrosis. Cortical enhancement is heterogeneous bilaterally. No calcifications are identified in either ureter or along the course of the stents. Abdominal vasculature: The abdominal aorta is normal in course and caliber. Bowel: An ostomy is seen in the right lower quadrant. A neobladder versus ileal conduit is seen in the right lower quadrant, in this contains the distal ends of ureteral stents. There are adjacent small bowel anastomosis suture lines. Residual enteric contrast is noted in the decompressed colon. The stomach and small bowel loops are markedly distended and filled with fluid. Small bowel loops measure up to 4.1 cm in diameter this is consistent with a high-grade obstruction. The exact transition point is not well delineated, but is likely related to the anastomoses in the right anterior pelvis. The degree of distention has increased as compared to 07/06/2022. The focally thick-walled bowel loops are seen. No pneumatosis intestinalis or portal venous gas is identified. Peritoneum: There is no intraperitoneal free air or abdominal ascites. Lymphadenopathy: Question a pathologically enlarged lymph node in the upper pelvis on image #[id number]. This measures 1.8 x 1.3 cm. No additional pathologically enlarged lymph nodes are suspected. Pelvic viscera: A normal bladder is not identified and this is presumed surgically absent. The patient is status post hysterectomy. No adnexal lesion is seen. Skeletal structures: The skeletal structures are osteopenic. No lytic or blastic lesions are seen. There is mild lumbosacral spondylosis. Sclerotic change is noted in the sacroiliac joints and pubic symphysis. Chronic deformity and postsurgical change is noted in the left proximal femur. Soft tissues: The patient is cachectic. IMPRESSION: 1. Postsurgical changes as above, with cystectomy, ileal conduit versus neobladder, and right lower quadrant ostomy. Correlate with the surgical history. 2. There is evidence of high-grade small bowel obstruction. A discrete transition point is not delineated, but likely located in the right lower quadrant at the site of postsurgical change. The degree of bowel distention has increased from 07/06/2022. 3. No focally thickened small bowel loops identified. There is no pneumatosis intestinalis, portal venous gas, or intraperitoneal free air. 4. Bilateral percutaneous nephrostomy tubes and ureteral stents are in place. There is severe bilateral hydronephrosis, similar to previous. 5. There are nonspecific foci of gas within the right renal pelvis as well as heterogeneous enhancement of the renal parenchyma. These findings could be related to instrumentation and hydronephrosis. Correlate with clinical findings and urinalysis for evidence of superimposed infection. 6. Question a pathologically enlarged lymph node in the central pelvis. Correlate with the oncological history. 7. Additional findings as above. ACT 112: Negative or not required by law. Electronically signed by: Tereso Maxwell M.D. 07/22/2022 5:09 PM KUB X-Ray 07/23/22 12:15 KUB CLINICAL HISTORY: Enteric tube placement. FINDINGS: 2 AP, portable, supine abdominal radiographs are compared to study dated 07/15/2022 and correlated with abdominal CT dated 07/22/2022. An enteric tube has been placed. The tip projects below the diaphragm over the mid to distal stomach. An ostomy projects over the right lower quadrant. Excreted IV sclerotic contrast fills the hydronephrotic right renal collecting systems. Excreted contrast is seen within the bowel loops. There are distended loops of small bowel consistent with patient's known obstruction. This was better assessed on yesterday's CT scan. Bilateral percutaneous nephrostomy tubes and bilateral ureteral stents are in place. Surgical clips project over the pelvis. The skeletal structures are osteopenic and appear intact. IMPRESSION: 1. An enteric tube has been placed as above. 2. Excreted IV contrast fills the hydronephrotic renal collecting systems. Excreted contrast is seen within bowel loops. 3. Distended small bowel loops are consistent with the patient's known bowel obstruction. This was better assessed on yesterday's CT scan. 4. Additional findings as above. Electronically signed by: Tereso Maxwell M.D. 07/23/2022 1:07 PM KUB X-Ray 07/24/22 08:30 XR KUB/Abdomen 1 view CLINICAL HISTORY: sbo TECHNIQUE: 1 view of the abdomen was obtained. Comparison: Comparison is made to abdomen radiograph 07/23/2022 FINDINGS: Bilateral percutaneous nephrostomy tubes and ureteral stents are unchanged. Enteric tube is again seen. Redemonstration of left femoral neck fixation brunson rdware. Degenerative changes are seen in the visualized skeleton. No significant bowel gas is seen. Enteric contrast is seen within bowel loops. IMPRESSION: Previously noted small bowel obstruction is difficult to evaluate due to a paucity of bowel gas. Findings are otherwise unchanged apart from passage of IV contrast from the renal collecting system. ACT 112: Negative or not required by law. Electronically signed by: Paramjit Solo M.D. 07/24/2022 8:30 AM KUB X-Ray 07/25/22 08:23 XR KUB/Abdomen 1 view CLINICAL HISTORY: f/u sbo TECHNIQUE: 1 view of the abdomen was obtained. Comparison: Comparison is made to abdomen radiograph 07/25/2019 FINDINGS: Stable lines and tubes. Degenerative changes are seen in the visualized skeleton. A few foci of gas are noted in the small bowel, however degree of distention is difficult to evaluate. Contrast is again noted in the large bowel. IMPRESSION: Findings are essentially unchanged from prior exam. Small bowel obstruction remains difficult to evaluate. ACT 112: Negative or not required by law. Electronically signed by: Paramjit Solo M.D. 07/25/2022 9:25 AM Hospital Course (1) SBO (small bowel obstruction): Acute/unstable - High-grade small bowel obstruction - high risk to patient CTA/P: High-grade small bowel obstruction, no transition point but suspected on right lower quadrant at site of postsurgical change. Increased compared to 07/06/2022. WB 18.8k on admit Recently discharged 07/18 after SBO which improved with medical care. Patient does wish to have surgical options available, see goals of care discussion below. Is admitted to medical service but would transfer to [facility] if surgical indication is warranted (surgeon Dr. Brant Farris) Worsening abdominal pain 07/23, NGT inserted and placed on LIWS General surgery consulted and following -- advising transfer to [place] given pt's lack of improvement, no bed as of present. Paperwork filled out/accepting provider but no bed yet Continue NPO IVF w/ LR @ 100cc/hr provided since admission (wt 44kg) and w/ 3+ LE edema worsened by report DISCONTINUED further IVF at this time (per I&O, patient +4L positive this admission) but not requiring O2, lungs clear on exam Repeat KUB ordered -- similar appearance, unchanged and surgery rec continuing to transfer for ongoing care TPN started 07/26-- discussed w/ pharmacy and 1gm mag added as well as 3gm IV for mag 1.2. Mag improved to 1.7 on repeat Continued on Dapto/Cefepime (may need to consider adding flagyl for anaerobic coverage). WBC elevated but remained afebrile. BCx NGTD after 48 hours at time of dc Phos low on AM labs 2.2 however no replacement able to be provider prior to d/c given transportation arrived at same time. Was to be transported to [facility] ([address]) last evening but transport delayed due to availability of staffing to transport. HIGH RISK FOR REFEEDING SYNDROME (2) UTI (urinary tract infection): Recurrent/acute UA from 07/23 appears grossly infected, urine cx growing multiple organisms Prelim urine culture with growth of enterococcus (likely vre)- Blood cultures NGTD at present Repeat now finalized w/ all high counts/repeat collection recommended Abx continued given above, blood cultures remained NGTD Consideration for fungal coverage given hyphae vs colonized given urostomy bag (3) Bladder cancer metastasized to bone: Chronic/unstable Follows for cancer treatment in [place] Recent [facility] Recently treated for UTI 07/14 with Zyvox and Fluconazole for VRE + Angie Goals of care: (from admitting physician) Discussed goals of care with the patient and her daughter at bedside extensively. Patient expresses frustration over her course with multiple complications including the need for nephrostomy tubes, cystectomy, and multiple recurrences of bowel obstruction with recurrent episode feeling worse than prior. She had previously expressed that she did not wish to pursue surgical treatment for small bowel obstruction if at all possible. Discussed various options with patient including surgical intervention, continuing conservative medical care, and transition to palliative or comfort oriented care in the future. Patient expresses appreciation of discussion, notes that she has thought at times that "the good Lord would just take me "but notes that this comes from a place of frustration. She reports that while she would like to avoid surgery out of fear of the risks and complications, she would still like to have this available as a last resort if her bowel obstruction continues to persist or worsens and would find this preferable at least at this time to TPN or palliative measures. (4) Acute DVT (deep venous thrombosis): Chronic/stable On Heparin gtt d/t NPO status (Normally takes Eliquis at home) Iron panel w/ AM labs before dc showed iron 104, unsat IBC LOW <55. Ferritin elevated 1087, likely reactive from above B12 acceptable. Folate 8.6 Macrocytosis could also be from malignancy as above Hgb stable 8.4, and had been on copious IVF. No hermelindo bleeding. Improved since d/c IVF given LE edema, however did not appear ever hypoxic/o2 requirement or w/ pulm edema Consider checking TSH at tertiary center for further eval (5) Hypokalemia: Repeated lows, likely from lack of PO intake. Repeat K wnk at 3.6 yesterday morning -- also to be in TPN K low again this morning 3.1 --> K phos attempted to be ordered prior to dc but transport arrived. Would rec addition of more K supp to TPN overnight/IV replacement pending repeat labs at tertiary center (6) Anemia: Chronic/stable Hemoglobin at last admission as low as 7.1, recent baseline 9-10 Suspect 2/2 chemotherapy Transfuse for hemoglobin less than 7, will require irradiated blood if transfusion indicated No bleeding on admission - Reviewed cbc, hgb 8>8 as above, no hermelindo bleeding reported (7) Severe protein-calorie malnutrition: Weight loss, BMI of 16.5, poor oral intake in setting of metastatic cancer and recurrent small bowel obstruction Supportive care, unfortunately, pt is currently NPO d/t SBO Consulted pharmacy to start TPN as above Plan Planning for transfer to [facility] (accepted by Dr. Julio Wei, paperwork on chart/filled out) Total Time Total Time Spent Total Time Spent (In Minutes): 55 Discharge Plan Discharge Items Patient Disposition: Transfer Acute Care Hospital Reason For Visit: SBO Discharge Diagnosis: SBO Activity: As commented below Non-emergency contact: Primary Care Provider and Surgeon Call non-emergency contact if: you have any medication questions Follow-up/Referrals: Reyna Tidwell DO [Primary Care Provider] - Diet: Nothing by Mouth Addtl Attending Provider Instructions: You have been hospitalized for a repeat small bowel obstruction. General surgery was consulted and NG tube was placed. Repeat imaging is still concerning for obstruction and surgery continues to recommend transfer for ongoing care and very likely need for surgery and concerns for recurrence once NG tube is removed. Arrangements have been made for [facility] for ongoing care. You will continue NPO and Heparin drip in meantime for your acute DVT and can resume eliquis when taking oral agents. Would recommend checking iron studies/B12/folate in transfer for ongoing anemia which is felt to be related to chemotherapy. It has been a pleasure being a part of the medical team providing for you while you have been in the hospital and I wish you the best! Pending Studies at Discharge: Yes Studies:: Blood cultures -- no growth to date Stand-Alone Forms: My [facility] Skilled Items Patient informed of condition?: Yes DNR: No Discharge Level of Care: Other Communicable Disease: No Discharge Prognosis: Stable Lines: Peripheral IV Urinary Catheter: No Medications and DC Order Prescriptions: Continued acetaminophen 500 mg Tablet 1,000 mg PO Q6H PRN (Reason: Fever Or Pain) Ayur-Boswellia Aniket 2 tab PO BID Rx Instructions: without food hydroxyzine HCl 25 mg tablet 25 mg PO QAM lysine [L-Lysine] 500 mg Tablet 500 mg PO DAILY cholecalciferol (vitamin D3) [Vitamin D3] 125 mcg (5,000 unit) Tablet 125 mcg PO DAILY magnesium citrate 100 mg Capsule 150 mg PO DAILY Berberine Complex 2 cap PO BID Curcu-Essentials 1 tab PO BID Curcumin Iv 0 mg IV DIRECTED Glutathione Iv 0 mg IV DIRECTED Rx Instructions: once per cycle Isoflavone Caps 2 cap PO BID Rx Instructions: TAKE ON EMPTY STOMACH Methyl-Guard 1 cap PO DAILY Multivitamin Iv 0 mg IV DIRECTED Rx Instructions: once per cycle Nutri-Essentials 2 cap PO DAILY Opti-Cell Plus 3 tab PO BID Proepa 1 tab PO BID Quercetin Iv 0 mg IV DIRECTED Reservatrol Iv 0 mg IV DIRECTED Rx Instructions: once per cycle Ultra Lipoic Essentials 2 tab PO BID Ultra Reishi 2 tab PO BID Rx Instructions: take without food Vitamin C Iv 0 mg IV DIRECTED Rx Instructions: once per cycle fentanyl 50 mcg/hr patch 72 hour 50 mcg topical [id number] Rx Instructions: CHANGED 07/23/22. digestive enzymes Capsule 1 cap PO TID Rx Instructions: administer with food; swallow whole; do not crush/chew/dissolve/break/cut ciprofloxacin HCl 250 mg tablet 250 mg PO DAILY docusate sodium [Colace] 100 mg Capsule 100 mg PO TID loratadine [Claritin] 10 mg Tablet 10 mg PO DIRECTED Rx Instructions: once norah every other week following udenyca injections. oxycodone 10 mg tablet 10 mg PO .Q4-6HRS PRN (Reason: Pain) oxycodone 10 mg tablet 10 mg PO DAILY Chemo Drugs 0 mg DIRECTED famotidine 20 mg Tablet 20 mg PO BID 30 Days Qty: 60 1RF pantoprazole 40 mg Tablet,Delayed Release (Dr/Ec) 40 mg PO BID 30 Days Qty: 60 1RF ondansetron 4 mg Tablet,Disintegrating 4 mg PO QID PRN (Reason: nausea and vomiting) 30 Days Qty: 60 2RF dronabinol 10 mg capsule 10 mg PO BID Qty: 60 0RF Rx Instructions: administer before lunch and evening meal/dinner zinc 15 mg Tablet 15 mg PO DAILY Discharge Orders: Discharge Order (Routine); Ordered 07/26/22 Ordered By: Leyda Hardy Admission Data Admit Date/Time: 07/22/22 19:38 Attending Provider: Denny Faria Admit Provider: Jamie Chavarria Primary Care Provider: Reyna Tidwell Other Providers: Jamie Chavarria ; David Magana Other Interventions: Discharge Summary Assessment (RN) Last Done: 07/27/22 08:46 Supervising Physician Co-Signing Physician Notes The patient was seen by me. The chart was reviewed. Case discussed with JOHNSON Wells. Agree with assessment and plan. She will be discharged to [facility] in [place] today. Coding Level of Care Code 81932 INP/OBS DISCH >30 MIN Diagnoses SBO (small bowel obstruction) K56.609 UTI (urinary tract infection) N39.0 Urinary tract infection type: site unspecified Bladder cancer metastasized to bone C67.9; C79.51 Acute DVT (deep venous thrombosis) I82.409 Hypokalemia E87.6 Anemia D64.9 Anemia type: unspecified type Severe protein-calorie malnutrition E43
--- NOTE | 2022-07-26 15:07 | XRay Report ---
KUB HISTORY: Bowel obstruction. Follow-up. COMPARISON: KUB 07/25/2022. FINDINGS: There again noted a few mildly dilated gas-filled loops of small bowel within the left side the abdomen. This likely corresponds to the patient's known small bowel obstruction. This is similar to the prior study. A nasogastric tube terminates in the mid stomach. Bilateral nephroureteral sten ts remain unchanged in position. Postoperative changes within the proximal left femur again noted. Th ere are surgical clips within the pelvis. No pneumoperitoneum or pneumatosis. IMPRESSION: 1. No change in the small bowel obstruction pattern. 2. Lines/tubes remain unchanged in position. ACT 112: Negative or not required by law. Electronically signed by: Varghese Maher M.D. 07/26/2022 3:05 PM
[2022-07-26 15:26] LABS: Partial Thromboplastin Ratio 4.7
[2022-07-26 15:31] LABS: Partial Thromboplastin Time 130.4 Seconds (21.0-31.0)
[2022-07-26] MEDS ORDERED: CENTRAL TPN IV SCH (16:00)
[2022-07-26] MEDS ORDERED: CLINOLIPID 20% IV FAT EMULSION 200 ML IV SCH ×2 (16:00)
[2022-07-26] MEDS ORDERED: [UNRECOGNIZED DRUG - OTHER] IV SCH (16:00)
[2022-07-26] MEDS ORDERED: fentaNYL 50 MCG/HR TDSY TD SCH (16:00)
[2022-07-26] MEDS ORDERED: LACTATED RINGER'S 1,000 ML IV SCH (16:00)
[2022-07-26] MEDS: CHECK fentaNYL PATCH PLACEMENT SCH (16:36)
[2022-07-26] MEDS: ACETAMINOPHEN 1,000 MG/100 ML VIAL IV PRN (16:45)
--- NOTE | 2022-07-26 17:22 | Hospitalist Progress Note ---
Date of Service July 26, 2022 Assessment & Plan (1) SBO (small bowel obstruction): Plan: (1) SBO (small bowel obstruction): Acute/unstable - High-grade small bowel obstruction - high risk to patient CTA/P: High-grade small bowel obstruction, no transition point but suspected on right lower quadrant at site of postsurgical change. Increased compared to 07/06/2022. WB 18.8k on admit Recently discharged 07/18 after SBO which improved with medical care. Patient does wish to have surgical options available, see goals of care discussion below. Is admitted to medical service but would transfer to [facility] if surgical indication is warranted (surgeon Dr. Brant Farris) Worsening abdominal pain 07/23, NGT inserted and placed on LIWS General surgery consulted and following -- advising transfer to [place] given pt's lack of improvement, no bed as of present. Paperwork filled out/accepting provider but no bed yet Continue NPO IVF w/ LR @ 100cc/hr provided since admission (wt 44kg) and w/ 3+ LE edema worsened by report DISCONTINUED further IVF at this time (per I&O, patient +4L positive this admission) but not requiring O2, lungs clear on exam Repeat KUB ordered for today -- offical read pending but appearing similar to prior --> official read no change TPN to start today (07/26) discussed w/ pharmacy and 1gm mag added as well as 3gm IV this morning for mag 1.2 Repeat labs this afternoon/further replacement if needed, including phos. HIGH RISK FOR REFEEDING SYNDROME On Dapto/Cefepime (may need to consider adding Flagyl for anaerobic coverage?) Will repeat CBC w/ diff in AM. Remains AFEBRILE. Bcx ngtd after 24 hours Monitor labs/replacement as indicated Awaiting bed at [facility] --> [address] Working on transportation, dc when arranged Goals of care: (from admitting physician) Discussed goals of care with the patient and her daughter at bedside extensively. Patient expresses frustration over her course with multiple complications including the need for nephrostomy tubes, cystectomy, and multiple recurrences of bowel obstruction with recurrent episode feeling worse than prior. She had previously expressed that she did not wish to pursue surgical treatment for small bowel obstruction if at all possible. Discussed various options with patient including surgical intervention, continuing conservative medical care, and transition to palliative or comfort oriented care in the future. Patient expresses appreciation of discussion, notes that she has thought at times that "the good Lord would just take me "but notes that this comes from a place of frustration. She reports that while she would like to avoid surgery out of fear of the risks and complications, she would still like to have this available as a last resort if her bowel obstruction continues to persist or worsens and would find this preferable at least at this time to TPN or palliative measures. (2) UTI (urinary tract infection): Recurrent/acute UA from 07/23 appears grossly infected, urine cx growing multiple organisms Prelim urine culture with growth of enterococcus (likely vre) - Blood cultures NGTD at present Repeat now finalized w/ all high counts/repeat collection recommended Will continue for now, monitor blood cultures to ensure negative, urine clearer in bag at present compared to prior report Monitor CBC in AM to trend leukocytosis (3) Bladder cancer metastasized to bone: Chronic/unstable Follows for cancer treatment in [place] Recent exchange of nephrostomy tubes at [facility] in June 2022 Recently treated for UTI 07/14 with Zyvox and Fluconazole for VRE + Angie Fentanyl patch ordered for pain control -- was to be changed yesterday (4) Acute DVT (deep venous thrombosis): Chronic/stable Currently on Heparin gtt d/t NPO status Normally takes Eliquis at home (resume when able if gets to that point) Given hgb 7.2 on labs yesterday, will monitor CBC in AM/check iron panel. Suspect from copious IVF on admit, but also on heparin. No hermelindo bleeding r eported. Would also rec checking B12/folate if not done recently given MCV >100. Can also consider checking TSH (prior was normal) (5) Hypokalemia: Acute/stable - Treated and resolved - Reviewed BMP this AM, potassium normal at 3.6 (6) Anemia: Chronic/stable Hemoglobin at last admission as low as 7.1, recent baseline 9-10 Suspect 2/2 chemotherapy Transfuse for hemoglobin less than 7, will require irradiated blood if transfusion indicated No bleeding on admission - Reviewed cbc, hgb 7.2 yesterday and monitoring repeat counts in AM (7) Severe protein-calorie malnutrition: Weight loss, BMI of 16.5, poor oral intake in setting of metastatic cancer and recurrent small bowel obstruction Supportive care, unfortunately, pt is currently NPO d/t SBO Consulted pharmacy to start TPN today Plan Planning for transfer to [facility] (accepted by Dr. Julio Wei, paperwork on chart/filled out) -- was going to take tonight, but medics unavailable to transport until 830am tomorrow morning Admission and Anticipated Discharge Date Admission Date: July 22, 2022 Supervising Physician Co-Signing Physician Notes The patient was seen by me. The chart was reviewed. Case discussed with JOHNSON Wells. Agree with assessment and plan. She will be discharged to [facility] in [place] tomorrow, July 27 Subjective Eval this morning, no SOB/CP at present but does have increased LE edema, IVF to dc. TPN to start this afternoon, she reports she has been on such before. Discussed w/ pharmacy and added additional mag to TPN as well and plan on repeat labs tonight given high risk for refeeding syndrome. Reports two bowel movements. she was initially hopeful to get NGT removed, but as discussed w/ surgery they rec transfer given high recurrance w/ removal and suspecting need for surgery No fever/chills, no nausea/vomiting w NGT in place. She continues to voice her want for some meatloaf as she heard that's what they are having for supper tonight. Supportive care provided. Results & Data Results & Data Vital Signs (Past 12 Hours) Vital Signs Temp Pulse Resp BP Pulse Ox O2 Del Method 07/26/22 15:09 36.6 C 87 16 155/79 H 97 Room Air 07/26/22 07:42 Room Air 07/26/22 07:20 36.6 C 92 H 18 164/87 H 98 Room Air Laboratory Results 07/26/22 07/26/22 07/26/22 Range/Units 14:10 05:44 05:44 APTT 130.4 H* 75.3 H* (21.0-31.0) Seconds PTT Ratio 4.7 2.7 Sodium 138 (136-145) mmol/L Potassium 3.6 (3.5-5.1) mmol/L Chloride 101 (98-107) mmol/L Carbon Dioxide 24 (21-32) mmol/L Anion Gap 13 H (3-11) BUN 19 (6-23) mg/dl Creatinine 0.73 (0.6-1.2) mg/dl Est Cr Clr Drug Dosing 48.7 ml/min Est GFR ( Amer) 94.7 ml/min Est GFR (Non-Af Amer) 81.7 ml/min BUN/Creatinine Ratio 26.0 H (10-20) Glucose 69 L (70-99(Fasting)) mg/dl Calcium 8.4 L (8.6-10.3) mg/dl Phosphorus 2.8 (2.5-4.9) mg/dl Magnesium 1.2 L (1.7-2.4) mg/dl Triglycerides 112 (0-150) mg/dl Diagnostic Findings KUB X-Ray 07/26/22 12:34 KUB HISTORY: Bowel obstruction. Follow-up. COMPARISON: KUB 07/25/2022. FINDINGS: There again noted a few mildly dilated gas-filled loops of small bowel within the left side the abdomen. This likely corresponds to the patient's known small bowel obstruction. This is similar to the prior study. A nasogastric tube terminates in the mid stomach. Bilateral nephroureteral stents remain unchanged in position. Postoperative changes within the proximal left femur again noted. There are surgical clips within the pelvis. No pneumoperitoneum or pneumatosis. IMPRESSION: 1. No change in the small bowel obstruction pattern. 2. Lines/tubes remain unchanged in position. ACT 112: Negative or not required by law. Electronically signed by: Varghese Maher M.D. 07/26/2022 3:05 PM PG Care Time/CCT Total # of Minutes Spent Total Time Spent with Patient: Total time spent is greater than 50% in coordination of care (as documented) at patient's floor/unit and/or counseling patient: Coding Level of Care Code 10853 SUB INP/OBS CARE 3/50MIN Diagnoses SBO (small bowel obstruction) K56.609
[2022-07-26 18:43] LABS: Albumin Level 2.6 gm/dl (3.4-5.0); Bilirubin,Total 0.3 mg/dl (0.2-1.0); Calcium 8.2 mg/dl (8.6-10.3); Magnesium 1.9 mg/dl (1.7-2.4); Potassium 3.4 mmol/L (3.5-5.1)
[2022-07-26 18:49] LABS: Creatinine Clr Calc Pharmacy 52.3 ml/min; Est GFR (African American) 100.6 ml/min; Est GFR (Non-African American) 86.8 ml/min; Globulin 2.5 gm/dl (2.5-4.0); Phosphorus 2.4 mg/dl (2.5-4.9); Total Protein 5.1 gm/dl (6.0-8.3)
[2022-07-26] MEDS ORDERED: STOP CLINOLIPID SCH (22:00)
[2022-07-26 22:09] LABS: Partial Thromboplastin Ratio 1.4; Partial Thromboplastin Time 38.4 Seconds (21.0-31.0)
[2022-07-26 22:14] LABS: Hematocrit (blood only) 24.8 % (37.0-47.0); Hemoglobin 8.2 g/dl (12.0-16.0); Mean Corpuscular Hemoglobin 33.5 pg (25.0-34.0); Mean Corpuscular Hgb Conc 33.1 g/dL (32.0-36.0); Mean Corpuscular Volume 101.2 fL (80.0-100.0); Mean Platelet Volume 9.9 fL (9.4-12.4); Platelet Count 422 K/uL (130-400); RDW Coefficient of Variation 16.7 % (11.5-14.5); RDW Standard Deviation 61.9 fL (36.4-46.3); Red Blood Count 2.45 M/uL (4.20-5.40); White Blood Count 21.27 K/ul (4.8-10.8)
[2022-07-27] MEDS: HYDROmorphone INJ 1 MG/ML SYRINGE IV PRN (00:21)
[2022-07-27] MEDS: CHECK fentaNYL PATCH PLACEMENT SCH (00:39)
[2022-07-27] MEDS: HYDROmorphone INJ 0.5 MG/0.5 ML SYR IV PRN (05:44)
[2022-07-27 06:18] LABS: Basophils # (auto) 0.05 K/uL (0-0.2); Basophils % (auto) 0.2 %; Eosinophils # (auto) 0.26 K/uL (0-0.50); Eosinophils % (auto) 1.3 %; Hemoglobin 8.4 g/dl (12.0-16.0); Immature Granulocytes # (auto) 0.25 K/uL (0.01-0.20); Immature Granulocytes % (auto) 1.2 %; Lymphocytes # (auto) 1.11 K/uL (1.2-3.4); Lymphocytes % (auto) 5.5 %; Mean Corpuscular Hemoglobin 33.1 pg (25.0-34.0); Mean Corpuscular Hgb Conc 33.6 g/dL (32.0-36.0); Mean Corpuscular Volume 98.4 fL (80.0-100.0); Mean Platelet Volume 9.4 fL (9.4-12.4); Monocytes # (auto) 0.99 K/uL (0.11-0.59); Monocytes % (auto) 4.9 %; Neutrophils % (auto) 86.9 %; Platelet Count 389 K/uL (130-400); RDW Coefficient of Variation 16.4 % (11.5-14.5); RDW Standard Deviation 58.2 fL (36.4-46.3); Red Blood Count 2.54 M/uL (4.20-5.40); White Blood Count 20.06 K/ul (4.8-10.8)
[2022-07-27 06:35] LABS: Partial Thromboplastin Ratio 1.3; Partial Thromboplastin Time 36.7 Seconds (21.0-31.0)
[2022-07-27 06:56] LABS: Ferritin 1087.5 ng/ml (8-388)
[2022-07-27 07:28] LABS: Albumin Level 2.8 gm/dl (3.4-5.0); Anion Gap 9 (3-11); Bilirubin,Total 0.4 mg/dl (0.2-1.0); Calcium 8.3 mg/dl (8.6-10.3); Carbon Dioxide 28 mmol/L (21-32); Chloride 100 mmol/L (98-107); Magnesium 1.7 mg/dl (1.7-2.4); Potassium 3.1 mmol/L (3.5-5.1); Sodium 137 mmol/L (136-145)
[2022-07-27 07:34] LABS: BUN Creatinine Ratio 27.7 (10-20); Blood Urea Nitrogen 18 mg/dl (6-23); Creatinine Clr Calc Pharmacy 54.7 ml/min; Est GFR (African American) 102.1 ml/min; Est GFR (Non-African American) 88.1 ml/min; Glucose 116 mg/dl (70-99(Fasting))
[2022-07-27 07:37] LABS: Alanine Aminotransferase 5 U/L (7-52); Albumin Globulin Ratio 0.9 (0.9-2); Alkaline Phosphatase 74 U/L (34-104); Aspartate Aminotransferase 10 U/L (13-39); Iron 104 mcg/dl (35-150); Phosphorus 2.2 mg/dl (2.5-4.9); Total Protein 5.8 gm/dl (6.0-8.3); Unsaturated Iron Binding Cap < 55 mcg/dl (155-355)
--- NOTE | 2022-07-27 07:53 | Surgery Progress Note ---
Date of Service July 27, 2022 Assessment & Plan (1) SBO (small bowel obstruction): Plan: Patient here with recurrent SBO in setting of metastatic bladder cancer She is feeling better from abdominal standpoint, no pain/n/v. Reports + bm's and flatus NGT 300cc bilious drainage over last 12 hours KUB obtained yesterday showed ongoing small bowel dilation and unchanged appearance of SBO Agree with moving forward with transfer to [place] as is already in motion and if continues to fail conservative measures she will be at a facility where he prior surgeries were for intervention if needed Admission and Anticipated Discharge Date Admission Date: July 22, 2022 Subjective Patient currently denies any abdominal pain, nausea/vomiting. Reports having BM's yesterday and passing flatus. Biggest complaint currently is leg pain and wishes to eat Physical Exam Physical Exam: awake/alert, no distress Gastrointestinal (Abdomen): Inspection/Auscultation: abdomen not distended Percussion/Palpation: abdomen soft; abdomen nontender NGT 300 dark bilious drainage over last 12 hours Results & Data Vital Signs (Past 12 Hours) Vital Signs Temp Pulse Resp BP Pulse Ox O2 Del Method 07/27/22 07:09 36.5 C 90 16 164/84 H 98 Room Air 07/26/22 22:05 36.7 C 89 16 160/81 H 97 Room Air PG Care Time/CCT Total # of Minutes Spent Total Time Spent with Patient: Total time spent is greater than 50% in coordination of care (as documented) at patient's floor/unit and/or counseling patient: Coding Level of Care Code 50854 SUB INP/OBS CARE 125MIN Diagnoses SBO (small bowel obstruction) K56.609
[2022-07-27] MEDS ORDERED: POTASSIUM PHOS 3 MMOL/1 ML INFUSION IV STA (08:31)
[2022-07-27] MEDS ORDERED: POTASSIUM PHOSPHATE 15 MMOL in SODIUM CHLORIDE 0.9% 250 ML IV ONE (09:00)
== END 2022-07-27 08:51 | disposition short-term general hospital (02) | DRG 388 ==
LOC: ED 14:46 → 3W 19:38 → SUATTDRO 19:38 → 3W 21:51

== ENCOUNTER 2022-10-18 14:52 | Inpatient (IN) ==
--- NOTE | 2022-10-18 16:19 | Emergency Department Note ---
Impression & Plan Hypercalcemia, Severe protein-calorie malnutrition, Bladder cancer metastasized to bone, Hyperalbuminemia ED Provider Note NAME: DANIEL ANGLIN AGE: 72 SEX: F ARRIVES VIA: Walk-In INFORMANT: Patient ED PROVIDER(S): Nahid Delgadillo MD CHIEF COMPLAINT: Hypercalcemia, referred, metastatic cancer PLAN: Disposition: Admit MEDICAL DECISION MAKING: The patient is a pleasant 72-year-old woman with a past medical history of metastatic bladder cancer with bony metastases who is status post urostomy and recent bowel obstruction status post surgery [facility] who presents to the emergency department via walk-in, accompanied by her daughter for evaluation of hypercalcemia noted on outpatient blood work to 13.5 on Sunday. They report that the patient has been repetitively hospitalized over the past 6 months and she wanted to avoid hospitalization and so her primary care doctor was attempting to obtain IV fluid hydration at home through home health but today were told that this is not possible and so present for evaluation. They deny any fevers, chills, cough, congestion. They report she is being treated empirically with oral doxycycline for the possibility of osteomyelitis in her left hip. She describes that she has had chronically elevated WBC which was high as 60K and recently has down trended to low 50K-high 40K. The patient has not been on cancer treatment since April due to mass and at this time the daughter reports that they will not resume treatment until the patient's nutrition improves and she is able to gain weight which they knowledge is a recurring challenge given her recurring hypercalcemia. On arrival the patient is chronically ill-appearing, fatigued but no acute distress, afebrile with stable vital signs. She appears clinically dry. She is cachectic appearing. Bilateral lower extremity pitting edema present in setting of hypoalbuminemia. EKG without overt acute ischemia. WBC 55.4K approximate to prior value this past Sunday of 48K. H/H 8.8/27 similar to prior range values. Platelets within normal limits. Chemistry without metabolic acidosis. Calcium is elevated at 13.5 and corrects to 14.4 in the setting of hypoalbuminemia with albumin of 2.9. Sodium 132 and electrolytes otherwise without significant abnormality. LFTs are not elevated. Patient was treated with IV fluid hydration and given severity of hypercalcemia Calcitonin administered. Patient and her daughter agree with plan for admission given the severity of her hypercalcemia. Case was d/w Dr. Sylvester [facility] [place] who will evaluate the patient for admission. Triage Nursing notes reviewed and agree them. Prior/outside medical records reviewed Vital Signs: reviewed Differential diagnosis: Infection, dehydration, metabolic abnormality, hypo/hyperglycemia, electrolyte disturbance, anemia, hypoxia, cardiac sources, intracerebral event, toxicologic, neurologic, as well as other pathologies. ER treatment provided: See below. Diagnostics interpreted by me: ECG: Normal sinus rhythm, 98 bpm, no ectopy, no overt ST elevation or depression, QTc 416, QRS 82 Cardiac Monitoring: An order for continuous cardiac monitoring was placed and demonstrated normal sinus rhythm, 98 bpm, no ectopy. Laboratory studies: See below Imaging studies: See below Consultation(s): Case was d/w [facility] hospitalist who will evaluate the patient for admission. HPI: The patient is a pleasant 72-year-old woman with a past medical history of metastatic bladder cancer with bony metastases who is status post urostomy and recent bowel obstruction status post surgery [facility] who presents to the emergency department via walk-in, accompanied by her daughter for evaluation of hypercalcemia noted on outpatient blood work to 13.5 on Sunday. They report that the patient has been repetitively hospitalized over the past 6 months and she wanted to avoid hospitalization and so her primary care doctor was attempting to obtain IV fluid hydration at home through home health but today were told that this is not possible and so present for evaluation. They deny any fevers, chills, cough, congestion. They report she is being treated empirically with oral doxycycline for the possibility of osteomyelitis in her left hip. She describes that she has had chronically elevated WBC which was high as 60K and recently has down trended to low 50K-high 40K. The patient has not been on cancer treatment since April due to mass and at this time the daughter reports that they will not resume treatment until the patient's nutrition improves and she is able to gain weight which they knowledge is a recurring challenge given her recurring hypercalcemia. ROS: See above HPI for pertinent positives & negatives. A total of 10 systems reviewed and were otherwise negative. VITALS:See Below PHYSICAL EXAMINATION: GENERAL: Awake, alert, acute on chronically ill appearing, in no distress HENT: Normocephalic, atraumatic. Oropharynx with dry mucous membranes and otherwise unremarkable. EYES: Normal conjunctiva. Sclera non-icteric. NECK: Supple. No nuchal rigidity. FROM. No JVD. RESPIRATORY: Clear to auscultation. CARDIAC: Regular rate, normal rhythm. Extremities warm and well perfused. Pulses equal. ABDOMEN: Soft, non-distended. No tenderness to palpation. No rebound or guardi ng. Urostomy present with site clean dry and intact without erythema warmth or tenderness. RECTAL: Deferred. MUSCULOSKELETAL: Chest examination reveals no tenderness. The back is symmetrical on inspection without obvious abnormality. There is no CVA tenderness to palpation. No joint edema. LOWER EXTREMITIES: Calves are equal size bilaterally and non-tender. BLE pitting edema. No discoloration. NEURO: Normal sensorium. No sensory or motor deficits noted. SKIN: No rash or jaundice noted. ED COURSE: Critical Care: I have personally spent greater than 35 minutes of critical care time in the direct management of this patient. This includes bedside care, interpretation of diagnostic studies, and testing, discussion with consultants, patient, and family members, and other required patient management activities. This 35 minutes is in excess of all separately billable procedures. Nahid Delgadillo MD Past Med/Surg History Medical History Acute DVT (deep venous thrombosis) Bladder cancer metastasized to bone Fever Hyponatremia Leukocytosis Sepsis Thrombocytopenia Surgical History History of fracture of femur with evelyn placement; LEFT History of hysterectomy History of nephrostomy History of total cystectomy Family History Other Family history non-contributory Social History Smoking Status: Unknown if ever smoked Second Hand Exposure: No; Do You Dip or Chew Tobacco: No; Hx Alcohol Use: No Hx Substance Use: No Preferred Language: Macedonian Communication Ability: Effective Communication Tools: IPad, Facial Expression, Physical Gestures and Lip Movem ent/Reading Credit Historian Required: No Beliefs That Will Affect Care: None marital status: / Current Living Situation: Family Current Living Situation Comment: daughter Feels Safe at Home: Yes Assistive Devices: Cane, Walker and Wheelchair Allergies Allergies Allergy/AdvReac Type Severity Reaction Status Date / Time Sulfa (Sulfonamide Allergy Unknown CAN'T Verified 10/18/22 16:10 Antibiotics) REMEMBER Home Meds Home Medications Medication Instructions Recorded Confirmed Ayur-Boswellia Aniket 2 tab PO BID 01/28/22 10/18/22 Berberine Complex 2 cap PO BID 01/28/22 10/18/22 Curcu-Essentials 1 tab PO BID 01/28/22 10/18/22 Proepa 1 tab PO BID 01/28/22 10/18/22 acetaminophen 500 mg tablet 1,000 mg PO Q6H PRN Fever Or Pain 01/28/22 10/18/22 hydroxyzine HCl 25 mg tablet 25 mg PO QAM 01/28/22 10/18/22 lysine 500 mg tablet (L-Lysine) 500 mg PO DAILY 01/28/22 10/18/22 magnesium citrate 100 mg capsule 100 mg PO DAILY 01/28/22 10/18/22 zinc 15 mg tablet 15 mg PO DAILY 04/26/22 10/18/22 digestive enzymes 1 cap PO TID 07/06/22 10/18/22 docusate sodium 100 mg capsule 100 mg PO TID 07/06/22 10/18/22 (Colace) fentanyl 50 mcg/hr transdermal 50 mcg topical [id number] 07/06/22 10/18/22 patch oxycodone 10 mg tablet 10 mg PO .Q4-6HRS PRN Pain 07/06/22 10/18/22 apixaban 5 mg tablet (Eliquis) 5 mg PO BID 10/18/22 10/18/22 doxycycline hyclate 100 mg capsule 100 mg PO BID 10/18/22 10/18/22 Previous Rx's Medication Instructions Recorded dronabinol 10 mg capsule 10 mg PO BID #60 caps 07/18/22 ondansetron 4 mg disintegrating 4 mg PO QID PRN nausea and 07/18/22 tablet vomiting 30 days #60 tabs pantoprazole 40 mg tablet,delayed 40 mg PO BID 30 days #60 tabs 07/18/22 release Results & Data (ED) Vital Signs Vital Signs - 24 hr 10/18/22 14:59 10/18/22 16:10 10/18/22 16:23 Temperature 36.5 C Temperature Source Temporal Artery Scan Pulse Rate 99 H 90 Pulse Rate [Apical] 87 Pulse Rhythm [Apical] Regular Respiratory Rate 16 22 Respiratory Effort / Characteristics Non-Labored Spontaneous Non-Labored Spontaneous Respiratory Depth Normal Normal Respiratory Pattern Regular Regular Blood Pressure 96/62 L Blood Pressure [Right Arm] 127/73 Blood Pressure Mean 73 Blood Pressure Mean [Right Arm] 91 Blood Pressure Position [Right Arm] Lying Pulse Oximetry 100 100 Oxygen Delivery Method Room Air Room Air Sepsis Recent Fever Within 48 Hours No Sepsis New/Unexplained Change in Mental Status N/A Sepsis Action Taken by Nursing No Action Required 10/18/22 16:37 10/18/22 18:00 Temperature Temperature Source Pulse Rate Pulse Rate [Apical] 86 87 Pulse Rhythm [Apical] Respiratory Rate 16 Respiratory Effort / Characteristics Non-Labored Respiratory Depth Respiratory Pattern Blood Pressure Blood Pressure [Right Arm] 123/66 121/77 Blood Pressure Mean Blood Pressure Mean [Right Arm] 85 91 Blood Pressure Position [Right Arm] Pulse Oximetry 100 99 Oxygen Delivery Method Room Air Sepsis Recent Fever Within 48 Hours Sepsis New/Unexplained Change in Mental Status Sepsis Action Taken by Nursing Laboratory Data Attestation: I reviewed the patient's lab results. 10/18/22 15:30 10/18/22 15:30 Lab Results 10/18/22 10/18/22 10/18/22 Range/Units 15:30 15:30 15:30 WBC 55.49 H* (4.8-10.8) K/ul RBC 2.60 L (4.20-5.40) M/uL Hgb 8.8 L (12.0-16.0) g/dl Hct 27.7 L (37.0-47.0) % MCV 106.5 H (80.0-100.0) fL MCH 33.8 (25.0-34.0) pg MCHC 31.8 L (32.0-36.0) g/dL RDW Std Deviation 82.3 H (36.4-46.3) fL RDW Coeff of Macario 21.1 H (11.5-14.5) % Plt Count 330 (130-400) K/uL MPV 10.0 (9.4-12.4) fL Immature Gran % (Auto) 3.3 % Neut % (Auto) 87.5 % Lymph % (Auto) 3.7 % [place] % (Auto) 4.0 % Eos % (Auto) 1.4 % Baso % (Auto) 0.1 % Neut # (Auto) 48.55 H (1.40-6.50) K/uL Lymph # (Auto) 2.04 (1.2-3.4) K/uL [place] # (Auto) 2.24 H (0.11-0.59) K/uL Eos # (Auto) 0.76 H (0-0.50) K/uL Baso # (Auto) 0.08 (0-0.2) K/uL Immature Gran # (Auto) 1.82 H (0.01-0.20) K/uL Polychromasia 1+ Sodium 132 L (136-145) mmol/L Potassium 4.8 (3.5-5.1) mmol/L Chloride 101 (98-107) mmol/L Carbon Dioxide 26 (21-32) mmol/L Anion Gap 5 (3-11) BUN 49 H (6-23) mg/dl Creatinine 0.77 (0.6-1.2) mg/dl Est Cr Clr Drug Dosing 44.0 ml/min Est GFR ( Amer) 88.8 ml/min Est GFR (Non-Af Amer) 76.6 ml/min BUN/Creatinine Ratio 63.6 H (10-20) Glucose 91 (70-99(Fasting)) mg/dl Calcium 13.5 H* (8.6-10.3) mg/dl Phosphorus 3.4 (2.5-4.9) mg/dl Magnesium 2.0 (1.7-2.4) mg/dl Total Bilirubin 0.5 (0.2-1.0) mg/dl AST 9 L (13-39) U/L ALT 7 (7-52) U/L Alkaline Phosphatase 122 H (34-104) U/L Total Protein 6.0 (6.0-8.3) gm/dl Albumin 2.9 L (3.4-5.0) gm/dl Globulin 3.1 (2.5-4.0) gm/dl Albumin/Globulin Ratio 0.9 (0.9-2) SARS-CoV-2, RNA, NAAT NEGATIVE (NEGATIVE) Administered Medications Discontinued Medications Calcitonin [place] (Calcitonin [place]hire 400 Units/2 Ml) 170 units SQ NOW ONE Stop: 10/18/22 17:01 Last Admin: 10/18/22 17:38 Dose: 170 units Documented By: ML Sodium Chloride (Nss 1000ml) 1,000 mls @ 999 mls/hr IV .Q1H1M ONE Stop: 10/18/22 17:13 Last Infusion: 10/18/22 18:10 Dose: 0 mls/hr Documented By: Admin: 10/18/22 17:07 Dose: 999 mls/hr Documented By: Infusion: 10/18/22 17:07 Dose: 999 mls/hr Documented By: Admin: 10/18/22 16:23 Dose: 999 mls/hr Documented By: MMG Sodium Chloride (Nss 1000ml) 1,000 mls @ 999 mls/hr IV .Q1H1M ONE Stop: 10/18/22 17:44 Last Infusion: 10/18/22 18:10 Dose: 0 mls/hr Documented By: Admin: 10/18/22 17:08 Dose: 999 mls/hr Documented By: HNB Acetaminophen (Ofirmev) 1,000 mg in 100 mls @ 400 mls/hr IV NOW STA Stop: 10/18/22 18:00 Last Infusion: 10/18/22 18:17 Dose: 0 mls/hr Documented By: Admin: 10/18/22 18:01 Dose: 400 mls/hr Documented By: ML Morphine Sulfate (Morphine Sulfate 2 Mg/Ml Carp) 2 mg IV NOW STA Stop: 10/18/22 17:05 Last Admin: 10/18/22 17:08 Dose: 2 mg Documented By: HNB Morphine Sulfate (Morphine Sulfate 4 Mg/Ml 1 Ml Carp\Vial) 4 mg IV NOW STA Stop: 10/18/22 17:47 Last Admin: 10/18/22 18:01 Dose: 4 mg Documented By: ML Discharge Plan Visit Data Chief Complaint: Illness Stated Complaint: CALCIUM IS HIGH, DEHYDRATION ED Provider: Nahid Delgadillo Discharge Problem: Hypercalcemia, Severe protein-calorie malnutrition, Bladder cancer metastasized to bone, Hyperalbuminemia Forms Stand Alone Forms: [facility] Prescriptions Prescriptions: No Action acetaminophen 500 mg Tablet 1,000 mg PO Q6H PRN (Reason: Fever Or Pain) Ayur-Boswellia Aniket 2 tab PO BID Rx Instructions: without food hydroxyzine HCl 25 mg tablet 25 mg PO QAM lysine [L-Lysine] 500 mg Tablet 500 mg PO DAILY magnesium citrate 100 mg Capsule 100 mg PO DAILY Berberine Complex 2 cap PO BID Curcu-Essentials 1 tab PO BID Proepa 1 tab PO BID fentanyl 50 mcg/hr patch 72 hour 50 mcg topical [id number] Rx Instructions: CHANGED 07/23/22. digestive enzymes Capsule 1 cap PO TID Rx Instructions: administer with food; swallow whole; do not crush/chew/dissolve/break/cut docusate sodium [Colace] 100 mg Capsule 100 mg PO TID oxycodone 10 mg tablet 10 mg PO .Q4-6HRS PRN (Reason: Pain) pantoprazole 40 mg Tablet,Delayed Release (Dr/Ec) 40 mg PO BID 30 Days Qty: 60 1RF ondansetron 4 mg Tablet,Disintegrating 4 mg PO QID PRN (Reason: nausea and vomiting) 30 Days Qty: 60 2RF dronabinol 10 mg capsule 10 mg PO BID Qty: 60 0RF Rx Instructions: administer before lunch and evening meal/dinner. Pt currently holding. zinc 15 mg Tablet 15 mg PO DAILY doxycycline hyclate 100 mg capsule 100 mg PO BID Rx Instructions: Start Date 10/05/22 - End Date 11/09/22 Eliquis 5 mg tablet 5 mg PO BID Referrals Referrals: Reyna Tidwell DO [Primary Care Provider] -
[2022-10-18] MEDS: SODIUM CHLORIDE 0.9% 1000ML 1,000 ML IV ONE ×2 (16:23→17:07)
[2022-10-18 16:40] LABS: Albumin Globulin Ratio 0.9 (0.9-2); Albumin Level 2.9 gm/dl (3.4-5.0); BUN Creatinine Ratio 63.6 (10-20); Bilirubin,Total 0.5 mg/dl (0.2-1.0); Calcium 13.5 mg/dl (8.6-10.3); Est GFR (African American) 88.8 ml/min; Est GFR (Non-African American) 76.6 ml/min; Globulin 3.1 gm/dl (2.5-4.0); Potassium 4.8 mmol/L (3.5-5.1)
[2022-10-18] MEDS ORDERED: SODIUM CHLORIDE 0.9% 1000ML 1,000 ML IV ONE (16:44)
[2022-10-18 16:47] LABS: Hematocrit (blood only) 27.7 % (37.0-47.0); Hemoglobin 8.8 g/dl (12.0-16.0); Mean Corpuscular Hemoglobin 33.8 pg (25.0-34.0); Mean Corpuscular Hgb Conc 31.8 g/dL (32.0-36.0); Mean Corpuscular Volume 106.5 fL (80.0-100.0); Platelet Count 330 K/uL (130-400); RDW Coefficient of Variation 21.1 % (11.5-14.5); RDW Standard Deviation 82.3 fL (36.4-46.3); White Blood Count 55.49 K/ul (4.8-10.8)
[2022-10-18 16:52] LABS: Basophils # (auto) 0.08 K/uL (0-0.2); Basophils % (auto) 0.1 %; Eosinophils # (auto) 0.76 K/uL (0-0.50); Eosinophils % (auto) 1.4 %; Immature Granulocytes # (auto) 1.82 K/uL (0.01-0.20); Immature Granulocytes % (auto) 3.3 %; Lymphocytes # (auto) 2.04 K/uL (1.2-3.4); Lymphocytes % (auto) 3.7 %; Monocytes # (auto) 2.24 K/uL (0.11-0.59); Neutrophils # (auto) 48.55 K/uL (1.40-6.50); Neutrophils % (auto) 87.5 %; Polychromasia 1+
[2022-10-18] MEDS ORDERED: CALCITONIN SALMON 400 UNITS/2 ML SQ ONE (17:00)
[2022-10-18] MEDS ORDERED: MoRPHine SULFATE 2 MG/ML CARP IV STA (17:04)
[2022-10-18] MEDS ORDERED: ACETAMINOPHEN 1,000 MG/100 ML VIAL IV STA (17:46)
[2022-10-18] MEDS ORDERED: MoRPHine SULFATE 4 MG/ML 1 ML CARP\\VIAL IV STA (17:46)
[2022-10-18 17:54] LABS: Phosphorus 3.4 mg/dl (2.5-4.9)
--- NOTE | 2022-10-18 18:11 | History & Physical Report ---
Date of Service October 18, 2022 Assessment & Plan (1) Hypercalcemia of malignancy: Plan: Corrected calcium 14.4, add ionized calcium for completeness however given malignant cause and repeat episodes she requires bisphosphonate treatment despite her also being dehydrated Zometa 4mg IV ONCE (renally dose per pharmacy) Calcitonin 170 units SQ q12h for further three doses (to be adjusted depending on repeat Ca levels) IV fluids with Normosol overnight Repeat PRP and ionized calcium with AM labs Consult oncology here (pt and daughter interested in following with someone more locally to help with hypercalcemia of malignancy as PCP reluctant to manage this) Consult palliative care given concern for unrealistic goals and likely needs more help at home PT/OT (2) Left leg swelling: Plan: Chronic left leg swelling due to metastatic cancer on this side. Venous doppler in July 2022 without DVT, no need to repeat this Continue Eliquis 5mg PO BID (3) Severe protein-calorie malnutrition: Plan: Parts Product Analyst consult Plan VTE Prophyalxis - Eliquis Diet -regular Disposition - admit to med/tele Admission and Anticipated Discharge Date Admission Date: October 18, 2022 History of Present Illness Chief Complaint: Generalized weakness, high calcium level Primary Care Provider: Reyna Tidwell DO Nichole Thomason is a 72 year old female who presents to the ER due to elevated calcium levels. She has known malignant bladder cancer to her bones s/p bilateral nephrostomy tube and urostomy.. Her oncologist is Dr Hobbs ([phone]) with the [facility] in [place] although they have only had telehealth visits since April and she is no longer on active cancer treatment. She was reportedly hospitalized at [facility] 4 weeks ago for a similar presentation with hypercalcemia. Her daughter notes when her calcium increases the patient gets very fatigued with generalized weakness, depressed mood and lack of appetite which is how she presents today. No history of kidney stones. No paresthesias or seizures. Allergies Allergy/AdvReac Type Severity Reaction Status Date / Time Sulfa (Sulfonamide Allergy Unknown CAN'T Verified 10/18/22 16:10 Antibiotics) REMEMBER Home Medications Medication Instructions Recorded Confirmed Type Ayur-Boswellia Aniket 2 tab PO BID 01/28/22 10/18/22 History Berberine Complex 2 cap PO BID 01/28/22 10/18/22 History Curcu-Essentials 1 tab PO BID 01/28/22 10/18/22 History Proepa 1 tab PO BID 01/28/22 10/18/22 History acetaminophen 500 mg tablet 1,000 mg PO Q6H PRN Fever Or Pain 01/28/22 10/18/22 History hydroxyzine HCl 25 mg tablet 25 mg PO QAM 01/28/22 10/18/22 History lysine 500 mg tablet (L-Lysine) 500 mg PO DAILY 01/28/22 10/18/22 History magnesium citrate 100 mg capsule 100 mg PO DAILY 01/28/22 10/18/22 History zinc 15 mg tablet 15 mg PO DAILY 04/26/22 10/18/22 History digestive enzymes 1 cap PO TID 07/06/22 10/18/22 History docusate sodium 100 mg capsule 100 mg PO TID 07/06/22 10/18/22 History (Colace) fentanyl 50 mcg/hr transdermal 50 mcg topical CQ72HR 07/06/22 10/18/22 History patch oxycodone 10 mg tablet 10 mg PO .Q4-6HRS PRN Pain 07/06/22 10/18/22 History dronabinol 10 mg capsule 10 mg PO BID #60 caps 07/18/22 10/18/22 Rx ondansetron 4 mg disintegrating 4 mg PO QID PRN nausea and 07/18/22 10/18/22 Rx tablet vomiting 30 days #60 tabs pantoprazole 40 mg tablet,delayed 40 mg PO BID 30 days #60 tabs 07/18/22 10/18/22 Rx release apixaban 5 mg tablet (Eliquis) 5 mg PO BID 10/18/22 10/18/22 History doxycycline hyclate 100 mg capsule 100 mg PO BID 10/18/22 10/18/22 History Past Med/Surg History Medical History Acute DVT (deep venous thrombosis) Bladder cancer metastasized to bone Fever Hyponatremia Leukocytosis Sepsis Thrombocytopenia Surgical History History of fracture of femur with evelyn placement; LEFT History of hysterectomy History of nephrostomy History of total cystectomy Family History Other Family history non-contributory Social History Smoking Status: Never smoker Second Hand Exposure: No; Do You Dip or Chew Tobacco: No; Hx Alcohol Use: No Hx Substance Use: No Preferred Language: Bengali Communication Ability: Effective Communication Ability Comment: daughter assists with communication Communication Tools: IPad, Facial Expression, Physical Gestures and Lip Movement/Reading It Lead Required: No Beliefs That Will Affect Care: None marital status: / Current Living Situation: Family Current Living Situation Comment: daughter Feels Safe at Home: Yes Safety Concerns: Feels Safe At This Time Assistive Devices: Bedside Commode, Glasses, Hearing Aid - Bilateral, Hospital Bed, Walker and Wheelchair Review of Systems Review of Systems: All systems reviewed & are unremarkable except as noted in HPI & below Physical Exam Constitutional: + ill appearing, + cachectic and + frail appearing; + not well nourished and no acute distress Eyes: PERRL, conjunctivae normal, anicteric sclerae ENMT: Mouth: + dry oral mucous membranes Respiratory: normal respiratory effort, lungs clear to auscultation Cardiovascular: Rate/Rhythm: regular rate and regular rhythm Extremities: normal capillary refill and + pedal edema (2+ LLE, trace RLE pitting edema) Gastrointestinal (Abdomen): normal bowel sounds, soft, nontender, no hepatosplenomegaly Musculoskeletal: Generalized muscle wasting Skin: no rashes, warm and dry Neurologic: moves all extremities and awake (falls asleep easily); not confused Hyporeflexia in knees and biceps b/l equal Psychiatric: Orientation: alert and oriented x 3 Results & Data Results & Data Vital Signs (Past 12 Hours) Vital Signs Temp Pulse Pulse Resp BP BP Pulse Ox 10/18/22 18:00 87 16 121/77 99 10/18/22 16:37 86 123/66 100 10/18/22 16:23 87 22 127/73 100 10/18/22 16:10 90 10/18/22 14:59 36.5 C 99 H 16 96/62 L 100 O2 Del Method 10/18/22 18:00 Room Air 10/18/22 16:37 10/18/22 16:23 Room Air 10/18/22 16:10 10/18/22 14:59 Room Air Laboratory Results Abnormal lab results 10/18/22 10/18/22 10/18/22 Range/Units 15:30 15:30 19:08 WBC 55.49 H* (4.8-10.8) K/ul RBC 2.60 L (4.20-5.40) M/uL Hgb 8.8 L (12.0-16.0) g/dl Hct 27.7 L (37.0-47.0) % MCV 106.5 H (80.0-100.0) fL MCHC 31.8 L (32.0-36.0) g/dL RDW Std Deviation 82.3 H (36.4-46.3) fL RDW Coeff of Macario 21.1 H (11.5-14.5) % Neut # (Auto) 48.55 H (1.40-6.50) K/uL [place] # (Auto) 2.24 H (0.11-0.59) K/uL Eos # (Auto) 0.76 H (0-0.50) K/uL Immature Gran # (Auto) 1.82 H (0.01-0.20) K/uL Sodium 132 L (136-145) mmol/L BUN 49 H (6-23) mg/dl BUN/Creatinine Ratio 63.6 H (10-20) Calcium 13.5 H* (8.6-10.3) mg/dl Ionized Calcium 1.91 H* (1.12-1.32) mmol/L AST 9 L (13-39) U/L Alkaline Phosphatase 122 H (34-104) U/L Albumin 2.9 L (3.4-5.0) gm/dl Diagnostic Findings None Medications Administered ER Medications Given: NSS 1L bolus Calcitonin 170 units SQ NSS 1L bolus Morphine 2mg IV Morphine 4mg IV Acetaminophen 1000mg IV ECG Rate (beats per minute): 98 Rhythm: normal sinus Findings: no acute ischemic change Comparison ECG Date: from (July 06, 2022) Change: no significant change Code Status & VTE Plan Code Status Full - as discussed with the patient, consistent with her previous wishes however advised relative futility in cardiac resuscitation given her over clinical status and recommended this is continued to be discussed with palliative care tomorrow. VTE Prophylaxis Plan VTE Prophylaxis will be ordered: Yes PG Care Time/CCT Total # of Minutes Spent Total Time Spent with Patient: Total time spent is greater than 50% in coordination of care (as documented) at patient's floor/unit and/or counseling patient: Coding Level of Care Code 91438 INT INP/OBS CARE MIN Diagnoses Hypercalcemia of malignancy E83.52 Left leg swelling M79.89 Severe protein-calorie malnutrition E43
[2022-10-18] MEDS ORDERED: oxyCODONE HCL IR 5 MG TAB (IMMEDIATE RELEASE) PO STA (20:20)
[2022-10-18] MEDS ORDERED: ZOLEDRONIC ACID 4 MG in 0.9 % SODIUM CHLORIDE 100 ML IV ONE (22:15)
[2022-10-18] MEDS: CHECK fentaNYL PATCH PLACEMENT SCH (23:35)
[2022-10-18] MEDS: DOCUSATE SODIUM 100 MG CAP PO SCH (23:36)
[2022-10-18] MEDS: APIXABAN 5 MG TABLET PO SCH (23:36)
[2022-10-18] MEDS: DOXYCYCLINE HYCLATE 100 MG CAP PO SCH (23:36)
[2022-10-18] MEDS: PANTOprazole 40 MG TAB PO SCH (23:37)
[2022-10-19] MEDS: PLASMA-LYTE A 1,000 ML IV SCH ×2 (00:10→11:37)
[2022-10-19] MEDS: fentaNYL 50 MCG/HR TDSY TD SCH (00:13)
[2022-10-19] MEDS: CHECK fentaNYL PATCH PLACEMENT SCH ×3 (00:20→16:27)
[2022-10-19] MEDS: CALCITONIN SALMON 400 UNITS/2 ML SQ SCH ×2 (04:19→17:59)
[2022-10-19 06:53] LABS: Hematocrit (blood only) 21.4 % (37.0-47.0); Mean Corpuscular Hemoglobin 33.7 pg (25.0-34.0); Mean Corpuscular Hgb Conc 32.7 g/dL (32.0-36.0); Mean Corpuscular Volume 102.9 fL (80.0-100.0); Mean Platelet Volume 10.2 fL (9.4-12.4); Platelet Count 280 K/uL (130-400); RDW Coefficient of Variation 20.8 % (11.5-14.5); RDW Standard Deviation 78.8 fL (36.4-46.3); Red Blood Count 2.08 M/uL (4.20-5.40)
[2022-10-19 07:13] LABS: Calcium 10.7 mg/dl (8.6-10.3); Creatinine Clr Calc Pharmacy 66.9 ml/min; Est GFR (African American) 111.3 ml/min; Potassium 4.3 mmol/L (3.5-5.1)
--- NOTE | 2022-10-19 07:13 | Hospitalist Progress Note ---
Date of Service October 19, 2022 Assessment & Plan (1) Hypercalcemia of malignancy: Plan: - Corrected calcium 14.4, add ionized calcium for completeness however given malignant cause and repeat episodes she requires bisphosphonate treatment despite her also being dehydrated * Zometa 4mg IV ONCE (renally dose per pharmacy) * Calcitonin 170 units SQ q12h for further three doses (to be adjusted depending on repeat Ca levels) * IV fluids with Normosol overnight * Repeat PRP and ionized calcium with AM labs * Consult oncology here (pt and daughter interested in following with someone more locally to help with hypercalcemia of malignancy as PCP reluctant to manage this) * Consult palliative care given concern for unrealistic goals and likely needs more help at home * PT/OT (2) Anemia: (3) Bladder cancer metastasized to bone: Plan: - Severe 10/10 pain. * starting Dilaudid q4 PRN (4) Left leg swelling: Plan: - Chronic left leg swelling due to metastatic cancer on this side. Venous doppler in July 2022 without DVT, no need to repeat this * Continue Eliquis 5mg PO BID (5) Severe protein-calorie malnutrition: Plan: Missile Tracking Technician consult Plan #Hypercalcemia of Malignancy #Anemia #Bladder Cancer Metastasized to Bone #Left Leg Swelling -Chronic, due to malignancy/mets on this side #Severe Protein-Calorie Malnutrition VTE Prophyalxis - Eliquis Diet -regular Disposition - admit to med/tele FULL CODE Admission and Anticipated Discharge Date Admission Date: October 18, 2022 Supervising Physician Co-Signing Physician Notes ATTESTATION I also saw the patient and confirmed gómez portions of the history and exam. I agree with the impression and plan in the medical student documentation, and as summarized below. I also discussed case with the palliative team. Upon exam, the patient is complaining of considerable left hip discomfort. Additional dose of Dilaudid is provided at the time of our visit. EXAM 101/62, 103, 22, 36.4, 90% room air Appears cachectic. Alert. In a fair amount of discomfort. Heart is regular but tachycardic. Lungs are decreased in the bases, suspect secondary to inspiratory effort, but otherwise clear DATA Labs WBC 49.2, hemoglobin 7, platelets 280 Sodium 136, potassium 4.3, BUN 37, creatinine 0.5 Calcium 10.7 Imaging X-ray of the left femur today demonstrates a subacute pathologic mildly displaced fracture. IMPRESSION & PLAN Metastatic bladder cancer Hypercalcemia of malignancy Severe protein calorie malnutrition/cachexia of malignancy Appreciate oncology and palliative care consultations Increase Dilaudid; request specialty mattress Add Decadron 4 mg IV twice daily We will make her nonweightbearing for now; will consult orthopedics for recommendations, unfortunately I am not sure if there is a good surgical option With her advanced disease, low performance status, I am not sure she would be able to tolerate additional curative treatments We will focus on control of calcium, palliation of pain, and perhaps move towa rds home hospice Additional per resident documentation Subjective 72 yo female PMHx metastatic bladder cancer with bone mets s/p bilateral nephrostomy tube and urostomy. Oncologist is Dr. Hobbs ([phone]) @ [facility] in [place]. She is no longer on any active cancer treatment. Hospitalized recently at [facility] [place] one month ago with similar presentation of hypercalcemia. Daughter notes when pt calcium increases pt gets very fatigued with generalized weakness, depressed mood, and lack of appetite. No hx kidney stones. No parasthesias, no seizures. This am: Severe 10/10 pain Review of Systems Constitutional: Denied fever, night sweats, fatigue, weakness, dizziness Respiratory: Denied cough or shortness of breath. Cardiovascular: Additional Comments: Denied chest pain, palpitations Physical Exam Constitutional: Alert and oriented x3 in hospital bed, cachectic, looks to be in pain Eyes: Pupils were equal, normal shape and size. Anicteric sclerae. Respiratory: CTA, no increased work of breathing, no cough Cardiovascular: Normal rate and regular rhythm. S1 S2, no rubs/murmurs/gallops auscultated. Radial pulses equal b/l. Gastrointestinal (Abdomen): Nondistended, nontender, normoactive bowel sounds. Musculoskeletal: Favoring right side. Slow movements. Skin: Warm dry, no apparent rashes. Psychiatric: Appeared drowsy and limited responsiveness. Results & Data Results & Data Vital Signs (Past 12 Hours) Vital Signs Temp Pulse Pulse Resp BP BP BP 10/18/22 22:06 85 10/18/22 21:25 95 H 10/18/22 21:14 10/19/22 03:16 36.8 C 88 18 101/57 L 10/18/22 21:14 36.5 C 85 18 115/74 10/18/22 21:14 36.5 C 85 18 115/74 10/18/22 21:00 87 24 103/67 10/18/22 20:30 122/71 10/18/22 20:00 120/76 10/18/22 20:00 87 10/18/22 19:30 84 15 100/63 10/18/22 19:00 84 17 99/64 L Pulse Ox O2 Del Method 10/18/22 22:06 10/18/22 21:25 10/18/22 21:14 Room Air 10/19/22 03:16 97 Room Air 10/18/22 21:14 99 Room Air 10/18/22 21:14 99 Room Air 10/18/22 21:00 96 Room Air 10/18/22 20:30 10/18/22 20:00 10/18/22 20:00 10/18/22 19:30 10/18/22 19:00 94 Room Air Laboratory Results Abnormal lab results 10/18/22 10/18/22 10/18/22 Range/Units 15:30 15:30 19:08 WBC 55.49 H* (4.8-10.8) K/ul RBC 2.60 L (4.20-5.40) M/uL Hgb 8.8 L (12.0-16.0) g/dl Hct 27.7 L (37.0-47.0) % MCV 106.5 H (80.0-100.0) fL MCHC 31.8 L (32.0-36.0) g/dL RDW Std Deviation 82.3 H (36.4-46.3) fL RDW Coeff of Macario 21.1 H (11.5-14.5) % Neut # (Auto) 48.55 H (1.40-6.50) K/uL Mcintosh # (Auto) 2.24 H (0.11-0.59) K/uL Eos # (Auto) 0.76 H (0-0.50) K/uL Immature Gran # (Auto) 1.82 H (0.01-0.20) K/uL Sodium 132 L (136-145) mmol/L BUN 49 H (6-23) mg/dl BUN/Creatinine Ratio 63.6 H (10-20) Calcium 13.5 H* (8.6-10.3) mg/dl Ionized Calcium 1.91 H* (1.12-1.32) mmol/L AST 9 L (13-39) U/L Alkaline Phosphatase 122 H (34-104) U/L Albumin 2.9 L (3.4-5.0) gm/dl 10/19/22 10/19/22 Range/Units 06:18 06:18 WBC 49.20 H* (4.8-10.8) K/ul RBC 2.08 L (4.20-5.40) M/uL Hgb 7.0 L (12.0-16.0) g/dl Hct 21.4 L (37.0-47.0) % MCV 102.9 H (80.0-100.0) fL MCHC (32.0-36.0) g/dL RDW Std Deviation 78.8 H (36.4-46.3) fL RDW Coeff of Macario 20.8 H (11.5-14.5) % Neut # (Auto) (1.40-6.50) K/uL Mcintosh # (Auto) (0.11-0.59) K/uL Eos # (Auto) (0-0.50) K/uL Immature Gran # (Auto) (0.01-0.20) K/uL Sodium (136-145) mmol/L BUN (6-23) mg/dl BUN/Creatinine Ratio (10-20) Calcium (8.6-10.3) mg/dl Ionized Calcium 1.67 H* (1.12-1.32) mmol/L AST (13-39) U/L Alkaline Phosphatase (34-104) U/L Albumin (3.4-5.0) gm/dl (2) Anemia Anemia type: unspecified type Qualified Code(s): D64.9 - Anemia, unspecified
[2022-10-19 07:26] LABS: Basophils # (auto) 0.26 K/uL (0-0.2); Basophils % (auto) 0.5 %; Eosinophils # (auto) 0.69 K/uL (0-0.50); Eosinophils % (auto) 1.4 %; Immature Granulocytes # (auto) 1.45 K/uL (0.01-0.20); Immature Granulocytes % (auto) 2.9 %; Lymphocytes # (auto) 1.49 K/uL (1.2-3.4); Monocytes # (auto) 1.95 K/uL (0.11-0.59); Neutrophils # (auto) 43.36 K/uL (1.40-6.50); Neutrophils % (auto) 88.2 %; Polychromasia 1+; Toxic Vacuolation 2+
[2022-10-19] MEDS: oxyCODONE HCL IR 5 MG TAB (IMMEDIATE RELEASE) PO PRN (08:30)
[2022-10-19] MEDS: APIXABAN 5 MG TABLET PO SCH ×2 (08:30→22:04)
[2022-10-19] MEDS: PANTOprazole 40 MG TAB PO SCH ×2 (08:30→22:04)
[2022-10-19] MEDS: DOCUSATE SODIUM 100 MG CAP PO SCH ×3 (08:30→22:04)
[2022-10-19] MEDS: DOXYCYCLINE HYCLATE 100 MG CAP PO SCH ×2 (08:30→22:04)
[2022-10-19] MEDS: hydrOXYzine HCl 25 MG TAB PO SCH (08:30)
[2022-10-19] MEDS: MAGNESIUM OXIDE 400 MG TAB PO SCH (08:30)
--- NOTE | 2022-10-19 10:03 | Palliative Care Consultation ---
Date of Consultation October 19, 2022 Assessment & Plan (1) Palliative care by specialist: Met with pt/family. Provided overview of Palliative Medicine, a subspecialty that provides specialized medical care for people living with a serious illness by offering a focus on quality of life. Palliative Medicine is often conflated with hospice: I advised patient/family that Palliative and hospice can be partners but we are not the same. It is important to understand the difference so that we may be informed, and not afraid. Palliative Medicine works to improve QOL through reduction of symptom burden/more control over their illness, for both the patient and family. Palliative medicine clinicians are board certified, specially-trained and another member of the patient's medical care team. We often provide an extra layer of support because our care is based on the needs of the patient, not the prognosis; as such, it's appropriate at any age/advancing stage of a serious illness and can be provided along with curative treatment. Palliative Medicine clinicians are also trained in advanced communication methodologies, to facilitate complex discussions about advanced illness planning, which are needed to help assure that the treatment choices match the patient's goals, aka delivering Goal Concordant care. Finally, we discussed that hospice is a visiting nurse service that focuses on care delivered at the very end of life for patients with terminal illness, with life expectancy less than 6 month. Palliative prognostics for Oncology Patients: Patient's Palliative Prognostic Score (PaP) Score: Palliative Prognostic Score (PaP) = 11.5 points / Interpretation:30-day survival probability <30% (0 - 5.5: 30-day survival probability >70% | 5.6 - 11.0: 30-day survival probability 30- 70% | 11.1 - 17.5: 30-day survival probability <30%) https://www.mdapp.co/zsnnpfipuh-mivgnlxcyl-dulvx-bdl-sasrsnmxwu-718/ Patient's Palliative Prognostic Index (PPI) Score: Palliative Prognostic Index Score (PPI) = 10 points / Note:If the PPI is greater than 6.0, survival is less than three weeks (Sensitivity - 80%; Specificity - 85%). https://www.mdapp.co/bngdgvpklo-nkqfgzftzz-vhnrc-dob-aqfojfmumw-289/ (2) Advanced care planning/counseling discussion: Patient was in the midst of a pain crisis and disinclined to discuss any advance care planning issues. Chart review indicates that there have been multiple providers expressing concern about potentially unrealistic expectations in the context of very late stage advanced metastatic disease. Patient has elected full CODE STATUS and has been unwilling to consider any change. Patient's daughter shares that they were advised no further chemotherapy was being planned at their [facility]. They then sought evaluation at [facility] [place] and were recently advised that patient did not need further interventions from them and continuing Zometa therapy could coordinate through her local provider. Daughter feels there may be additional cancer directed therapies that can be offered to the patient and is receptive to meeting with oncology here. She is hopeful that if Zometa might be an option for patient to receive this admission it can be ordered and initiated quickly. (3) Cancer related pain: She has very severe cancer related pain which remains uncontrolled. She has extensive bony metastatic disease due to her bladder cancer. This is a stage IV, advanced and incurable terminal illness. She has received Dilaudid 0.5 mg IV without enduring relief. She states that the pain is usually at a 9 when she is requesting pain medication and with the 0.5 mg dose of IV Dilaudid the pain reduced to a 7. We will add a dose of Dilaudid 1 mg IV to be given every 3 hours as needed for very severe breakthrough cancer pain that remains unrelieved by the lower 0.5 mg dose. I will also begin Decadron 4 mg IV twice daily for the next 5 days. (4) Metastasis to bone: (5) Dyspnea and respiratory abnormalities: (6) Weakness generalized: (7) Hypercalcemia of malignancy: (8) Severe protein-calorie malnutrition: (9) Bladder cancer metastasized to bone: Plan * Palliative prognostics support high risk mortlaity within 30 days (see above for calculations and scores) * For her very severe cancer related pain, I have added Dilaudid 1 mg IV to be offered every 3 hours as needed for very severe breakthrough pain that is unrelieved by the lower dose of IV Dilaudid. I have added hold parameters as follows: Hold for somnolence or respiratory rate less than 14. This was reviewed specifically with nursing. * I will begin IV Decadron 4 mg twice daily for the next 5 days with a plan to transition her to oral. * I have requested the patient be switched over to a specialty mattress with pressure adjusting sensitivity. * Await oncology evaluation to determine if Zometa can be given this admission. * Although chart review and discussion with primary team's indicate the patient was advised by [facility] [place] that no further cancer directed therapies are available, both she and daughter perceive that additional therapies continue to remain an option and do not view her current condition as an 'advanced' state. * Will continue to work on building a rapport with patient and family with follow-up plan for tomorrow around noon. We will begin to explore issues about her advanced illness as well as her expectations about anticipated care needs moving forward. * I have updated the primary team and nursing. Thank you for allowing us to participate in the ongoing care of this patient. Please don't hesitate to call or page with any additional concerns. Dr. Corinne Campbell DNP Director, Palliative Care History of Present Illness Reason for Consultation: goals of care: "Consult palliative care given concern for unrealistic goals and likely needs more help at home" Attending Physician: Francisco Javier Sylvester MD History of Present Illness Per admitting note: "Nichole Thomason is a 72 year old female who presents to the ER due to elevated calcium levels. She has known malignant bladder cancer to her bones s/p bilateral nephrostomy tube and urostomy.. Her oncologist is Dr Hobbs ([phone]) with the [facility] in [place] although they have only had telehealth visits since April and she is no longer on active cancer treatment. She was reportedly hospitalized at [facility] [place] 4 weeks ago for a similar presentation with hypercalcemia. Her daughter notes when her calcium increases the patient gets very fatigued with generalized weakness, depressed mood and lack of appetite which is how she presents today. No history of kidney stones. No paresthesias or seizures." Recent admission 07/22 to 07/27/22 for SBO Patient seen at bedside, her daughter Ingrid is present. She reports significant pain. She has received Dilaudid 0.5 mg IV at 1130 this morning and does not have any enduring relief. She has also been taking oxycodone 10 mg tablets without much relief. Patient and daughter report pain is in a generalized pattern but often most concentrated around her tailbone. She has diffuse bony metastatic disease from her bladder cancer. She is uncomfortable and nearly every position and feels that the current bed is also uncomfortable. Her daughter notes that on prior admission she was placed on a specialty mattress which she feels she may need again. Chart reviewed and case discussed. Patient was being followed at a cancer center in [place] and more recently pursued consultation at the [facility] [place]. It appears at that time they were told that there was no further cancer directed therapies that would offer any meaningful benefit. Patient had been for some time receiving Zometa as part of her cancer regimen given her extensive bony mets. Per her daughter, this was for most of the time assisting with keeping her pain at a manageable or tolerable level. She has not been able to receive Zometa for some time, daughter states that [facility] told them to have their PCP order it. They have not establish care with an oncologist locally. Daughter states that perhaps it may be time to do this to not only determine if there may be another option to treat her cancer but to also reinstate some regular Zometa therapy. Nutritional intake remains poor. Patient is so consumed by pain throughout most of the day that she is not eating or drinking very much. Her activity level remains poor. She is in a resting position greater than 90% of her day. This is equivalent to a performance status of 4. Allergies Allergy/AdvReac Type Severity Reaction Status Date / Time Sulfa (Sulfonamide Allergy Unknown CAN'T Verified 10/18/22 16:10 Antibiotics) REMEMBER Home Medications Medication Instructions Recorded Confirmed Type Ayjames-Juan Manuelwellia Aniket 2 tab PO BID 01/28/22 10/18/22 History Berberine Complex 2 cap PO BID 01/28/22 10/18/22 History Curcu-Essentials 1 tab PO BID 01/28/22 10/18/22 History Proepa 1 tab PO BID 01/28/22 10/18/22 History acetaminophen 500 mg tablet 1,000 mg PO Q6H PRN Fever Or Pain 01/28/22 10/18/22 History hydroxyzine HCl 25 mg tablet 25 mg PO QAM 01/28/22 10/18/22 History lysine 500 mg tablet (L-Lysine) 500 mg PO DAILY 01/28/22 10/18/22 History magnesium citrate 100 mg capsule 100 mg PO DAILY 01/28/22 10/18/22 History zinc 15 mg tablet 15 mg PO DAILY 04/26/22 10/18/22 History digestive enzymes 1 cap PO TID 07/06/22 10/18/22 History docusate sodium 100 mg capsule 100 mg PO TID 07/06/22 10/18/22 History (Colace) fentanyl 50 mcg/hr transdermal 50 mcg topical [id number] 07/06/22 10/18/22 History patch oxycodone 10 mg tablet 10 mg PO .Q4-6HRS PRN Pain 07/06/22 10/18/22 History dronabinol 10 mg capsule 10 mg PO BID #60 caps 07/18/22 10/18/22 Rx ondansetron 4 mg disintegrating 4 mg PO QID PRN nausea and 07/18/22 10/18/22 Rx tablet vomiting 30 days #60 tabs pantoprazole 40 mg tablet,delayed 40 mg PO BID 30 days #60 tabs 07/18/22 10/18/22 Rx release apixaban 5 mg tablet (Eliquis) 5 mg PO BID 10/18/22 10/18/22 History doxycycline hyclate 100 mg capsule 100 mg PO BID 10/18/22 10/18/22 History Patient History Medical History (Updated 10/20/22 @ 07:14 by Jamie Bueno MD) Acute DVT (deep venous thrombosis) Bladder cancer metastasized to bone Fever Hyponatremia Leukocytosis Palliative care by specialist Sepsis Thrombocytopenia Surgical History History of fracture of femur with evelyn placement; LEFT History of hysterectomy History of nephrostomy History of total cystectomy Family History Other Family history non-contributory Social History Smoking Status: Never smoker Second Hand Exposure: No; Do You Dip or Chew Tobacco: No; Hx Alcohol Use: No Hx Substance Use: No Preferred Language: Serbian Communication Ability: Effective Communication Ability Comment: daughter assists with communication Communication Tools: IPad, Facial Expression, Physical Gestures and Lip Movement/Reading Tank Washer Required: No Beliefs That Will Affect Care: None marital status: / Current Living Situation: Family Current Living Situation Comment: daughter Feels Safe at Home: Yes Safety Concerns: Feels Safe At This Time Assistive Devices: Bedside Commode, Hospital Bed, Walker and Wheelchair Review of Systems Review of Systems: All systems reviewed & are unremarkable except as noted in Subjective Physical Exam Physical Exam: Patient deferred exam, citing that she was in too much pain and did not want to have to make any position changes. She was awaiting a dose of pain medication at the time of my visit. She is observed to be in significant pain and distress. She is severely cachectic. She is pale without any evidence of cyanosis. There is no significant peripheral edema noted. Respiratory effort is increased with any exertion but then quickly settles down. Results & Data Vital Signs (Past 12 Hours) Vital Signs Temp Pulse Pulse Resp BP Pulse Ox O2 Del Method 10/19/22 08:13 36.6 C 98 H 16 109/53 L 98 Room Air 10/19/22 07:27 93 H 10/18/22 22:06 85 10/19/22 03:16 36.8 C 88 18 101/57 L 97 Room Air Laboratory Results Laboratory and imaging data was reviewed. Calcium is noted to be elevated but has been trending down today. Diagnostic Findings Diagnostic imaging was reviewed. Outside hospital reports were also reviewed. Patient has extensive bony metastatic disease from her primary cancer PG Care Time/CCT Total # of Minutes Spent Total Time Spent: 85 Total Time Spent with Patient: Total time spent is greater than 50% in coordination of care (as documented) at patient's floor/unit and/or counseling patient: A total of 85 minutes was spent on this case. 25 minutes was spent in extensive chart review of patient's [facility] medical record as well as her outside hospital records from her numerous cancer providers. Imaging was reviewed in detail. Approximately 40 minutes spent in [id number] discussion with patient and daughter with regards to patient's symptom progression, current performance status and pain management history as well as current needs. Additional 20 minutes was spent updating the primary team and nursing, reviewing changes to the pain management protocol. [place] [address] IN/OBS CONSULT LVL 5,80M Patient Type New Medical Decision Making High Complexity Diagnoses Palliative care by specialist Z51.5 Advanced care planning/counseling discussion Z71.89 Cancer related pain G89.3 Metastasis to bone C79.51 Dyspnea and respiratory abnormalities R06.00; R06.89 Weakness generalized R53.1 Hypercalcemia of malignancy E83.52 Severe protein-calorie malnutrition E43 Bladder cancer metastasized to bone C67.9; C79.51
[2022-10-19] MEDS: HYDROmorphone INJ 0.5 MG/0.5 ML SYR IV PRN ×2 (11:22→14:20)
--- NOTE | 2022-10-19 12:13 | Electrocardiogram Report ---
Test Reason : Blood Pressure : / mmHG Vent. Rate : 098 BPM Atrial Rate : 098 BPM P-R Int : 152 ms QRS Dur : 082 ms QT Int : 326 ms P-R-T Axes : 082 074 073 degrees QTc Int : 416 ms Normal sinus rhythm Normal ECG When compared with ECG of 06-JUL-2022 23:25, No significant change was found Confirmed by Conner Garcia ([id number]) on 10/19/2022 12:13:00 PM Referred By: Confirmed By:Ambrocio Garcia
--- NOTE | 2022-10-19 15:56 | XRay Report ---
XR femur LT 2V routine HISTORY: 72 years-old Female leg pain acute pain of the pelvis and left femur COMPARISON: CT 07/22/2022, radiographs 07/15/2022, 05/15/2022. TECHNIQUE: 2 views of the left femur FINDINGS: Intramedullary evelyn left femur is noted with 2 proximal cannulated screws within the femoral neck. Lar ge permeative femoral diaphyseal lucent lesion is again noted which again demonstrates lucent bony de struction with progressive surrounding periosteal elevation.r subacute appearing pathologic fracturin g of the proximal diaphysis with lateral displacement of 1.1 cm. IMPRESSION: Internal fixation of the left femur with large permeative diaphyseal lesion redemonstrate d, now with subacute pathologic mildly displaced fracture and surrounding periosteal reaction. ACT 112: Negative or not required by law. The above report was generated using voice recognition software. It may contain grammatical, syntax o r spelling errors. Electronically signed by: Kahlil Serrato M.D. 10/19/2022 3:54 PM
--- NOTE | 2022-10-19 16:19 | XRay Report ---
XR pelvis 1-2V routine CLINICAL HISTORY: Left hip pain. COMPARISON STUDY: Pelvis 07/15/2022. FINDINGS: No acute fracture or dislocation within the pelvis or right hip. There is a partially visua lized left femoral intramedullary evelyn with femoral head/neck screws. This traverses the permeative/de structive lesions within the proximal left femur. There is a subacute fracture noted within the proxi mal shaft of the left femur which is better appreciated on the same day left femur radiograph. Ureter al stents and postoperative changes again noted within the pelvis. IMPRESSION: 1. A subacute fracture within the proximal shaft of the left femur which is better appreciated on the same day left femur radiograph. 2. No acute fracture or dislocation within the pelvis or right hip. 3. Permeative/destructive lesions within the proximal left femur status post internal fixation. ACT 112: Negative or not required by law. Electronically signed by: Varghese Maher M.D. 10/19/2022 4:18 PM
[2022-10-19] MEDS: HYDROmorphone INJ 1 MG/ML SYRINGE IV PRN (16:25)
--- NOTE | 2022-10-19 16:35 | Oncology Consultation ---
Date of Consultation October 19, 2022 Assessment & Plan (1) Hypercalcemia of malignancy: (2) Bladder cancer metastasized to bone: Plan 72-year-old female with metastatic bladder cancer for which she has received multiple lines of treatment including immunotherapy and more recently gemci tabine/cisplatin. Presented with hypercalcemia of malignancy. Patient's daughter would like her to establish care locally for management of hypercalcemia. -She appears to be in very poor shape and of poor performance status at this time. Overall prognosis appears poor and this was discussed with patient's daughter. Would recommend strongly considering supportive care/hospice. If patient/family wants to continue with systemic therapy, would be happy to help locally with monthly bisphosphonate/Xgeva injections to help reduce risk of hypercalcemia of malignancy in the setting of bone metastasis. Thank you for this consult. Oncology will plan to see her upon discharge from hospital. Please feel free to call if have any further questions History of Present Illness Reason for Consultation: Hypercalcemia of malignancy Attending Physician: Gonzalo Pinto DO History of Present Illness 72-year-old female with history of metastatic bladder cancer initially diagnosed about 2 years ago for which she s/p cystectomy. She received immunotherapy for metastatic disease which had to be switched to cisplatin/gemcitabine for disease progression. Patient was initially followed by medical oncology at [facility] prior to [facility] [place] where she was receiving cisplatin/gemcitabine up until April,. Treatment had to be discontinued due to declining performance status and multiple health issues including bowel obstruction. Patient was admitted to [facility] with fatigue, generalized weakness due to hypercalcemia. Calcium level on admission was elevated at 13.5. She received 4mg IV Zometa as well as calcitonin with improvement in calcium level to 10.7 today. At the time of evaluation, patient appeared to be in pain was fatigued and generally of poor performance status Allergies Allergy/AdvReac Type Severity Reaction Status Date / Time Sulfa (Sulfonamide Allergy Unknown CAN'T Verified 10/18/22 16:10 Antibiotics) REMEMBER Home Medications Medication Instructions Recorded Confirmed Type Ayur-Boswellia Aniket 2 tab PO BID 01/28/22 10/18/22 History Berberine Complex 2 cap PO BID 01/28/22 10/18/22 History Curcu-Essentials 1 tab PO BID 01/28/22 10/18/22 History Proepa 1 tab PO BID 01/28/22 10/18/22 History acetaminophen 500 mg tablet 1,000 mg PO Q6H PRN Fever Or Pain 01/28/22 10/18/22 History hydroxyzine HCl 25 mg tablet 25 mg PO QAM 01/28/22 10/18/22 History lysine 500 mg tablet (L-Lysine) 500 mg PO DAILY 01/28/22 10/18/22 History magnesium citrate 100 mg capsule 100 mg PO DAILY 01/28/22 10/18/22 History zinc 15 mg tablet 15 mg PO DAILY 04/26/22 10/18/22 History digestive enzymes 1 cap PO TID 07/06/22 10/18/22 History docusate sodium 100 mg capsule 100 mg PO TID 07/06/22 10/18/22 History (Colace) fentanyl 50 mcg/hr transdermal 50 mcg topical CQ72HR 07/06/22 10/18/22 History patch oxycodone 10 mg tablet 10 mg PO .Q4-6HRS PRN Pain 07/06/22 10/18/22 History dronabinol 10 mg capsule 10 mg PO BID #60 caps 07/18/22 10/18/22 Rx ondansetron 4 mg disintegrating 4 mg PO QID PRN nausea and 07/18/22 10/18/22 Rx tablet vomiting 30 days #60 tabs pantoprazole 40 mg tablet,delayed 40 mg PO BID 30 days #60 tabs 07/18/22 10/18/22 Rx release apixaban 5 mg tablet (Eliquis) 5 mg PO BID 10/18/22 10/18/22 History doxycycline hyclate 100 mg capsule 100 mg PO BID 10/18/22 10/18/22 History Patient History Medical History Acute DVT (deep venous thrombosis) Bladder cancer metastasized to bone Fever Hyponatremia Leukocytosis Sepsis Thrombocytopenia Surgical History History of fracture of femur with evelyn placement; LEFT History of hysterectomy History of nephrostomy History of total cystectomy Family History Other Family history non-contributory Social History Smoking Status: Never smoker Second Hand Exposure: No; Do You Dip or Chew Tobacco: No; Hx Alcohol Use: No Hx Substance Use: No Preferred Language: Greek Communication Ability: Effective Communication Ability Comment: daughter assists with communication Communication Tools: IPad, Facial Expression, Physical Gestures and Lip Movement/Reading Microstrategy Architect Developer Required: No Beliefs That Will Affect Care: None marital status: / Current Living Situation: Family Current Living Situation Comment: daughter Feels Safe at Home: Yes Safety Concerns: Feels Safe At This Time Assistive Devices: Bedside Commode, Hospital Bed, Walker and Wheelchair Results & Data Vital Signs (Past 12 Hours) Vital Signs Temp Pulse Pulse Resp BP Pulse Ox O2 Del Method 10/19/22 16:29 36.4 C L 103 H 22 101/62 99 Room Air 10/19/22 09:00 Room Air 10/19/22 11:48 36.9 C 95 H 16 109/50 L 98 Room Air 10/19/22 08:13 36.6 C 98 H 16 109/53 L 98 Room Air 10/19/22 07:27 93 H
[2022-10-19] MEDS ORDERED: DEXAMETHASONE SOD INJ 4 MG/ML VIAL IV SCH (21:00)
[2022-10-20] MEDS: HYDROmorphone INJ 1 MG/ML SYRINGE IV PRN ×4 (00:57→17:53)
[2022-10-20] MEDS: dexAMETHasone 4 MG in SYRINGE 0 ML IV SCH ×3 (00:58→20:13)
[2022-10-20] MEDS: PLASMA-LYTE A 1,000 ML IV SCH ×3 (01:16→23:50)
[2022-10-20] MEDS: CALCITONIN SALMON 400 UNITS/2 ML SQ SCH (05:42)
--- NOTE | 2022-10-20 07:19 | Orthopedic Consultation ---
Date of Consultation October 20, 2022 Assessment & Plan (1) Pathologic fracture of femur: We will coordinate care with hospitalist and oncology. I will try to speak with her daughter. Treatment of her left femur will depend on several factors. 1 of which is whether or not she is weightbearing or has the capacity to stand and bear weight. If she does not have the capacity to ambulate then probably no further treatment would be necessary. Another factor is her life expectancy. The factors include her nutritional status elevated calcium and white count. If she had a reasonable life expectancy and some capacity to ambulate and her other health issues were in order surgery could be considered. The surgery that I would consider is simply the insertion of some distal interlocking screws into the distal femur to statically lock the length of the nail and thus the femur. This would provide additional temporary stability to the bone. An additional consideration is radiation treatments to the left femur although this may have been performed previously. Present on Admission?: Yes History of Present Illness Attending Physician: Gonzalo Pinto, History of Present Illness Nichole is 72 years old and has metastatic bladder cancer. Her recent and past history is noted from review of the medical records. She is admitted here due to the secondary effects of hypercalcemia. She reports that she cannot walk because she will fall over due to pain in the left hip area. She reports having cancer metastases to the left thigh bone. She had surgery there in March 2021 which she thinks was here at [facility] although it could have been at [facility]. She is unable to provide details of when she may have ambulated last. There has been no acute injury to the left leg in terms of a fall. She was unable to relate whether the leg is different currently than it had been previously. I will speak with her daughter eventually. She may have had some radiation treatments to the left femur in the past. Allergies Allergy/AdvReac Type Severity Reaction Status Date / Time Sulfa (Sulfonamide Allergy Unknown CAN'T Verified 10/18/22 16:10 Antibiotics) REMEMBER Home Medications Medication Instructions Recorded Confirmed Type Ayur-Boswellia Aniket 2 tab PO BID 01/28/22 10/18/22 History Berberine Complex 2 cap PO BID 01/28/22 10/18/22 History Curcu-Essentials 1 tab PO BID 01/28/22 10/18/22 History Proepa 1 tab PO BID 01/28/22 10/18/22 History acetaminophen 500 mg tablet 1,000 mg PO Q6H PRN Fever Or Pain 01/28/22 10/18/22 History hydroxyzine HCl 25 mg tablet 25 mg PO QAM 01/28/22 10/18/22 History lysine 500 mg tablet (L-Lysine) 500 mg PO DAILY 01/28/22 10/18/22 History magnesium citrate 100 mg capsule 100 mg PO DAILY 01/28/22 10/18/22 History zinc 15 mg tablet 15 mg PO DAILY 04/26/22 10/18/22 History digestive enzymes 1 cap PO TID 07/06/22 10/18/22 History docusate sodium 100 mg capsule 100 mg PO TID 07/06/22 10/18/22 History (Colace) fentanyl 50 mcg/hr transdermal 50 mcg topical CQ72HR 07/06/22 10/18/22 History patch oxycodone 10 mg tablet 10 mg PO .Q4-6HRS PRN Pain 07/06/22 10/18/22 History dronabinol 10 mg capsule 10 mg PO BID #60 caps 07/18/22 10/18/22 Rx ondansetron 4 mg disintegrating 4 mg PO QID PRN nausea and 07/18/22 10/18/22 Rx tablet vomiting 30 days #60 tabs pantoprazole 40 mg tablet,delayed 40 mg PO BID 30 days #60 tabs 07/18/22 10/18/22 Rx release apixaban 5 mg tablet (Eliquis) 5 mg PO BID 10/18/22 10/18/22 History doxycycline hyclate 100 mg capsule 100 mg PO BID 10/18/22 10/18/22 History Patient History Medical History (Updated 10/20/22 @ 07:14 by Jamie Bueno MD) Acute DVT (deep venous thrombosis) Bladder cancer metastasized to bone Fever Hyponatremia Leukocytosis Palliative care by specialist Sepsis Thrombocytopenia Surgical History History of fracture of femur with evelyn placement; LEFT History of hysterectomy History of nephrostomy History of total cystectomy Family History Other Family history non-contributory Social History Smoking Status: Never smoker Second Hand Exposure: No; Do You Dip or Chew Tobacco: No; Hx Alcohol Use: No Hx Substance Use: No Preferred Language: Congolese Communication Ability: Effective Communication Ability Comment: daughter assists with communication Communication Tools: IPad, Facial Expression, Physical Gestures and Lip Movement/Reading Computer Systems Security Administrator Required: No Beliefs That Will Affect Care: None marital status: / Current Living Situation: Family Current Living Situation Comment: daughter Feels Safe at Home: Yes Safety Concerns: Feels Safe At This Time Assistive Devices: Bedside Commode, Hospital Bed, Walker and Wheelchair Physical Exam Physical Exam: In general she is cachectic in appearance. The left leg is swollen and edematous. 2+ throughout. She has 3+ to 4- out of 5 strength to ankle and toe plantarflexion dorsiflexion inversion and eversion. She is unable to lift her right leg in the active straight leg raise maneuver and unable to do the left leg either. She can bend her right knee with assistance to about 120 degrees and her left knee to about 60 degrees. She is unable to do significant active left knee flexion or extension. Left knee and hip flexion appears uncomfortable in the left thigh area. She has good hip rotatory movements with some discomfort. The left thigh is swollen but not red and there are no open wounds. There is not any discrete tenderness to palpation over the left femur or hip area. Results & Data Vital Signs (Past 12 Hours) Vital Signs Temp Pulse Resp BP Pulse Ox O2 Del Method 10/20/22 04:16 36.9 C 96 H 18 117/70 96 Room Air 10/19/22 21:30 Room Air 10/19/22 23:30 37.0 C 106 H 18 121/59 L 95 Room Air 10/19/22 19:55 37.5 C 105 H 20 111/61 96 Room Air Laboratory Results She is afebrile. Her white blood cell count is elevated. She is markedly anemic and hypercalcemic. Radiograph of the left femur shows a unlocked distally femoral nail with metastatic disease throughout the diaphysis of the bone and a new pathological fracture of the lateral cortex. There is no shortening of the bone. This is in comparison to previous films. Hardware intact.
[2022-10-20] MEDS: CHECK fentaNYL PATCH PLACEMENT SCH ×4 (08:30→23:50)
[2022-10-20] MEDS: hydrOXYzine HCl 25 MG TAB PO SCH (09:31)
[2022-10-20] MEDS: DOXYCYCLINE HYCLATE 100 MG CAP PO SCH ×2 (09:31→20:13)
[2022-10-20] MEDS: MAGNESIUM OXIDE 400 MG TAB PO SCH (09:31)
[2022-10-20] MEDS: APIXABAN 5 MG TABLET PO SCH ×2 (09:31→20:13)
[2022-10-20] MEDS: PANTOprazole 40 MG TAB PO SCH ×2 (09:32→20:13)
[2022-10-20] MEDS: DOCUSATE SODIUM 100 MG CAP PO SCH ×3 (09:32→20:13)
[2022-10-20] MEDS: oxyCODONE HCL IR 5 MG TAB (IMMEDIATE RELEASE) PO PRN (16:25)
--- NOTE | 2022-10-20 16:27 | Palliative Family Discussion ---
Date of Service October 20, 2022 Patient Directed Conference Time of [id number] Participants: Corinne Campbell DNP Patient participation: Yes Patient Support System: daughter, FELIPE Buitrago Other Healthcare Provider Participation: Dr. Odell, Dr. Benedict, Leyda Escobar Med Student Meeting Location:bedside Advanced Directive available: Minna states they filled out what she believes was a POLST at [facility] but did not get a copy. They elected DNR/DNI The patient's surrogate medical decision maker participated: yes, Minna Legally authorized health care proxy: yes-Minna A family meeting was held for DANIEL ANGLIN. This meeting was necessary for determining the appropriate course of treatment. Topics of Discussion Topics of Discussion: 1. Progressive met bladder ca with bone mets now with femur fx not amenable to more radiation and limited surgical intervention; recc for NWB status 2. Prognostic scores support mortality < 30 days 3. Declining PS, worsening frailty, cancer cachexia, severe cancer pain, hypercalcemia of malignancy 4. There are no further cancer directed therapies Other Content of Meetin. Opportunity given for participants to speak and ask questions. We discussed the goals of hospice as a patient service and the goals of care; we discussed EOL trajectories and transitions dominick the emotional impact of realizing mortality as a concrete reality from prior abstract considerations. Pt was reassured that no matter where they are along this trajectory, they are not alone - their medical team will remain by their side through their journey. Discussed the pros/cons of accepting help when especially weakened and distressed by pain- which would also help provide relief/decrease caregiver burden/strain. She is reserved about hospice, feels they did not do much for when he was dying of cancer 8 years ago and left them feeling very unprepared for his and dying process. 2. Participants were assured of attention to patient comfort. 3. Reassurance provided. 4. Support was provided for informed, good-mariama decisions. 5. Emotions expressed by family were acknowledged and addressed. 6. Will ask Oncology if we can give Xgeva while she is admitted 7. Will see if we can track down [facility] POLST form. 8. Dying process: Discussed changes pt may move through in the dying process including but not limited to sleeping more, disorientation when awake, restlessness, diminished senses/inability to respond to stimulus although ability to be aware of them remains intact longer, and changes in body temperatures, skin changes/mottling/cyanosis, respiratory pattern changes, and oral secretions. Family verbalized understanding. The goal is to assure a peaceful . 9. Oxygen at EOL: For patients at the end of life, oxygen delivered by a nasal cannula provides no additional symptomatic benefit for relief of refractory dyspnea in patients with life-limiting illness compared with room air: there's a point at which that the oxygen level gets so low that it's no longer compatible with life. By providing supplemental oxygen, the dying process will be unnecessarily prolonged. Please use less burdensome but more effective strategies such as comfort care meds, oscillating fan, massage, repositioning, etc. (John AP, Estelita CF, Amber PA, et al. Effect of palliative oxygen versus room air in relief of breathlessness in patients with refractory dyspnoea: a double-blind, randomised controlled trial. Lancet. 2010;376(5302):694-793. doi:10.1016/N0581-1848([id number])34520-4) Time Involved in Meeting: I spent 115 minutes overall addressing this case: 10 in medical data review/discussion with referring provider(s) and/or preparation for the visit 15 in direct interaction with the patient 60 Advance Care Planning/Goals of Care discussions as detailed above in note (must be >16min) 10 in subsequent review and synthesis of assessment and plan 20 in communicating with other providers regarding the patient's case: nursing, primary teams, oncology, ortho
--- NOTE | 2022-10-20 17:46 | Hospitalist Progress Note ---
Date of Service October 20, 2022 Assessment & Plan (1) Hypercalcemia of malignancy: Plan: - Orthopedic sugery reccomended patient not to be weight bearing and felt that intervention on femur fracture was unlikely to improve her capacity. - Family meeting today with palliative and hospitalist team. Assessed daughter and patient understanding of lack of meaningful interventions. [facility] reported "maxxed out" on radition treatments, and that her body would not likely be helped with chemo treatments. Although [place] was originally considering orthopedic surgery this was last month prior to her current clinical picture. Daughter and patient desire for her to be comfortable and "spend her time awake and alert" as much as possible. They both expressed a desire for management of calcium and glucose as abnormal levels makes her "out of it". They are currently working with [facility] home health. - Calcium: 10.7 (10/19) - She requires bisphosphonate treatment despite her also being dehydrated * Zometa 4mg IV ONCE (renally dose per pharmacy) * Calcitonin 170 units SQ q12h for further three doses (to be adjusted depending on repeat Ca levels) * IV fluids with Normosol overnight * Repeat PRP and ionized calcium with AM labs (2) Anemia: (3) Bladder cancer metastasized to bone: Plan: - Severe 8-10/10 pain. * Dilaudid * Dexamethasone (4) Left leg swelling: Plan: - Chronic left leg swelling due to metastatic cancer on this side. Venous doppler in July 2022 without DVT, no need to repeat this * Continue Eliquis 5mg PO BID (5) Severe protein-calorie malnutrition: Plan: Application Development Intern consult Plan #Hypercalcemia of Malignancy #Anemia #Bladder Cancer Metastasized to Bone #Left Leg Swelling -Chronic, due to malignancy/mets on this side #Severe Protein-Calorie Malnutrition VTE Prophyalxis - Eliquis Diet -regular Disposition - admit to med/tele DNR/DNI Admission and Anticipated Discharge Date Admission Date: October 18, 2022 Supervising Physician Co-Signing Physician Notes I personally examined the patient and verified all gómez points of history and exam, discussed case, and agree with decision making and plan documented by student physician Leyda Escobar [facility]. On exam, patient endorses feeling fatigued and having diffuse pain. Family meeting accompanied by palliative care today discussing goals of care with patient and her daughter Lea. At this meeting, DNR/DNI status was agreed upon. We reviewed patient's worsening prognosis and discussed importance of patient's wishes in terms of neck steps. Unfortunately patient is extremely deconditioned and will likely not be able to ambulate in setting of bony metastases and recent hardware placement, she is recommended to remain nonweightbearing at present. Patient has received a dose of zoledronic acid for her hypercalcemia. We discussed ways to manage episodes of hypoglycemia. Focus will be on pain control and comfort at present. Thankfully, patient has a good relationship with [facility] home care, at present they elect to have consultation with hospice in their home, will work to get patient back home safely for continued conversations. Subjective Today patient reports 8/10 pain in her pelvis and thigh. She has no appetite. She said "I need to eat to build up my strength". She denied chest pain, sob, or abd pain. Review of Systems Constitutional: Denied fever, night sweats, fatigue, weakness, dizziness Respiratory: Denied cough or shortness of breath. Cardiovascular: Additional Comments: Denied chest pain, palpitations Gastrointestinal: Denied nausea, vomiting, diarrhea, abdominal pain. Physical Exam Constitutional: Alert and oriented x2 (thought she was in "a hospital in [place]") Eyes: Pupils were equal, normal shape and size. Anicteric sclerae. ENMT: No hearing impairment. Neck: Respiratory: CTA, no increased work of breathing, no cough, heavy sighing Cardiovascular: Normal rate and regular rhythm. S1 S2, no rubs/murmurs/gallops auscultated. Gastrointestinal (Abdomen): Nondistended, nontender, normoactive bowel sounds. Musculoskeletal: Unable to to move independently due to weakness and pain in her left leg. Skin: Warm dry, no apparent rashes. Psychiatric: Depressed mood and affect. Results & Data Results & Data Vital Signs (Past 12 Hours) Vital Signs Temp Pulse Pulse Resp BP Pulse Ox O2 Del Method 10/20/22 16:36 85 10/20/22 15:11 36.5 C 93 H 20 112/68 97 Room Air 10/20/22 10:56 36.8 C 82 20 110/67 99 Room Air 10/20/22 08:45 Room Air 10/20/22 08:23 36.2 C L 98 H 20 120/66 98 Room Air 10/20/22 07:40 88 (2) Anemia Anemia type: unspecified type Qualified Code(s): D64.9 - Anemia, unspecified
[2022-10-21] MEDS: HYDROmorphone INJ 1 MG/ML SYRINGE IV PRN (02:05)
[2022-10-21] MEDS: APIXABAN 5 MG TABLET PO SCH ×2 (07:54→21:49)
[2022-10-21] MEDS: MAGNESIUM OXIDE 400 MG TAB PO SCH (07:55)
[2022-10-21] MEDS: DOXYCYCLINE HYCLATE 100 MG CAP PO SCH ×2 (07:55→21:50)
[2022-10-21] MEDS: DOCUSATE SODIUM 100 MG CAP PO SCH ×3 (07:55→21:49)
[2022-10-21] MEDS: hydrOXYzine HCl 25 MG TAB PO SCH (07:55)
[2022-10-21] MEDS: PANTOprazole 40 MG TAB PO SCH ×2 (07:55→21:50)
[2022-10-21] MEDS: CHECK fentaNYL PATCH PLACEMENT SCH ×3 (07:58→23:35)
[2022-10-21] MEDS: dexAMETHasone 4 MG in SYRINGE 0 ML IV SCH ×2 (08:01→21:50)
--- NOTE | 2022-10-21 08:39 | Hospitalist Progress Note ---
Date of Service October 21, 2022 Assessment & Plan (1) Hypercalcemia of malignancy: (2) Anemia: (3) Bladder cancer metastasized to bone: Plan: - Severe 8-10/10 pain. * Dilaudid * Dexamethasone (4) Left leg swelling: (5) Severe protein-calorie malnutrition: Plan #Hypercalcemia of Malignancy - Orthopedic sugery reccomended patient not to be weight bearing and felt that intervention on femur fracture was unlikely to improve her capacity. - Family meeting today with palliative and hospitalist team. Assessed daughter and patient understanding of lack of meaningful interventions. [facility] reported "maxxed out" on radition treatments, and that her body would not likely be helped with chemo treatments. Although [place] was originally considering orthopedic surgery this was last month prior to her current clinical picture. Daughter and patient desire for her to be comfortable and "spend her time awake and alert" as much as possible. They both expressed a desire for management of calcium and glucose as abnormal levels makes her "out of it". They are currently working with [facility] home health. - Calcium: 13.5-->10.7-->8.5 - She requires bisphosphonate treatment despite her also being dehydrated * Zometa 4mg IV ONCE (renally dose per pharmacy) * Calcitonin 170 units SQ q12h for further three doses (to be adjusted depending on repeat Ca levels) * IV fluids with Normosol overnight * Repeat PRP and ionized calcium with AM labs #Anemia Monitor Hgb #Bladder Cancer Metastasized to Bone End stage Severe 8-10/10 pain. Continue Dilaudid, dexamethasone #Left Leg Swelling -Chronic, due to malignancy/mets on this side #Severe Protein-Calorie Malnutrition VTE Prophyalxis - Eliquis Diet -regular Disposition DNR/DNI Admission and Anticipated Discharge Date Admission Date: October 18, 2022 Supervising Physician Co-Signing Physician Notes I personally examined the patient and verified all gómez points of history and exam, discussed case, and agree with decision making and plan documented by Dr. Benedict. Patient seated in bed and resting comfortably on exam today. Discussed importance of focus on comfort. Patient did request pain medication for overall discomfort. Patient endorses struggling with bedpan, it is painful for her and would like to explore other options, unfortunately she is limited as she is nonweightbearing. Plan is for conversation on 10/23/2022 for safe discharge home with either palliative or hospice care. 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 Consideration for palliative care vs. hospice on discharge Continues to have severe pain in her sacrum>hip and thigh. She denied chest pain, sob, or abd pain. Pts daughter was on the phone during my encounter Review of Systems Constitutional: Denied fever, night sweats, fatigue, weakness, dizziness Respiratory: Denied cough or shortness of breath. Cardiovascular: Additional Comments: Denied chest pain, palpitations Gastrointestinal: Denied nausea, vomiting, diarrhea, abdominal pain. Physical Exam Physical Exam: General: cachectic, frail, more alert today. Answers questions appropriately and follows commands. Skin: warm, dry, intact, no rashes or lesions HEENT: NC/AT, PERRL, EOMI, anicteric sclera, conjunctiva without injection, external ear normal to inspection and nontender, nares patent, moist mucus membranes, dentition intact, no oropharyngeal lesions, neck supple, trachea midline, no LAD, no thyromegaly, no JVD Heart: +S1/S2, regular, no m/r/g Lungs: equal air entry bilaterally, no rales/rhonchi/wheezes Abd: +BS, soft, NT/ND, no masses/organomegaly/ascites Ext: warm, 2+ pulses in UE/LE bilaterally, no clubbing/cyanosis or edema Neuro: nonfocal, speech intact, no facial droop, moving all extremities on command. Results & Data Results & Data Vital Signs (Past 12 Hours) Vital Signs Temp Pulse Pulse Resp BP Pulse Ox O2 Del Method 10/21/22 07:14 36.4 C L 82 16 122/62 97 Room Air 10/21/22 07:02 80 10/21/22 03:13 36.4 C L 76 18 113/63 98 Room Air 10/20/22 23:26 36.3 C L 75 18 119/68 99 Room Air 10/20/22 21:58 71 Laboratory Results Abnormal lab results 10/21/22 10/21/22 Range/Units 08:57 08:57 WBC 62.37 H* (4.8-10.8) K/ul RBC 2.08 L (4.20-5.40) M/uL Hgb 7.1 L (12.0-16.0) g/dl Hct 21.4 L (37.0-47.0) % MCV 102.9 H (80.0-100.0) fL MCH 34.1 H (25.0-34.0) pg RDW Std Deviation 80.0 H (36.4-46.3) fL RDW Coeff of Macario 21.2 H (11.5-14.5) % Neut # (Auto) 54.90 H (1.40-6.50) K/uL [place] # (Auto) 2.77 H (0.11-0.59) K/uL Immature Gran # (Auto) 2.19 H (0.01-0.20) K/uL Sodium 133 L (136-145) mmol/L BUN 29 H (6-23) mg/dl Creatinine 0.42 L (0.6-1.2) mg/dl BUN/Creatinine Ratio 69.0 H (10-20) Calcium 8.5 L (8.6-10.3) mg/dl Phosphorus 1.6 L (2.5-4.9) mg/dl AST 9 L (13-39) U/L Total Protein 5.4 L (6.0-8.3) gm/dl Albumin 2.6 L (3.4-5.0) gm/dl Resident Activity Tracking Resident Involvement: Resident Care Provided Care Provided: Adult Hospital Medicine (2) Anemia Anemia type: unspecified type Qualified Code(s): D64.9 - Anemia, unspecified
[2022-10-21 09:57] LABS: Albumin Globulin Ratio 0.9 (0.9-2); Albumin Level 2.6 gm/dl (3.4-5.0); Bilirubin,Total 0.3 mg/dl (0.2-1.0); Calcium 8.5 mg/dl (8.6-10.3); Creatinine Clr Calc Pharmacy 88.7 ml/min; Est GFR (African American) 117.9 ml/min; Est GFR (Non-African American) 101.7 ml/min; Globulin 2.8 gm/dl (2.5-4.0); Magnesium 1.7 mg/dl (1.7-2.4); Phosphorus 1.6 mg/dl (2.5-4.9); Total Protein 5.4 gm/dl (6.0-8.3)
[2022-10-21 10:03] LABS: Hematocrit (blood only) 21.4 % (37.0-47.0); Hemoglobin 7.1 g/dl (12.0-16.0); Mean Corpuscular Hemoglobin 34.1 pg (25.0-34.0); Mean Corpuscular Hgb Conc 33.2 g/dL (32.0-36.0); Mean Corpuscular Volume 102.9 fL (80.0-100.0); Platelet Count 291 K/uL (130-400); RDW Coefficient of Variation 21.2 % (11.5-14.5); Red Blood Count 2.08 M/uL (4.20-5.40); White Blood Count 62.37 K/ul (4.8-10.8)
[2022-10-21 10:04] LABS: Anisocytosis Present; Basophils # (auto) 0.02 K/uL (0-0.2); Eosinophils # (auto) 0.14 K/uL (0-0.50); Eosinophils % (auto) 0.2 %; Immature Granulocytes # (auto) 2.19 K/uL (0.01-0.20); Immature Granulocytes % (auto) 3.5 %; Lymphocytes # (auto) 2.35 K/uL (1.2-3.4); Lymphocytes % (auto) 3.8 %; Monocytes # (auto) 2.77 K/uL (0.11-0.59); Monocytes % (auto) 4.4 %; Neutrophils % (auto) 88.1 %; Toxic Granulation 1+
[2022-10-21] MEDS: HYDROmorphone INJ 0.5 MG/0.5 ML SYR IV PRN ×3 (11:18→19:33)
[2022-10-21] MEDS: PLASMA-LYTE A 1,000 ML IV SCH ×2 (11:18→23:35)
[2022-10-21] MEDS: fentaNYL 50 MCG/HR TDSY TD SCH (23:31)
[2022-10-22] MEDS: oxyCODONE HCL IR 5 MG TAB (IMMEDIATE RELEASE) PO PRN ×3 (01:52→15:09)
[2022-10-22] MEDS: PANTOprazole 40 MG TAB PO SCH ×2 (07:48→20:10)
[2022-10-22] MEDS: CHECK fentaNYL PATCH PLACEMENT SCH ×2 (07:48→15:16)
[2022-10-22] MEDS: APIXABAN 5 MG TABLET PO SCH ×2 (07:48→20:09)
[2022-10-22] MEDS: DOXYCYCLINE HYCLATE 100 MG CAP PO SCH ×2 (07:49→20:09)
[2022-10-22] MEDS: MAGNESIUM OXIDE 400 MG TAB PO SCH (07:49)
[2022-10-22] MEDS: hydrOXYzine HCl 25 MG TAB PO SCH (07:49)
[2022-10-22] MEDS: DOCUSATE SODIUM 100 MG CAP PO SCH ×3 (07:50→20:09)
[2022-10-22] MEDS: dexAMETHasone 4 MG in SYRINGE 0 ML IV SCH ×2 (07:51→20:09)
--- NOTE | 2022-10-22 08:03 | Hospitalist Progress Note ---
Date of Service October 22, 2022 Assessment & Plan (1) Hypercalcemia of malignancy: (2) Anemia: (3) Bladder cancer metastasized to bone: (4) Left leg swelling: (5) Severe protein-calorie malnutrition: (6) Hypophosphatemia: Plan #Hypercalcemia of Malignancy - Orthopedic sugery reccomended patient not to be weight bearing and felt that intervention on femur fracture was unlikely to improve her capacity. - Family meeting today with palliative and hospitalist team. Assessed daughter and patient understanding of lack of meaningful interventions. [facility] reported "maxxed out" on radition treatments, and that her body would not likely be helped with chemo treatments. Although [place] was originally considering orthopedic surgery this was last month prior to her current clinical picture. Daughter and patient desire for her to be comfortable and "spend her time awake and alert" as much as possible. They both expressed a desire for management of calcium and glucose as abnormal levels makes her "out of it". They are currently working with [facility] home health. - Calcium: 13.5-->10.7-->8.5 - She requires bisphosphonate treatment despite her also being dehydrated * Zometa 4mg IV ONCE (renally dose per pharmacy) * Calcitonin 170 units SQ q12h for further three doses (to be adjusted depending on repeat Ca levels) * IV fluids with Normosol overnight * Repeat PRP and ionized calcium with AM labs #Hypophosphatemia 1.4 this AM Calculated repletion 60mmol based on weight, divided into 3 doses #Anemia Monitor Hgb #Bladder Cancer Metastasized to Bone End stage Severe 8-10/10 pain. Continue Dilaudid, dexamethasone #Left Leg Swelling -Chronic, due to malignancy/mets on this side #Severe Protein-Calorie Malnutrition VTE Prophyalxis - Eliquis Diet -regular Disposition DNR/DNI Admission and Anticipated Discharge Date Admission Date: October 18, 2022 Supervising Physician Co-Signing Physician Notes I personally examined the patient and verified all gómez points of history and exam, discussed case, and agree with decision making and plan documented by Dr. Benedict. Patient denied pain or discomfort on exam today. Patient is hopeful for discharge home so that she has the ability to see her grandson and his baby who are visiting from out of town. Following conversation on 10/20/2022, the plan was to discuss discharge on home hospice 10/23/2022 with patient and her daughter Minna. Patient understands that she is not recommended to weight-bear due to bone and hardware fragility. Patient has been struggling with her bedpan, we spoke about inflatable versions that are available on [employer] that might be more comfortable for her at home. Marked leukocytosis in setting of metastatic disease. We discussed improvement of her calcium level and that phosphorus will be repleted today. Patient drinking juice to avoid hypoglycemic symptoms. Focus remains on comfort care at this time. 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 Consideration for palliative care vs. hospice on discharge Continues to have severe pain in her sacrum>hip and thigh. She denied chest pain, sob, or abd pain. Pt expressing desire to return home soon to visit with her grandchild who she sees very infrequently. Review of Systems Review of Systems: reviewed, see HPI Physical Exam Physical Exam: General: patient resting comfortably, NAD, frail, more alert today answers questions appropriately and follows commands. Skin: warm, dry, intact, no rashes or lesions HEENT: NC/AT, anicteric sclera, conjunctiva without injection, external ear normal to inspection, nares patent, moist mucus membranes, dentition intact, neck supple, trachea midline, no thyromegaly, no JVD Heart: +S1/S2, regular, no m/r/g Lungs: equal air entry bilaterally, no rales/rhonchi/wheezes Abd: +BS, soft, NT/ND, no masses/organomegaly/ascites Ext: warm, no clubbing/cyanosis or edema Neuro: nonfocal, patient AA&O x 4, speech intact, no facial droop, moving all extremities on command. Results & Data Results & Data Vital Signs (Past 12 Hours) Vital Signs Temp Pulse Pulse Resp BP Pulse Ox O2 Del Method 10/22/22 06:59 81 10/22/22 03:18 36.9 C 82 18 110/65 98 Room Air 10/21/22 22:00 75 10/21/22 23:39 36.8 C 80 18 117/74 99 Room Air Laboratory Results Abnormal lab results 10/21/22 10/21/22 Range/Units 08:57 08:57 WBC 62.37 H* (4.8-10.8) K/ul RBC 2.08 L (4.20-5.40) M/uL Hgb 7.1 L (12.0-16.0) g/dl Hct 21.4 L (37.0-47.0) % MCV 102.9 H (80.0-100.0) fL MCH 34.1 H (25.0-34.0) pg RDW Std Deviation 80.0 H (36.4-46.3) fL RDW Coeff of Macario 21.2 H (11.5-14.5) % Neut # (Auto) 54.90 H (1.40-6.50) K/uL [facility] # (Auto) 2.77 H (0.11-0.59) K/uL Immature Gran # (Auto) 2.19 H (0.01-0.20) K/uL Sodium 133 L (136-145) mmol/L BUN 29 H (6-23) mg/dl Creatinine 0.42 L (0.6-1.2) mg/dl BUN/Creatinine Ratio 69.0 H (10-20) Calcium 8.5 L (8.6-10.3) mg/dl Phosphorus 1.6 L (2.5-4.9) mg/dl AST 9 L (13-39) U/L Total Protein 5.4 L (6.0-8.3) gm/dl Albumin 2.6 L (3.4-5.0) gm/dl Resident Activity Tracking Resident Involvement: Resident Care Provided Care Provided: Adult Hospital Medicine (2) Anemia Anemia type: unspecified type Qualified Code(s): D64.9 - Anemia, unspecified
[2022-10-22 09:12] LABS: Hematocrit (blood only) 21.4 % (37.0-47.0); Hemoglobin 7.1 g/dl (12.0-16.0); Mean Corpuscular Hemoglobin 34.5 pg (25.0-34.0); Mean Corpuscular Hgb Conc 33.2 g/dL (32.0-36.0); Mean Corpuscular Volume 103.9 fL (80.0-100.0); Platelet Count 291 K/uL (130-400); RDW Coefficient of Variation 21.3 % (11.5-14.5); RDW Standard Deviation 80.6 fL (36.4-46.3); Red Blood Count 2.06 M/uL (4.20-5.40); White Blood Count 58.26 K/ul (4.8-10.8)
[2022-10-22 09:29] LABS: Basophils # (auto) 0.02 K/uL (0-0.2); Eosinophils # (auto) 0.13 K/uL (0-0.50); Eosinophils % (auto) 0.2 %; Immature Granulocytes # (auto) 1.94 K/uL (0.01-0.20); Immature Granulocytes % (auto) 3.3 %; Lymphocytes # (auto) 2.38 K/uL (1.2-3.4); Lymphocytes % (auto) 4.1 %; Monocytes % (auto) 3.8 %; Neutrophils # (auto) 51.59 K/uL (1.40-6.50); Neutrophils % (auto) 88.6 %; Toxic Granulation 1+; Toxic Vacuolation 1+
[2022-10-22 09:53] LABS: BUN Creatinine Ratio 68.6 (10-20); Creatinine Clr Calc Pharmacy 104.6 ml/min; Est GFR (African American) 125.1 ml/min; Potassium 3.9 mmol/L (3.5-5.1)
[2022-10-22 10:14] LABS: Albumin Level 2.6 gm/dl (3.4-5.0); Bilirubin,Total 0.3 mg/dl (0.2-1.0); Globulin 2.7 gm/dl (2.5-4.0); Magnesium 1.7 mg/dl (1.7-2.4); Phosphorus 1.4 mg/dl (2.5-4.9); Total Protein 5.3 gm/dl (6.0-8.3)
[2022-10-22] MEDS ORDERED: POTASSIUM PHOS 3 MMOL/1 ML INFUSION IV SCH (10:45)
[2022-10-22] MEDS ORDERED: POTASSIUM PHOSPHATE 21 MMOL in SODIUM CHLORIDE 0.9% 500 ML IV ONE (11:00)
[2022-10-22] MEDS: PLASMA-LYTE A 1,000 ML IV SCH (15:05)
[2022-10-22] MEDS ORDERED: HEPARIN 100 UNIT/ML 5ML FLUSH FLUSH PRN (21:58)
[2022-10-23] MEDS: CHECK fentaNYL PATCH PLACEMENT SCH ×3 (01:16→16:09)
[2022-10-23] MEDS: PLASMA-LYTE A 1,000 ML IV SCH ×2 (03:05→13:45)
--- NOTE | 2022-10-23 07:58 | Hospitalist Progress Note ---
Date of Service October 23, 2022 Assessment & Plan (1) Hypercalcemia of malignancy: (2) Anemia: (3) Bladder cancer metastasized to bone: (4) Left leg swelling: (5) Severe protein-calorie malnutrition: (6) Hypophosphatemia: Plan #Hypercalcemia of Malignancy Anticipate dc in today or tomorrow with support of palliative care vs hospice F/u palliative care medicine to assist with transition home. Orthopedic chris reccomended patient not to be weight bearing and felt that intervention on femur fracture was unlikely to improve her capacity. - Family meeting today with palliative and hospitalist team. Assessed daughter and patient understanding of lack of meaningful interventions. [facility] reported "maxxed out" on radition treatments, and that her body would not likely be helped with chemo treatments. Although [place] was originally considering orthopedic surgery this was last month prior to her current clinical picture. Daughter and patient desire for her to be comfortable and "spend her time awake and alert" as much as possible. They both expressed a desire for management of calcium and glucose as abnormal levels makes her "out of it". They are currently working with [facility] home health. - Calcium: 13.5-->10.7-->8.5 - She requires bisphosphonate treatment despite her also being dehydrated * Zometa 4mg IV ONCE (renally dose per pharmacy) * Calcitonin 170 units SQ q12h for further three doses (to be adjusted depending on repeat Ca levels) * IV fluids with Normosol overnight * Repeat PRP and ionized calcium with AM labs #Hypophosphatemia 1.4 this AM Calculated repletion 60mmol based on weight, divided into 3 doses #Anemia Monitor Hgb #Bladder Cancer Metastasized to Bone End stage Severe 8-10/10 pain. Continue Dilaudid, dexamethasone #Left Leg Swelling -Chronic, due to malignancy/mets on this side #Severe Protein-Calorie Malnutrition VTE Prophyalxis - Eliquis Diet -regular Disposition DNR/DNI Admission and Anticipated Discharge Date Admission Date: October 18, 2022 Supervising Physician Co-Signing Physician Notes I personally examined the patient and verified all gómez points of history and exam, discussed case, and agree with decision making with Dr Benedict Would like to go home. Denies any needs. dtr present vitals noted nad heent nc at mmm breathing unlabored no accessory muscles good effort skin no rashes no pallor or icterus metastatic ca - for home. goals of care in line with her plan. otherwise as above Subjective 72 female with metastatic bladder cancer, hypercalcemia and pathologic fracture of her R femur 2/2 osteolytic lesions. Consideration for palliative care vs. hospice on discharge Continues to have severe pain in her sacrum>hip and thigh. She denied chest pain, sob, or abd pain. Pt expressing desire to return home soon to visit with her grandchild who she sees very infrequently. Review of Systems Review of Systems: reviewed, see hpi Physical Exam Physical Exam: General: patient resting comfortably, NAD, frail, more alert today answers questions appropriately and follows commands. Skin: warm, dry, intact, no rashes or lesions HEENT: NC/AT, anicteric sclera, conjunctiva without injection, external ear normal to inspection, nares patent, moist mucus membranes, dentition intact, neck supple, trachea midline, no thyromegaly, no JVD Heart: +S1/S2, regular, no m/r/g Lungs: equal air entry bilaterally, no rales/rhonchi/wheezes Abd: +BS, soft, NT/ND, no masses/organomegaly/ascites Ext: warm, no clubbing/cyanosis or edema Neuro: nonfocal, patient AA&O x 4, speech intact, no facial droop, moving all extremities on command. Results & Data Results & Data Vital Signs (Past 12 Hours) Vital Signs Temp Pulse Pulse Resp BP Pulse Ox O2 Del Method 10/23/22 06:58 82 10/23/22 04:13 36.9 C 82 20 130/70 96 Room Air 10/23/22 00:14 37.1 C 84 20 136/81 98 Room Air 10/22/22 20:04 36.8 C 84 20 124/69 97 Room Air Resident Activity Tracking Resident Involvement: Resident Care Provided Care Provided: Adult Hospital Medicine (2) Anemia Anemia type: unspecified type Qualified Code(s): D64.9 - Anemia, unspecified
[2022-10-23] MEDS: DOCUSATE SODIUM 100 MG CAP PO SCH ×2 (08:10→13:45)
[2022-10-23] MEDS: dexAMETHasone 4 MG in SYRINGE 0 ML IV SCH (08:10)
[2022-10-23] MEDS: PANTOprazole 40 MG TAB PO SCH (08:10)
[2022-10-23] MEDS: hydrOXYzine HCl 25 MG TAB PO SCH (08:11)
[2022-10-23] MEDS: APIXABAN 5 MG TABLET PO SCH (08:11)
[2022-10-23] MEDS: MAGNESIUM OXIDE 400 MG TAB PO SCH (08:11)
[2022-10-23] MEDS: DOXYCYCLINE HYCLATE 100 MG CAP PO SCH (08:12)
[2022-10-23] MEDS: oxyCODONE HCL IR 5 MG TAB (IMMEDIATE RELEASE) PO PRN (08:23)
[2022-10-23 08:40] LABS: Hematocrit (blood only) 22.6 % (37.0-47.0); Hemoglobin 7.5 g/dl (12.0-16.0); Mean Corpuscular Hemoglobin 33.8 pg (25.0-34.0); Mean Corpuscular Hgb Conc 33.2 g/dL (32.0-36.0); Mean Corpuscular Volume 101.8 fL (80.0-100.0); Mean Platelet Volume 9.7 fL (9.4-12.4); Platelet Count 293 K/uL (130-400); RDW Coefficient of Variation 21.4 % (11.5-14.5); RDW Standard Deviation 78.9 fL (36.4-46.3); Red Blood Count 2.22 M/uL (4.20-5.40)
[2022-10-23 08:51] LABS: Albumin Level 2.6 gm/dl (3.4-5.0); BUN Creatinine Ratio 59.4 (10-20); Bilirubin,Total 0.3 mg/dl (0.2-1.0); Calcium 7.5 mg/dl (8.6-10.3); Creatinine Clr Calc Pharmacy 120.9 ml/min; Est GFR (African American) 128.9 ml/min; Est GFR (Non-African American) 111.2 ml/min; Globulin 2.7 gm/dl (2.5-4.0); Magnesium 1.5 mg/dl (1.7-2.4); Phosphorus 1.7 mg/dl (2.5-4.9); Potassium 4.1 mmol/L (3.5-5.1); Total Protein 5.3 gm/dl (6.0-8.3)
[2022-10-23 09:08] LABS: Anisocytosis Present; Basophils # (auto) 0.01 K/uL (0-0.2); Eosinophils # (auto) 0.54 K/uL (0-0.50); Eosinophils % (auto) 0.9 %; Immature Granulocytes # (auto) 2.03 K/uL (0.01-0.20); Immature Granulocytes % (auto) 3.4 %; Lymphocytes # (auto) 2.62 K/uL (1.2-3.4); Lymphocytes % (auto) 4.4 %; Monocytes # (auto) 2.81 K/uL (0.11-0.59); Monocytes % (auto) 4.7 %; Neutrophils # (auto) 52.09 K/uL (1.40-6.50); Neutrophils % (auto) 86.6 %
--- NOTE | 2022-10-23 16:15 | Palliative Care Progress Note ---
Date of Service October 23, 2022 Assessment & Plan (1) Palliative care by specialist: (2) Advanced care planning/counseling discussion: (3) Cancer related pain: (4) Metastasis to bone: (5) Weakness generalized: (6) Dyspnea and respiratory abnormalities: (7) Pathologic fracture of femur: (8) Hypercalcemia of malignancy: (9) Severe protein-calorie malnutrition: Plan * Home dc with home health and they plan to meet with "the pall care nurse from home health" * For now do not want hospice until they are home and have a chance to sit down with hospice agency and review their services * Pt is still interested in pursuing [facility]. this will not be covered by hospice unless a special exemption is requested. I am unsure how she would be able to come to clinic for the dose, ?may need to ask hospice if they would be willing to give it to pt in her home Thank you for allowing us to participate in the ongoing care of this patient. Please don't hesitate to call or page with any additional concerns. Dr. Corinne Campbell DNP Director, Palliative Care Admission and Anticipated Discharge Date Admission Date: October 18, 2022 Subjective pt awake/alert anticipates home dc would like to resume home health and visiting pall care nurse but will decide on hospice later after they get home and meet with hospice team Review of Systems Review of Systems: All systems reviewed & are unremarkable except as noted in Subjective Physical Exam Physical Exam: deferred/pt needed bedpan Results & Data Vital Signs (Past 12 Hours) Vital Signs Temp Pulse Pulse Resp BP Pulse Ox O2 Del Method 10/23/22 15:33 78 10/23/22 15:26 36.6 C 79 16 156/79 H 98 Room Air 10/23/22 11:41 36.8 C 84 16 147/74 H 98 Room Air 10/23/22 08:31 Room Air 10/23/22 08:08 36.5 C 82 16 153/73 H 95 Room Air 10/23/22 06:58 82 10/23/22 04:13 36.9 C 82 20 130/70 96 Room Air Laboratory Results reviewed Diagnostic Findings reviewed PG Care Time/CCT Total # of Minutes Spent Total Time Spent: 45 Total Time Spent with Patient: Total time spent is greater than 50% in coordination of care (as documented) at patient's floor/unit and/or counseling patient: Coding [place] [address] SUB INP/OBS CARE 350MIN Patient Type Established History Comprehensive Medical Decision Making High Complexity Diagnoses Palliative care by specialist Z51.5 Advanced care planning/counseling discussion Z71.89 Cancer related pain G89.3 Metastasis to bone C79.51 Weakness generalized R53.1 Dyspnea and respiratory abnormalities R06.00; R06.89 Pathologic fracture of femur M84.453A Hypercalcemia of malignancy E83.52 Severe protein-calorie malnutrition E43
--- NOTE | 2022-10-23 18:29 | Discharge Summary ---
Date of Service October 23, 2022 Admission HPI Per Admitting Provider Nichole Thomason is a 72 year old female who presents to the ER due to elevated calcium levels. She has known malignant bladder cancer to her bones s/p bilateral nephrostomy tube and urostomy.. Her oncologist is Dr Hobbs ([phone]) with the [facility] in [place] although they have only had telehealth visits since April and she is no longer on active cancer treatment. She was reportedly hospitalized at [facility] 4 weeks ago for a similar presentation with hypercalcemia. Her daughter notes when her calcium increases the patient gets very fatigued with generalized weakness, depressed mood and lack of appetite which is how she presents today. No history of kidney stones. No paresthesias or seizures. Admission Exam Per Admitting Provider Nichole Thomason is a 72 year old female who presents to the ER due to elevated calcium levels. She has known malignant bladder cancer to her bones s/p bilateral nephrostomy tube and urostomy.. Her oncologist is Dr Hobbs ([phone]) with the [facility] in [place] although they have only had telehealth visits since April and she is no longer on active cancer treatment. She was reportedly hospitalized at [facility] 4 weeks ago for a similar presentation with hypercalcemia. Her daughter notes when her calcium increases the patient gets very fatigued with generalized weakness, depressed mood and lack of appetite which is how she presents today. No history of kidney stones. No paresthesias or seizures. Principal Diagnosis Hypercalcemia of malignancy Discharge Exam General: patient resting comfortably, NAD,frail, more alert todayanswers questions appropriately and follows commands. Skin: warm, dry, intact, no rashes or lesions HEENT: NC/AT, anicteric sclera, conjunctiva without injection, external ear normal to inspection, nares patent, moist mucus membranes, dentition intact, neck supple, trachea midline, no thyromegaly, no JVD Heart: +S1/S2, regular, no m/r/g Lungs: equal air entry bilaterally, no rales/rhonchi/wheezes Abd: +BS, soft, NT/ND, no masses/organomegaly/ascites Ext: warm, no clubbing/cyanosis or edema Neuro: nonfocal, patient AA&O x 4, speech intact, no facial droop, moving all extremities on command. Discharge Data Allergies Allergy/AdvReac Type Severity Reaction Status Date / Time Sulfa (Sulfonamide Allergy Unknown CAN'T Verified 10/18/22 16:10 Antibiotics) REMEMBER Consultations 10/18/22 17:17 ED Decision to Admit Stat 10/18/22 21:31 Consult Oncology Routine Consult Palliative Care Routine 10/19/22 17:06 Consult Orthopedic Surgery Routine Hospital Course (1) Hypercalcemia of malignancy: (2) Anemia: (3) Bladder cancer metastasized to bone: (4) Left leg swelling: (5) Severe protein-calorie malnutrition: (6) Hypophosphatemia: Plan Nichole Thomason was admitted on 10/18/22 and found to have hypercalcemia. She has a history of metastatic bladder cancer with multiple bone mets. Throughout the course of her stay she was treated with steroids to decrease her calcium level. She was also found to have a pathologic fracture of her right femur. Multiple family meetings were held to discuss goals. Patient and her family were not ready to transition to hospice level care. She will resume her palliative care therapy with [facility] as they have the ability to escalate care as her condition deteriorates. She will also follow up with oncology to receive Xgeva to help her to not become hypercalcemic again. Pain managed and electrolytes repleted as necessary. #Hypercalcemia of Malignancy Anticipate dc in today or tomorrow with support of palliative care vs hospice F/u palliative care medicine to assist with transition home. Orthopedic chris reccomended patient not to be weight bearing and felt that intervention on femur fracture was unlikely to improve her capacity. - Family meeting today with palliative and hospitalist team. Assessed daughter and patient understanding of lack of meaningful interventions. [facility] reported "maxxed out" on radition treatments, and that her body would not likely be helped with chemo treatments. Although [place] was originally considering orthopedic surgery this was last month prior to her current clinical picture. Daughter and patient desire for her to be comfortable and "spend her time awake and alert" as much as possible. They both expressed a desire for management of calcium and glucose as abnormal levels makes her "out of it". They are currently working with [facility] home health. - Calcium: 13.5-->10.7-->8.5 - She requires bisphosphonate treatment despite her also being dehydrated * Zometa 4mg IV ONCE (renally dose per pharmacy) * Calcitonin 170 units SQ q12h for further three doses (to be adjusted depending on repeat Ca levels) * IV fluids with Normosol overnight * Repeat PRP and ionized calcium with AM labs #Hypophosphatemia 1.4 this AM Calculated repletion 60mmol based on weight, divided into 3 doses #Anemia Monitor Hgb #Bladder Cancer Metastasized to Bone End stage Severe 8-10/10 pain. Continue Dilaudid, dexamethasone #Left Leg Swelling -Chronic, due to malignancy/mets on this side #Severe Protein-Calorie Malnutrition VTE Prophyalxis - Eliquis Diet -regular Disposition DNR/DNI Total Time Total Time Spent Total Time Spent (In Minutes): please see attending attestation Discharge Plan Discharge Items Patient Disposition: Home - Home Health Services Reason For Visit: HYPERCALCEMIA OF MALIGNANCY Discharge Diagnosis: Hypercalcemia Non-emergency contact: Primary Care Provider and Oncologist Call non-emergency contact if: your symptoms worsen, your pain is worsening and your temperature is above 101 Follow-up/Referrals: Reyna Tidwell DO [Primary Care Provider] - Diet: Regular Addtl Attending Provider Instructions: You came into the hospital for fatigue and not feeling right from a high calcium level. You were given treatment to help bring down the calcium levels to a normal level. You were also found to have a small fracture of the left femur on X-ray. Orthopedics visited you and said if you are going to be walking they could perform a surgery or if you will not be using your legs for weight bearing exercises you could take conservative measures and not perform any surgery. You had talked with our Palliative care team who discussed treatment goals with you. You should follow up with your primary care doctor as well as a palliative care hospice agency to discuss and review services. You may also follow up with Dr. Abebe in oncology for further recommendations on your metastasis and high calcium levels. Please return if you have any worsening of symptoms or if you develop any fevers, chills, or worsening breathing. Pending Studies at Discharge: No Stand-Alone Forms: My AVIcode, Smoking Cessation Medications and DC Order Prescriptions: Continued acetaminophen 500 mg Tablet 1,000 mg PO Q6H PRN (Reason: Fever Or Pain) Ayur-Boswellia Aniket 2 tab PO BID Rx Instructions: without food hydroxyzine HCl 25 mg tablet 25 mg PO QAM lysine [L-Lysine] 500 mg Tablet 500 mg PO DAILY magnesium citrate 100 mg Capsule 100 mg PO DAILY Berberine Complex 2 cap PO BID Curcu-Essentials 1 tab PO BID Proepa 1 tab PO BID fentanyl 50 mcg/hr patch 72 hour 50 mcg topical [id number] Rx Instructions: CHANGED 07/23/22. digestive enzymes Capsule 1 cap PO TID Rx Instructions: administer with food; swallow whole; do not crush/chew/dissolve/break/cut docusate sodium [Colace] 100 mg Capsule 100 mg PO TID oxycodone 10 mg tablet 10 mg PO .Q4-6HRS PRN (Reason: Pain) pantoprazole 40 mg Tablet,Delayed Release (Dr/Ec) 40 mg PO BID 30 Days Qty: 60 1RF ondansetron 4 mg Tablet,Disintegrating 4 mg PO QID PRN (Reason: nausea and vomiting) 30 Days Qty: 60 2RF dronabinol 10 mg capsule 10 mg PO BID Qty: 60 0RF Rx Instructions: administer before lunch and evening meal/dinner. Pt currently holding. zinc 15 mg Tablet 15 mg PO DAILY doxycycline hyclate 100 mg capsule 100 mg PO BID Rx Instructions: Start Date 10/05/22 - End Date 11/09/22 Eliquis 5 mg tablet 5 mg PO BID Discharge Orders: Discharge Order (Routine); Ordered 10/23/22 Ordered By: Lenard Mohamud Admission Data Admit Date/Time: 10/18/22 17:46 Attending Provider: Blaine Flores Admit Provider: Francisco Javier Sylvester Primary Care Provider: Reyna Tidwell Other Providers: Francisco Javier Sylvester ; Camryn Abebe ; Irma Clifton ; [facility] ; Jamie Bueno ; Gonzalo Pinto Other Interventions: Discharge Summary Assessment (RN) Last Done: 10/23/22 18:02 Supervising Physician Co-Signing Physician Notes I personally examined the patient and verified all gómez points of history and exam, discussed case, and agree with decision making with Dr Benedict Would like to go home. Denies any needs. dtr present vitals noted nad heent nc at mmm breathing unlabored no accessory muscles good effort skin no rashes no pallor or icterus metastatic ca - for home. goals of care in line with her plan. otherwise as above Resident Activity Tracking Resident Involvement: Resident Care Provided Care Provided: Adult Hospital Medicine
--- NOTE | 2022-10-23 19:05 | Billing Data ---
Date of Service October 23, 2022 Coding Level of Care Code 35871 IN/OBS DISCH 30 MIN/LESS
== END 2022-10-23 18:03 | disposition home health service (06) | DRG 640 ==
LOC: ED 14:52 → 2W 17:46 → SUATTDRO 17:46 → 2W 21:06